=== PATIENT | male | born 1955 | race African-American/Black ===

== ENCOUNTER 2016-05-31 09:30 | Inpatient (IN) | payer BC ==
[2016-05-31] MEDS ORDERED: HEMOQUE TEST 1 EACH EACH ONE (09:47)
[2016-05-31] MEDS ORDERED: ASPIRIN 81 MG CHEWABLE TABLETS PO ONE (09:47)
[2016-05-31] MEDS ORDERED: ASPIRIN 81 MG CHEWABLE TABLETS ONE (09:51)
[2016-05-31 10:21] LABS: BASOPHIL 4.3 % (0-2.0); EOSINOPHIL 2.5 % (0-4.5); MCH 28.4 pg (25.7-33.7); MCHC 31.5 g/dl (32.0-35.9); MEAN CELL VOLUME 90.2 fl (80-96); MEAN PLT VOLUME 9.7 fl (7.5-11.1); NEUTROPHILS 63.7 % (42.8-82.8); PLATELET COUNT 162 K/MM3 (134-434); RDW 14.5 % (11.9-15.9)
--- NOTE | 2016-05-31 10:21 | PDOC ---
History of Present Illness - General Chief Complaint: Shortness of Breath Stated Complaint: SOB, CHEST TIGHTNESS Time Seen by Provider: 05/31/16 09:36 History Source: Patient, Spouse Exam Limitations: No Limitations - History of Present Illness Initial Comments: 05/31/16 10:16 CHIEF COMPLAINT: 1 week of chest discomfort and shortness of breath HISTORY OF PRESENT ILLNESS: This is a 60-year-old man with a history of hypertension, hyperlipidemia, cigarette smoking, and coronary artery disease status post 3 stents in the year 1999. Patient had a recent stress test about a week ago, a nuclear chemical stress test. He does not know the results of his test. Since that time, he has been having increasing shortness of breath, some leg edema, difficulty sleeping at night, has been sitting up in the chair, and also has frequent urination. He thinks this is related to his Lasix, 2 tablets in the morning and 1 in the evening. His chest pain is sometimes fairly constant and sometimes waxes and wanes or resolves. Currently, his chest pain is better but he did have chest discomfort in the left chest this morning. The chest discomfort is nonradiating. There is no diaphoresis or vomiting. REVIEW OF SYSTEMS: GENERAL/CONSTITUTIONAL: No fever or chills. No weakness. No weight change. HEAD, EYES, EARS, NOSE AND THROAT: No change in vision. No ear pain or discharge. No sore throat. CARDIOVASCULAR: Positive left chest discomfort, positive shortness of breath, history of coronary stents. RESPIRATORY: No cough, wheezing, or hemoptysis. GASTROINTESTINAL: No nausea, vomiting, diarrhea or constipation. Positive chronic rectal bleeding. Colonoscopy performed for workup of chronic rectal bleeding was negative other than internal hemorrhoids. GENITOURINARY: Positive frequent urination. No dysuria. Takes diuretics twice a day. MUSCULOSKELETAL: No joint or muscle swelling or pain. No neck or back pain. SKIN AND BREASTS: No rash or easy bruising. NEUROLOGIC: No headache, vertigo, loss of consciousness, or loss of sensation. PSYCHIATRIC: No depression or anxiety. ENDOCRINE: No increased thirst. No abnormal weight change. HEMATOLOGIC/LYMPHATIC: No anemia, easy bleeding, or history of blood clots. ALLERGIC/IMMUNOLOGIC: No hives or skin allergy. No latex allergy. Past History - Past Medical History Allergies/Adverse Reactions: Allergies Allergy/AdvReac Type Severity Reaction Status Date / Time No Known Allergies Allergy Verified 05/31/16 09:35 Home Medications: Ambulatory Orders Amlodipine Besylate 5 mg PO BID 05/31/16 Aspirin [Aspirin EC] 81 mg PO DAILY 05/31/16 Benazepril HCl 10 mg PO BID 05/31/16 Ezetimibe/Simvastatin [Vytorin 10-80 mg Tablet] 1 tab PO DAILY 05/31/16 Furosemide [Lasix] 40 mg PO BID 05/31/16 Metformin HCl [Glucophage] 1,000 mg PO BID 05/31/16 Methyldopa 250 mg PO TID 05/31/16 Metoprolol Succinate [Toprol Xl] 50 mg PO TID 05/31/16 [place]-3/Dha/Epa/Fish Oil [[place] 3 500 Softgel] 2 each PO DAILY 05/31/16 Potassium Chloride [K-Dur -] 20 meq PO DAILY 05/31/16 Cardiac Disorders: Yes (stents 1999) CHF: Yes Diabetes: Yes HTN: Yes Hypercholesterolemia: Yes - Surgical History Cardiac Surgery: Yes (STENTS) - Psycho/Social/Smoking Cessation Hx Anxiety: No Suicidal Ideation: No Smoking History: Current every day smoker Have you smoked in the past 12 months: Yes Number of Cigarettes Smoked Daily: 4 Information on smoking cessation initiated: Yes 'Breaking Loose' booklet given: 05/31/16 Hx Alcohol Use: Yes (occasional) Drug/Substance Use Hx: No Substance Use Type: None *Physical Exam - Vital Signs Last Vital Signs Temp Pulse Resp BP Pulse Ox 97.8 F 58 L 20 175/92 99 05/31/16 09:30 05/31/16 09:34 05/31/16 09:30 05/31/16 09:30 05/31/16 09:34 - Physical Exam Comments: 05/31/16 10:19 GENERAL: The patient is awake, alert, and fully oriented, in no acute distress. HEAD: Normal with no signs of trauma. EYES: Pupils equal, round and reactive to light, extraocular movements intact, sclera anicteric, conjunctiva clear. ENT: Ears normal, nares patent, oropharynx clear without exudates. Moist mucous membranes. NECK: Normal range of motion, supple without lymphadenopathy, JVD, or masses. No carotid bruits. LUNGS: Bilateral crackles in both lung bases, left greater than right. No expiratory wheezes. HEART: Regular rate and rhythm, normal S1 and S2 without murmur, rub or gallop. ABDOMEN: Soft, nontender, normoactive bowel sounds. No guarding, no rebound. No masses. EXTREMITIES: Positive mild pitting edema in both ankles. No clubbing or cyanosis. No cords or tenderness. NEUROLOGICAL: Cranial nerves II through XII grossly intact. Normal speech, normal gait. PSYCH: Normal mood, normal affect. SKIN: Warm, Dry, normal turgor, no rashes or lesions noted. 05/31/16 12:33 Rectal examination with no external or internal hemorrhoids. Stool is brown. No blood seen. Hemoccult testing sent to the lab. Heart Score/ECG Review - History History: Moderately suspicious - Electrocardiogram EKG: Non specific repolarization disturbance - Age Age: 45-65 - Risk Factors Risk Factors Heart Score: Yes Hx Hypercholesterolemia, Yes Hx Hypertension, Yes Hx Diabetes, Yes Smoking History, Yes Hx Obesity Based on the list above the patient has:: >/=3 risk factors or Hx atherosclerotic disease - Troponin Troponin: </= normal limit - Score Heart Score - Total: 5 - ECG Intrepretation Comment:: 05/31/16 10:21 Twelve-lead EKG was performed and then reviewed by me. The rhythm is sinus bradycardia at a rate of 54 bpm. There is a right bundle branch block and a left anterior fascicular block with left axis deviation. The QRS is widened. The DC interval is normal. The QT interval is normal. There are abnormal T waves in the inferior and lateral leads. The prior EKG of 06/04/2010, there is some pseudonormalization in the inferior leads. Impression: Abnormal EKG with bifascicular block, abnormal T waves with new changes. ED Treatment Course - LABORATORY CBC & Chemistry Diagram: 05/31/16 09:30 05/31/16 09:30 - RADIOLOGY Radiology Studies Ordered: Category Date Time Status CHEST X-RAY PORTABLE* [RAD] Stat Radiology 05/31/16 09:48 Completed - Medications Given in the ED: ED Medications Discontinued Medications Generic Name Dose Route Start Last Admin Trade Name Freq PRN Reason Stop Dose Admin Aspirin 324 mg 05/31/16 09:47 05/31/16 09:55 Asa - PO 05/31/16 09:48 324 mg ONCE ONE Administration Medical Decision Making - Medical Decision Making 05/31/16 10:23 Patient with history of multiple coronary risk factors and known coronary disease status post stents presents with increasing shortness of breath and intermittent chest pain over the past week. Concerns include CHF given the crackles on exam and the bilateral leg edema. Other concerns include acute coronary syndrome given the chest pain and shortness of breath. For workup ordered including EKG, labs, chest x-ray, cardiac enzymes, and BNP. Further plans pending results. 05/31/16 12:39 Laboratory Results - last 24 hr 05/31/16 05/31/16 05/31/16 09:30 09:30 09:30 WBC 8.0 RBC 2.56 L Hgb 7.3 L Hct 23.1 L MCV 90.2 MCHC 31.5 L RDW 14.5 Plt Count 162 MPV 9.7 Neutrophils % 63.7 Lymphocytes % 17.7 Monocytes % 11.8 H Eosinophils % 2.5 Basophils % 4.3 H INR 1.28 H Sodium 141 Potassium 5.0 Chloride 107 Carbon Dioxide 25 Anion Gap 9 BUN 33 H Creatinine 2.7 H Creat Clearance w eGFR 24.31 Random Glucose 189 H Calcium 8.1 L Magnesium 1.9 Total Bilirubin 1.2 H AST 34 ALT 27 Alkaline Phosphatase 48 Troponin I B-Natriuretic Peptide Total Protein 6.2 L Albumin 2.9 L Triglycerides Cholesterol Total LDL Cholesterol HDL Cholesterol Urine Color Urine Appearance Urine pH Ur Specific [place] Urine Protein Urine Glucose (UA) Urine Ketones Urine Blood Urine Nitrite Urine Bilirubin Urine Urobilinogen Ur Leukocyte Esterase Stool Occult Blood Blood Type Antibody Screen Crossmatch 05/31/16 05/31/16 05/31/16 09:30 09:30 09:30 WBC RBC Hgb Hct MCV MCHC RDW Plt Count MPV Neutrophils % Lymphocytes % Monocytes % Eosinophils % Basophils % INR Sodium Potassium Chloride Carbon Dioxide Anion Gap BUN Creatinine Creat Clearance w eGFR Random Glucose Calcium Magnesium Total Bilirubin AST ALT Alkaline Phosphatase Troponin I < 0.03 L B-Natriuretic Peptide 5143.45 H Total Protein Albumin Triglycerides 90 Cholesterol 107 Total LDL Cholesterol 54 HDL Cholesterol 35 Urine Color Urine Appearance Urine pH Ur Specific [place] Urine Protein Urine Glucose (UA) Urine Ketones Urine Blood Urine Nitrite Urine Bilirubin Urine Urobilinogen Ur Leukocyte Esterase Stool Occult Blood Blood Type Antibody Screen Crossmatch 05/31/16 05/31/16 05/31/16 10:29 10:30 11:00 WBC RBC Hgb Hct MCV MCHC RDW Plt Count MPV Neutrophils % Lymphocytes % Monocytes % Eosinophils % Basophils % INR Sodium Potassium Chloride Carbon Dioxide Anion Gap BUN Creatinine Creat Clearance w eGFR Random Glucose Calcium Magnesium Total Bilirubin AST ALT Alkaline Phosphatase Troponin I B-Natriuretic Peptide Total Protein Albumin Triglycerides Cholesterol Total LDL Cholesterol HDL Cholesterol Urine Color Urine Appearance Urine pH Ur Specific [place] Urine Protein Urine Glucose (UA) Urine Ketones Urine Blood Urine Nitrite Urine Bilirubin Urine Urobilinogen Ur Leukocyte Esterase Stool Occult Blood Negative Blood Type B POSITIVE B POSITIVE Antibody Screen Negative Crossmatch See Detail 05/31/16 12:20 WBC RBC Hgb Hct MCV MCHC RDW Plt Count MPV Neutrophils % Lymphocytes % Monocytes % Eosinophils % Basophils % INR Sodium Potassium Chloride Carbon Dioxide Anion Gap BUN Creatinine Creat Clearance w eGFR Random Glucose Calcium Magnesium Total Bilirubin AST ALT Alkaline Phosphatase Troponin I B-Natriuretic Peptide Total Protein Albumin Triglycerides Cholesterol Total LDL Cholesterol HDL Cholesterol Urine Color Yellow Urine Appearance Clear Urine pH 5.5 Ur Specific [place] 1.020 Urine Protein 2+ H Urine Glucose (UA) Negative Urine Ketones Negative Urine Blood 1+ H Urine Nitrite Negative Urine Bilirubin Negative Urine Urobilinogen 0.2 e.u/dl Ur Leukocyte Esterase Negative Stool Occult Blood Blood Type Antibody Screen Crossmatch CBC noted, severe normocytic anemia. Stool is without evidence of acute bleeding, brown stool without blood or melena. Patient will need admission for symptomatic anemia with both CHF and chest pain. First unit of packed cells has been ordered. Hospitalist service will admit the patient. Chemistries notable for abnormal renal function. Labs for many years ago were normal, recent baseline is unknown. Possible chronic kidney disease in the setting of hypertension and diabetes, but also possibly more acute. Patient to be treated for CHF and volume overload with monitoring of his BUN and creatinine. First troponin is negative. Chest pain likely related to anemia with demand ischemia. Doubt acute coronary thrombosis. *DC/Admit/Observation/Transfer Diagnosis at time of Disposition: Anemia Qualifiers: Anemia type: unspecified type Qualified Code(s): D64.9 - Anemia, unspecified Chest pain Qualifiers: Chest pain type: unspecified Qualified Code(s): R07.9 - Chest pain, unspecified Congestive heart failure Qualifiers: Congestive heart failure type: unspecified congestive heart failure type Congestive heart failure chronicity: acute Qualified Code(s): I50.9 - Heart failure, unspecified - Discharge Dispostion Condition at time of disposition: Stable Admit: Yes Decision to Admit order Date/Time: 05/31/16 11:49 Patient with shortness of breath, chest pain, anemia, to be admitted for transfusion and rule out ACS, treatment of CHF.
[2016-05-31 10:27] LABS: INR 1.28 (0.82-1.09); PROTHROMBIN TIME (PATIENT) 13.9 SEC (10.2-13.0)
[2016-05-31 10:32] LABS: ALBUMIN 2.9 g/dl (3.5-5.0); BILIRUBIN,TOTAL 1.2 mg/dl (0.2-1.0); CALCIUM 8.1 mg/dl (8.4-10.2); CREATININE 2.7 mg/dl (0.6-1.3); MAGNESIUM 1.9 mg/dL (1.8-2.4); TOT PROT 6.2 g/dl (6.4-8.3)
[2016-05-31 10:36] LABS: CHOLESTEROL 107 mg/dl
[2016-05-31] MEDS ORDERED: FUROSEMIDE 40 MG/4 ML INJECTABLE VIAL IVPB ONE (10:43)
[2016-05-31] MEDS ORDERED: FUROSEMIDE 40 MG/4 ML INJECTABLE VIAL ONE (10:47)
[2016-05-31 12:32] LABS: PH,URINE 5.5 (4.5-8); URINE APPEARANCE Clear; URINE BILIRUBIN Negative (NEGATIVE); URINE GLUCOSE (UA) Negative (NEGATIVE); URINE KETONE Negative (NEGATIVE); URINE LEUK ESTERASE Negative (NEGATIVE); URINE NITRITE Negative (NEGATIVE); URINE UROBILINOGEN 0.2 E.U/dl (0.2-1.0)
[2016-05-31 12:33] LABS: URINE BLOOD 1+ (NEGATIVE); URINE COLOR YELLOW; URINE PROTEIN 2+ (NEGATIVE)
[2016-05-31 12:53] VITALS: BMI 38.9
--- NOTE | 2016-05-31 13:01 | HP ---
CHIEF COMPLAINT: "My heart feels heavy" PCP: Iban Sood MD Cardiology: Giovanni Sood MD HISTORY OF PRESENT ILLNESS: This is a 60 year old male with PMHx of hypertension, hyperlipidemia, cigarette smoking, and coronary artery disease status post 3 stents in the year 1999 who presented to the ED with a dry mouth, left chest heaviness, and difficulty sleeping since he had a stress test on 05/22/16. The patient reports he sees Dr. Giovanni Sood (cardiology) and that he had a recent ECHO at the beginning of April and a persantine stress test on 05/22/16 for which he states the results were "normal". He states that since the stress test he has been feeling like his heart is heavy (unable to describe it further) and that he started taking Lasix at night and is unable to sleep now. He states he just started taking two Lasix pills in the morning and one at night and feels like he has a dry mouth. He denies nausea, vomiting, diarrhea, dizziness, syncope, abdominal pain. Off note, he states he has had rectal bleeding for 20 years and that he has had colonoscopies that have revealed internal hemorrhoids. Rectal exam by the ED physician did not reveal any blood. ER course was notable for: (1) temp 97.6, pulse 53, BP 149/68, O2 97% on 2L NC (2) Hgb 7.3, 1u PRBC ordered (3) Cr 2.7 Recent Travel: No Social History: Smokin cigarettes per day Alcohol: None Drugs: None Family History: Allergies No Known Allergies Allergy (Verified 05/31/16 09:35) HOME MEDICATIONS: Home Medications Medication Instructions Recorded Amlodipine Besylate 5 mg PO BID 05/31/16 Aspirin [Aspirin EC] 81 mg PO DAILY 05/31/16 Benazepril HCl 10 mg PO BID 05/31/16 Ezetimibe/Simvastatin [Vytorin 1 tab PO DAILY 05/31/16 10-80 mg Tablet] Furosemide [Lasix] 40 mg PO BID 05/31/16 Metformin HCl [Glucophage] 1,000 mg PO BID 05/31/16 Methyldopa 250 mg PO TID 05/31/16 Metoprolol Succinate [Toprol Xl] 50 mg PO TID 05/31/16 [place]-3/Dha/Epa/Fish Oil [[place] 3 2 each PO DAILY 05/31/16 500 Softgel] Potassium Chloride [K-Dur -] 20 meq PO DAILY 05/31/16 REVIEW OF SYSTEMS CONSTITUTIONAL: Absent: fever, chills, diaphoresis, generalized weakness, malaise, loss of appetite, weight change HEENT: Absent: rhinorrhea, nasal congestion, throat pain, throat swelling, difficulty swallowing, mouth swelling, ear pain, eye pain, visual changes CARDIOVASCULAR: Left sided heaviness in his chest since stress test on 05/22/16. Absent: chest pain, syncope, palpitations, irregular heart rate, lightheadedness , peripheral edema RESPIRATORY: Absent: cough, shortness of breath, dyspnea with exertion, orthopnea, wheezing, stridor, hemoptysis GASTROINTESTINAL: Rectal bleeding x20 years. Absent: abdominal pain, abdominal distension, nausea, vomiting, diarrhea, constipation, melena, hematochezia GENITOURINARY: Absent: dysuria, frequency, urgency, hesitancy, hematuria, flank pain, genital pain MUSCULOSKELETAL: Absent: myalgia, arthralgia, joint swelling, back pain, neck pain SKIN: Absent: rash, itching, pallor HEMATOLOGIC/IMMUNOLOGIC: Absent: easy bleeding, easy bruising, lymphadenopathy, frequent infections ENDOCRINE:Absent: unexplained weight gain, unexplained weight loss, heat intolerance, cold intolerance NEUROLOGIC: Absent: headache, focal weakness or paresthesias, dizziness, unsteady gait, seizure, mental status changes, bladder or bowel incontinence PSYCHIATRIC: Absent: anxiety, depression, suicidal or homicidal ideation, hallucinations. PHYSICAL EXAMINATION Vital Signs - 24 hr 05/31/16 12:47 Temperature 97.5 F L Pulse Rate 50 L Respiratory 20 Rate Blood Pressure 157/72 O2 Sat by Pulse 100 Oximetry (%) GENERAL: Awake, alert, and fully oriented, in no acute distress. Obese HEAD: Normal with no signs of trauma. EYES: Pupils equal, round and reactive to light, extraocular movements intact, sclera anicteric, conjunctiva clear. No lid lag. EARS, NOSE, THROAT: Ears normal, nares patent, oropharynx clear without exudates. Moist mucous membranes. NECK: Normal range of motion, supple without lymphadenopathy, JVD, or masses. LUNGS: Breath sounds equal, clear to auscultation bilaterally. No wheezes, and no crackles. No accessory muscle use. HEART: Regular rate and rhythm, normal S1 and S2 without murmur, rub or gallop. ABDOMEN: Soft, nontender, not distended, normoactive bowel sounds, no guarding, no rebound, no masses. No hepatomegaly or splenomegaly. MUSCULOSKELETAL: Normal range of motion at all joints. No bony deformities or tenderness. No CVA tenderness. UPPER EXTREMITIES: 2+ pulses, warm, well-perfused. No cyanosis. No clubbing. Cap refill <2 seconds. No peripheral edema. LOWER EXTREMITIES: 1-2+ b/l lower extremity pitting edema. 2+ pulses, warm, well -perfused. No calf tenderness. NEUROLOGICAL: Cranial nerves II-XII intact. Normal speech. Normal gait. PSYCHIATRIC: Cooperative. Good eye contact. Appropriate mood and affect. SKIN: Warm, dry, normal turgor, no rashes or lesions noted. CBCD WBC 8.0 K/mm3 (4.0-10.0) 05/31/16 09:30 RBC 2.56 M/mm3 (4.00-5.60) L 05/31/16 09:30 Hgb 7.3 GM/dl (11.7-16.9) L 05/31/16 09:30 Hct 23.1 % (35.4-49) L 05/31/16 09:30 MCV 90.2 fl (80-96) 05/31/16 09:30 MCHC 31.5 g/dl (32.0-35.9) L 05/31/16 09:30 RDW 14.5 % (11.9-15.9) 05/31/16 09:30 Plt Count 162 K/MM3 (134-434) 05/31/16 09:30 MPV 9.7 fl (7.5-11.1) 05/31/16 09:30 CMP Sodium 141 mmol/L (136-145) 05/31/16 09:30 Potassium 5.0 mmol/L (3.5-5.1) 05/31/16 09:30 Chloride 107 mmol/L (98-107) 05/31/16 09:30 Carbon Dioxide 25 mmol/L (22-28) 05/31/16 09:30 Anion Gap 9 (8-16) 05/31/16 09:30 BUN 33 mg/dl (7-18) H 05/31/16 09:30 Creatinine 2.7 mg/dl (0.6-1.3) H 05/31/16 09:30 Creat Clearance w eGFR 24.31 (>60) 05/31/16 09:30 Random Glucose 189 mg/dl (74-106) H 05/31/16 09:30 Calcium 8.1 mg/dl (8.4-10.2) L 05/31/16 09:30 Total Bilirubin 1.2 mg/dl (0.2-1.0) H 05/31/16 09:30 AST 34 U/L (10-42) 05/31/16 09:30 ALT 27 U/L (10-40) 05/31/16 09:30 Alkaline Phosphatase 48 U/L (32-92) 05/31/16 09:30 Total Protein 6.2 g/dl (6.4-8.3) L 05/31/16 09:30 Albumin 2.9 g/dl (3.5-5.0) L 05/31/16 09:30 CARDIAC ENZYMES Troponin I < 0.03 ng/ml (0.03-0.50) L 05/31/16 09:30 Assessment: This is a 60 year old male with PMHx of hypertension, hyperlipidemia , cigarette smoking, and coronary artery disease status post 3 stents in the year 1999 who presented to the ED with a dry mouth, left chest heaviness, and difficulty sleeping since he had a stress test on 05/22/16 Plan: 1) Heme: Anemia - 2/2 chronic disease vs. bleeding - Patient reports 20 years of rectal bleeding, colonoscopies in the past positive for internal hemorrhoids - Stool for occult blood negative - 1u PRBC ordered - F/u iron studies 2) Cardiology: Acute CHF exacerbation - F/u with Dr. Giovanni Sood's office for ECHO/stress test results from 04/2016, likely diastolic heart failure - Crackles on exam in ED, Lasix given, now lungs CTA bilaterally - B/l lower extremity pitting edema - Continue diuretics with close monitoring of renal function (dose based on exam ) - Strict I&O - Daily weight - F/u cardiology consult HTN - Hold Metoprolol and Methyldopa 2/2 bradycardia - Continue Norvasc CAD s/p stents (last one 1999) - Hold ASA 2/2 anemia 3) Renal: BETI on CKD? - 2+ protein on UA - F/u urine studies (FeUrea) - F/u renal ultrasound - Hold acei - F/u with pcp, Dr. Iban Sood to obtain recent labs performed 04/2016 - F/u nephrology consult 4) Endocrine: DM - BGM ACHS - ISS ACHS - Hold Metformin 2/2 BETI 5) F/E/N: - Diabetic/sodium controlled diet - Monitor electrolytes 6) Prophylaxis: - OOB ambulating - Hold all chemical anticoagulation 2/2 anemia - SCDs bilaterally - Nicotine patch: counselled on smoking cessation 7) Dispo: - Requires continued inpatient care CODE STATUS: FULL CODE Visit type - Emergency Visit Emergency Visit: Yes ED Registration Date: 05/31/16 Care time: The patient presented to the Emergency Department on the above date and was hospitalized for further evaluation of their emergent condition. - New Patient This patient is new to me today: Yes Date on this admission: 06/01/16 - Critical Care Critical Care patient: No
[2016-05-31] MEDS ORDERED: NICOTINE 7 MG/24 HOURS TOPICAL PATCH TD SCH (13:15)
[2016-05-31] MEDS ORDERED: METHYLDOPA 250 MG TABLET PO SCH (14:00)
[2016-05-31] MEDS ORDERED: METOPROLOL SUCCINATE 50 MG TAB.SR.24H (FP) PO SCH (14:00)
[2016-05-31] MEDS ORDERED: HEPARIN NA (PORCINE) 5,000 UNITS/ML 1ML VIAL SQ SCH (14:00)
[2016-05-31 14:28] LABS: URINE BACTERIA FEW /hpf (NEGATIVE); URINE WBC 0-2 (3-5)
--- NOTE | 2016-05-31 15:16 | CON.CARD ---
Consult Consult Specialty:: Cardiology Referred by:: Missy Hidalgo NP Reason for Consultation:: "CHF exacerbation" - History of Present Illness Chief Complaint: SOB, rectal bleeding History of Present Illness: 60 yo male smoker with HTN, hyperlipiemia, reported CAD with PCI in 1999 at [facility], who was admitted with dyspnea and chest heaviness which began ~ 2 weeks ago and underwent a nuclear stress test on 05/22/16 at his [employer] certified internetwork expert's office (Dr. Giovanni Sood, ). Patient is unaware of the results of that test, but reports that his "heart is enlarged." He also reports being told that his "kidneys were only working at 28%" by his [employer] certified internetwork expert and was taking furosemide 80 mg po bid but was reduced to 80 mg QAM and 40 mg QPM. He reports that he has hemorrhoids and has chronic bleeding over the past 20 years and reports having a colonoscopy ~ 1 year ago or so which was supposedly only showed internal hemorrhoids. However, patient reports that he has been having profuse rectal bleeding over the past week and was passing large blood clots. In ED patint was found to have Hgb 7.3, Cr 2.7, and elevated BNP of 5143. Patient was given furosemide 20 mg IV in the ED for suspected "CHF". Trop (-) x1 and ECG demonstrated sinus rhythm with bifascicular block and non-specific T wave abnormalities, but no change from 2011 ECG. Cardiology was consulted for evaluation of possible CHF. - History Source History Provided By: Patient, Significant Other () Limitations to Obtaining History: No Limitations - Past Medical History Cardio/Vascular: Yes: CAD (prior PCI in 1999), HTN, Hyperlipdemia Gastrointestinal: Yes: Hemorrhoids Hepatobiliary: Yes: Other (Reported "fatty liver") - Alcohol/Substance Use Hx Alcohol Use: Yes (occasional) History of Substance Use: reports: None - Smoking History Smoking history: Current every day smoker (now down to 3 cigarettes daily) Have you smoked in the past 12 months: Yes Aproximately how many cigarettes per day: 4 Home Medications - Allergies Allergies/Adverse Reactions: Allergies Allergy/AdvReac Type Severity Reaction Status Date / Time No Known Allergies Allergy Verified 05/31/16 09:35 - Home Medications Home Medications: Ambulatory Orders Amlodipine Besylate 5 mg PO BID 05/31/16 Aspirin [Aspirin EC] 81 mg PO DAILY 05/31/16 Benazepril HCl 10 mg PO BID 05/31/16 Ezetimibe/Simvastatin [Vytorin 10-80 mg Tablet] 1 tab PO DAILY 05/31/16 Furosemide [Lasix] 40 mg PO BID 05/31/16 Metformin HCl [Glucophage] 1,000 mg PO BID 05/31/16 Methyldopa 250 mg PO TID 05/31/16 Metoprolol Succinate [Toprol Xl] 50 mg PO TID 05/31/16 Ellington-3/Dha/Epa/Fish Oil [Ellington 3 500 Softgel] 2 each PO DAILY 05/31/16 Potassium Chloride [K-Dur -] 20 meq PO DAILY 05/31/16 Review of Systems - Review of Systems Constitutional: reports: Malaise Eyes: reports: No Symptoms HENT: reports: No Symptoms Neck: reports: No Symptoms Cardiovascular: reports: Shortness of Breath. denies: Palpitations Respiratory: reports: SOB on Exertion Gastrointestinal: reports: Rectal Bleeding Genitourinary: reports: No Symptoms Musculoskeletal: reports: No Symptoms Neurological: reports: No Symptoms Endocrine: reports: No Symptoms Hematology/Lymphatic: reports: No Symptoms Psychiatric: reports: No Symptoms Vital Signs: Vital Signs Temperature 97.8 F 05/31/16 13:35 Pulse Rate 53 L 05/31/16 13:35 Respiratory Rate 18 05/31/16 13:35 Blood Pressure 135/65 05/31/16 13:35 O2 Sat by Pulse Oximetry (%) 100 05/31/16 12:47 Constitutional: Yes: No Distress, Obese Eyes: Yes: Conjunctiva Clear, EOM Intact HENT: Yes: Atraumatic, Normocephalic Respiratory: Yes: CTA Bilaterally Gastrointestinal: Yes: Normal Bowel Sounds, Soft, Ascites, Distention Cardiovascular: Yes: Regular Rate and Rhythm JVD: No Carotid Bruit: No Heart Sounds: Yes: S1, S2 Murmur: No: Systolic Murmur Edema: No Peripheral Pulses WNL: Yes Neurological: Yes: Alert, Oriented, Cran Nerves II-XII Intact Psychiatric: Yes: WNL - Other Data Labs, Other Data: INR, PTT INR 1.28 (0.82-1.09) H 05/31/16 09:30 05/31/16 ECG: Sinus erick, rate 54 bpm, RBBB & LAFB (bifascicular block), non- specific T wave abnormalities. No significant change from 06/04/10 ECG. Imaging - Results Chest X-ray: Report Reviewed (05/31/16: Cardiomegaly, increased lung markings), Image Reviewed Assessment/Plan 60 yo male smoker with HTN, hyperlipiemia, reported CAD with PCI in 1999 at [facility]. Patient was admitted with dyspnea/chest heaviness x 2 weeks in the setting of profuse rectal bleeding & passing blood clots x ~ 1 week. In ED patient was found to have Hgb 7.3, Cr 2.7, and elevated BNP of 5143. Trop (-) x1. ECG demonstrated sinus rhythm with bifascicular block and non-specific T wave abnormalities, but no change from 2011 ECG. Cardiology was consulted for evaluation of possible CHF. Patient gives history of "enlarged heart" but denies any prior history of heart failure. He also reports being told that his "kidneys were only working at 28%" by his [employer] certified internetwork expert and was taking furosemide 80 mg po bid but was reduced to 80 mg QAM and 40 mg QPM by his [employer] certified internetwork expert (Dr. Giovanni Sood, ). Currently being transfused 1 unit PRBC Patient does not appear to be in grossly decompensated CHF. Elevated BNP in setting of significant renal failure is not diagnostic of CHF, and CXR and physicial exam were not suggestive of gross volume overload (at least at the time of my examination). Low suspicion for ACS at this time. Although some of his symptoms may be due to severe anemia in the setting of underlying CAD. RECS: Would refrain from further diuresis at this time as this may be the cause of his renal failure and patient does not appear volume overloaded at this time. Will order echocardiogram to assess LV function and structural heart disease. Will contact patient's [employer] certified internetwork expert tomorrow (Dr. Giovanni Sood, ) to clarify patient's cardiac/medical history and obtain recent stress test report. Transfuse with PRBCs as needed. Will also hold patient's aspirin given his reported profuse rectal bleeding and resulting severe anemia. Recommend GI and nephrology consultation.
[2016-05-31 16:44] LABS: CPK(DFH) 554 IU/L (38-174)
[2016-05-31 17:03] LABS: TROPONIN I (DFP) < 0.03 ng/ml (0.03-0.50)
--- NOTE | 2016-05-31 17:10 | CONSULT ---
Consult Consult Specialty:: Nephrology Reason for Consultation:: BETI - History of Present Illness Chief Complaint: shortness of breath and malaise History of Present Illness: Pt is a 60 year old male with pmhx of HTN, DM, CAD with stent, and hyperlipidemia who presents to the ER with increase shortness of breath and generalized malaise. He denies chest pain or palpitations. He was found to have elevated creatinine and I was called to evaluate him. He denies history of CKD. He denies NSAID use. He denies hematuria or dysuria. He does complain of frequent urination at night, however he does take a tablet of lasix at bedtime. He denied fevers or chills. - History Source History Provided By: Patient, Significant Other, Medical Record - Past Medical History Cardio/Vascular: Yes: CAD (prior PCI in 1999), HTN, Hyperlipdemia Gastrointestinal: Yes: Hemorrhoids Hepatobiliary: Yes: Other (Reported "fatty liver") Renal/: Yes: Renal Inusuff Endocrine: Yes: Diabetes Mellitus - Alcohol/Substance Use Hx Alcohol Use: Yes (occasional) History of Substance Use: reports: None - Smoking History Smoking history: Current every day smoker (now down to 3 cigarettes daily) Have you smoked in the past 12 months: Yes Aproximately how many cigarettes per day: 4 Home Medications - Allergies Allergies/Adverse Reactions: Allergies Allergy/AdvReac Type Severity Reaction Status Date / Time No Known Allergies Allergy Verified 05/31/16 09:35 - Home Medications Home Medications: Ambulatory Orders Amlodipine Besylate 5 mg PO BID 05/31/16 Aspirin [Aspirin EC] 81 mg PO DAILY 05/31/16 Benazepril HCl 10 mg PO BID 05/31/16 Ezetimibe/Simvastatin [Vytorin 10-80 mg Tablet] 1 tab PO DAILY 05/31/16 Furosemide [Lasix] 40 mg PO BID 05/31/16 Metformin HCl [Glucophage] 1,000 mg PO BID 05/31/16 Methyldopa 250 mg PO TID 05/31/16 Metoprolol Succinate [Toprol Xl] 50 mg PO TID 05/31/16 Wayan-3/Dha/Epa/Fish Oil [Wayan 3 500 Softgel] 2 each PO DAILY 05/31/16 Potassium Chloride [K-Dur -] 20 meq PO DAILY 05/31/16 Family Disease History - Family Disease History Family History: Denies Review of Systems - Review of Systems Constitutional: reports: Loss of Appetite, Malaise Eyes: reports: No Symptoms HENT: reports: No Symptoms Neck: reports: No Symptoms Cardiovascular: reports: Edema, Shortness of Breath Respiratory: reports: SOB, SOB on Exertion Gastrointestinal: reports: Rectal Bleeding Genitourinary: reports: No Symptoms. denies: Hematuria Musculoskeletal: reports: No Symptoms Integumentary: reports: No Symptoms Neurological: reports: No Symptoms Endocrine: reports: No Symptoms Hematology/Lymphatic: reports: No Symptoms Physical Exam Vital Signs: Vital Signs Temperature 97.8 F 05/31/16 13:35 Pulse Rate 53 L 05/31/16 13:35 Respiratory Rate 18 05/31/16 13:35 Blood Pressure 135/65 05/31/16 13:35 O2 Sat by Pulse Oximetry (%) 100 05/31/16 12:47 Constitutional: Yes: Calm Eyes: Yes: Conjunctiva Clear HENT: Yes: Atraumatic Neck: Yes: Supple Cardiovascular: Yes: S1, S2 Respiratory: Yes: On Nasal O2, Other (decreased at bases) Gastrointestinal: Yes: Soft Renal/: Yes: WNL Musculoskeletal: Yes: WNL Edema: Yes Edema: LLE: 1+, RLE: 1+ Neurological: Yes: Oriented Psychiatric: Yes: Oriented Labs: Laboratory Tests 06/03/10 06/04/10 06/05/10 16:00 06:00 06:00 WBC Hgb Plt Count Sodium Potassium Chloride Carbon Dioxide Anion Gap Creatinine 0.7 0.9 D 1.0 BUN Creat Clearance w eGFR Random Glucose Calcium Magnesium Troponin I B-Natriuretic Peptide Urine Color Urine Appearance Urine pH Ur Specific Nicolaus Urine Protein Urine Glucose (UA) Urine Ketones Urine Blood Urine Nitrite Urine Bilirubin Urine Urobilinogen Ur Leukocyte Esterase Stool Occult Blood 05/31/16 05/31/16 05/31/16 09:30 09:30 09:30 WBC 8.0 Hgb 7.3 L Plt Count 162 Sodium 141 Potassium 5.0 Chloride 107 Carbon Dioxide 25 Anion Gap 9 Creatinine 2.7 H BUN 33 H Creat Clearance w eGFR 24.31 Random Glucose 189 H Calcium 8.1 L Magnesium 1.9 Troponin I < 0.03 L B-Natriuretic Peptide Urine Color Urine Appearance Urine pH Ur Specific Nicolaus Urine Protein Urine Glucose (UA) Urine Ketones Urine Blood Urine Nitrite Urine Bilirubin Urine Urobilinogen Ur Leukocyte Esterase Stool Occult Blood 05/31/16 05/31/16 05/31/16 09:30 11:00 12:20 WBC Hgb Plt Count Sodium Potassium Chloride Carbon Dioxide Anion Gap Creatinine BUN Creat Clearance w eGFR Random Glucose Calcium Magnesium Troponin I B-Natriuretic Peptide 5143.45 H Urine Color Yellow Urine Appearance Clear Urine pH 5.5 Ur Specific Nicolaus 1.020 Urine Protein 2+ H Urine Glucose (UA) Negative Urine Ketones Negative Urine Blood 1+ H Urine Nitrite Negative Urine Bilirubin Negative Urine Urobilinogen 0.2 e.u/dl Ur Leukocyte Esterase Negative Stool Occult Blood Negative 05/31/16 16:00 WBC Hgb Plt Count Sodium Potassium Chloride Carbon Dioxide Anion Gap Creatinine BUN Creat Clearance w eGFR Random Glucose Calcium Magnesium Troponin I Pending B-Natriuretic Peptide Urine Color Urine Appearance Urine pH Ur Specific Nicolaus Urine Protein Urine Glucose (UA) Urine Ketones Urine Blood Urine Nitrite Urine Bilirubin Urine Urobilinogen Ur Leukocyte Esterase Stool Occult Blood Imaging - Results Chest X-ray: Report Reviewed Problem List - Problems (1) Anemia Code(s): D64.9 - ANEMIA, UNSPECIFIED Qualifiers: Anemia type: unspecified type Qualified Code(s): D64.9 - Anemia, unspecified (2) CHF (congestive heart failure) Code(s): I50.9 - HEART FAILURE, UNSPECIFIED Qualifiers: Congestive heart failure type: unspecified congestive heart failure type Congestive heart failure chronicity: acute Qualified Code(s): I50.9 - Heart failure, unspecified (3) Chest pain Code(s): R07.9 - CHEST PAIN, UNSPECIFIED Qualifiers: Chest pain type: unspecified Qualified Code(s): R07.9 - Chest pain, unspecified (4) Avulsion of skin Code(s): T14.8 - OTHER INJURY OF UNSPECIFIED BODY REGION (5) BETI (acute kidney injury) Code(s): N17.9 - ACUTE KIDNEY FAILURE, UNSPECIFIED Assessment/Plan Current Medications Generic Name Dose Route Start Last Admin Trade Name Freq PRN Reason Stop Dose Admin Amlodipine Besylate 5 mg 05/31/16 22:00 Norvasc - PO BID TOY Atorvastatin Calcium 40 mg 05/31/16 22:00 Lipitor - PO HS TOY Ezetimibe 10 mg 06/01/16 10:00 Zetia - PO DAILY TOY Nicotine 7 mg 05/31/16 13:15 05/31/16 14:10 Nicoderm Patch - TD 7 mg DAILY TOY Administration Yrmxa-1-Aadk Ethyl Esters 1 gm 06/01/16 10:00 Lovaza - PO BID TOY Impression 1. BETI vs CKD 2. anemia 3. CAD 4. HTN 5. DM 6. hyperlipidemia 7. active smoker 8. rectal bleed Plan - hold diuretics for now - get bladder scan to evaluate for retention - repeat albs in am - will order urine studies - norvasc can contribute to lower extremity edema - check echo - stop metformin - hold yong and potassium supplements for now - GI eval for rectal bleed - will follow
[2016-05-31 21:11] LABS: URINE APPEARANCE Clear; URINE BILIRUBIN Negative (NEGATIVE); URINE GLUCOSE (UA) Negative (NEGATIVE); URINE KETONE Negative (NEGATIVE); URINE LEUK ESTERASE Negative (NEGATIVE); URINE NITRITE Negative (NEGATIVE); URINE PROTEIN 3+ (NEGATIVE); URINE UROBILINOGEN 0.2 E.U/dl (0.2-1.0)
[2016-05-31 21:12] LABS: URINE BLOOD 1 (NEGATIVE); URINE COLOR YELLOW
[2016-05-31 21:18] LABS: URINE BACTERIA FEW /hpf (NEGATIVE); URINE WBC 0-2 (3-5)
[2016-05-31 21:56] LABS: CPK(DFH) 517 IU/L (38-174)
[2016-05-31] MEDS ORDERED: PATIENT'S OWN MEDICATION (NON-FORMULARY) (Benazepril Hcl [Benazepril Hcl] 10 MG) PO SCH (22:00)
[2016-05-31] MEDS ORDERED: amLODIPine BESYLATE 5 MG TABLET (FP) PO SCH (22:00)
[2016-05-31] MEDS ORDERED: ATORVASTATIN CA 40 MG TABLET (FP) PO SCH (22:00)
[2016-05-31 22:17] LABS: TROPONIN I (DFP) < 0.03 ng/ml (0.03-0.50)
[2016-05-31] MEDS: ATORVASTATIN CA 40 MG TABLET (FP) PO SCH (23:05)
[2016-05-31] MEDS: amLODIPine BESYLATE 5 MG TABLET (FP) PO SCH (23:05)
[2016-05-31] MEDS: OMEGA-3 ACID ETHYL ESTERS (FATTY-ACIDS) 1 GM CAPSULE (FP) PO SCH (23:06)
--- NOTE | 2016-05-31 23:47 | EKG ---
Test Reason : Blood Pressure : / mmHG Vent. Rate : 054 BPM Atrial Rate : 054 BPM P-R Int : 134 ms QRS Dur : 138 ms QT Int : 512 ms P-R-T Axes : 079 -64 -19 degrees QTc Int : 485 ms SINUS BRADYCARDIA RIGHT BUNDLE BRANCH BLOCK LEFT ANTERIOR FASCICULAR BLOCK BIFASCICULAR BLOCK T WAVE ABNORMALITY, CONSIDER LATERAL ISCHEMIA ABNORMAL ECG WHEN COMPARED WITH ECG OF 04-JUN-2010 12:07, NONSPECIFIC T WAVE ABNORMALITY HAS REPLACED INVERTED T WAVES IN INFERIOR LEADS Confirmed by SYLVESTER LI, ARNOLD ([id number]) on 05/31/2016 11:46:32 PM Referred By: NANDO CHAUHAN Confirmed By:ARNOLD PHAN MD
[2016-06-01] MEDS ORDERED: MAG HYDROX/AL HYDROX/SIMETH 355 ML ORAL.SUSP PO SCH
--- NOTE | 2016-06-01 07:21 | PN ---
Physical Exam: SUBJECTIVE: Patient seen and examined OBJECTIVE: Vital Signs Period Temp Pulse Resp BP Sys/Farrell Pulse Ox Last 24 Hr 97.5 F-98.5 F 50-73 18-24 135-182/63-85 95-100 GENERAL: The patient is awake, alert, and fully oriented, in no acute distress. HEAD: Normal with no signs of trauma. EYES: PERRL, extraocular movements intact, sclera anicteric, conjunctiva clear. No ptosis. ENT: Ears normal, nares patent, oropharynx clear without exudates, moist mucous membranes. NECK: Trachea midline, full range of motion, supple. LUNGS: Breath sounds equal, clear to auscultation bilaterally, no wheezes, no crackles, no accessory muscle use. HEART: Regular rate and rhythm, S1, S2 without murmur, rub or gallop. ABDOMEN: Soft, nontender, nondistended, normoactive bowel sounds, no guarding, no rebound, no hepatosplenomegaly, no masses. EXTREMITIES: 2+ pulses, warm, well-perfused, no edema. NEUROLOGICAL: Cranial nerves II through XII grossly intact. Normal speech, gait not observed. PSYCH: Normal mood, normal affect. SKIN: Warm, dry, normal turgor, no rashes or lesions noted Laboratory Results - last 24 hr 05/31/16 05/31/16 05/31/16 16:00 16:00 16:38 POC Glucometer 152 Ferritin Creatine Kinase 554 H CK-MB (CK-2) Cancelled CK-MB (CK-2) Rel Index 0.4 Troponin I < 0.03 L Vitamin B12 Urine Color Urine Appearance Urine pH Ur Specific Atkins Urine Protein Urine Glucose (UA) Urine Ketones Urine Blood Urine Nitrite Urine Bilirubin Urine Urobilinogen Ur Leukocyte Esterase Urine RBC Urine WBC Ur Epithelial Cells Amorphous Urates Urine Bacteria Ur Random Sodium Ur Random Potassium Ur Random Chloride Urine Creatinine 05/31/16 05/31/16 05/31/16 17:42 17:42 20:45 POC Glucometer Ferritin 16.412 Creatine Kinase CK-MB (CK-2) CK-MB (CK-2) Rel Index Troponin I Vitamin B12 618 Urine Color Urine Appearance Urine pH Ur Specific Atkins Urine Protein Urine Glucose (UA) Urine Ketones Urine Blood Urine Nitrite Urine Bilirubin Urine Urobilinogen Ur Leukocyte Esterase Urine RBC Urine WBC Ur Epithelial Cells Amorphous Urates Urine Bacteria Ur Random Sodium 66 Ur Random Potassium 24.8 Ur Random Chloride 66 Urine Creatinine 05/31/16 05/31/16 05/31/16 20:45 20:45 20:48 POC Glucometer 142 Ferritin Creatine Kinase CK-MB (CK-2) CK-MB (CK-2) Rel Index Troponin I Vitamin B12 Urine Color Yellow Urine Appearance Clear Urine pH 6.0 Ur Specific Atkins 1.025 Urine Protein 3+ H Urine Glucose (UA) Negative Urine Ketones Negative Urine Blood 1 H Urine Nitrite Negative Urine Bilirubin Negative Urine Urobilinogen 0.2 e.u/dl Ur Leukocyte Esterase Negative Urine RBC 5-10 Urine WBC 0-2 Ur Epithelial Cells Few Amorphous Urates Few Urine Bacteria Few Ur Random Sodium Ur Random Potassium Ur Random Chloride Urine Creatinine 117.3 05/31/16 05/31/16 06/01/16 21:30 21:30 06:23 POC Glucometer 137 Ferritin Creatine Kinase 517 H CK-MB (CK-2) Cancelled CK-MB (CK-2) Rel Index Troponin I < 0.03 L Vitamin B12 Urine Color Urine Appearance Urine pH Ur Specific Atkins Urine Protein Urine Glucose (UA) Urine Ketones Urine Blood Urine Nitrite Urine Bilirubin Urine Urobilinogen Ur Leukocyte Esterase Urine RBC Urine WBC Ur Epithelial Cells Amorphous Urates Urine Bacteria Ur Random Sodium Ur Random Potassium Ur Random Chloride Urine Creatinine Active Medications Generic Name Dose Route Start Last Admin Trade Name Alexandra PRN Reason Stop Dose Admin Al Hydroxide/Mg Hydroxide 30 ml 06/01/16 00:00 05/31/16 23:41 Mylanta Suspension - PO 30 ml Q6HPO TOY Administration Amlodipine Besylate 5 mg 05/31/16 22:00 05/31/16 23:05 Norvasc - PO 5 mg BID TOY Administration Atorvastatin Calcium 40 mg 05/31/16 22:00 05/31/16 23:05 Lipitor - PO 40 mg HS TOY Administration Ezetimibe 10 mg 06/01/16 10:00 Zetia - PO DAILY TOY Methyldopa 250 mg 06/01/16 07:30 Aldomet - PO TID TOY Nicotine 7 mg 06/01/16 10:00 Nicoderm Patch - TD DAILY TOY Yeadg-3-Vkrt Ethyl Esters 1 gm 05/31/16 22:00 05/31/16 23:06 Lovaza - PO 1 gm BID TOY Administration ASSESSMENT/PLAN:
--- NOTE | 2016-06-01 08:32 | PN ---
Progress Note, Physician History of Present Illness: No new complaints. - Current Medication List Current Medications: Active Medications Al Hydroxide/Mg Hydroxide (Mylanta Oral Suspension -) 30 ml PO Q6HPO [facility] Amlodipine Besylate (Norvasc -) 5 mg PO BID [facility] Last Admin: 05/31/16 23:05 Dose: 5 mg Atorvastatin Calcium (Lipitor -) 40 mg PO HS [facility] Last Admin: 05/31/16 23:05 Dose: 40 mg Ezetimibe (Zetia -) 10 mg PO DAILY [facility] Methyldopa (Aldomet -) 250 mg PO TID [facility] Nicotine (Nicoderm Patch -) 7 mg TD DAILY [facility] Vejcd-0-Ivez Ethyl Esters (Lovaza -) 1 gm PO BID [facility] Last Admin: 05/31/16 23:06 Dose: 1 gm - Objective Vital Signs: Vital Signs Temperature 98.3 F 06/01/16 06:00 Pulse Rate 61 06/01/16 06:00 Respiratory Rate 20 06/01/16 08:18 Blood Pressure 177/74 06/01/16 06:00 O2 Sat by Pulse Oximetry (%) 98 06/01/16 08:18 Constitutional: Yes: No Distress Eyes: Yes: Conjunctiva Clear, EOM Intact HENT: Yes: Atraumatic, Normocephalic Cardiovascular: Yes: Regular Rate and Rhythm. No: JVD, Murmur Respiratory: Yes: CTA Bilaterally Gastrointestinal: Yes: Normal Bowel Sounds, Soft. No: Tenderness Edema: No Neurological: Yes: Alert, Oriented, Cran Nerves II-XII Intact Psychiatric: Yes: WNL Labs: INR, PTT INR 1.28 (0.82-1.09) H 05/31/16 09:30 Assessment/Plan 60 yo male smoker with HTN, hyperlipiemia, reported CAD with PCI in 1999 at [facility]. Patient was admitted with dyspnea/chest heaviness x 2 weeks in the setting of profuse rectal bleeding & passing blood clots x ~ 1 week. In ED patient was found to have Hgb 7.3, Cr 2.7, and elevated BNP of 5143. Trop (-) x1. ECG demonstrated sinus rhythm with bifascicular block and non-specific T wave abnormalities, but no change from 2011 ECG. Cardiology was consulted for evaluation of possible CHF. Patient gives history of "enlarged heart" but denies any prior history of heart failure. He also reports being told that his "kidneys were only working at 28%" by his dye tank tender and was taking furosemide 80 mg po bid but was reduced to 80 mg QAM and 40 mg QPM by his dye tank tender (Dr. Giovanni Sood, ). Currently being transfused 1 unit PRBC Patient does not appear to be in grossly decompensated CHF. Elevated BNP in setting of significant renal failure is not diagnostic of CHF, and CXR and physicial exam were not suggestive of gross volume overload (at least at the time of my examination). Low suspicion for ACS at this time. Although some of his symptoms may be due to severe anemia in the setting of underlying CAD. RECS: Echo pending today to assess LV function and structural heart disease. Would defer further diuresis (at least until seen by nephrology) at this time as this may be the cause of his renal failure and patient does not appear volume overloaded at this time. Will contact patient's dye tank tender tomorrow (Dr. Giovanni Sood, ) to clarify patient's cardiac/medical history and obtain recent stress test report. Transfuse with PRBCs as needed. Holding patient's aspirin given his reported rectal bleeding and current severe anemia. Recommend GI and nephrology consultation. Labs this AM pending.
[2016-06-01] MEDS ORDERED: PT OWN MED DRAWER 7, Y5N ONE ×2 (08:51→21:39)
[2016-06-01] MEDS ORDERED: ASPIRIN COATED 81 MG TABLET.EC PO SCH (10:00)
[2016-06-01] MEDS ORDERED: OMEGA-3 ACID ETHYL ESTERS (FATTY-ACIDS) 1 GM CAPSULE (FP) PO SCH (10:00)
[2016-06-01] MEDS ORDERED: EZETIMIBE 10 MG TABLET (FP) PO SCH (10:00)
[2016-06-01 10:05] LABS: BASOPHIL 0.7 % (0-2.0); EOSINOPHIL 2.6 % (0-4.5); MCH 28.4 pg (25.7-33.7); MCHC 31.7 g/dl (32.0-35.9); MEAN CELL VOLUME 89.6 fl (80-96); MEAN PLT VOLUME 9.5 fl (7.5-11.1); NEUTROPHILS 73.6 % (42.8-82.8); PLATELET COUNT 155 K/MM3 (134-434); RDW 14.5 % (11.9-15.9); WHITE BLOOD COUNT 9.4 K/mm3 (4.0-10.0)
--- NOTE | 2016-06-01 10:13 | PN ---
Progress Note (short form) - Note Progress Note: Patient seen and consult dictated. patient is a 60 yo male with hx of rectal bleeding x years with prior EGD and colonoscopies in past (including last year) - revealed hemorrhoidal bleeding. Patient admitted with SOB and anemia and has received PRBCs and still has mild SOB. On exam has inflammed external hemorrhoids; likelyt source of bleeding/anemia. Also with CRI. Iron studies pending. Would suggest prn Anusol HC cream bid, Surgical eval re:hemorrhoid surgery and follow CBC. Defer repeat GI endoscopy at this time.
[2016-06-01 10:22] LABS: ALBUMIN 2.8 g/dl (3.5-5.0); BILIRUBIN,TOTAL 0.5 mg/dl (0.2-1.0); CALCIUM 7.8 mg/dl (8.4-10.2); CREATININE 2.4 mg/dl (0.6-1.3); PHOSPHOROUS 3.9 mg/dl (2.5-4.6); TOT PROT 5.9 g/dl (6.4-8.3)
[2016-06-01] MEDS: NICOTINE 7 MG/24 HOURS TOPICAL PATCH TD SCH (10:31)
[2016-06-01] MEDS: amLODIPine BESYLATE 5 MG TABLET (FP) PO SCH ×2 (10:31→21:59)
[2016-06-01] MEDS: HYDROCORTISONE 2.5% TOPICAL CREAM 30 GM TUBE TP SCH ×2 (10:31→21:58)
[2016-06-01] MEDS: OMEGA-3 ACID ETHYL ESTERS (FATTY-ACIDS) 1 GM CAPSULE (FP) PO SCH ×2 (10:31→21:59)
[2016-06-01] MEDS: EZETIMIBE 10 MG TABLET (FP) PO SCH (10:31)
[2016-06-01] MEDS: METHYLDOPA 250 MG TABLET PO SCH ×2 (10:40→21:58)
[2016-06-01] MEDS ORDERED: FUROSEMIDE 40 MG/4 ML INJECTABLE VIAL IVPB ONE (12:45)
--- NOTE | 2016-06-01 13:00 | PN ---
Progress Note, Physician History of Present Illness: Pt seen and examined at bedside. He is alert and awake. He still complains of rectal bleeding. He denies dysuria or hematuria. - Current Medication List Current Medications: Active Medications Al Hydroxide/Mg Hydroxide (Mylanta Oral Suspension -) 30 ml PO Q6HPO [facility] Amlodipine Besylate (Norvasc -) 5 mg PO BID [facility] Last Admin: 06/01/16 10:31 Dose: 5 mg Atorvastatin Calcium (Lipitor -) 40 mg PO HS [facility] Last Admin: 05/31/16 23:05 Dose: 40 mg Ezetimibe (Zetia -) 10 mg PO DAILY [facility] Last Admin: 06/01/16 10:31 Dose: 10 mg Hydrocortisone (Anusol 2.5% Hc Cream -) 1 applic TP BID [facility] Last Admin: 06/01/16 10:31 Dose: 1 applic Methyldopa (Aldomet -) 250 mg PO TID [facility] Last Admin: 06/01/16 10:40 Dose: 250 mg Nicotine (Nicoderm Patch -) 7 mg TD DAILY [facility] Last Admin: 06/01/16 10:31 Dose: 7 mg Cylsk-2-Umac Ethyl Esters (Lovaza -) 1 gm PO BID [facility] Last Admin: 06/01/16 10:31 Dose: 1 gm - Objective Vital Signs: Vital Signs Temperature 98.3 F 06/01/16 06:00 Pulse Rate 61 06/01/16 06:00 Respiratory Rate 20 06/01/16 08:18 Blood Pressure 177/74 06/01/16 06:00 O2 Sat by Pulse Oximetry (%) 98 06/01/16 08:18 Constitutional: Yes: Calm Eyes: Yes: Conjunctiva Clear HENT: Yes: Atraumatic Neck: Yes: Supple Cardiovascular: Yes: S1, S2 Respiratory: Yes: CTA Bilaterally Gastrointestinal: Yes: Soft, Abdomen, Obese Genitourinary: Yes: WNL Extremities: Yes: WNL Edema: Yes Edema: LLE: Trace, RLE: Trace Neurological: Yes: Oriented Psychiatric: Yes: Oriented Labs: CBC, BMP 06/01/16 09:21 06/01/16 09:21 INR, PTT INR 1.28 (0.82-1.09) H 05/31/16 09:30 Problem List - Problems (1) Anemia Code(s): D64.9 - ANEMIA, UNSPECIFIED Qualifiers: Anemia type: unspecified type Qualified Code(s): D64.9 - Anemia, unspecified (2) CHF (congestive heart failure) Code(s): I50.9 - HEART FAILURE, UNSPECIFIED Qualifiers: Congestive heart failure type: unspecified congestive heart failure type Congestive heart failure chronicity: acute Qualified Code(s): I50.9 - Heart failure, unspecified (3) Chest pain Code(s): R07.9 - CHEST PAIN, UNSPECIFIED Qualifiers: Chest pain type: unspecified Qualified Code(s): R07.9 - Chest pain, unspecified (4) Avulsion of skin Code(s): T14.8 - OTHER INJURY OF UNSPECIFIED BODY REGION (5) BETI (acute kidney injury) Code(s): N17.9 - ACUTE KIDNEY FAILURE, UNSPECIFIED Assessment/Plan Current Medications Generic Name Dose Route Start Last Admin Trade Name Freq PRN Reason Stop Dose Admin Al Hydroxide/Mg Hydroxide 30 ml 06/01/16 12:00 Mylanta Oral Suspension - PO Q6HPO TOY Amlodipine Besylate 5 mg 05/31/16 22:00 06/01/16 10:31 Norvasc - PO 5 mg BID TOY Administration Atorvastatin Calcium 40 mg 05/31/16 22:00 05/31/16 23:05 Lipitor - PO 40 mg HS TOY Administration Ezetimibe 10 mg 06/01/16 10:00 06/01/16 10:31 Zetia - PO 10 mg DAILY TOY Administration Hydrocortisone 1 applic 06/01/16 10:30 06/01/16 10:31 Anusol 2.5% Hc Cream - TP 1 applic BID TOY Administration Methyldopa 250 mg 06/01/16 10:45 06/01/16 10:40 Aldomet - PO 250 mg TID TOY Administration Nicotine 7 mg 06/01/16 10:00 06/01/16 10:31 Nicoderm Patch - TD 7 mg DAILY TOY Administration Fmrnz-4-Jutd Ethyl Esters 1 gm 05/31/16 22:00 06/01/16 10:31 Lovaza - PO 1 gm BID TOY Administration Impression 1. BETI vs CKD 2. anemia 3. CAD 4. HTN 5. DM 6. hyperlipidemia 7. active smoker 8. rectal bleed Plan - renal function is starting to improve - diuretics on hold - my need lasix if he gets more prbc - repeat labs in am - follow up ultrasound - it appears as pt my have history of CKD, in process of obtaining outpt records - will order urine studies - norvasc can contribute to lower extremity edema - check echo - stop metformin - hold yong and potassium supplements for now - GI eval appreciated - will follow
--- NOTE | 2016-06-01 14:00 | PN ---
[id number] OBJECTIVE: patient is a 60 year old male with PMHx of hypertension, hyperlipidemia, cigarette smoking, and coronary artery disease status post 3 stents (1999). patient was admitted from the emergency department for emergent condition Vital Signs Period Temp Pulse Resp BP Sys/Farrell Pulse Ox Last 24 Hr 98.1 F-98.5 F 58-73 18-24 156-182/63-85 95-98 GENERAL: The patient is awake, alert, and fully oriented, in no acute distress. HEAD: Normal with no signs of trauma. EYES: PERRL, extraocular movements intact, sclera anicteric, conjunctiva clear. No ptosis. ENT: Ears normal, nares patent, oropharynx clear without exudates, moist mucous membranes. NECK: Trachea midline, full range of motion, supple. LUNGS: Breath sounds equal, clear to auscultation bilaterally, no wheezes, no crackles, no accessory muscle use. HEART: Regular rate and rhythm, S1, S2, 3/6 systolic murmur, rub or gallop. ABDOMEN: Soft, nontender, nondistended, normoactive bowel sounds, no guarding, no rebound, no hepatosplenomegaly, no masses. EXTREMITIES: 2+ pulses, warm, well-perfused, no edema. NEUROLOGICAL: Cranial nerves II through XII grossly intact. Normal speech, gait not observed. PSYCH: Normal mood, normal affect. SKIN: Warm, dry, normal turgor, no rashes or lesions noted Laboratory Results - last 24 hr 06/01/16 06/01/16 09:21 09:21 WBC 9.4 RBC 2.80 L Hgb 7.9 L Hct 25.0 L MCV 89.6 MCHC 31.7 L RDW 14.5 Plt Count 155 MPV 9.5 Neutrophils % 73.6 Lymphocytes % 13.9 D Monocytes % 9.2 Eosinophils % 2.6 Basophils % 0.7 Sodium 141 Potassium 4.0 Chloride 107 Carbon Dioxide 25 Anion Gap 9 BUN 29 H Creatinine 2.4 H Creat Clearance w eGFR 27.85 POC Glucometer Random Glucose 128 H D Calcium 7.8 L Phosphorus 3.9 Magnesium 2.0 Ferritin Total Bilirubin 0.5 D AST 18 D ALT 22 Alkaline Phosphatase 48 Creatine Kinase CK-MB (CK-2) CK-MB (CK-2) Rel Index Troponin I Total Protein 5.9 L Albumin 2.8 L Vitamin B12 Urine Color Urine Appearance Urine pH Ur Specific [place] Urine Protein Urine Glucose (UA) Urine Ketones Urine Blood Urine Nitrite Urine Bilirubin Urine Urobilinogen Ur Leukocyte Esterase Urine RBC Urine WBC Ur Epithelial Cells Amorphous Urates Urine Bacteria Ur Random Sodium Ur Random Potassium Ur Random Chloride Urine Creatinine Active Medications Generic Name Dose Route Start Last Admin Trade Name Freq PRN Reason Stop Dose Admin Al Hydroxide/Mg Hydroxide 30 ml 06/01/16 12:00 Mylanta Oral Suspension - PO Q6HPO TOY Amlodipine Besylate 5 mg 05/31/16 22:00 06/01/16 10:31 Norvasc - PO 5 mg BID TOY Administration Atorvastatin Calcium 40 mg 05/31/16 22:00 05/31/16 23:05 Lipitor - PO 40 mg HS TOY Administration Ezetimibe 10 mg 06/01/16 10:00 06/01/16 10:31 Zetia - PO 10 mg DAILY TOY Administration Hydrocortisone 1 applic 06/01/16 10:30 06/01/16 10:31 Anusol 2.5% Hc Cream - TP 1 applic BID TOY Administration Methyldopa 250 mg 06/01/16 10:45 06/01/16 10:40 Aldomet - PO 250 mg TID TOY Administration Nicotine 7 mg 06/01/16 10:00 06/01/16 10:31 Nicoderm Patch - TD 7 mg DAILY TOY Administration Nvfel-0-Dfvl Ethyl Esters 1 gm 05/31/16 22:00 06/01/16 10:31 Lovaza - PO 1 gm BID TOY Administration Microbiology 05/31/16 12:20 Urine - Urine Clean Catch Urine Culture - Final NO GROWTH OBTAINED IMAGING ECHO, GRADE 2 DIASTOLIC DYSFUNCTION MODERATE lvef 60-65% ASSESSMENT/PLAN: 1) Heme: normocytic anemia - likely secondary to chronic disease versus lower GI bleeding - patient reports a past medical history the past 20 years of rectal bleeding, several colonoscopies completed in the past for internal hemorrhoids last colonoscopy was 2016 - External nonthrombosed hemorrhoid noted on exam, appreciate surgery input - hemoglobin 7.9, patient has a past medical history of coronary artery disease , will transfuse 1 unit of packed red blood cells received first unit on 2015 - Pending iron studies - 2) Cardiology: diastolic congestive heart failure - reports received from Dr. Sood's office, Persantine stress test 05/21/2016 , normal EKG stress tests normal LV SF, low risk myocardial perfusion scan positive for ischemic dilated cardiomyopathy with old inferior myocardial infarction with no residual ischemia - Lasix 20 mg IV 1 ordered after unit of packed red blood cells, strict monitoring of renal function - Strict I&O - Daily weight HTN - Hold Metoprolol secondary to bradycardia - Continue Norvasc and methyldopa CAD s/p stents (1999) - Continue ASA 3) Renal: BETI on CKD - 2+ protein on UA - F/u urine studies (FeUrea) - renal/pelvic ultrasound review April 2015 IR renal cysts no postvoid residual noted - Creatinine 2.4 baseline 2.2 (04/10) - nephrology consulted and followed 4) Endocrine: DM - BGM ACHS - ISS ACHS - Hold Metformin 2/2 BETI 5) F/E/N: - Diabetic/sodium controlled diet - Monitor electrolytes 6) Prophylaxis: - OOB ambulating - Hold all chemical anticoagulation 2/2 anemia - SCDs bilaterally - Nicotine patch: counselled on smoking cessation 7) Dispo: - Requires continued inpatient care CODE STATUS: FULL CODE Visit type - Emergency Visit Emergency Visit: Yes ED Registration Date: 05/31/16 Care time: The patient presented to the Emergency Department on the above date and was hospitalized for further evaluation of their emergent condition. - New Patient This patient is new to me today: Yes Date on this admission: 06/01/16 - Critical Care Critical Care patient: No - Discharge Referral Referred to [facility] Med P.C.: No
[2016-06-01] MEDS ORDERED: FUROSEMIDE 40 MG/4 ML INJECTABLE VIAL ONE (15:27)
--- NOTE | 2016-06-01 20:39 | CONS ---
DATE OF CONSULTATION: DATE OF DICTATION: 06/01/2016 Asked to evaluate this 60-year-old gentleman admitted with anemia and history of rectal bleeding. The patient is a 60-year-old gentleman with a history of hypertension, hyperlipidemia, coronary artery disease status post stenting in the past, admitted with some shortness of breath over the past 1 to 2 weeks. The patient also has a history of intermittent rectal bleeding, occasionally with discomfort, and has had prior colonoscopies notable for internal hemorrhoids. In addition, the patient has had upper endoscopies as well. At the time of admission, his hemoglobin was 7.3. The patient denied any abdominal pain and, as mentioned, had the significant shortness of breath. His hematocrit was 23.1, MCV of 90.2, and white count of 8.0. He had an INR of 1.28 and his chemistry included a BUN of 33 and a creatinine 2.7. His iron studies are pending. PHYSICAL EXAMINATION: General: The patient is a well-developed overweight gentleman appearing mildly short of breath at rest. He has no chest pain at the present time. He has received packed red blood cells. Lungs: His lungs are notable for grossly clear bilaterally. Cardiac: Regular rate and rhythm. Abdomen: Soft, moderately obese, nontender. Rectal: Inflamed hemorrhoids at the anal verge. One of the hemorrhoids appears bright red. A 60-year-old gentleman with known cardiac disease, admitted with shortness of breath and significant anemia. The patient has had intermittent lower GI bleeding for an extended period of time with prior GI workup including upper and lower GI endoscopies, noted to have hemorrhoids in the past and the patient does admit to significant bright red blood per rectum on a fairly regular basis. At the present time, would agree with transfusing the patient in view of his shortness of breath and the patient should be considered for elective hemorrhoid surgery in the near future. Would defer repeat endoscopy at the present time in view of his clinical status and prior GI endoscopies. Will follow as needed. MARIA G SCHREIBER M.D. FABBY/[id number]
[2016-06-01] MEDS: ATORVASTATIN CA 40 MG TABLET (FP) PO SCH (21:58)
[2016-06-01] MEDS: MAG HYDROX/AL HYDROX/SIMETH 30 ML UNIT-DOSE CUP PO SCH (23:18)
[2016-06-02] MEDS ORDERED: PT OWN MED DRAWER 7, Y5N ONE ×3 (06:40→21:10)
[2016-06-02] MEDS: MAG HYDROX/AL HYDROX/SIMETH 30 ML UNIT-DOSE CUP PO SCH ×3 (06:48→19:41)
[2016-06-02] MEDS: METHYLDOPA 250 MG TABLET PO SCH ×4 (06:48→21:31)
[2016-06-02 08:07] LABS: SERUM IRON 36 ug/dL (38-169); TOTAL IRON BINDING CAPACITY 310 ug/dL (250-450); UIBC 274 ug/dL (111-343)
[2016-06-02] MEDS: EZETIMIBE 10 MG TABLET (FP) PO SCH (09:22)
[2016-06-02] MEDS: amLODIPine BESYLATE 5 MG TABLET (FP) PO SCH ×2 (09:22→21:30)
[2016-06-02] MEDS: NICOTINE 7 MG/24 HOURS TOPICAL PATCH TD SCH (09:22)
[2016-06-02] MEDS: OMEGA-3 ACID ETHYL ESTERS (FATTY-ACIDS) 1 GM CAPSULE (FP) PO SCH ×2 (09:22→21:30)
[2016-06-02] MEDS: HYDROCORTISONE 2.5% TOPICAL CREAM 30 GM TUBE TP SCH ×3 (09:23→21:30)
--- NOTE | 2016-06-02 09:51 | PN ---
[id number]: patient is a 60 year old male with PMHx of hypertension, hyperlipidemia, cigarette smoking, and coronary artery disease status post 3 stents (1999). patient was admitted from the emergency department for emergent condition Vital Signs Period Temp Pulse Resp BP Sys/Farrell Pulse Ox Last 24 Hr 98.1 F-98.9 F 67-84 19-20 158-172/68-89 95-99 GENERAL: The patient is awake, alert, and fully oriented, in no acute distress. HEAD: Normal with no signs of trauma. EYES: PERRL, extraocular movements intact, sclera anicteric, conjunctiva clear. No ptosis. ENT: Ears normal, nares patent, oropharynx clear without exudates, moist mucous membranes. NECK: Trachea midline, full range of motion, supple. LUNGS: Breath sounds equal, clear to auscultation bilaterally, no wheezes, no crackles, no accessory muscle use. HEART: Regular rate and rhythm, S1, S2 without murmur, rub or gallop. ABDOMEN: Soft, nontender, nondistended, normoactive bowel sounds, no guarding, no rebound, no hepatosplenomegaly, no masses. EXTREMITIES: 2+ pulses, warm, well-perfused, +1 trace edema NEUROLOGICAL: Cranial nerves II through XII grossly intact. Normal speech, gait not observed. PSYCH: Normal mood, normal affect. SKIN: Warm, dry, normal turgor, no rashes or lesions noted Laboratory Results - last 24 hr 05/31/16 05/31/16 06/01/16 15:30 17:42 09:21 WBC 9.4 RBC 2.80 L Hgb 7.9 L Hct 25.0 L MCV 89.6 MCHC 31.7 L RDW 14.5 Plt Count 155 MPV 9.5 Neutrophils % 73.6 Lymphocytes % 13.9 D Monocytes % 9.2 Eosinophils % 2.6 Basophils % 0.7 Sodium Potassium Chloride Carbon Dioxide Anion Gap BUN Creatinine Creat Clearance w eGFR POC Glucometer Random Glucose Calcium Phosphorus Magnesium Iron 36 L TIBC 310 Iron Saturation 12 L Total Bilirubin AST ALT Alkaline Phosphatase Creatine Kinase Cancelled Troponin I Cancelled Total Protein Albumin 06/01/16 06/01/16 06/02/16 09:21 23:14 06:47 WBC RBC Hgb Hct MCV MCHC RDW Plt Count MPV Neutrophils % Lymphocytes % Monocytes % Eosinophils % Basophils % Sodium 141 Potassium 4.0 Chloride 107 Carbon Dioxide 25 Anion Gap 9 BUN 29 H Creatinine 2.4 H Creat Clearance w eGFR 27.85 POC Glucometer 105 125 Random Glucose 128 H D Calcium 7.8 L Phosphorus 3.9 Magnesium 2.0 Iron TIBC Iron Saturation Total Bilirubin 0.5 D AST 18 D ALT 22 Alkaline Phosphatase 48 Creatine Kinase Troponin I Total Protein 5.9 L Albumin 2.8 L Active Medications Generic Name Dose Route Start Last Admin Trade Name Alexandra PRN Reason Stop Dose Admin Al Hydroxide/Mg Hydroxide 30 ml 06/01/16 12:00 06/02/16 06:48 Mylanta Oral Suspension - PO 30 ml Q6HPO TOY Administration Amlodipine Besylate 5 mg 05/31/16 22:00 06/02/16 09:22 Norvasc - PO 5 mg BID TOY Administration Atorvastatin Calcium 40 mg 05/31/16 22:00 06/01/16 21:58 Lipitor - PO 40 mg HS TOY Administration Ezetimibe 10 mg 06/01/16 10:00 06/02/16 09:22 Zetia - PO 10 mg DAILY TOY Administration Hydrocortisone 1 applic 06/01/16 10:30 06/02/16 09:23 Anusol 2.5% Hc Cream - TP 1 applic BID TOY Administration Methyldopa 250 mg 06/01/16 10:45 06/02/16 06:48 Aldomet - PO 250 mg TID TOY Administration Metoprolol Tartrate 50 mg 06/02/16 11:00 06/02/16 12:09 Lopressor - PO 50 mg BID TOY Administration Nicotine 7 mg 06/01/16 10:00 06/02/16 09:22 Nicoderm Patch - TD 7 mg DAILY TOY Administration Yqjsx-3-Ebsd Ethyl Esters 1 gm 05/31/16 22:00 06/02/16 09:22 Lovaza - PO 1 gm BID TOY Administration Microbiology 05/31/16 12:20 Urine - Urine Clean Catch Urine Culture - Final NO GROWTH OBTAINED IMAGING ECHO, GRADE 2 DIASTOLIC DYSFUNCTION MODERATE lvef 60-65% Persantine stress test 05/21/2016, normal EKG stress tests normal LV SF, low risk myocardial perfusion scan positive for ischemic dilated cardiomyopathy with old inferior myocardial infarction with no residual ischemia ASSESSMENT/PLAN: 1) Heme: normocytic anemia - likely secondary to chronic disease versus lower GI bleeding - reports 2 episodes of bright red bleeding per rectum, case discussed with Dr. Eng, GI, pending colonoscopy tomorrow a.m., clear liquid diet and golyetly ordered. - case discussed with Dr Ventura, appreciate colorectal surgery input - total of 2 units of PRBC given last transfusion, 06/01/2016, pending and labs 2) Cardiology: diastolic congestive heart failure - Lasix 20 mg IV given yesterday patient appears euvolemic on exam, - Strict I&O - Daily weight HTN - blood pressure noted to be elevated restart metoprolol, home dose - Continue Norvasc and methyldopa CAD s/p stents (1999) - Continue ASA cardiology consulted and following 3) Renal: BETI on CKD - renal/pelvic ultrasound review April 2015 renal cysts noted no postvoid residual noted - Creatinine 2.4 baseline 2.2 (04/10) - nephrology consulted and followed 4) Endocrine: DM - BGM ACHS - ISS ACHS - Hold Metformin 2/2 BETI 5) F/E/N: - Diabetic/sodium controlled diet - Monitor electrolytes 6) Prophylaxis: - OOB ambulating - Hold all chemical anticoagulation 2/2 anemia - SCDs bilaterally - Nicotine patch: counselled on smoking cessation 7) Dispo: - Requires continued inpatient care CODE STATUS: FULL CODE Visit type - Emergency Visit Emergency Visit: Yes ED Registration Date: 05/31/16 Care time: The patient presented to the Emergency Department on the above date and was hospitalized for further evaluation of their emergent condition. - New Patient This patient is new to me today: No - Critical Care Critical Care patient: No - Discharge Referral Referred to [facility] Med P.C.: No
--- NOTE | 2016-06-02 11:46 | CONSULT ---
Consult - text type - Consultation Consultation Note: CARDIOLOGY NO CHEST PAIN. NO DYSPNEA AT REST. MEDICATIONS REVIEWED. APPEARS WELL HEART RATE 60/M BLOOD PRESSURE 168 /85 RR 16/MINUTE NO JVD. CLEAR LUNG SANCHEZ. NO RALES NO WHEEZE. NO DULLNESS TO PERCUSSION. DISTANT HEART SOUNDS. NO GALLOP. NO MURMUR AUDIBLE "THICK" ANKLES. NO SIGNIFICANT PITTING EDEMA. ECG MONITOR SINUS RHYTHM BUN 24 CREAT 2.4 TROPONIN NEGATIVE. WORKING DX: ATHEROSCLEROTIC - HYPERTENSIVE HEART DISEASE, STABLE. NO EVIDENCE OF ACUTE MYOCARDIAL ISCHEMIA/INFARCTION. AZOTEMIA IN PART DUE TO DIURETIC THERAPY. HYPERTENSION DESPITE PRESENT MEDS. NO CONTRA INDICATION TO COLONOSCOPY IF FELT TO BE REQUIRED. REC: DISCONTINUE TELEMETRY. PA AND LATERAL STANDING CHEST X RAY. ADDITIONAL ANTI HYPERTENSIVE MEDS DEPENDANT ON FOLLOW UP BLOOD PRESSURE LEVELS, RENAL FUNCTION.
[2016-06-02] MEDS: METOPROLOL TARTRATE 50 MG TABLET (FP) PO SCH ×2 (12:09→21:29)
[2016-06-02 13:23] LABS: BASOPHIL 0.4 % (0-2.0); EOSINOPHIL 2.8 % (0-4.5); MCH 28.4 pg (25.7-33.7); MCHC 31.9 g/dl (32.0-35.9); MEAN CELL VOLUME 89.2 fl (80-96); MEAN PLT VOLUME 9.3 fl (7.5-11.1); NEUTROPHILS 70.2 % (42.8-82.8); PLATELET COUNT 166 K/MM3 (134-434); RDW 14.4 % (11.9-15.9); WHITE BLOOD COUNT 8.1 K/mm3 (4.0-10.0)
[2016-06-02 13:33] LABS: CREATININE 2.6 mg/dl (0.6-1.3)
[2016-06-02] MEDS ORDERED: PEG/ELECTROLYTES (NULYTELY) 4,000 ML BOTTLE PO ONE (13:45)
--- NOTE | 2016-06-02 16:29 | PN ---
Progress Note, Physician History of Present Illness: Pt seen and examined at bedside. He denies dysuria or heamturia. He complains of rectal bleeding. - Current Medication List Current Medications: Active Medications Al Hydroxide/Mg Hydroxide (Mylanta Oral Suspension -) 30 ml PO Q6HPO [facility] Last Admin: 06/02/16 06:48 Dose: 30 ml Amlodipine Besylate (Norvasc -) 5 mg PO BID [facility] Last Admin: 06/02/16 09:22 Dose: 5 mg Atorvastatin Calcium (Lipitor -) 40 mg PO HS [facility] Last Admin: 06/01/16 21:58 Dose: 40 mg Ezetimibe (Zetia -) 10 mg PO DAILY [facility] Last Admin: 06/02/16 09:22 Dose: 10 mg Hydrocortisone (Anusol 2.5% Hc Cream -) 1 applic TP BID [facility] Last Admin: 06/02/16 09:23 Dose: 1 applic Methyldopa (Aldomet -) 250 mg PO TID [facility] Last Admin: 06/02/16 06:48 Dose: 250 mg Metoprolol Tartrate (Lopressor -) 50 mg PO BID [facility] Last Admin: 06/02/16 12:09 Dose: 50 mg Nicotine (Nicoderm Patch -) 7 mg TD DAILY [facility] Last Admin: 06/02/16 09:22 Dose: 7 mg Vtiki-2-Prjg Ethyl Esters (Lovaza -) 1 gm PO BID [facility] Last Admin: 06/02/16 09:22 Dose: 1 gm - Objective Vital Signs: Vital Signs Temperature 98.5 F 06/02/16 14:03 Pulse Rate 81 06/02/16 14:03 Respiratory Rate 20 06/02/16 14:03 Blood Pressure 160/85 06/02/16 14:03 O2 Sat by Pulse Oximetry (%) 95 06/02/16 09:00 Constitutional: Yes: Calm Eyes: Yes: Conjunctiva Clear HENT: Yes: Atraumatic Neck: Yes: Supple Cardiovascular: Yes: S1, S2 Respiratory: Yes: On Nasal O2 Gastrointestinal: Yes: Soft Genitourinary: Yes: WNL Musculoskeletal: Yes: WNL Edema: Yes Edema: LLE: 1+, RLE: 1+ Neurological: Yes: Oriented Psychiatric: Yes: Oriented Labs: CBC, BMP 06/02/16 10:50 06/02/16 Unknown INR, PTT INR 1.28 (0.82-1.09) H 05/31/16 09:30 Problem List - Problems (1) Anemia Code(s): D64.9 - ANEMIA, UNSPECIFIED Qualifiers: Anemia type: unspecified type Qualified Code(s): D64.9 - Anemia, unspecified (2) CHF (congestive heart failure) Code(s): I50.9 - HEART FAILURE, UNSPECIFIED Qualifiers: Congestive heart failure type: unspecified congestive heart failure type Congestive heart failure chronicity: acute Qualified Code(s): I50.9 - Heart failure, unspecified (3) Chest pain Code(s): R07.9 - CHEST PAIN, UNSPECIFIED Qualifiers: Chest pain type: unspecified Qualified Code(s): R07.9 - Chest pain, unspecified (4) Avulsion of skin Code(s): T14.8 - OTHER INJURY OF UNSPECIFIED BODY REGION (5) BETI (acute kidney injury) Code(s): N17.9 - ACUTE KIDNEY FAILURE, UNSPECIFIED Assessment/Plan Current Medications Generic Name Dose Route Start Last Admin Trade Name Elenoq PRN Reason Stop Dose Admin Al Hydroxide/Mg Hydroxide 30 ml 06/01/16 12:00 06/02/16 06:48 Mylanta Oral Suspension - PO 30 ml Q6HPO TOY Administration Amlodipine Besylate 5 mg 05/31/16 22:00 06/02/16 09:22 Norvasc - PO 5 mg BID TOY Administration Atorvastatin Calcium 40 mg 05/31/16 22:00 06/01/16 21:58 Lipitor - PO 40 mg HS TOY Administration Ezetimibe 10 mg 06/01/16 10:00 06/02/16 09:22 Zetia - PO 10 mg DAILY TOY Administration Hydrocortisone 1 applic 06/01/16 10:30 06/02/16 09:23 Anusol 2.5% Hc Cream - TP 1 applic BID TOY Administration Methyldopa 250 mg 06/01/16 10:45 06/02/16 06:48 Aldomet - PO 250 mg TID TOY Administration Metoprolol Tartrate 50 mg 06/02/16 11:00 06/02/16 12:09 Lopressor - PO 50 mg BID TOY Administration Nicotine 7 mg 06/01/16 10:00 06/02/16 09:22 Nicoderm Patch - TD 7 mg DAILY TOY Administration Aqwkd-2-Tfxh Ethyl Esters 1 gm 05/31/16 22:00 06/02/16 09:22 Lovaza - PO 1 gm BID TOY Administration Impression 1. CKD 2. anemia 3. CAD 4. HTN 5. DM 6. hyperlipidemia 7. active smoker 8. rectal bleed Plan - repeat bmp in am - pt will need ckd wrokup, will send prelim workup but he will need to follow in office - diuretics on hold, discussed with cardio - echo does show dialstolic dysfunction - metoprolol started, titrate up dose as tolerated - repeat cxr in am - would not restart metformin - check urine protein to creatinine ratio - renal ultrasound is pending - will follow
[2016-06-02] MEDS: ATORVASTATIN CA 40 MG TABLET (FP) PO SCH (21:30)
[2016-06-03] MEDS: MAG HYDROX/AL HYDROX/SIMETH 30 ML UNIT-DOSE CUP PO SCH ×3 (00:10→11:14)
[2016-06-03] MEDS ORDERED: PROPOFOL 20 ML ONE ×2 (06:21)
[2016-06-03] MEDS: METHYLDOPA 250 MG TABLET PO SCH ×2 (06:34→14:39)
[2016-06-03 08:55] LABS: BASOPHIL 0.5 % (0-2.0); EOSINOPHIL 3.2 % (0-4.5); MCH 27.9 pg (25.7-33.7); MCHC 31.2 g/dl (32.0-35.9); MEAN CELL VOLUME 89.6 fl (80-96); MEAN PLT VOLUME 8.9 fl (7.5-11.1); NEUTROPHILS 70.7 % (42.8-82.8); PLATELET COUNT 170 K/MM3 (134-434); RDW 14.1 % (11.9-15.9); WHITE BLOOD COUNT 8.4 K/mm3 (4.0-10.0)
[2016-06-03 09:05] LABS: ALBUMIN 2.9 g/dl (3.5-5.0); BILIRUBIN,TOTAL 0.3 mg/dl (0.2-1.0); CREATININE 2.4 mg/dl (0.6-1.3); MAGNESIUM 2.1 mg/dL (1.8-2.4); PHOSPHOROUS 3.3 mg/dl (2.5-4.6); TOT PROT 6.1 g/dl (6.4-8.3)
--- NOTE | 2016-06-03 09:44 | PN ---
Progress Note, Physician History of Present Illness: Pt seen and examined at bedside. He is going for colonoscopy today. - Current Medication List Current Medications: Active Medications Al Hydroxide/Mg Hydroxide (Mylanta Oral Suspension -) 30 ml PO Q6HPO [facility] Last Admin: 06/03/16 06:34 Dose: Not Given Amlodipine Besylate (Norvasc -) 5 mg PO BID [facility] Last Admin: 06/02/16 21:30 Dose: 5 mg Atorvastatin Calcium (Lipitor -) 40 mg PO HS [facility] Last Admin: 06/02/16 21:30 Dose: 40 mg Ezetimibe (Zetia -) 10 mg PO DAILY [facility] Last Admin: 06/02/16 09:22 Dose: 10 mg Hydrocortisone (Anusol 2.5% Hc Cream -) 1 applic TP BID [facility] Last Admin: 06/02/16 21:30 Dose: 1 applic Methyldopa (Aldomet -) 250 mg PO TID [facility] Last Admin: 06/03/16 06:34 Dose: 250 mg Metoprolol Tartrate (Lopressor -) 50 mg PO BID [facility] Last Admin: 06/02/16 21:29 Dose: 50 mg Nicotine (Nicoderm Patch -) 7 mg TD DAILY [facility] Last Admin: 06/02/16 09:22 Dose: 7 mg Ucrqh-[id number]-[id number] Ethyl Esters (Lovaza -) 1 gm PO BID [facility] Last Admin: 06/02/16 21:30 Dose: 1 gm - Objective Vital Signs: Vital Signs Temperature 98.7 F 06/03/16 06:00 Pulse Rate 58 L 06/03/16 06:00 Respiratory Rate 20 06/03/16 08:36 Blood Pressure 176/79 06/03/16 06:00 O2 Sat by Pulse Oximetry (%) 98 06/03/16 08:36 Constitutional: Yes: Calm Eyes: Yes: Conjunctiva Clear HENT: Yes: Atraumatic Cardiovascular: Yes: S1, S2 Respiratory: Yes: On Nasal O2, Rhonchi Gastrointestinal: Yes: Normal Bowel Sounds, Soft Genitourinary: Yes: WNL Musculoskeletal: Yes: WNL Edema: Yes Edema: LLE: 2+, RLE: 2+ Neurological: Yes: Oriented Psychiatric: Yes: Oriented Labs: CBC, BMP 06/03/16 08:00 06/03/16 08:00 INR, PTT INR 1.28 (0.82-1.09) H 05/31/16 09:30 Problem List - Problems (1) Anemia Code(s): D64.9 - ANEMIA, UNSPECIFIED Qualifiers: Anemia type: unspecified type Qualified Code(s): D64.9 - Anemia, unspecified (2) CHF (congestive heart failure) Code(s): I50.9 - HEART FAILURE, UNSPECIFIED Qualifiers: Congestive heart failure type: unspecified congestive heart failure type Congestive heart failure chronicity: acute Qualified Code(s): I50.9 - Heart failure, unspecified (3) Chest pain Code(s): R07.9 - CHEST PAIN, UNSPECIFIED Qualifiers: Chest pain type: unspecified Qualified Code(s): R07.9 - Chest pain, unspecified (4) Avulsion of skin Code(s): T14.8 - OTHER INJURY OF UNSPECIFIED BODY REGION (5) BETI (acute kidney injury) Code(s): N17.9 - ACUTE KIDNEY FAILURE, UNSPECIFIED Assessment/Plan Current Medications Generic Name Dose Route Start Last Admin Trade Name Alexandra PRN Reason Stop Dose Admin Al Hydroxide/Mg Hydroxide 30 ml 06/01/16 12:00 06/03/16 06:34 Mylanta Oral Suspension - PO Not Given Q6HPO TOY Amlodipine Besylate 5 mg 05/31/16 22:00 06/02/16 21:30 Norvasc - PO 5 mg BID TOY Administration Atorvastatin Calcium 40 mg 05/31/16 22:00 06/02/16 21:30 Lipitor - PO 40 mg HS TOY Administration Ezetimibe 10 mg 06/01/16 10:00 06/02/16 09:22 Zetia - PO 10 mg DAILY TOY Administration Hydrocortisone 1 applic 06/01/16 10:30 06/02/16 21:30 Anusol 2.5% Hc Cream - TP 1 applic BID TOY Administration Methyldopa 250 mg 06/01/16 10:45 06/03/16 06:34 Aldomet - PO 250 mg TID TOY Administration Metoprolol Tartrate 50 mg 06/02/16 11:00 06/02/16 21:29 Lopressor - PO 50 mg BID TOY Administration Nicotine 7 mg 06/01/16 10:00 06/02/16 09:22 Nicoderm Patch - TD 7 mg DAILY TOY Administration [id number]-8-[id number] Ethyl Esters 1 gm 05/31/16 22:00 06/02/16 21:30 Lovaza - PO 1 gm BID TOY Administration Laboratory Tests 06/03/16 08:00 ESTELA Screen Pending Hepatitis A Ab Total Pending Hep Bs Antigen Pending Hep Bs Antibody Pending Hep B Core Total Ab Pending Laboratory Tests 06/03/16 05:30 Protein/Creatinin Ratio Pending Impression 1. CKD 2. anemia 3. CAD 4. HTN 5. DM 6. hyperlipidemia 7. active smoker 8. rectal bleed 9.CHF dialstolic failure Plan - renal workup in progress - recommend restarting lasix - pt will need ckd wrokup, will send prelim workup but he will need to follow in office - echo does show dialstolic dysfunction - can increase dose of metoprolol - get cxr - would not restart metformin - renal ultrasound is pending - will follow
[2016-06-03 09:52] LABS: URINE CREATININE 77.5 mg/dL
--- NOTE | 2016-06-03 10:39 | PN ---
Progress Note (short form) - Note Progress Note: Colonoscopy performed to cecum with multiple small polyps removed from splenic flexure and descending colon regions. Few diverticuli noted in left colon. Hemorrhoids seen at anal verge ?source of recent bleeding. Full report in chart. Await path Can resume regular diet If further rectal bleeding, may need hemorrhoid surgery
[2016-06-03] MEDS: METOPROLOL TARTRATE 50 MG TABLET (FP) PO SCH ×2 (10:50→13:46)
[2016-06-03] MEDS: NICOTINE 7 MG/24 HOURS TOPICAL PATCH TD SCH (10:51)
[2016-06-03] MEDS: EZETIMIBE 10 MG TABLET (FP) PO SCH (11:00)
[2016-06-03] MEDS: amLODIPine BESYLATE 5 MG TABLET (FP) PO SCH (11:00)
[2016-06-03] MEDS: HYDROCORTISONE 2.5% TOPICAL CREAM 30 GM TUBE TP SCH (11:00)
[2016-06-03] MEDS: OMEGA-3 ACID ETHYL ESTERS (FATTY-ACIDS) 1 GM CAPSULE (FP) PO SCH (11:00)
[2016-06-03] MEDS ORDERED: PT OWN MED DRAWER 7, Y5N ONE ×2 (11:08→14:22)
--- NOTE | 2016-06-03 12:56 | PN ---
Progress Note, Physician History of Present Illness: No chest pain or dyspnea. - Current Medication List Current Medications: Active Medications Al Hydroxide/Mg Hydroxide (Mylanta Oral Suspension -) 30 ml PO Q6HPO [facility] Last Admin: 06/03/16 11:14 Dose: 30 ml Amlodipine Besylate (Norvasc -) 5 mg PO BID [facility] Last Admin: 06/03/16 11:00 Dose: 5 mg Atorvastatin Calcium (Lipitor -) 40 mg PO HS [facility] Last Admin: 06/02/16 21:30 Dose: 40 mg Ezetimibe (Zetia -) 10 mg PO DAILY [facility] Last Admin: 06/03/16 11:00 Dose: 10 mg Hydrocortisone (Anusol 2.5% Hc Cream -) 1 applic TP BID [facility] Last Admin: 06/03/16 11:00 Dose: 1 applic Methyldopa (Aldomet -) 250 mg PO TID [facility] Last Admin: 06/03/16 06:34 Dose: 250 mg Metoprolol Tartrate (Lopressor -) 50 mg PO BID [facility] Last Admin: 06/03/16 10:50 Dose: Not Given Nicotine (Nicoderm Patch -) 7 mg TD DAILY [facility] Last Admin: 06/03/16 10:51 Dose: 7 mg [id number]-1-Ujfi Ethyl Esters (Lovaza -) 1 gm PO BID [facility] Last Admin: 06/03/16 11:00 Dose: 1 gm - Objective Vital Signs: Vital Signs Temperature 98 F 06/03/16 11:15 Pulse Rate 56 L 06/03/16 11:15 Respiratory Rate 16 06/03/16 11:15 Blood Pressure 156/58 06/03/16 11:15 O2 Sat by Pulse Oximetry (%) 98 06/03/16 11:15 Constitutional: Yes: No Distress Eyes: Yes: Conjunctiva Clear HENT: Yes: Atraumatic, Normocephalic Cardiovascular: Yes: Regular Rate and Rhythm Respiratory: Yes: CTA Bilaterally Gastrointestinal: Yes: Normal Bowel Sounds, Soft Edema: No Neurological: Yes: Alert, Oriented, Cran Nerves II-XII Intact Labs: CBC, BMP 06/03/16 08:00 06/03/16 08:00 INR, PTT INR 1.28 (0.82-1.09) H 05/31/16 09:30 Assessment/Plan 60 yo male smoker with HTN, hyperlipiemia, reported CAD with PCI in 1999 at [facility]. Patient was admitted with dyspnea/chest heaviness x 2 weeks in the setting of profuse rectal bleeding & passing blood clots x ~ 1 week. In ED patient was found to have Hgb 7.3, Cr 2.7, and elevated BNP of 5143. Trop (-) x1. ECG demonstrated sinus rhythm with bifascicular block and non-specific T wave abnormalities, but no change from 2011 ECG. Cardiology was consulted for evaluation of possible CHF. Patient gives history of "enlarged heart" but denies any prior history of heart failure. He also reports being told that his "kidneys were only working at 28%" by his cps team lead and was taking furosemide 80 mg po bid but was reduced to 80 mg QAM and 40 mg QPM by his cps team lead (Dr. Giovanni Sood, ). Currently being transfused 1 unit PRBC Patient does not appear to be in grossly decompensated CHF. Elevated BNP in setting of significant renal failure is not diagnostic of CHF, and CXR and physicial exam were not suggestive of gross volume overload (at least at the time of my examination). Low suspicion for ACS at this time. Although some of his symptoms may be due to severe anemia in the setting of underlying CAD. 06/01/16 Echo: Normal LV size and systolic function, LVEF 60-65%. Possible grade II diastolic dysfunction. Mild to mod LVH. Mild MR/TR/VT. Colonoscopy on 06/02/16 demonstrated colonic polyps, few diverticuli, and hemorrhoids. RECS: Would resume diuretics from cardiac standpoint. However, will defer need for diuretics for to nephrology service. st until seen by nephrology) at this time as this may be the cause of his renal failure and patient does not appear volume May resume patient's aspirin. Would recommend outpatient follow-up with colorectal surgery for treatement of patient's hemorrhoids given likely cause of his anemia. Patient may be discharged from cardiac standpoint. Will see prn. Call with questions.
--- NOTE | 2016-06-03 13:24 | PN ---
Physical Exam: SUBJECTIVE: Patient seen and examined, reports feeling well colonoscopy performed exam, tolerating diet, reports noting blood in toilet after a bowel movement yesterday evening OBJECTIVE: patient is a 60 year old male with PMHx of hypertension, hyperlipidemia, cigarette smoking, and coronary artery disease status post 3 stents (1999). patient was admitted from the emergency department for emergent condition Vital Signs Period Temp Pulse Resp BP Sys/Farrell Pulse Ox Last 24 Hr 98 F-98.7 F 56-81 16-20 156-177/58-95 95-98 physical examination GENERAL: The patient is awake, alert, and fully oriented, in no acute distress. HEAD: Normal with no signs of trauma. EYES: PERRL, extraocular movements intact, sclera anicteric, conjunctiva clear. No ptosis. ENT: Ears normal, nares patent, oropharynx clear without exudates, moist mucous membranes. NECK: Trachea midline, full range of motion, supple. LUNGS: Breath sounds equal, clear to auscultation bilaterally, no wheezes, no crackles, no accessory muscle use. HEART: Regular rate and rhythm, S1, S2 without murmur, rub or gallop. ABDOMEN: Soft, nontender, nondistended, normoactive bowel sounds, no guarding, no rebound, no hepatosplenomegaly, no masses. EXTREMITIES: 2+ pulses, warm, well-perfused, +1 trace edema NEUROLOGICAL: Cranial nerves II through XII grossly intact. Normal speech, gait not observed. PSYCH: Normal mood, normal affect. SKIN: Warm, dry, normal turgor, no rashes or lesions noted Laboratory Results - last 24 hr 06/01/16 06/02/16 06/02/16 09:21 05:30 10:50 WBC 8.1 RBC 3.30 L Hgb 9.4 L D Hct 29.4 L D MCV 89.2 MCHC 31.9 L RDW 14.4 Plt Count 166 MPV 9.3 Neutrophils % 70.2 Lymphocytes % 15.9 Monocytes % 10.7 H Eosinophils % 2.8 Basophils % 0.4 Sodium Potassium Chloride Carbon Dioxide Anion Gap BUN Creatinine Creat Clearance w eGFR POC Glucometer Random Glucose Calcium Phosphorus Magnesium Transferrin 255 Total Bilirubin AST ALT Alkaline Phosphatase Total Protein Albumin U Random Total Protein Urine Creatinine 89.8 Protein/Creatinin Ratio 06/02/16 06/02/16 06/03/16 23:20 Unknown 05:30 WBC RBC Hgb Hct MCV MCHC RDW Plt Count MPV Neutrophils % Lymphocytes % Monocytes % Eosinophils % Basophils % Sodium 141 Potassium 3.7 Chloride 103 Carbon Dioxide 24 Anion Gap 14 BUN 28 H Creatinine 2.6 H Creat Clearance w eGFR POC Glucometer 136 Random Glucose 194 H D Calcium 8.0 L Phosphorus Magnesium Transferrin Total Bilirubin AST ALT Alkaline Phosphatase Total Protein Albumin U Random Total Protein 325 H Urine Creatinine 77.5 Protein/Creatinin Ratio 4.2 06/03/16 06/03/16 08:00 08:00 WBC 8.4 RBC 3.13 L Hgb 8.7 L Hct 28.0 L MCV 89.6 MCHC 31.2 L RDW 14.1 Plt Count 170 MPV 8.9 Neutrophils % 70.7 Lymphocytes % 15.0 Monocytes % 10.6 H Eosinophils % 3.2 Basophils % 0.5 Sodium 142 Potassium 4.3 Chloride 107 Carbon Dioxide 28 Anion Gap 7 L BUN 25 H Creatinine 2.4 H Creat Clearance w eGFR 27.85 POC Glucometer Random Glucose 127 H D Calcium 8.0 L Phosphorus 3.3 Magnesium 2.1 Transferrin Total Bilirubin 0.3 D AST 18 ALT 18 Alkaline Phosphatase 51 Total Protein 6.1 L Albumin 2.9 L U Random Total Protein Urine Creatinine Protein/Creatinin Ratio Active Medications Generic Name Dose Route Start Last Admin Trade Name Freq PRN Reason Stop Dose Admin Al Hydroxide/Mg Hydroxide 30 ml 06/01/16 12:00 06/03/16 11:14 Mylanta Oral Suspension - PO 30 ml Q6HPO TOY Administration Amlodipine Besylate 5 mg 05/31/16 22:00 06/03/16 11:00 Norvasc - PO 5 mg BID TOY Administration Atorvastatin Calcium 40 mg 05/31/16 22:00 06/02/16 21:30 Lipitor - PO 40 mg HS TOY Administration Ezetimibe 10 mg 06/01/16 10:00 06/03/16 11:00 Zetia - PO 10 mg DAILY TOY Administration Hydrocortisone 1 applic 06/01/16 10:30 06/03/16 11:00 Anusol 2.5% Hc Cream - TP 1 applic BID TOY Administration Methyldopa 250 mg 06/01/16 10:45 06/03/16 06:34 Aldomet - PO 250 mg TID TOY Administration Metoprolol Tartrate 50 mg 06/02/16 11:00 06/03/16 10:50 Lopressor - PO Not Given BID TOY Nicotine 7 mg 06/01/16 10:00 06/03/16 10:51 Nicoderm Patch - TD 7 mg DAILY TOY Administration Ahbpo-3-Qysz Ethyl Esters 1 gm 05/31/16 22:00 06/03/16 11:00 Lovaza - PO 1 gm BID TYO Administration Microbiology 05/31/16 12:20 Urine - Urine Clean Catch Urine Culture - Final NO GROWTH OBTAINED IMAGING ECHO, GRADE 2 DIASTOLIC DYSFUNCTION MODERATE lvef 60-65% Persantine stress test 05/21/2016, normal EKG stress tests normal LV SF, low risk myocardial perfusion scan positive for ischemic dilated cardiomyopathy with old inferior myocardial infarction with no residual ischemia ASSESSMENT/PLAN: 1) Heme: normocytic anemia - likely secondary to chronic disease versus lower GI bleeding - colonoscopy performed this a.m., no active bleeding noted polyps removed external hemorrhoids noted. - case discussed with Dr Ventura, appreciate colorectal surgery input - total of 2 units of PRBC given last transfusion, 06/01/2016,hemoglobin 8.7 stable 2) Cardiology: diastolic congestive heart failure - patient appears euvolemic on exam, - Strict I&O - Daily weight HTN - Continue Norvasc and methyldopa CAD s/p stents (1999) - Continue ASA cardiology consulted and following 3) Renal: BETI on CKD - renal/pelvic ultrasound review April 2015 renal cysts noted no postvoid residual noted - Creatinine 2.4 baseline 2.2 (04/10) - nephrology consulted and followed 4) Endocrine: DM - BGM ACHS - ISS ACHS - Hold Metformin 2/2 BETI 5) F/E/N: - Diabetic/sodium controlled diet - Monitor electrolytes 6) Prophylaxis: - OOB ambulating - Hold all chemical anticoagulation 2/2 anemia - SCDs bilaterally - Nicotine patch: counselled on smoking cessation 7) Dispo: - Requires continued inpatient care CODE STATUS: FULL CODE Visit type - Emergency Visit Emergency Visit: Yes ED Registration Date: 05/31/16 Care time: The patient presented to the Emergency Department on the above date and was hospitalized for further evaluation of their emergent condition. - New Patient This patient is new to me today: No - Critical Care Critical Care patient: No
--- NOTE | 2016-06-03 14:13 | DS ---
Physical Exam: SUBJECTIVE: Patient seen and examined, reports feeling well, ambulatory at bedside, denies any dypsnea on exertion, steady gait is noted, pt denies any chest pain, reports some rectal bleeding last night. completed his prep for pending colonscopy. OBJECTIVE: Patient is a 60 year old male with PMHx of hypertension, hyperlipidemia, cigarette smoking, and coronary artery disease status post 3 stents in 1999 who presented to the ED with a dry mouth, left chest heaviness, and difficulty sleeping since he had a stress test on 05/22/16. The patient reports he sees Dr. Giovanni Sood (cardiology) and that he had a recent ECHO at the beginning of April and a persantine stress test on 05/22/16 for which he states the results were "normal". He states that since the stress test he has been feeling like his heart is heavy (unable to describe it further) and that he started taking Lasix at night and is unable to sleep now. He states he just started taking two Lasix pills in the morning and one at night and feels like he has a dry mouth. He denies nausea, vomiting, diarrhea, dizziness, syncope, abdominal pain. Off note, he states he has had rectal bleeding for 20 years and that he has had colonoscopies that have revealed internal hemorrhoids. Rectal exam by the ED physician did not reveal any blood. ER course was notable for: (1) temp 97.6, pulse 53, BP 149/68, O2 97% on 2L NC (2) Hgb 7.3, 1u PRBC ordered (3) Cr 2.7 Vital Signs Period Temp Pulse Resp BP Sys/Farrell Pulse Ox Last 24 Hr 98 F-98.7 F 56-67 16-20 156-188/58-95 95-98 PHYSICAL EXAM GENERAL: The patient is awake, alert, and fully oriented, in no acute distress. HEAD: Normal with no signs of trauma. EYES: PERRL, extraocular movements intact, sclera anicteric, conjunctiva clear. No ptosis. ENT: Ears normal, nares patent, oropharynx clear without exudates, moist mucous membranes. NECK: Trachea midline, full range of motion, supple. LUNGS: Breath sounds equal, clear to auscultation bilaterally, no wheezes, no crackles, no accessory muscle use. HEART: Regular rate and rhythm, S1, S2 without murmur, rub or gallop. ABDOMEN: Soft, nontender, nondistended, normoactive bowel sounds, no guarding, no rebound, no hepatosplenomegaly, no masses. EXTREMITIES: 2+ pulses, warm, well-perfused, +1 trace edema NEUROLOGICAL: Cranial nerves II through XII grossly intact. Normal speech, gait not observed. PSYCH: Normal mood, normal affect. SKIN: Warm, dry, normal turgor, no rashes or lesions noted LABS Laboratory Results - last 24 hr 06/01/16 06/02/16 06/02/16 09:21 05:30 23:20 WBC RBC Hgb Hct MCV MCHC RDW Plt Count MPV Neutrophils % Lymphocytes % Monocytes % Eosinophils % Basophils % Sodium Potassium Chloride Carbon Dioxide Anion Gap BUN Creatinine Creat Clearance w eGFR POC Glucometer 136 Random Glucose Calcium Phosphorus Magnesium Transferrin 255 Total Bilirubin AST ALT Alkaline Phosphatase Total Protein Albumin U Random Total Protein Urine Creatinine 89.8 Protein/Creatinin Ratio 06/03/16 06/03/16 06/03/16 05:30 08:00 08:00 WBC 8.4 RBC 3.13 L Hgb 8.7 L Hct 28.0 L MCV 89.6 MCHC 31.2 L RDW 14.1 Plt Count 170 MPV 8.9 Neutrophils % 70.7 Lymphocytes % 15.0 Monocytes % 10.6 H Eosinophils % 3.2 Basophils % 0.5 Sodium 142 Potassium 4.3 Chloride 107 Carbon Dioxide 28 Anion Gap 7 L BUN 25 H Creatinine 2.4 H Creat Clearance w eGFR 27.85 POC Glucometer Random Glucose 127 H D Calcium 8.0 L Phosphorus 3.3 Magnesium 2.1 Transferrin Total Bilirubin 0.3 D AST 18 ALT 18 Alkaline Phosphatase 51 Total Protein 6.1 L Albumin 2.9 L U Random Total Protein 325 H Urine Creatinine 77.5 Protein/Creatinin Ratio 4.2 Microbiology 05/31/16 12:20 Urine - Urine Clean Catch Urine Culture - Final NO GROWTH OBTAINED IMAGING ECHO, GRADE 2 DIASTOLIC DYSFUNCTION MODERATE lvef 60-65% Persantine stress test 05/21/2016, normal EKG stress tests normal LV SF, low risk myocardial perfusion scan positive for ischemic dilated cardiomyopathy with old inferior myocardial infarction with no residual ischemia HOSPITAL COURSE: Patient was admitted from the emergency department for normocytic anemia. Likely secondary to chronic disease versus lower GI bleeding. Total of 2 units of PRBC given last transfusion, 06/01/2016,hemoglobin 8.7 stable He underwent a colonoscopy, no active bleeding noted, polyps removed external hemorrhoids noted. case discussed with Dr Ventura, (colorectal surgery). Schlerotherapy was performed by Dr Ventura at the bedside. He was noted to have acute on chronic diastolic congestive heart failure. He was diuressed for 48 hours and now appears euvolemic on exam. Norvasc, aspirin, and methyldopa was continued throughout hospitalization. cardiology consulted and following. acute on chronic kidney disease was noted on this hospitalization. renal/ pelvic ultrasound review April 2015 renal cysts noted no postvoid residual noted. Creatinine 2.4 baseline 2.2 (04/10). nephrology, Dr Ace was consulted and followed. Metformin was held due to BETI. Patient was placed on fingersticks achs with regular insulin coverage. CODE STATUS: FULL CODE Date of Admission:05/31/16 Date of Discharge: 06/03/16 Minutes to complete discharge: 45 Discharge Summary Reason For Visit: [id number] PAIN Current Active Problems BETI (acute kidney injury) (Acute) Anemia (Acute) CHF (congestive heart failure) (Acute) Chest pain (Acute) Condition: Stable - Instructions Diet, Activity, Other Instructions: Lasix was decreased to 40 mg daily Discontinue your metformin Resume Toprol Norvasc and methyldopa as prescribed Please follow-up with the hat and cap parts cutter hand, Dr Ace on 06/10/2016 please follow up with the colorectal surgeon Dr. Ventura in regards to your hemorrhoids within 5 days Return to the emergency department immediately with ANY new, persistent or worsening symptoms. You MUST call and follow up with your doctor tomorrow. Please make sure your doctor reviews the results of your hospital stay. Referrals: Iban Sood MD [Primary Care Provider] - Bianka Espinoza MD [Staff Physician] - Rishi Ventura MD [Staff Physician] - Disposition: HOME - Home Medications Comprehensive Discharge Medication List: Ambulatory Orders Amlodipine Besylate 5 mg PO BID 05/31/16 Aspirin [Aspirin EC] 81 mg PO DAILY 05/31/16 Ezetimibe/Simvastatin [Vytorin 10-80 mg Tablet] 1 tab PO DAILY 05/31/16 Methyldopa 250 mg PO TID 05/31/16 Metoprolol Succinate [Toprol Xl] 50 mg PO TID 05/31/16 [place]-3/Dha/Epa/Fish Oil [[place] 3 500 Softgel] 2 each PO DAILY 05/31/16 Potassium Chloride [K-Dur -] 20 meq PO DAILY 05/31/16 Furosemide [Lasix -] 40 mg PO DAILY #30 tablet 06/03/16 Hydrocortisone 2.5% Topical Cr [Anusol-Hc -] 1 applic TP BID #1 tube 06/03/16 Mag Hydrox/Al Hydrox/Simeth [Mylanta Oral Suspension -] 30 ml PO Q6HPO cup 12/10 Nicotine Patch [Nicoderm Patch -] 7 mg TD DAILY patch 06/03/16 This patient is new to me today: No Emergency Visit: Yes ED Registration Date: 05/31/16 Care time: The patient presented to the Emergency Department on the above date and was hospitalized for further evaluation of their emergent condition. Critical Care patient: No - Discharge Referral Referred to [facility] No
[2016-06-03] MEDS ORDERED: FUROSEMIDE 40 MG TABLET (FP) PO SCH (14:15)
[2016-06-03 14:33] VITALS: BP 177/79; PULSE 62; TEMP 97.8
--- NOTE | 2016-06-03 15:18 | CONSULT ---
Consult Consult Specialty:: colorectal surgery Reason for Consultation:: hemorrhoids - History of Present Illness Chief Complaint: rectal bleeding History of Present Illness: pt is a 60M with 20y hx of rectal bleeding. came into hospital not tachycardic but was B-blocked. His presenting Hct was 23. He got a colonoscopy which failed to show colonic bleeding and he just had some polyps removed. he had large hemorrhoids which was felt to be the source of his anemia. patient says he spends sometimes 30 minutes on toilet. - Past Medical History Cardio/Vascular: Yes: CAD (prior PCI in 1999), HTN, Hyperlipdemia Gastrointestinal: Yes: Hemorrhoids Hepatobiliary: Yes: Other (Reported "fatty liver") Renal/: Yes: Renal Inusuff Endocrine: Yes: Diabetes Mellitus - Alcohol/Substance Use Hx Alcohol Use: Yes (occasional) History of Substance Use: reports: None - Smoking History Smoking history: Current every day smoker (now down to 3 cigarettes daily) Have you smoked in the past 12 months: Yes Aproximately how many cigarettes per day: 4 Home Medications - Allergies Allergies/Adverse Reactions: Allergies Allergy/AdvReac Type Severity Reaction Status Date / Time No Known Allergies Allergy Verified 05/31/16 09:35 - Home Medications Home Medications: Ambulatory Orders Amlodipine Besylate 5 mg PO BID 05/31/16 Aspirin [Aspirin EC] 81 mg PO DAILY 05/31/16 Ezetimibe/Simvastatin [Vytorin 10-80 mg Tablet] 1 tab PO DAILY 05/31/16 Methyldopa 250 mg PO TID 05/31/16 Metoprolol Succinate [Toprol Xl] 50 mg PO TID 05/31/16 [place]-3/Dha/Epa/Fish Oil [[place] 3 500 Softgel] 2 each PO DAILY 05/31/16 Potassium Chloride [K-Dur -] 20 meq PO DAILY 05/31/16 Furosemide [Lasix -] 40 mg PO DAILY #30 tablet 06/03/16 Hydrocortisone 2.5% Topical Cr [Anusol-Hc -] 1 applic TP BID #1 tube 06/03/16 Mag Hydrox/Al Hydrox/Simeth [Mylanta Oral Suspension -] 30 ml PO Q6HPO cup 12/10 Nicotine Patch [Nicoderm Patch -] 7 mg TD DAILY patch 06/03/16 Review of Systems - Review of Systems Constitutional: denies: Chills, Fever Eyes: denies: Blind Spots, Blurred Vision HENT: denies: Difficult Swallowing, Ear Discharge Neck: denies: Decreased ROM, Lumps Cardiovascular: denies: Chest Pain, Edema Respiratory: denies: Cough, SOB Gastrointestinal: denies: Abdominal Pain, Bloating Genitourinary: denies: Burning, Discharge Breasts: denies: Lumps, Pain Musculoskeletal: denies: Back Pain, Crepitus Integumentary: denies: Blister, Bruising Neurological: denies: Change in LOC, Change in Speech Endocrine: denies: Excessive Sweating, Flushing Hematology/Lymphatic: denies: Easily Bruised, Excessive Bleeding Psychiatric: denies: Altered Sleep Pattern, Anxiety Physical Exam Vital Signs: Vital Signs Temperature 97.8 F 06/03/16 14:32 Pulse Rate 62 06/03/16 14:32 Respiratory Rate 18 06/03/16 14:32 Blood Pressure 177/79 06/03/16 14:32 O2 Sat by Pulse Oximetry (%) 99 06/03/16 14:32 Constitutional: Yes: No Distress Eyes: Yes: Conjunctiva Clear, EOM Intact HENT: Yes: Atraumatic, Normocephalic Neck: Yes: Supple, Trachea Midline Cardiovascular: Yes: Regular Rate and Rhythm Respiratory: Yes: Regular, CTA Bilaterally Gastrointestinal: Yes: Soft, Hemorrhoids. No: Distention ...Rectal Exam: Yes: Other (prolapsed hemorrhoids easily reducible in L lateral/ right posterior. soft. not thrombosed. good sphincter tone.) Renal/: No: CVA Tenderness - Left, CVA Tenderness - Right Breast(s): No: Mass, Nipple Inversion Musculoskeletal: No: Joint Stiffness, Joint Swelling Extremities: No: Calf Tenderness, Erythema Integumentary: No: Erythema, Rash Neurological: Yes: Alert, Oriented Psychiatric: Yes: Alert, Oriented Labs: CBC, BMP 06/03/16 08:00 06/03/16 08:00 Problem List - Problems (1) Grade III hemorrhoids Assessment/Plan: counseled pt at length about hemorrhoids recommended high fiber diet cont high water intake avoid straining and sitting on toilet for so long. keep to 2 minutes will perform sclerotherapy Code(s): K64.2 - THIRD DEGREE HEMORRHOIDS (2) CHF (congestive heart failure) Code(s): I50.9 - HEART FAILURE, UNSPECIFIED Qualifiers: Congestive heart failure type: unspecified congestive heart failure type Congestive heart failure chronicity: acute Qualified Code(s): I50.9 - Heart failure, unspecified (3) Coronary artery disease Code(s): I25.10 - ATHSCL HEART DISEASE OF [place] CORONARY ARTERY W/O ANG PCTRS (4) Anemia due to chronic blood loss Code(s): D50.0 - IRON DEFICIENCY ANEMIA SECONDARY TO BLOOD LOSS (CHRONIC)
--- NOTE | 2016-06-03 15:19 | PROC ---
Procedure Note Procedure: pt in prone position. LAURYN - large palpable hemorrhoids, soft. reduced them. Large anoscope introduced and injected 1cc sclerosant in LL/RP/RA. patient tolerated procedure well.
--- NOTE | 2016-06-05 11:39 | PATH ---
Surgical Pathology Report Patient Name: ALISTAIR BETANCUR Med. Rec. #: [id number] /Age/Gender: 1955 (Age: 60) / M Account: [id number] Location: [facility] MED-SURG Taken: 06/03/2016 Received: 06/03/2016 Reported: 06/05/2016 Physicians: Sea Eng M.D. Specimen(s) Received A: SPLENIC FLEXURE BIOPSY B: BX LEFT COLON Clinical History Lower GI bleed Polyps Final Diagnosis A. COLON, SPLENIC FLEXURE, BIOPSY: TUBULAR ADENOMA. B. COLON, LEFT, BIOPSY: TUBULAR ADENOMA. Electronically Signed Harjeet Camacho M.D. Gross Description A. Received in formalin, labeled "splenic flexure" are multiple ruiz, irregular portions of soft tissue measuring between less than 0.1 cm greatest dimension, up to 0.9 cm in greatest dimension. The largest piece is bisected. The specimens are submitted in toto in one cassette. B. Received in formalin, labeled "left colon" are 2 ruiz, irregular portions of soft tissue measuring 0.3-0.5 cm. in greatest dimension. The specimens are submitted in toto in one cassette. [facility]/06/04/2016 [facility]/06/04/2016
[2016-06-27 19:08] LABS: HEP B SURFACE AB REACTIVE
== END 2016-06-03 15:25 | disposition home or self-care (01) | DRG 394 ==
LOC: FER 09:30 → FM/S 12:21
PROVIDERS: ADMIT Internal Medicine; ATTEND Nurse Practitioner Family
PROC: 30233N1 Transfusion of Nonautologous Red Blood Cells into Peripheral Vein, Percutaneous Approach (ICD-10-PCS; principal; 2016-05-31)
PROC: 0DBL8ZX Excision of Transverse Colon, Via Natural or Artificial Opening Endoscopic, Diagnostic (ICD-10-PCS; 2016-06-03)
PROC: 3E0H8TZ Introduction of Destructive Agent into Lower GI, Via Natural or Artificial Opening Endoscopic (ICD-10-PCS; 2016-06-03)
PROC: 0DBM8ZX Excision of Descending Colon, Via Natural or Artificial Opening Endoscopic, Diagnostic (ICD-10-PCS; 2016-06-03 10:07)
DX: K64.2 Third degree hemorrhoids (principal); N17.9 Acute kidney failure, unspecified; I45.2 Bifascicular block; I13.0 Hypertensive heart and chronic kidney disease with heart failure and stage 1 through stage 4 chronic kidney disease, or unspecified chronic kidney disease; I50.30 Unspecified diastolic (congestive) heart failure; D50.0 Iron deficiency anemia secondary to blood loss (chronic); E78.5 Hyperlipidemia, unspecified; F17.210 Nicotine dependence, cigarettes, uncomplicated; I25.10 Atherosclerotic heart disease of native coronary artery without angina pectoris; K76.0 Fatty (change of) liver, not elsewhere classified; I45.19 Other right bundle-branch block; E11.9 Type 2 diabetes mellitus without complications; T14.8 Other injury of unspecified body region; D12.4 Benign neoplasm of descending colon; K57.30 Diverticulosis of large intestine without perforation or abscess without bleeding; N18.9 Chronic kidney disease, unspecified; Z95.5 Presence of coronary angioplasty implant and graft
CPT/HCPCS: 36415; 36430; 71010-TC; 76775-TC; 76856-TC; 80048; 80053; 80061; 81003; 81015; 82180; 82272; 82436; 82550; 82570; 82607; 82728; 83540; 83550; 83735; 83880; 84100; 84133; 84156; 84300; 84466; 84484; 84540; 85025; 85610; 86038; 86704; 86706; 86708; 86850; 86900; 86901; 86922; 87086; 87340; 88305-TC; 93005; 93306-TC; 99285-25; P9038; P9058

== ENCOUNTER 2016-09-22 09:12 | Inpatient (IN) | payer BC ==
[2016-09-22 09:23] VITALS: BMI 37.8
--- NOTE | 2016-09-22 09:31 | PDOC ---
History of Present Illness <Clayton Gonzalez - Last Filed: 09/22/16 12:10> - History of Present Illness Initial Comments: 09/22/16 09:52 The patient is a 60 year old male, with a significant past medical history of hypertension, hyperlipidemia, cigarette smoking, diabetes, CHF (on Lasix) and CAD s/p 3 stents (1999), who presents to the emergency department with increasing shortness of breath since his recent admission on 05/31/16 for CHF. The patient reports his SOB is exacerbated with lying flat and denies relief of symptoms with using extra pillows at night for sleep. He states his blacktop spreader suggested using pillows which has been useful in the past, however , in the past 4 weeks, reports his orthopnea has been unmanageable. He states he has an appointment with Dr. Rivers today at 1pm. He denies chest pain, headache and dizziness. He denies fever, chills, nausea, vomit, diarrhea and constipation. He denies dysuria, frequency, urgency and hematuria. Allergies: NKDA Past surgical history: umbilical hernia repair (8 years ago), cardiac stents x 3 (1999) PCP - Dr. Rivers Emergency Vehicle Operations Instructor - Dr. Ceballos <Karuna Arias - Last Filed: 09/22/16 18:26> - General Chief Complaint: Shortness of Breath Stated Complaint: SOB Time Seen by Provider: 09/22/16 09:30 Past History - Past Medical History Cardiac Disorders: Yes (3 stents? 1999) CHF: Yes Diabetes: Yes Disorders: Yes (Chronic kidney disease) HTN: Yes Hypercholesterolemia: Yes - Surgical History Cardiac Surgery: Yes (STENTS) - Psycho/Social/Smoking Cessation Hx Anxiety: No Suicidal Ideation: No Smoking History: Current some day smoker Have you smoked in the past 12 months: Yes Number of Cigarettes Smoked Daily: 4 Information on smoking cessation initiated: Yes 'Breaking Loose' booklet given: 09/22/16 Hx Alcohol Use: No Drug/Substance Use Hx: No Substance Use Type: None Hx Substance Use Treatment: No <Clayton Gonzalez - Last Filed: 09/22/16 12:10> <Karuna Arias - Last Filed: 09/22/16 18:26> - Past Medical History Allergies/Adverse Reactions: Allergies Allergy/AdvReac Type Severity Reaction Status Date / Time No Known Allergies Allergy Verified 09/22/16 09:23 Home Medications: Ambulatory Orders Aspirin [Aspirin EC] 81 mg PO DAILY 05/31/16 Ezetimibe/Simvastatin [Vytorin 10-80 mg Tablet] 1 tab PO HS 05/31/16 Methyldopa 250 mg PO TID 05/31/16 Metoprolol Succinate [Toprol Xl] 50 mg PO TID 05/31/16 [place]-3/Dha/Epa/Fish Oil [[place] 3 500 Softgel] 2 each PO BID 05/31/16 Potassium Chloride [K-Dur -] 10 meq PO BID 05/31/16 Hydrocortisone 2.5% Topical Cr [Anusol-Hc -] 1 applic TP BID #1 tube 06/03/16 Mag Hydrox/Al Hydrox/Simeth [Mylanta Oral Suspension -] 30 ml PO Q6HPO cup 12/10 Calcitriol [Calcitriol -] 1 tab PO ASDIR 09/01/16 Folic Acid 1 mg PO DAILY 09/01/16 Hydralazine HCl [Apresoline -] 1 tab PO BID 09/01/16 Nystatin Powder [Nystop Powder -] 30 gm TP BID #30 powder 09/01/16 Sitagliptin Phosphate [Januvia] 1 tab PO DAILY 09/01/16 Silver Sulfadiazine [Silvadene] 30 gm TP DAILY #30 cream..g. 09/15/16 Apixaban [Eliquis] 2.5 mg PO BID 09/22/16 Review of Systems - Review of Systems Able to Perform ROS?: Yes Comments:: 09/22/16 09:52 GENERAL/CONSTITUTIONAL: No fever or chills. No weakness. HEAD, EYES, EARS, NOSE AND THROAT: No change in vision. No ear pain or discharge. No sore throat. CARDIOVASCULAR: No chest pain or shortness of breath. RESPIRATORY: (+) dyspnea and orthopnea. No cough, wheezing, or hemoptysis. GASTROINTESTINAL: No nausea, vomiting, diarrhea or constipation. GENITOURINARY: No dysuria, frequency, or change in urination. MUSCULOSKELETAL: No joint or muscle swelling or pain. No neck or back pain. SKIN: No rash NEUROLOGIC: No headache, vertigo, loss of consciousness, or change in strength/ sensation. ENDOCRINE: No increased thirst. No abnormal weight change. HEMATOLOGIC/LYMPHATIC: No anemia, easy bleeding, or history of blood clots. ALLERGIC/IMMUNOLOGIC: No hives or skin allergy. <Karuna Arias - Last Filed: 09/22/16 18:26> *Physical Exam - Vital Signs Last Vital Signs Temp Pulse Resp BP Pulse Ox 97.4 F L 57 L 20 178/110 92 L 09/22/16 09:20 09/22/16 09:20 09/22/16 09:20 09/22/16 09:20 09/22/16 09:20 <Clayton Gonzalez - Last Filed: 09/22/16 12:10> - Vital Signs Last Vital Signs Temp Pulse Resp BP Pulse Ox 97.4 F L 57 L 20 178/110 92 L 09/22/16 09:20 09/22/16 09:20 09/22/16 09:20 09/22/16 09:20 09/22/16 09:20 - Physical Exam Comments: 09/22/16 09:53 GENERAL: Awake, alert, and fully oriented, in no acute distress HEAD: No signs of trauma EYES: PERRLA, EOMI, sclera anicteric, conjunctiva clear ENT: Auricles normal inspection, hearing grossly normal, nares patent, oropharynx clear without exudates. Moist mucosa NECK: Normal ROM, supple, no lymphadenopathy, JVD, or masses LUNGS: (+) diffuse crackles, more significant at the bases. Breath sounds equal , No wheezes, HEART: Regular rate and rhythm, normal S1 and S2, no murmurs, rubs or gallops ABDOMEN: Soft, nontender, normoactive bowel sounds. No guarding, no rebound. No masses EXTREMITIES: Normal range of motion, no edema. No clubbing or cyanosis. No cords, erythema, or tenderness NEUROLOGICAL: Cranial nerves II through XII grossly intact. Normal speech, normal gait SKIN: Warm, Dry, normal turgor, no rashes or lesions noted. <Karuna Arias - Last Filed: 09/22/16 18:26> Heart Score/ECG Review - ECG Intrepretation Comment:: 09/22/16 09:23 EKG was read by Dr. Gonzalez at 9:20 Impression: Sinus bradycardia. right bundle branch block. left anterior fascicular block. Bifascicular block, voltage criteria for LVH. Vent rate: 57 Bpm AL Interval: 142 ms QTc: 531 ms <Karuna Arias - Last Filed: 09/22/16 18:26> ED Treatment Course - LABORATORY CBC & Chemistry Diagram: 09/22/16 10:00 09/22/16 10:00 <Clayton Gonzalez - Last Filed: 09/22/16 12:10> - LABORATORY CBC & Chemistry Diagram: 09/22/16 10:00 09/22/16 10:00 <Karuna Arias - Last Filed: 09/22/16 18:26> Medical Decision Making - Medical Decision Making 09/22/16 11:05 The patient is a 60 year old male who presents with shortness of breath. The patients medical history is significant for CHF, diabetes, hypertension, hyperlipidemia I will obtain CXR, labs, EKG to rule out CHF exacerbation and pneumonia Dr. Rivers was called at 12:02 and the patient's case was discussed. Dr. Rivers accepts admission of this patient at this time. <Karuna Arias - Last Filed: 09/22/16 18:26> *DC/Admit/Observation/Transfer - Discharge Dispostion Admit: Yes - Attestations Physician Attestion: 09/22/16 09:31 I, Dr. Clayton Gonzalez, attest that this document has been prepared under my direction and personally reviewed by me in its entirety. I further attest, that it accurately reflects all work, treatment, procedures and medical decision -making performed by me. <Clayton Gonzalez - Last Filed: 09/22/16 12:10> - Attestations Scribe Attestion: 09/22/16 13:54 Documentation prepared by Karuna Arias, acting as medical laboratory scientist for Clayton Gonzalez MD <Karuna Arias - Last Filed: 09/22/16 18:26> Diagnosis at time of Disposition: CHF (congestive heart failure) Qualifiers: Congestive heart failure type: diastolic Congestive heart failure chronicity: acute on chronic Qualified Code(s): I50.33 - Acute on chronic diastolic ( congestive) heart failure - Discharge Dispostion Condition at time of disposition: Improved
[2016-09-22] MEDS ORDERED: ALBUTEROL SO4 0.083% IH SOL 2.5 MG/3 ML VIAL.NEB. NEB ONE (09:39)
[2016-09-22] MEDS ORDERED: FUROSEMIDE 40 MG/4 ML INJECTABLE VIAL IVPUSH ONE (09:39)
[2016-09-22] MEDS ORDERED: ALBUTEROL SO4 2.5/IPRATROPIUM 0.5 INH SOL 3 ML VIAL.NEB. NEB ONE ×2 (09:39→09:49)
[2016-09-22] MEDS ORDERED: FUROSEMIDE 40 MG/4 ML INJECTABLE VIAL ONE (09:49)
[2016-09-22 10:07] LABS: MCH 30.1 pg (25.7-33.7); MCHC 33.1 g/dl (32.0-35.9); MEAN CELL VOLUME 91.1 fl (80-96); MEAN PLT VOLUME 10.7 fl (7.5-11.1); NEUTROPHILS 71.4 % (42.8-82.8); PLATELET COUNT 103 K/MM3 (134-434); RDW 15.8 % (11.9-15.9); WHITE BLOOD COUNT 7.7 K/mm3 (4.0-10.0)
[2016-09-22 10:20] LABS: INR 1.51 (0.82-1.09); PROTHROMBIN TIME (PATIENT) 16.7 SEC (9.98-11.88)
[2016-09-22 10:30] LABS: ALBUMIN 3.1 g/dl (3.4-5.0); BILIRUBIN,TOTAL 0.4 mg/dL (0.2-1.0); CALCIUM 7.5 mg/dL (8.5-10.1); CREATININE 3.5 mg/dL (0.7-1.3); TOT PROT 6.9 g/dl (6.4-8.2)
[2016-09-22 10:32] LABS: TROPONIN I 0.05 ng/ml (0.00-0.05)
[2016-09-22 12:06] LABS: URINE APPEARANCE CLEAR; URINE BILIRUBIN NEGATIVE (NEGATIVE); URINE COLOR STRAW; URINE GLUCOSE (UA) NEGATIVE (NEGATIVE); URINE KETONE NEGATIVE (NEGATIVE); URINE LEUK ESTERASE NEGATIVE (NEGATIVE); URINE NITRITE NEGATIVE (NEGATIVE); URINE UROBILINOGEN NEGATIVE E.U./dl (0.2-1.0)
[2016-09-22 12:14] LABS: URINE BLOOD 1+ (NEGATIVE); URINE PROTEIN 2+ (NEGATIVE)
[2016-09-22 12:58] LABS: URINE HYALINE CAST 4 /lpf; URINE MUCUS RARE; URINE RBC 1 /hpf (0-3); URINE WBC <1 /hpf (3-5)
--- NOTE | 2016-09-22 14:06 | EKG ---
Test Reason : Blood Pressure : / mmHG Vent. Rate : 057 BPM Atrial Rate : 057 BPM P-R Int : 142 ms QRS Dur : 154 ms QT Int : 546 ms P-R-T Axes : 062 -68 142 degrees QTc Int : 531 ms SINUS BRADYCARDIA RIGHT BUNDLE BRANCH BLOCK LEFT ANTERIOR FASCICULAR BLOCK BIFASCICULAR BLOCK MINIMAL VOLTAGE CRITERIA FOR LVH, MAY BE NORMAL VARIANT T WAVE ABNORMALITY, CONSIDER LATERAL ISCHEMIA ABNORMAL ECG WHEN COMPARED WITH ECG OF 31-MAY-2016 09:41, T WAVE VARIATION Confirmed by MYNOR COBURN MD ([id number]) on 09/22/2016 2:06:19 PM Referred By: Confirmed By:MYNOR COBURN MD
[2016-09-22] MEDS ORDERED: MAG HYDROX/AL HYDROX/SIMETH 30 ML UNIT-DOSE CUP PO PRN (16:26)
--- NOTE | 2016-09-22 16:31 | HP ---
Admitting History and Physical - Primary Care Physician PCP: Aric Rivers - Admission Chief Complaint: DYSPNEA/SOB ACUTE CHF History of Present Illness: The patient is a 60 year old male, with a significant past medical history of hypertension, hyperlipidemia, cigarette smoking, diabetes, CHF (on Lasix) and CAD s/p 3 stents (1999), who presents to the emergency department with increasing shortness of breath since his recent admission on 05/31/16 for CHF. The patient reports his SOB is exacerbated with lying flat and denies relief of symptoms with using extra pillows at night for sleep. He states his cast shell grinder suggested using pillows which has been useful in the past, however , in the past 4 weeks, reports his orthopnea has been unmanageable. He states he has an appointment with Dr. Rivers today at 1pm. He denies chest pain, headache and dizziness. He denies fever, chills, nausea, vomit, diarrhea and constipation. He denies dysuria, frequency, urgency and hematuria. History Source: Patient, Significant Other, Medical Record, Transfer Record Limitations to Obtaining History: Clinical Condition, Physical Impairment - Past Medical History Cardiovascular: Yes: CAD (prior PCI in 1999), HTN, Hyperlipdemia Gastrointestinal: Yes: Hemorrhoids Hepatobiliary: Yes: Other (Reported "fatty liver") Renal/: Yes: Renal Inusuff Endocrine: Yes: Diabetes Mellitus - Smoking History Smoking history: Current some day smoker Have you smoked in the past 12 months: Yes Aproximately how many cigarettes per day: 4 - Alcohol/Substance Use Hx Alcohol Use: No History of Substance Use: reports: None Home Medications - Allergies Allergies/Adverse Reactions: Allergies Allergy/AdvReac Type Severity Reaction Status Date / Time No Known Allergies Allergy Verified 09/22/16 09:23 - Home Medications Home Medications: Ambulatory Orders Aspirin [Aspirin EC] 81 mg PO DAILY 05/31/16 Ezetimibe/Simvastatin [Vytorin 10-80 mg Tablet] 1 tab PO HS 05/31/16 Methyldopa 250 mg PO TID 05/31/16 Metoprolol Succinate [Toprol Xl] 50 mg PO TID 05/31/16 [place]-3/Dha/Epa/Fish Oil [[place] 3 500 Softgel] 2 each PO BID 05/31/16 Potassium Chloride [K-Dur -] 10 meq PO BID 05/31/16 Hydrocortisone 2.5% Topical Cr [Anusol-Hc -] 1 applic TP BID #1 tube 06/03/16 Mag Hydrox/Al Hydrox/Simeth [Mylanta Oral Suspension -] 30 ml PO Q6HPO cup 12/10 Calcitriol [Calcitriol -] 1 tab PO ASDIR 09/01/16 Folic Acid 1 mg PO DAILY 09/01/16 Hydralazine HCl [Apresoline -] 1 tab PO BID 09/01/16 Nystatin Powder [Nystop Powder -] 30 gm TP BID #30 powder 09/01/16 Sitagliptin Phosphate [Januvia] 1 tab PO DAILY 09/01/16 Silver Sulfadiazine [Silvadene] 30 gm TP DAILY #30 cream..g. 09/15/16 Apixaban [Eliquis] 2.5 mg PO BID 09/22/16 Review of Systems - Review of Systems Constitutional: reports: Weakness Eyes: reports: No Symptoms HENT: reports: No Symptoms Neck: reports: No Symptoms Cardiovascular: reports: Shortness of Breath Respiratory: reports: Cough, SOB, SOB on Exertion Gastrointestinal: reports: No Symptoms Genitourinary: reports: No Symptoms Musculoskeletal: reports: Muscle Cramps, Muscle Weakness Integumentary: reports: Eczema, Pruritis, Rash, Wound Neurological: reports: Pre-Existing Deficit Endocrine: reports: No Symptoms Hematology/Lymphatic: reports: No Symptoms Psychiatric: reports: No Symptoms Physical Examination Vital Signs: Vital Signs Temperature 97.4 F L 09/22/16 09:20 Pulse Rate 52 L 09/22/16 14:30 Respiratory Rate 24 09/22/16 14:30 Blood Pressure 167/107 09/22/16 14:30 O2 Sat by Pulse Oximetry (%) 100 09/22/16 14:30 Constitutional: Yes: Moderate Distress Eyes: Yes: WNL HENT: Yes: WNL Neck: Yes: WNL Cardiovascular: Yes: Pulse Irregular Respiratory: Yes: Cough, Poor Air Entry, SOB, Other Gastrointestinal: Yes: WNL Musculoskeletal: Yes: Muscle Weakness Extremities: Yes: Erythema Edema: Yes Edema: LLE: 2+, RLE: 2+ Peripheral Pulses WNL: Yes Integumentary: Yes: Pressure Ulcer, Venous Stasis Changes Wound/Incision: Yes: Dressing Dry and Intact Neurological: Yes: Pre-Existing Deficit, Unsteady Gait, Weakness ...Motor Strength: RLE Psychiatric: Yes: Other Imaging - Results Chest X-ray: Report Reviewed Problem List - Problems (1) CHF (congestive heart failure) Code(s): I50.9 - HEART FAILURE, UNSPECIFIED Qualifiers: Congestive heart failure type: combined Congestive heart failure chronicity: acute on chronic Qualified Code(s): I50.43 - Acute on chronic combined systolic (congestive) and diastolic (congestive) heart failure (2) BETI (acute kidney injury) Code(s): N17.9 - ACUTE KIDNEY FAILURE, UNSPECIFIED (3) Anemia Code(s): D64.9 - ANEMIA, UNSPECIFIED Qualifiers: Other causes of anemia: chronic disease, kidney (4) Avulsion of skin Code(s): T14.8 - OTHER INJURY OF UNSPECIFIED BODY REGION (5) Coronary artery disease Code(s): I25.10 - ATHSCL HEART DISEASE OF [place] CORONARY ARTERY W/O ANG PCTRS Qualifiers: Coronary Disease-Associated Artery/Lesion type: unspecified vessel or lesion type Associated angina: angina presence unspecified Assessment/Plan COMBINED ACUTE ON CHRONIC CHF IV LASIX GENTLY RENAL AND CARDIOLOGY EVAL WOUND CARE TELE WEIGHTS I AND O 02 SUPPORT
--- NOTE | 2016-09-22 16:42 | CON.CARD ---
Consult Consult Specialty:: Cardiology Referred by:: Dr. Rivers Reason for Consultation:: Dyspnea - History of Present Illness History of Present Illness: 60 year old male, with a past medical history of hypertension, hyperlipidemia, cigarette smoking, diabetes, CHF (on Lasix), CKD 3, and CAD s/p 3 stents (1999) , who presents to the emergency department with increasing shortness of breath since his recent admission on 05/31/16 for CHF. He has orthopnea and lower extremity swelling and a cough productive of white phlegm. There is no chest pain. Patient had a stress test this year with Dr. Giovanni Sood and reportedly by the patient were OK. He underwent an echocardiogram here in May 2016 showing Mildly elevated LA pressure and overall preserved LV function without valvular pathology. - History Source History Provided By: Patient, Medical Record Limitations to Obtaining History: No Limitations - Past Medical History Cardio/Vascular: Yes: CAD (prior PCI in 1999), HTN, Hyperlipdemia Gastrointestinal: Yes: Hemorrhoids Hepatobiliary: Yes: Other (Reported "fatty liver") Renal/: Yes: Renal Inusuff Endocrine: Yes: Diabetes Mellitus - Alcohol/Substance Use Hx Alcohol Use: No History of Substance Use: reports: None - Smoking History Smoking history: Current some day smoker Have you smoked in the past 12 months: Yes Aproximately how many cigarettes per day: 4 Home Medications - Allergies Allergies/Adverse Reactions: Allergies Allergy/AdvReac Type Severity Reaction Status Date / Time No Known Allergies Allergy Verified 09/22/16 09:23 - Home Medications Home Medications: Ambulatory Orders Aspirin [Aspirin EC] 81 mg PO DAILY 05/31/16 Ezetimibe/Simvastatin [Vytorin 10-80 mg Tablet] 1 tab PO HS 05/31/16 Methyldopa 250 mg PO TID 05/31/16 Metoprolol Succinate [Toprol Xl] 50 mg PO TID 05/31/16 [place]-3/Dha/Epa/Fish Oil [[place] 3 500 Softgel] 2 each PO BID 05/31/16 Potassium Chloride [K-Dur -] 10 meq PO BID 05/31/16 Hydrocortisone 2.5% Topical Cr [Anusol-Hc -] 1 applic TP BID #1 tube 06/03/16 Mag Hydrox/Al Hydrox/Simeth [[place] Oral Suspension -] 30 ml PO Q6HPO cup 12/10 Calcitriol [Calcitriol -] 1 tab PO ASDIR 09/01/16 Folic Acid 1 mg PO DAILY 09/01/16 Hydralazine HCl [Apresoline -] 1 tab PO BID 09/01/16 Nystatin Powder [Nystop Powder -] 30 gm TP BID #30 powder 09/01/16 Sitagliptin Phosphate [Januvia] 1 tab PO DAILY 09/01/16 Silver Sulfadiazine [Silvadene] 30 gm TP DAILY #30 cream..g. 09/15/16 Apixaban [Eliquis] 2.5 mg PO BID 09/22/16 Home Medications (free text): ER recrds indicate him being on Eliquis 2.5mg BID Review of Systems - Review of Systems Constitutional: reports: No Symptoms Eyes: reports: No Symptoms HENT: reports: No Symptoms Neck: reports: No Symptoms Cardiovascular: reports: Shortness of Breath Respiratory: reports: Cough, Exercise Intolerance, Orthopnea, PND Gastrointestinal: reports: No Symptoms Genitourinary: reports: No Symptoms Musculoskeletal: reports: No Symptoms Vital Signs: Vital Signs Temperature 97.4 F L 09/22/16 09:20 Pulse Rate 52 L 09/22/16 14:30 Respiratory Rate 24 09/22/16 14:30 Blood Pressure 167/107 09/22/16 14:30 O2 Sat by Pulse Oximetry (%) 100 09/22/16 14:30 Constitutional: Yes: Mild Distress, Obese Eyes: Yes: WNL HENT: Yes: WNL Neck: Yes: WNL Respiratory: Yes: On Nasal O2, Orthopnea, Rales, SOB Gastrointestinal: Yes: Distention Cardiovascular: Yes: Regular Rate and Rhythm JVD: Yes Carotid Bruit: No PMI: Non-Displaced Heart Sounds: Yes: S1, S2 Edema: Yes Edema: LLE: 1+, RLE: 1+ - Other Data Labs, Other Data: INR, PTT INR 1.51 (0.82-1.09) H 09/22/16 10:00 Troponin, BNP 09/22/16 10:00 Troponin I 0.05 B-Natriuretic Peptide 62517.28 H NSR RBBB LAD LAt ischemia unchanged from prior Echo: Report Reviewed Prior Cardiac Procedures: PTCA with Stent Ejection Fraction %: LVEF > or = 40 % Imaging - Results Chest X-ray: Report Reviewed EKG: Image Reviewed Problem List - Problems (1) CHF (congestive heart failure) Code(s): I50.9 - HEART FAILURE, UNSPECIFIED Qualifiers: Congestive heart failure type: diastolic Congestive heart failure chronicity: acute on chronic Qualified Code(s): I50.33 - Acute on chronic diastolic (congestive) heart failure (2) BETI (acute kidney injury) Code(s): N17.9 - ACUTE KIDNEY FAILURE, UNSPECIFIED (3) Coronary artery disease Code(s): I25.10 - ATHSCL HEART DISEASE OF [place] CORONARY ARTERY W/O ANG PCTRS Qualifiers: Coronary Disease-Associated Artery/Lesion type: unspecified vessel or lesion type Associated angina: without angina Assessment/Plan 60 M with CAD, PVD, Diabetes and CKD 3 is admitted with increasing dyspnea, orthopnea and PND with BETI on CKD likely due to heart failure exacerbation and Acute HfPEF. Rec: Lasix 80mg IV QD Daily weights Renal consult-BETI possibly cardiorenal in setting of volume overload. Check lower extremity doppler to exclude DVT ER and PT reports being on Eliquis--Confirm home medications. Unclear why and if being used for P-Afib. Continue Metoprolol/ASA and statin.
--- NOTE | 2016-09-22 17:47 | CONSULT ---
Consult Consult Specialty:: Nephrology Reason for Consultation:: CKD - History of Present Illness Chief Complaint: shortness of breath and palpitations History of Present Illness: Pt is a 60 year old gentleman who follows with me in the office for CKD. He has history of CHF, DM, HTN, CAF and hyperlipidemia. He presents to the ER with shortness of breath and palpitations. He denies chest pain. He says he felt them last night and when he woke up. I was called to evaluate him for CKD. He has been on various doses of lasix as outpt. He complains of increased lower extremity edema. He denies fevers or chills. He denies abdominal pain. He denies nsaid use. He has been compliant with his meds. - History Source History Provided By: Patient, Medical Record - Past Medical History Cardio/Vascular: Yes: CAD (prior PCI in 1999), HTN, Hyperlipdemia Gastrointestinal: Yes: Hemorrhoids Hepatobiliary: Yes: Other (Reported "fatty liver") Renal/: Yes: Renal Inusuff Endocrine: Yes: Diabetes Mellitus - Alcohol/Substance Use Hx Alcohol Use: No History of Substance Use: reports: None - Smoking History Smoking history: Current some day smoker Have you smoked in the past 12 months: Yes Aproximately how many cigarettes per day: 4 - Social History Usual Living Arrangement: With Spouse Home Medications - Allergies Allergies/Adverse Reactions: Allergies Allergy/AdvReac Type Severity Reaction Status Date / Time No Known Allergies Allergy Verified 09/22/16 09:23 - Home Medications Home Medications: Ambulatory Orders Aspirin [Aspirin EC] 81 mg PO DAILY 05/31/16 Ezetimibe/Simvastatin [Vytorin 10-80 mg Tablet] 1 tab PO HS 05/31/16 Methyldopa 250 mg PO TID 05/31/16 Metoprolol Succinate [Toprol Xl] 50 mg PO TID 05/31/16 [place]-3/Dha/Epa/Fish Oil [[place] 3 500 Softgel] 2 each PO BID 05/31/16 Potassium Chloride [K-Dur -] 10 meq PO BID 05/31/16 Hydrocortisone 2.5% Topical Cr [Anusol-Hc -] 1 applic TP BID #1 tube 06/03/16 Mag Hydrox/Al Hydrox/Simeth [Mylanta Oral Suspension -] 30 ml PO Q6HPO cup 12/10 Calcitriol [Calcitriol -] 1 tab PO ASDIR 09/01/16 Folic Acid 1 mg PO DAILY 09/01/16 Hydralazine HCl [Apresoline -] 1 tab PO BID 09/01/16 Nystatin Powder [Nystop Powder -] 30 gm TP BID #30 powder 09/01/16 Sitagliptin Phosphate [Januvia] 1 tab PO DAILY 09/01/16 Silver Sulfadiazine [Silvadene] 30 gm TP DAILY #30 cream..g. 09/15/16 Apixaban [Eliquis] 2.5 mg PO BID 09/22/16 Family Disease History - Family Disease History Family History: Denies Review of Systems - Review of Systems Constitutional: reports: Malaise Eyes: reports: No Symptoms HENT: reports: No Symptoms Neck: reports: No Symptoms Cardiovascular: reports: Edema, Palpitations, Shortness of Breath Respiratory: reports: SOB, SOB on Exertion Gastrointestinal: reports: No Symptoms Genitourinary: reports: No Symptoms Musculoskeletal: reports: No Symptoms Integumentary: reports: No Symptoms Neurological: reports: No Symptoms Endocrine: reports: No Symptoms Hematology/Lymphatic: reports: No Symptoms Psychiatric: reports: No Symptoms Physical Exam Vital Signs: Vital Signs Temperature 97.4 F L 09/22/16 09:20 Pulse Rate 61 09/22/16 17:40 Respiratory Rate 22 09/22/16 17:40 Blood Pressure 186/101 09/22/16 17:40 O2 Sat by Pulse Oximetry (%) 99 09/22/16 17:40 Constitutional: Yes: Calm Eyes: Yes: Conjunctiva Clear HENT: Yes: Atraumatic Neck: Yes: Supple Cardiovascular: Yes: S1, S2 Respiratory: Yes: CTA Bilaterally Gastrointestinal: Yes: Soft, Abdomen, Obese Musculoskeletal: Yes: WNL Edema: Yes Edema: LLE: 2+, RLE: 2+ Neurological: Yes: Oriented Psychiatric: Yes: Oriented Labs: Laboratory Tests 09/22/16 09/22/16 09/22/16 10:00 10:00 10:00 WBC 7.7 Hgb 11.0 L Plt Count 103 L INR 1.51 H Sodium 141 Potassium 4.4 Chloride 107 Carbon Dioxide 27 Anion Gap 7 L BUN 48 H Creatinine 3.5 H Creat Clearance w eGFR 18.02 Calcium 7.5 L Total Bilirubin 0.4 AST 29 ALT 30 Alkaline Phosphatase 63 Creatine Kinase 519 H CK-MB (CK-2) 1.616 B-Natriuretic Peptide 03873.28 H Total Protein 6.9 Albumin 3.1 L Urine Color Urine Appearance Urine pH Ur Specific [place] Urine Protein Urine Ketones Urine Blood Urine Nitrite Urine Bilirubin Urine Urobilinogen Ur Leukocyte Esterase Urine RBC Urine WBC 09/22/16 11:14 WBC Hgb Plt Count INR Sodium Potassium Chloride Carbon Dioxide Anion Gap BUN Creatinine Creat Clearance w eGFR Calcium Total Bilirubin AST ALT Alkaline Phosphatase Creatine Kinase CK-MB (CK-2) B-Natriuretic Peptide Total Protein Albumin Urine Color Straw Urine Appearance Clear Urine pH 5.0 Ur Specific [place] 1.015 Urine Protein 2+ H Urine Ketones Negative Urine Blood 1+ H Urine Nitrite Negative Urine Bilirubin Negative Urine Urobilinogen Negative Ur Leukocyte Esterase Negative Urine RBC 1 Urine WBC <1 Imaging - Results Chest X-ray: Report Reviewed Problem List - Problems (1) CHF (congestive heart failure) Code(s): I50.9 - HEART FAILURE, UNSPECIFIED Qualifiers: Congestive heart failure type: diastolic Congestive heart failure chronicity: acute on chronic Qualified Code(s): I50.33 - Acute on chronic diastolic (congestive) heart failure (2) Anemia Code(s): D64.9 - ANEMIA, UNSPECIFIED Qualifiers: Other causes of anemia: chronic disease, kidney (3) CKD (chronic kidney disease) Code(s): N18.9 - CHRONIC KIDNEY DISEASE, UNSPECIFIED (4) Diabetes 1.5, managed as type 2 Code(s): E10.9 - TYPE 1 DIABETES MELLITUS WITHOUT COMPLICATIONS Assessment/Plan Current Medications Generic Name Dose Route Start Last Admin Trade Name Alexandra PRN Reason Stop Dose Admin Acetaminophen 650 mg 09/22/16 16:26 Tylenol - PO Q6H PRN FEVER OR PAIN Al Hydroxide/Mg Hydroxide 30 ml 09/22/16 16:26 Mylanta Oral Suspension - PO Q6H PRN DYSPEPSIA Apixaban 2.5 mg 09/22/16 22:00 Eliquis - PO BID TYO Aspirin 81 mg 09/23/16 10:00 Ecotrin - PO DAILY TOY Atorvastatin Calcium 40 mg 09/22/16 22:00 Lipitor - PO HS TOY Furosemide 80 mg 09/23/16 10:00 Lasix Injection - IVPB DAILY TOY Hydralazine HCl 25 mg 09/22/16 22:00 Apresoline - PO BID TOY Hydrocortisone 1 applic 09/23/16 10:00 Anusol 2.5% Hc Cream - MD DAILY [facility] Insulin Aspart 1 vial 09/22/16 16:30 Novolog Vial Sliding Scale - SQ ACHS [facility] Protocol Methyldopa 250 mg 09/22/16 22:00 Aldomet - PO TID [facility] Metoprolol Succinate 50 mg 09/22/16 22:00 Toprol Xl - PO TID [facility] Nystatin 1 applic 09/23/16 10:00 Nystop Powder - TP DAILY [facility] Potassium Chloride 20 meq 09/23/16 10:00 K-Dur - PO DAILY [facility] Silver Sulfadiazine 1 applic 09/23/16 10:00 Silvadene - TP DAILY [facility] Sitagliptin Phosphate 25 mg 09/23/16 07:00 Januvia - PO DAILY@0700 [facility] Impression 1. CKD 2. anemia 3. CAD 4. HTN 5. DM 6. hyperlipidemia 7. active smoker 8. hemorrhoids 9.CHF dialstolic failure Plan - renal function is not far off baseline - agree with diuretics - monitor on tele - will need to monitor lytes - will order renal ultrasound as he did have dysuria - check ua Dr Espinoza
[2016-09-22] MEDS: INSULIN SLIDING SCALE (NOVOLOG) 1 VIAL SQ SCH ×2 (18:51→21:10)
[2016-09-22] MEDS: METOPROLOL SUCCINATE 50 MG TAB.SR.24H (FP) PO SCH (21:06)
[2016-09-22] MEDS: METHYLDOPA 250 MG TABLET PO SCH (21:10)
[2016-09-22] MEDS: APIXABAN 2.5 MG TABLET PO SCH (21:10)
[2016-09-22] MEDS: ATORVASTATIN CA 40 MG TABLET (FP) PO SCH (21:10)
[2016-09-22] MEDS: hydrALAZINE HCL 25 MG TABLET (FP) PO SCH (21:10)
[2016-09-23] MEDS ORDERED: FUROSEMIDE 40 MG/4 ML INJECTABLE VIAL IVPUSH ONE (00:56)
[2016-09-23] MEDS ORDERED: amLODIPine BESYLATE 10 MG TABLET (FP) PO ONE (00:58)
[2016-09-23] MEDS ORDERED: FUROSEMIDE 40 MG/4 ML INJECTABLE VIAL ONE (01:00)
[2016-09-23] MEDS ORDERED: ALBUTEROL SO4 0.083% IH SOL 2.5 MG/3 ML VIAL.NEB. NEB ONE (01:03)
[2016-09-23] MEDS ORDERED: hydrALAZINE HCL 20 MG/ML VIAL IVPUSH PRN (01:08)
[2016-09-23] MEDS: ALBUTEROL SO4 0.083% IH SOL 2.5 MG/3 ML VIAL.NEB. NEB PRN ×2 (01:09→05:00)
[2016-09-23 04:16] LABS: URINE APPEARANCE CLEAR; URINE BILIRUBIN NEGATIVE (NEGATIVE); URINE COLOR LTYELLOW; URINE GLUCOSE (UA) 1+ (NEGATIVE); URINE KETONE NEGATIVE (NEGATIVE); URINE LEUK ESTERASE NEGATIVE (NEGATIVE); URINE NITRITE NEGATIVE (NEGATIVE); URINE UROBILINOGEN NEGATIVE E.U./dl (0.2-1.0)
[2016-09-23 04:23] LABS: URINE BLOOD 1+ (NEGATIVE); URINE PROTEIN 3+ (NEGATIVE)
[2016-09-23 04:24] LABS: URINE BACTERIA RARE /hpf (NONE SEEN); URINE HYALINE CAST 1 /lpf; URINE MUCUS RARE; URINE RBC 2 /hpf (0-3); URINE WBC 1 /hpf (3-5)
[2016-09-23] MEDS: ACETAMINOPHEN 325 MG TABLET (FP) PO PRN ×2 (05:00→20:25)
[2016-09-23] MEDS ORDERED: PT OWN MED DRAWER 7, Y5N ONE ×3 (06:40→22:46)
[2016-09-23] MEDS: METOPROLOL SUCCINATE 50 MG TAB.SR.24H (FP) PO SCH ×3 (06:46→22:53)
[2016-09-23] MEDS: INSULIN SLIDING SCALE (NOVOLOG) 1 VIAL SQ SCH ×4 (06:46→22:54)
[2016-09-23] MEDS: sitaGLIPtin PHOSPHATE 25 MG TABLET (FP) PO SCH (06:47)
[2016-09-23] MEDS: METHYLDOPA 250 MG TABLET PO SCH ×3 (06:47→22:53)
--- NOTE | 2016-09-23 06:47 | HOSP ---
Subjective - Review of Symptoms Events since last encounter: increased sob Subjective: patient woke up with increased sob, no cough or wheezing. relieved by sitting up in bed. denies chest pain, back pain, abd pain. no acute events of tele. Systolic BP >200, HR 60's. Per RN metoprolol was held bc HR was in 40's earlier. Received lasix 80 in ed General: No: Chills HEENT: No: Head Aches, Visual Changes Pulmonary: Yes: Dyspnea. No: Cough, Pleuritic Chest Pain Cardiovascular: Yes: Orthopnea, Edema. No: Chest Pain, Palpitations Gastrointestinal: No: Nausea, Vomiting, Abdominal Pain Genitourinary: No: Dysuria Musculoskeletal: Yes: No Symptoms Neurological: No: Weakness, Numbness Physical Examination Vital Signs: Vital Signs Temperature 98.2 F 09/23/16 02:45 Pulse Rate 61 09/23/16 02:45 Respiratory Rate 22 09/23/16 02:45 Blood Pressure 150/96 09/23/16 02:45 O2 Sat by Pulse Oximetry (%) 97 09/22/16 21:00 Constitutional: Yes: No Distress Eyes: Yes: Conjunctiva Clear, EOM Intact, Sclera Icterus HENT: Yes: Atraumatic, Normocephalic Neck: Yes: Supple Cardiovascular: Yes: Regular Rate and Rhythm, JVD (+ hepatojugular reflex while sitting upright), S1, S2 Respiratory: Yes: Rhonchi (bibasilar), Wheezes (mild bibasilar) Gastrointestinal: Yes: Normal Bowel Sounds, Soft, Abdomen, Obese Edema: LLE: 3+, RLE: 3+ Hospitalist Encounter Assessment: The patient is a 60 year old male, with a significant past medical history of hypertension, hyperlipidemia, cigarette smoking, diabetes, CHF (on Lasix) and CAD s/p 3 stents (1999), who presents to the emergency department with increasing shortness of breath since his recent admission on 05/31/16 for CHF. Hx smoking Increased sob with orthopnea -likely due to fluid overload -Lasix 40 IV -albuterol Neb (wheezes, hx smoking) -am cxr HTN urgency >200 systolic -Norvasc 10 stat -close monitoring -notify primary Outcome: patient felt better Visit type - Emergency Visit Emergency Visit: Yes ED Registration Date: 09/22/16 Care time: The patient presented to the Emergency Department on the above date and was hospitalized for further evaluation of their emergent condition. - New Patient This patient is new to me today: Yes Date on this admission: 09/23/16 - Critical Care Critical Care patient: No
[2016-09-23 07:22] LABS: BASOPHIL 0.8 % (0-2.0); EOSINOPHIL 3.1 % (0-4.5); MCH 30.1 pg (25.7-33.7); MCHC 32.9 g/dl (32.0-35.9); MEAN CELL VOLUME 91.6 fl (80-96); NEUTROPHILS 72.7 % (42.8-82.8); PLATELET COUNT 93 K/MM3 (134-434); RDW 15.7 % (11.9-15.9); WHITE BLOOD COUNT 7.9 K/mm3 (4.0-10.0)
[2016-09-23 07:49] LABS: ALBUMIN 3.1 g/dl (3.4-5.0); CALCIUM 7.7 mg/dL (8.5-10.1)
[2016-09-23 08:03] LABS: BILIRUBIN,TOTAL 0.5 mg/dL (0.2-1.0); COCKROFT - GAULT 32.85; CREATININE 3.5 mg/dL (0.7-1.3); THYROID STIMULATING HORMONE 2.69 uIU/ml (0.358-3.74); TOT PROT 6.7 g/dl (6.4-8.2)
[2016-09-23] MEDS ORDERED: FUROSEMIDE 40 MG/4 ML INJECTABLE VIAL IVPB SCH ×2 (10:00)
[2016-09-23] MEDS: APIXABAN 2.5 MG TABLET PO SCH ×2 (10:33→22:53)
[2016-09-23] MEDS: ASPIRIN COATED 81 MG TABLET.EC PO SCH (10:33)
[2016-09-23] MEDS: hydrALAZINE HCL 25 MG TABLET (FP) PO SCH ×2 (10:33→22:53)
[2016-09-23] MEDS: POTASSIUM CHLORIDE TABS 20 MEQ TABLET.ER (FP) PO SCH (10:34)
[2016-09-23] MEDS: NYSTATIN POWDER 100,000 UNITS/GM - 15 GM TOPICAL POWDER TP SCH (10:38)
[2016-09-23] MEDS: SILVER SULFADIAZINE 1% TOP CREAM 50 GM JAR TP SCH (10:39)
--- NOTE | 2016-09-23 11:16 | PN ---
Progress Note, Physician Chief Complaint: AWAKE ALERT EVENTS AND NOTES REVIEWED SOB OVERNIGHT - Current Medication List Current Medications: Active Medications Acetaminophen (Tylenol -) 650 mg PO Q6H PRN PRN Reason: FEVER OR PAIN Last Admin: 09/23/16 05:00 Dose: 650 mg Al Hydroxide/Mg Hydroxide (Mylanta Oral Suspension -) 30 ml PO Q6H PRN PRN Reason: DYSPEPSIA Albuterol Sulfate (Ventolin 0.083% Nebulizer Soln -) 1 amp NEB Q4H PRN PRN Reason: SHORT OF BREATH/WHEEZING Last Admin: 09/23/16 05:00 Dose: 1 amp Apixaban (Eliquis -) 2.5 mg PO BID [facility] Last Admin: 09/23/16 10:33 Dose: 2.5 mg Aspirin (Ecotrin -) 81 mg PO DAILY TOY Last Admin: 09/23/16 10:33 Dose: 81 mg Atorvastatin Calcium (Lipitor -) 40 mg PO HS [facility] Last Admin: 09/22/16 21:10 Dose: 40 mg Furosemide (Lasix Injection -) 80 mg IVPB DAILY [facility] Last Admin: 09/23/16 10:32 Dose: 80 mg Hydralazine HCl (Apresoline -) 25 mg PO BID TOY Last Admin: 09/23/16 10:33 Dose: 25 mg Hydralazine HCl (Apresoline Injection -) 10 mg IVPUSH Q6H PRN PRN Reason: HYPERTENSION Hydrocortisone (Anusol 2.5% Hc Cream -) 1 applic [place] DAILY TOY Insulin Aspart (Novolog Vial Sliding Scale -) 1 vial SQ ACHS TOY PRN Reason: Protocol Last Admin: 09/23/16 06:46 Dose: Not Given Methyldopa (Aldomet -) 250 mg PO TID [facility] Last Admin: 09/23/16 06:47 Dose: 250 mg Metoprolol Succinate (Toprol Xl -) 50 mg PO TID [facility] Last Admin: 09/23/16 06:46 Dose: Not Given Nystatin (Nystop Powder -) 1 applic TP DAILY [facility] Last Admin: 09/23/16 10:38 Dose: 1 applic Potassium Chloride (K-Dur -) 20 meq PO DAILY [facility] Last Admin: 09/23/16 10:34 Dose: 20 meq Silver Sulfadiazine (Silvadene -) 1 applic TP DAILY [facility] Last Admin: 09/23/16 10:39 Dose: 1 applic Sitagliptin Phosphate (Januvia -) 25 mg PO DAILY@0700 [facility] Last Admin: 09/23/16 06:47 Dose: 25 mg - Objective Vital Signs: Vital Signs Temperature 98.1 F 09/23/16 07:00 Pulse Rate 59 L 09/23/16 07:00 Respiratory Rate 22 09/23/16 07:00 Blood Pressure 168/98 09/23/16 07:00 O2 Sat by Pulse Oximetry (%) 97 09/22/16 21:00 Constitutional: Yes: Mild Distress Eyes: Yes: WNL HENT: Yes: WNL Neck: Yes: WNL Cardiovascular: Yes: WNL Respiratory: Yes: Diminished, On Nasal O2, Poor Air Entry Gastrointestinal: Yes: WNL Genitourinary: Yes: WNL Musculoskeletal: Yes: Muscle Weakness Extremities: Yes: WNL Edema: Yes Edema: LLE: 1+, RLE: 1+ Peripheral Pulses WNL: Yes Integumentary: Yes: Pressure Ulcer Wound/Incision: Yes: Dressing Dry and Intact Neurological: Yes: WNL ...Motor Strength: LLE, RLE Psychiatric: Yes: Other Labs: CBC, BMP 09/23/16 06:20 09/23/16 06:20 INR, PTT INR 1.51 (0.82-1.09) H 09/22/16 10:00 Problem List - Problems (1) CHF (congestive heart failure) Code(s): I50.9 - HEART FAILURE, UNSPECIFIED Qualifiers: Congestive heart failure type: diastolic Congestive heart failure chronicity: acute on chronic Qualified Code(s): I50.33 - Acute on chronic diastolic (congestive) heart failure (2) BETI (acute kidney injury) Code(s): N17.9 - ACUTE KIDNEY FAILURE, UNSPECIFIED (3) Anemia Code(s): D64.9 - ANEMIA, UNSPECIFIED Qualifiers: Other causes of anemia: chronic disease, kidney (4) Avulsion of skin Code(s): T14.8 - OTHER INJURY OF UNSPECIFIED BODY REGION (5) Coronary artery disease Code(s): I25.10 - ATHSCL HEART DISEASE OF [place] CORONARY ARTERY W/O ANG PCTRS Qualifiers: Coronary Disease-Associated Artery/Lesion type: unspecified vessel or lesion type Associated angina: without angina Assessment/Plan DISCUSSED WITH NEPHROLOGY IV SOLMEDROL X 1 02 SUPPORT LASIX AND METOLAZONE INCREASED PULM CONSULT R/O PE?/ CHECK D-DIMER LEVEL
[2016-09-23] MEDS ORDERED: methylPREDNISolone NA SUCC 40 MG/1 ML VIAL IVPB ONE (11:45)
--- NOTE | 2016-09-23 12:26 | PN ---
Progress Note, Physician History of Present Illness: Pt seen and examined at bedside. He is awake and alert. He complained of shortness of breath last night. - Current Medication List Current Medications: Active Medications Acetaminophen (Tylenol -) 650 mg PO Q6H PRN PRN Reason: FEVER OR PAIN Last Admin: 09/23/16 05:00 Dose: 650 mg Al Hydroxide/Mg Hydroxide (Mylanta Oral Suspension -) 30 ml PO Q6H PRN PRN Reason: DYSPEPSIA Albuterol Sulfate (Ventolin 0.083% Nebulizer Soln -) 1 amp NEB Q4H PRN PRN Reason: SHORT OF BREATH/WHEEZING Last Admin: 09/23/16 05:00 Dose: 1 amp Apixaban (Eliquis -) 2.5 mg PO BID [facility] Last Admin: 09/23/16 10:33 Dose: 2.5 mg Aspirin (Ecotrin -) 81 mg PO DAILY [facility] Last Admin: 09/23/16 10:33 Dose: 81 mg Atorvastatin Calcium (Lipitor -) 40 mg PO HS [facility] Last Admin: 09/22/16 21:10 Dose: 40 mg Furosemide (Lasix Injection -) 80 mg IVPB DAILY [facility] Last Admin: 09/23/16 10:32 Dose: 80 mg Hydralazine HCl (Apresoline -) 25 mg PO BID [facility] Last Admin: 09/23/16 10:33 Dose: 25 mg Hydralazine HCl (Apresoline Injection -) 10 mg IVPUSH Q6H PRN PRN Reason: HYPERTENSION Hydrocortisone (Anusol 2.5% Hc Cream -) 1 applic MT DAILY [facility] Insulin Aspart (Novolog Vial Sliding Scale -) 1 vial SQ ACHS TOY PRN Reason: Protocol Last Admin: 09/23/16 06:46 Dose: Not Given Methyldopa (Aldomet -) 250 mg PO TID [facility] Last Admin: 09/23/16 06:47 Dose: 250 mg Metoprolol Succinate (Toprol Xl -) 50 mg PO TID [facility] Last Admin: 09/23/16 06:46 Dose: Not Given Nystatin (Nystop Powder -) 1 applic TP DAILY [facility] Last Admin: 09/23/16 10:38 Dose: 1 applic Potassium Chloride (K-Dur -) 20 meq PO DAILY [facility] Last Admin: 09/23/16 10:34 Dose: 20 meq Silver Sulfadiazine (Silvadene -) 1 applic TP DAILY [facility] Last Admin: 09/23/16 10:39 Dose: 1 applic Sitagliptin Phosphate (Januvia -) 25 mg PO DAILY@0700 [facility] Last Admin: 09/23/16 06:47 Dose: 25 mg - Objective Vital Signs: Vital Signs Temperature 98.4 F 09/23/16 10:00 Pulse Rate 59 L 09/23/16 10:00 Respiratory Rate 22 09/23/16 10:00 Blood Pressure 147/100 09/23/16 10:00 O2 Sat by Pulse Oximetry (%) 97 09/23/16 10:00 Constitutional: Yes: Calm Eyes: Yes: Conjunctiva Clear HENT: Yes: Atraumatic Neck: Yes: Supple Cardiovascular: Yes: S1, S2 Respiratory: Yes: On Nasal O2, Rhonchi. No: Wheezes Gastrointestinal: Yes: Soft, Abdomen, Obese Genitourinary: Yes: WNL Musculoskeletal: Yes: WNL Extremities: Yes: WNL Edema: Yes Edema: LLE: 2+, RLE: 2+ Neurological: Yes: Oriented Psychiatric: Yes: Oriented Labs: CBC, BMP 09/23/16 06:20 09/23/16 06:20 INR, PTT INR 1.51 (0.82-1.09) H 09/22/16 10:00 Problem List - Problems (1) CHF (congestive heart failure) Code(s): I50.9 - HEART FAILURE, UNSPECIFIED Qualifiers: Congestive heart failure type: diastolic Congestive heart failure chronicity: acute on chronic Qualified Code(s): I50.33 - Acute on chronic diastolic (congestive) heart failure (2) Anemia Code(s): D64.9 - ANEMIA, UNSPECIFIED Qualifiers: Other causes of anemia: chronic disease, kidney (3) CKD (chronic kidney disease) Code(s): N18.9 - CHRONIC KIDNEY DISEASE, UNSPECIFIED (4) Diabetes 1.5, managed as type 2 Code(s): E10.9 - TYPE 1 DIABETES MELLITUS WITHOUT COMPLICATIONS Assessment/Plan Current Medications Generic Name Dose Route Start Last Admin Trade Name Freq PRN Reason Stop Dose Admin Acetaminophen 650 mg 09/22/16 16:26 09/23/16 05:00 Tylenol - PO 650 mg Q6H PRN Administration FEVER OR PAIN Al Hydroxide/Mg Hydroxide 30 ml 09/22/16 16:26 Mylanta Oral Suspension - PO Q6H PRN DYSPEPSIA Albuterol Sulfate 1 amp 09/23/16 00:56 09/23/16 05:00 Ventolin 0.083% Nebulizer Soln - NEB 1 amp Q4H PRN Administration SHORT OF BREATH/WHEEZING Apixaban 2.5 mg 09/22/16 22:00 09/23/16 10:33 Eliquis - PO 2.5 mg BID TOY Administration Aspirin 81 mg 09/23/16 10:00 09/23/16 10:33 Ecotrin - PO 81 mg DAILY [facility]Y Administration Atorvastatin Calcium 40 mg 09/22/16 22:00 09/22/16 21:10 Lipitor - PO 40 mg HS TOY Administration Furosemide 80 mg 09/23/16 10:00 09/23/16 10:32 Lasix Injection - IVPB 80 mg DAILY TOY Administration Hydralazine HCl 25 mg 09/22/16 22:00 09/23/16 10:33 Apresoline - PO 25 mg BID TOY Administration Hydralazine HCl 10 mg 09/23/16 01:08 Apresoline Injection - IVPUSH Q6H PRN HYPERTENSION Hydrocortisone 1 applic 09/23/16 10:00 Anusol 2.5% Hc Cream - MT DAILY [facility] Insulin Aspart 1 vial 09/22/16 16:30 09/23/16 06:46 Novolog Vial Sliding Scale - SQ Not Given ACHS [facility] Protocol Methyldopa 250 mg 09/22/16 22:00 09/23/16 06:47 Aldomet - PO 250 mg TID TOY Administration Metoprolol Succinate 50 mg 09/22/16 22:00 09/23/16 06:46 Toprol Xl - PO Not Given TID TOY Nystatin 1 applic 09/23/16 10:00 09/23/16 10:38 Nystop Powder - TP 1 applic DAILY [facility] Administration Potassium Chloride 20 meq 09/23/16 10:00 09/23/16 10:34 K-Dur - PO 20 meq DAILY TOY Administration Silver Sulfadiazine 1 applic 09/23/16 10:00 09/23/16 10:39 Silvadene - TP 1 applic DAILY [facility]Y Administration Sitagliptin Phosphate 25 mg 09/23/16 07:00 09/23/16 06:47 Januvia - PO 25 mg DAILY@0700 TOY Administration Impression 1. CKD 2. anemia 3. CAD 4. HTN 5. DM 6. hyperlipidemia 7. active smoker 8. hemorrhoids 9. CHF dialstolic failure Plan - will increase dose of lasix - repeat labs in am - cardiology follow up - monitor BP - discussed with primary - follow up renal ultrasound - check ua Dr Espinoza
--- NOTE | 2016-09-23 14:02 | PN ---
Progress Note (short form) - Note Progress Note: PULMONARY CONSULTATION DICTATED 09/23/16 IMP ACUTE ON CHRONIC CHF CKD ASHD S/P STENT X3 DM HYPERLIPEDEMIA ? COPD ? OSAS PLAN IV LASIX O2 DAILY WTS INHALED BRONCHODILATORS PRN F/U CHEST X-RAY MONITOR LYTES SMOKING CESSATION COUNSELED WT REDUCTION SLEEP STUDIES OUTPATIENT [facility] Problem List - Problems (1) CHF (congestive heart failure) Code(s): I50.9 - HEART FAILURE, UNSPECIFIED Qualifiers: Congestive heart failure type: diastolic Congestive heart failure chronicity: acute on chronic Qualified Code(s): I50.33 - Acute on chronic diastolic (congestive) heart failure (2) CKD (chronic kidney disease) Code(s): N18.9 - CHRONIC KIDNEY DISEASE, UNSPECIFIED (3) Diabetes 1.5, managed as type 2 Code(s): E10.9 - TYPE 1 DIABETES MELLITUS WITHOUT COMPLICATIONS (4) Grade III hemorrhoids Code(s): K64.2 - THIRD DEGREE HEMORRHOIDS (5) Tobacco abuse counseling Code(s): Z71.6 - TOBACCO ABUSE COUNSELING (6) Morbid (severe) obesity due to excess calories Code(s): E66.01 - MORBID (SEVERE) OBESITY DUE TO EXCESS CALORIES
[2016-09-23] MEDS: FUROSEMIDE 100 MG/10 ML INJECTABLE VIAL IVPB SCH (14:46)
[2016-09-23] MEDS: HYDROCORTISONE 2.5% TOPICAL CREAM 30 GM TUBE PR SCH (14:47)
--- NOTE | 2016-09-23 16:29 | PN ---
Progress Note, Physician History of Present Illness: 60 year old male, with a past medical history of hypertension, hyperlipidemia, cigarette smoking, diabetes, CHF (on Lasix), CKD 3, and CAD s/p 3 stents (1999) , who presents to the emergency department with increasing shortness of breath orthopnea and lower extremity swelling and a cough productive of white phlegm. There is no chest pain. Patient had a stress test 04/[address] Giovanni Sood showing inferior wall fixed defect and no ischemia. He underwent an echocardiogram here in May 2016 showing Mildly elevated LA pressure and overall preserved LV function without valvular pathology. Takes Eliquis. I spoke with Dr. Vasquez office and there is no indication of Afib per their records. - Current Medication List Current Medications: Active Medications Acetaminophen (Tylenol -) 650 mg PO Q6H PRN PRN Reason: FEVER OR PAIN Last Admin: 09/23/16 05:00 Dose: 650 mg Al Hydroxide/Mg Hydroxide (Mylanta Oral Suspension -) 30 ml PO Q6H PRN PRN Reason: DYSPEPSIA Albuterol Sulfate (Ventolin 0.083% Nebulizer Soln -) 1 amp NEB Q4H PRN PRN Reason: SHORT OF BREATH/WHEEZING Last Admin: 09/23/16 05:00 Dose: 1 amp Apixaban (Eliquis -) 2.5 mg PO BID [facility] Last Admin: 09/23/16 10:33 Dose: 2.5 mg Aspirin (Ecotrin -) 81 mg PO DAILY [facility] Last Admin: 09/23/16 10:33 Dose: 81 mg Atorvastatin Calcium (Lipitor -) 40 mg PO HS [facility] Last Admin: 09/22/16 21:10 Dose: 40 mg Furosemide (Lasix Injection -) 60 mg IVPB BID@0600,1400 [facility] Last Admin: 09/23/16 14:46 Dose: Not Given Hydralazine HCl (Apresoline -) 25 mg PO BID [facility] Last Admin: 09/23/16 10:33 Dose: 25 mg Hydralazine HCl (Apresoline Injection -) 10 mg IVPUSH Q6H PRN PRN Reason: HYPERTENSION Hydrocortisone (Anusol 2.5% Hc Cream -) 1 applic [place] DAILY [facility] Last Admin: 09/23/16 14:47 Dose: Not Given Insulin Aspart (Novolog Vial Sliding Scale -) 1 vial SQ ACHS [facility] PRN Reason: Protocol Last Admin: 09/23/16 11:38 Dose: Not Given Methyldopa (Aldomet -) 250 mg PO TID [facility] Last Admin: 09/23/16 14:45 Dose: 250 mg Metoprolol Succinate (Toprol Xl -) 50 mg PO TID [facility] Last Admin: 09/23/16 14:45 Dose: 50 mg Nystatin (Nystop Powder -) 1 applic TP DAILY [facility] Last Admin: 09/23/16 10:38 Dose: 1 applic Potassium Chloride (K-Dur -) 20 meq PO DAILY [facility] Last Admin: 09/23/16 10:34 Dose: 20 meq Silver Sulfadiazine (Silvadene -) 1 applic TP DAILY [facility] Last Admin: 09/23/16 10:39 Dose: 1 applic Sitagliptin Phosphate (Januvia -) 25 mg PO DAILY@0700 [facility] Last Admin: 09/23/16 06:47 Dose: 25 mg - Objective Vital Signs: Vital Signs Temperature 98 F 09/23/16 14:23 Pulse Rate 67 09/23/16 14:23 Respiratory Rate 22 09/23/16 14:23 Blood Pressure 164/105 09/23/16 14:23 O2 Sat by Pulse Oximetry (%) 97 09/23/16 10:00 Constitutional: Yes: Mild Distress Eyes: Yes: WNL HENT: Yes: WNL Neck: Yes: WNL Cardiovascular: Yes: Regular Rate and Rhythm, JVD, S1, S2 Respiratory: Yes: Rales Gastrointestinal: Yes: WNL Edema: Yes Peripheral Pulses WNL: Yes Labs: CBC, BMP 09/23/16 06:20 09/23/16 06:20 INR, PTT INR 1.51 (0.82-1.09) H 09/22/16 10:00 - ....Imaging EKG: Report Reviewed, Image Reviewed Problem List - Problems (1) CHF (congestive heart failure) Code(s): I50.9 - HEART FAILURE, UNSPECIFIED Qualifiers: Congestive heart failure type: diastolic Congestive heart failure chronicity: acute on chronic Qualified Code(s): I50.33 - Acute on chronic diastolic (congestive) heart failure (2) BETI (acute kidney injury) Code(s): N17.9 - ACUTE KIDNEY FAILURE, UNSPECIFIED (3) Coronary artery disease Code(s): I25.10 - ATHSCL HEART DISEASE OF [place] CORONARY ARTERY W/O ANG PCTRS Qualifiers: Coronary Disease-Associated Artery/Lesion type: unspecified vessel or lesion type Associated angina: without angina Assessment/Plan 60 M with CAD, PVD, Diabetes and CKD 3 is admitted with increasing dyspnea, orthopnea and PND and CKD likely due to heart failure exacerbation and Acute HfPEF. Rec: Continue IV diuretics. Daily weights and I/O Nedds Better BP control-- Add Nifedipine 30mg daily. Renal follow up Check lower extremity doppler to exclude DVT Called Dr. Sood's office, no indication that there is Afib. Unless other documentation exists, would advise holding Eliquis at this time.
[2016-09-23] MEDS: ATORVASTATIN CA 40 MG TABLET (FP) PO SCH (22:53)
[2016-09-24] MEDS ORDERED: PT OWN MED DRAWER 7, Y5N ONE ×3 (06:22→21:12)
[2016-09-24] MEDS: INSULIN SLIDING SCALE (NOVOLOG) 1 VIAL SQ SCH ×3 (06:28→21:14)
[2016-09-24] MEDS: METOPROLOL SUCCINATE 50 MG TAB.SR.24H (FP) PO SCH (06:32)
[2016-09-24] MEDS: sitaGLIPtin PHOSPHATE 25 MG TABLET (FP) PO SCH (06:32)
[2016-09-24] MEDS: FUROSEMIDE 100 MG/10 ML INJECTABLE VIAL IVPB SCH ×2 (06:33→14:17)
[2016-09-24] MEDS: METHYLDOPA 250 MG TABLET PO SCH ×3 (06:33→21:15)
[2016-09-24 07:38] LABS: ALBUMIN 2.9 g/dl (3.4-5.0); BILIRUBIN,TOTAL 0.4 mg/dL (0.2-1.0); CALCIUM 7.7 mg/dL (8.5-10.1); COCKROFT - GAULT 34.23; CREATININE 3.4 mg/dL (0.7-1.3); TOT PROT 6.7 g/dl (6.4-8.2)
[2016-09-24] MEDS: POTASSIUM CHLORIDE TABS 20 MEQ TABLET.ER (FP) PO SCH (09:34)
[2016-09-24] MEDS: ASPIRIN COATED 81 MG TABLET.EC PO SCH (09:34)
[2016-09-24] MEDS: hydrALAZINE HCL 25 MG TABLET (FP) PO SCH ×2 (09:34→21:15)
[2016-09-24] MEDS: APIXABAN 2.5 MG TABLET PO SCH (09:34)
[2016-09-24] MEDS: NYSTATIN POWDER 100,000 UNITS/GM - 15 GM TOPICAL POWDER TP SCH (09:35)
[2016-09-24] MEDS: SILVER SULFADIAZINE 1% TOP CREAM 50 GM JAR TP SCH (09:39)
[2016-09-24] MEDS: HYDROCORTISONE 2.5% TOPICAL CREAM 30 GM TUBE PR SCH (09:43)
[2016-09-24] MEDS ORDERED: NIFEdipine E.R. 30 MG TABLET (FP) PO SCH (10:00)
--- NOTE | 2016-09-24 12:02 | PN ---
Progress Note, Physician Chief Complaint: AWAKE ALERT BEDSIDE DENIES CHEST PAIN - Current Medication List Current Medications: Active Medications Acetaminophen (Tylenol -) 650 mg PO Q6H PRN PRN Reason: FEVER OR PAIN Last Admin: 09/23/16 20:25 Dose: 650 mg Al Hydroxide/Mg Hydroxide (Mylanta Oral Suspension -) 30 ml PO Q6H PRN PRN Reason: DYSPEPSIA Albuterol Sulfate (Ventolin 0.083% Nebulizer Soln -) 1 amp NEB Q4H PRN PRN Reason: SHORT OF BREATH/WHEEZING Last Admin: 09/23/16 05:00 Dose: 1 amp Aspirin (Ecotrin -) 81 mg PO DAILY [facility] Last Admin: 09/24/16 09:34 Dose: 81 mg Atorvastatin Calcium (Lipitor -) 40 mg PO HS [facility] Last Admin: 09/23/16 22:53 Dose: 40 mg Furosemide (Lasix Injection -) 60 mg IVPB BID@0600,1400 TOY Last Admin: 09/24/16 06:33 Dose: 60 mg Hydralazine HCl (Apresoline -) 25 mg PO BID TOY Last Admin: 09/24/16 09:34 Dose: 25 mg Hydralazine HCl (Apresoline Injection -) 10 mg IVPUSH Q6H PRN PRN Reason: HYPERTENSION Hydrocortisone (Anusol 2.5% Hc Cream -) 1 applic [place] DAILY [facility] Last Admin: 09/24/16 09:43 Dose: Not Given Insulin Aspart (Novolog Vial Sliding Scale -) 1 vial SQ ACHS TOY PRN Reason: Protocol Last Admin: 09/24/16 11:43 Dose: Not Given Methyldopa (Aldomet -) 250 mg PO TID [facility] Last Admin: 09/24/16 06:33 Dose: 250 mg Metoprolol Succinate (Toprol Xl -) 50 mg PO TID [facility]Y Last Admin: 09/24/16 06:32 Dose: 50 mg Nifedipine (Procardia Xl -) 30 mg PO DAILY [facility] Last Admin: 09/24/16 09:34 Dose: 30 mg Nystatin (Nystop Powder -) 1 applic TP DAILY [facility] Last Admin: 09/24/16 09:35 Dose: Not Given Potassium Chloride (K-Dur -) 20 meq PO DAILY [facility]Y Last Admin: 09/24/16 09:34 Dose: 20 meq Silver Sulfadiazine (Silvadene -) 1 applic TP DAILY [facility] Last Admin: 09/24/16 09:39 Dose: 1 applic Sitagliptin Phosphate (Januvia -) 25 mg PO DAILY@0700 [facility] Last Admin: 09/24/16 06:32 Dose: 25 mg - Objective Vital Signs: Vital Signs Temperature 97.9 F 09/24/16 09:00 Pulse Rate 54 L 09/24/16 09:00 Respiratory Rate 18 09/24/16 09:00 Blood Pressure 164/90 09/24/16 09:00 O2 Sat by Pulse Oximetry (%) 97 09/24/16 09:00 Constitutional: Yes: Mild Distress Eyes: Yes: WNL HENT: Yes: WNL Neck: Yes: WNL Cardiovascular: Yes: WNL Respiratory: Yes: CTA Bilaterally, On Nasal O2 Gastrointestinal: Yes: WNL Genitourinary: Yes: WNL Musculoskeletal: Yes: Muscle Weakness Extremities: Yes: WNL Edema: Yes Peripheral Pulses WNL: Yes Integumentary: Yes: Pressure Ulcer, Rash, Skin Tear Wound/Incision: Yes: Dressing Dry and Intact Neurological: Yes: Pre-Existing Deficit, Unsteady Gait ...Motor Strength: LLE, RLE Psychiatric: Yes: Other Labs: CBC, BMP 09/23/16 06:20 09/24/16 05:35 INR, PTT INR 1.51 (0.82-1.09) H 09/22/16 10:00 Problem List - Problems (1) CHF (congestive heart failure) Code(s): I50.9 - HEART FAILURE, UNSPECIFIED Qualifiers: Congestive heart failure type: diastolic Congestive heart failure chronicity: acute on chronic Qualified Code(s): I50.33 - Acute on chronic diastolic (congestive) heart failure (2) BETI (acute kidney injury) Code(s): N17.9 - ACUTE KIDNEY FAILURE, UNSPECIFIED (3) Anemia Code(s): D64.9 - ANEMIA, UNSPECIFIED Qualifiers: Other causes of anemia: chronic disease, kidney (4) Avulsion of skin Code(s): T14.8 - OTHER INJURY OF UNSPECIFIED BODY REGION (5) Coronary artery disease Code(s): I25.10 - ATHSCL HEART DISEASE OF [place] CORONARY ARTERY W/O ANG PCTRS Qualifiers: Coronary Disease-Associated Artery/Lesion type: unspecified vessel or lesion type Associated angina: without angina Assessment/Plan DIETARY CONSULT FOR COMPLIANCE TO DIABETIC AND LOW SODIUM DIET PATIENT SEEN EATING BAG OF POTATO CHIPS DISCUSSED WITH NEPHROLOGY 02 SUPPORT LASIX AND METOLAZONE INCREASED PULM CONSULT R/O PE?/ CHECK D-DIMER LEVEL MRI LOWER EXTREMITY H/O 3 CORONARY STENTS 17 YRS AGO
--- NOTE | 2016-09-24 12:45 | PN ---
Progress Note, Physician History of Present Illness: Pt seen and examined at bedside. He feels that his breathing is a little better. He complains of lower extremity edema. - Current Medication List Current Medications: Active Medications Acetaminophen (Tylenol -) 650 mg PO Q6H PRN PRN Reason: FEVER OR PAIN Last Admin: 09/23/16 20:25 Dose: 650 mg Al Hydroxide/Mg Hydroxide (Mylanta Oral Suspension -) 30 ml PO Q6H PRN PRN Reason: DYSPEPSIA Albuterol Sulfate (Ventolin 0.083% Nebulizer Soln -) 1 amp NEB Q4H PRN PRN Reason: SHORT OF BREATH/WHEEZING Last Admin: 09/23/16 05:00 Dose: 1 amp Aspirin (Ecotrin -) 81 mg PO DAILY [facility] Last Admin: 09/24/16 09:34 Dose: 81 mg Atorvastatin Calcium (Lipitor -) 40 mg PO HS [facility] Last Admin: 09/23/16 22:53 Dose: 40 mg Furosemide (Lasix Injection -) 60 mg IVPB BID@0600,1400 [facility] Last Admin: 09/24/16 06:33 Dose: 60 mg Hydralazine HCl (Apresoline -) 25 mg PO BID [facility] Last Admin: 09/24/16 09:34 Dose: 25 mg Hydralazine HCl (Apresoline Injection -) 10 mg IVPUSH Q6H PRN PRN Reason: HYPERTENSION Hydrocortisone (Anusol 2.5% Hc Cream -) 1 applic [place] DAILY [facility] Last Admin: 09/24/16 09:43 Dose: Not Given Insulin Aspart (Novolog Vial Sliding Scale -) 1 vial SQ ACHS TOY PRN Reason: Protocol Last Admin: 09/24/16 11:43 Dose: Not Given Methyldopa (Aldomet -) 250 mg PO TID [facility] Last Admin: 09/24/16 06:33 Dose: 250 mg Metoprolol Succinate (Toprol Xl -) 50 mg PO TID [facility] Last Admin: 09/24/16 06:32 Dose: 50 mg Nifedipine (Procardia Xl -) 30 mg PO DAILY [facility] Last Admin: 09/24/16 09:34 Dose: 30 mg Nystatin (Nystop Powder -) 1 applic TP DAILY [facility] Last Admin: 09/24/16 09:35 Dose: Not Given Potassium Chloride (K-Dur -) 20 meq PO DAILY [facility] Last Admin: 09/24/16 09:34 Dose: 20 meq Silver Sulfadiazine (Silvadene -) 1 applic TP DAILY [facility] Last Admin: 09/24/16 09:39 Dose: 1 applic Sitagliptin Phosphate (Januvia -) 25 mg PO DAILY@0700 [facility] Last Admin: 09/24/16 06:32 Dose: 25 mg - Objective Vital Signs: Vital Signs Temperature 97.9 F 09/24/16 09:00 Pulse Rate 54 L 09/24/16 09:00 Respiratory Rate 18 09/24/16 09:00 Blood Pressure 164/90 09/24/16 09:00 O2 Sat by Pulse Oximetry (%) 97 09/24/16 09:00 Constitutional: Yes: Calm Eyes: Yes: Conjunctiva Clear HENT: Yes: Atraumatic Neck: Yes: Supple Cardiovascular: Yes: S1, S2 Respiratory: Yes: On Nasal O2 Gastrointestinal: Yes: Soft, Abdomen, Obese Genitourinary: Yes: WNL Edema: Yes Edema: LLE: 1+, RLE: 1+ Neurological: Yes: Oriented Psychiatric: Yes: Oriented Labs: CBC, BMP 09/23/16 06:20 09/24/16 05:35 INR, PTT INR 1.51 (0.82-1.09) H 09/22/16 10:00 Problem List - Problems (1) CHF (congestive heart failure) Code(s): I50.9 - HEART FAILURE, UNSPECIFIED Qualifiers: Congestive heart failure type: diastolic Congestive heart failure chronicity: acute on chronic Qualified Code(s): I50.33 - Acute on chronic diastolic (congestive) heart failure (2) Anemia Code(s): D64.9 - ANEMIA, UNSPECIFIED Qualifiers: Other causes of anemia: chronic disease, kidney (3) CKD (chronic kidney disease) Code(s): N18.9 - CHRONIC KIDNEY DISEASE, UNSPECIFIED (4) Diabetes 1.5, managed as type 2 Code(s): E10.9 - TYPE 1 DIABETES MELLITUS WITHOUT COMPLICATIONS Assessment/Plan Current Medications Generic Name Dose Route Start Last Admin Trade Name Freq PRN Reason Stop Dose Admin Acetaminophen 650 mg 09/22/16 16:26 09/23/16 20:25 Tylenol - PO 650 mg Q6H PRN Administration FEVER OR PAIN Al Hydroxide/Mg Hydroxide 30 ml 09/22/16 16:26 Mylanta Oral Suspension - PO Q6H PRN DYSPEPSIA Albuterol Sulfate 1 amp 09/23/16 00:56 09/23/16 05:00 Ventolin 0.083% Nebulizer Soln - NEB 1 amp Q4H PRN Administration SHORT OF BREATH/WHEEZING Aspirin 81 mg 09/23/16 10:00 09/24/16 09:34 Ecotrin - PO 81 mg DAILY TOY Administration Atorvastatin Calcium 40 mg 09/22/16 22:00 09/23/16 22:53 Lipitor - PO 40 mg HS TOY Administration Furosemide 60 mg 09/23/16 14:00 09/24/16 06:33 Lasix Injection - IVPB 60 mg BID@0600,1400 TOY Administration Hydralazine HCl 25 mg 09/22/16 22:00 09/24/16 09:34 Apresoline - PO 25 mg BID TOY Administration Hydralazine HCl 10 mg 09/23/16 01:08 Apresoline Injection - IVPUSH Q6H PRN HYPERTENSION Hydrocortisone 1 applic 09/23/16 10:00 09/24/16 09:43 Anusol 2.5% Hc Cream - RI Not Given DAILY TOY Insulin Aspart 1 vial 09/22/16 16:30 09/24/16 11:43 Novolog Vial Sliding Scale - SQ Not Given ACHS [facility] Protocol Methyldopa 250 mg 09/22/16 22:00 09/24/16 06:33 Aldomet - PO 250 mg TID TOY Administration Metoprolol Succinate 50 mg 09/22/16 22:00 09/24/16 06:32 Toprol Xl - PO 50 mg TID TOY Administration Nifedipine 30 mg 09/24/16 10:00 09/24/16 09:34 Procardia Xl - PO 30 mg DAILY TOY Administration Nystatin 1 applic 09/23/16 10:00 09/24/16 09:35 Nystop Powder - TP Not Given DAILY TOY Potassium Chloride 20 meq 09/23/16 10:00 09/24/16 09:34 K-Dur - PO 20 meq DAILY TOY Administration Silver Sulfadiazine 1 applic 09/23/16 10:00 09/24/16 09:39 Silvadene - TP 1 applic DAILY TOY Administration Sitagliptin Phosphate 25 mg 09/23/16 07:00 09/24/16 06:32 Januvia - PO 25 mg DAILY@0700 TOY Administration Impression 1. CKD 2. anemia 3. CAD 4. HTN 5. DM 6. hyperlipidemia 7. active smoker 8. hemorrhoids 9. CHF dialstolic failure Plan - cont lasix - will give a dose of metolazone - repeat labs in am - monitor volume status - cardio input appreciated - monitor bp on nifedipine - negative hydro on renal ultrasound Dr Espinoza
--- NOTE | 2016-09-24 14:25 | PN ---
Progress Note, Physician History of Present Illness: Cardiology FOllow up Telem Sinus bradycardia--Artifact 60 year old male, with a past medical history of hypertension, hyperlipidemia, cigarette smoking, diabetes, CHF (on Lasix), CKD 3, and CAD s/p 3 stents (1999) , who presents to the emergency department with increasing shortness of breath orthopnea and lower extremity swelling and a cough productive of white phlegm. There is no chest pain. Patient had a stress test 04/[address] Giovanni Sood showing inferior wall fixed defect and no ischemia. He underwent an echocardiogram here in May 2016 showing Mildly elevated LA pressure and overall preserved LV function without valvular pathology. Takes Eliquis. I spoke with Dr. Vasquez office and there is no indication of Afib per their records. - Current Medication List Current Medications: Active Medications Acetaminophen (Tylenol -) 650 mg PO Q6H PRN PRN Reason: FEVER OR PAIN Last Admin: 09/23/16 20:25 Dose: 650 mg Al Hydroxide/Mg Hydroxide (Mylanta Oral Suspension -) 30 ml PO Q6H PRN PRN Reason: DYSPEPSIA Albuterol Sulfate (Ventolin 0.083% Nebulizer Soln -) 1 amp NEB Q4H PRN PRN Reason: SHORT OF BREATH/WHEEZING Last Admin: 09/23/16 05:00 Dose: 1 amp Aspirin (Ecotrin -) 81 mg PO DAILY [facility] Last Admin: 09/24/16 09:34 Dose: 81 mg Atorvastatin Calcium (Lipitor -) 40 mg PO HS [facility] Last Admin: 09/23/16 22:53 Dose: 40 mg Furosemide (Lasix Injection -) 60 mg IVPB BID@0600,1400 [facility] Last Admin: 09/24/16 06:33 Dose: 60 mg Hydralazine HCl (Apresoline -) 25 mg PO BID [facility] Last Admin: 09/24/16 09:34 Dose: 25 mg Hydralazine HCl (Apresoline Injection -) 10 mg IVPUSH Q6H PRN PRN Reason: HYPERTENSION Hydrocortisone (Anusol 2.5% Hc Cream -) 1 applic [place] DAILY [facility] Last Admin: 09/24/16 09:43 Dose: Not Given Insulin Aspart (Novolog Vial Sliding Scale -) 1 vial SQ ACHS [facility] PRN Reason: Protocol Last Admin: 09/24/16 11:43 Dose: Not Given Methyldopa (Aldomet -) 250 mg PO TID [facility] Last Admin: 09/24/16 06:33 Dose: 250 mg Metoprolol Succinate (Toprol Xl -) 50 mg PO DAILY [facility] Nifedipine (Procardia Xl -) 30 mg PO DAILY [facility] Last Admin: 09/24/16 09:34 Dose: 30 mg Nystatin (Nystop Powder -) 1 applic TP DAILY [facility] Last Admin: 09/24/16 09:35 Dose: Not Given Potassium Chloride (K-Dur -) 20 meq PO DAILY [facility] Last Admin: 09/24/16 09:34 Dose: 20 meq Silver Sulfadiazine (Silvadene -) 1 applic TP DAILY [facility] Last Admin: 09/24/16 09:39 Dose: 1 applic Sitagliptin Phosphate (Januvia -) 25 mg PO DAILY@0700 [facility] Last Admin: 09/24/16 06:32 Dose: 25 mg - Objective Vital Signs: Vital Signs Temperature 97.9 F 09/24/16 09:00 Pulse Rate 54 L 09/24/16 09:00 Respiratory Rate 18 09/24/16 09:00 Blood Pressure 164/90 09/24/16 09:00 O2 Sat by Pulse Oximetry (%) 97 09/24/16 09:00 Constitutional: Yes: Well Nourished, Calm Eyes: Yes: WNL HENT: Yes: WNL Neck: Yes: WNL Cardiovascular: Yes: Regular Rate and Rhythm, JVD Respiratory: Yes: Rales Gastrointestinal: Yes: WNL Edema: Yes Edema: LLE: 1+, RLE: 1+ Labs: CBC, BMP 09/23/16 06:20 09/24/16 05:35 INR, PTT INR 1.51 (0.82-1.09) H 09/22/16 10:00 Problem List - Problems (1) CHF (congestive heart failure) Code(s): I50.9 - HEART FAILURE, UNSPECIFIED Qualifiers: Congestive heart failure type: diastolic Congestive heart failure chronicity: acute on chronic Qualified Code(s): I50.33 - Acute on chronic diastolic (congestive) heart failure (2) BETI (acute kidney injury) Code(s): N17.9 - ACUTE KIDNEY FAILURE, UNSPECIFIED (3) Coronary artery disease Code(s): I25.10 - ATHSCL HEART DISEASE OF [place] CORONARY ARTERY W/O ANG PCTRS Qualifiers: Coronary Disease-Associated Artery/Lesion type: unspecified vessel or lesion type Associated angina: without angina Assessment/Plan 60 M with CAD, PVD, Diabetes and CKD 3 is admitted with increasing dyspnea, orthopnea and PND and CKD likely due to heart failure exacerbation and Acute heart failure. Echocardiogram 09/23/16 shows EF 40% with severe MR. Rec: Clinically improving heart failure with severe HTN. Cr stable/slightly lower. Net negative UO -Reduce Metoprolol XL 50mg qd due to significant bradycardia -Increase Nifedipine 60mg qd. -Would follow up echocardiogram when BP has improved as an out patient. If severe MR persists can consider Mitral clip.
--- NOTE | 2016-09-24 17:01 | PN ---
Progress Note (short form) - Note Progress Note: PULMONARY States breathing slightly improving. No chest pain, cough or wheezing. Leg swelling also slightly less. Last Vital Signs Temp Pulse Resp BP Pulse Ox 98.6 F 56 L 18 167/97 97 09/24/16 15:46 09/24/16 15:46 09/24/16 15:46 09/24/16 15:46 09/24/16 09:00 Intake & Output 09/21/16 09/22/16 09/23/16 09/24/16 23:59 23:59 23:59 23:59 Intake Total 664 447 0938 Output Total 200 970 Balance -70 -110 1150 Weight 220 lb 225 lb 6 oz 228 lb 2 oz Gen: NAD in chair Heart: RRR, split S2, +systolic murmur at base Lung: decreased breath sounds at the bases Abd: soft, nontender Ext: + edema CBC, BMP 09/23/16 06:20 09/24/16 05:35 Active Medications Acetaminophen (Tylenol -) 650 mg PO Q6H PRN PRN Reason: FEVER OR PAIN Last Admin: 09/23/16 20:25 Dose: 650 mg Al Hydroxide/Mg Hydroxide (Mylanta Oral Suspension -) 30 ml PO Q6H PRN PRN Reason: DYSPEPSIA Albuterol Sulfate (Ventolin 0.083% Nebulizer Soln -) 1 amp NEB Q4H PRN PRN Reason: SHORT OF BREATH/WHEEZING Last Admin: 09/23/16 05:00 Dose: 1 amp Aspirin (Ecotrin -) 81 mg PO DAILY [facility] Last Admin: 09/24/16 09:34 Dose: 81 mg Atorvastatin Calcium (Lipitor -) 40 mg PO HS [facility] Last Admin: 09/23/16 22:53 Dose: 40 mg Furosemide (Lasix Injection -) 60 mg IVPB BID@0600,1400 [facility] Last Admin: 09/24/16 14:17 Dose: 60 mg Hydralazine HCl (Apresoline -) 25 mg PO BID [facility] Last Admin: 09/24/16 09:34 Dose: 25 mg Hydralazine HCl (Apresoline Injection -) 10 mg IVPUSH Q6H PRN PRN Reason: HYPERTENSION Hydrocortisone (Anusol 2.5% Hc Cream -) 1 applic [place] DAILY [facility] Last Admin: 09/24/16 09:43 Dose: Not Given Insulin Aspart (Novolog Vial Sliding Scale -) 1 vial SQ ACHS TOY PRN Reason: Protocol Last Admin: 09/24/16 11:43 Dose: Not Given Methyldopa (Aldomet -) 250 mg PO TID [facility] Last Admin: 09/24/16 14:17 Dose: 250 mg Metoprolol Succinate (Toprol Xl -) 50 mg PO DAILY [facility] Nifedipine (Procardia Xl -) 60 mg PO DAILY [facility] Nystatin (Nystop Powder -) 1 applic TP DAILY [facility] Last Admin: 09/24/16 09:35 Dose: Not Given Potassium Chloride (K-Dur -) 20 meq PO DAILY [facility] Last Admin: 09/24/16 09:34 Dose: 20 meq Silver Sulfadiazine (Silvadene -) 1 applic TP DAILY [facility] Last Admin: 09/24/16 09:39 Dose: 1 applic Sitagliptin Phosphate (Januvia -) 25 mg PO DAILY@0700 [facility] Last Admin: 09/24/16 06:32 Dose: 25 mg A/P Acute on Chronic Diastolic Heart Failure Hypertensive Urgency improving Severe Mitral Regurgitation CAD CKD DM - BP control - beta blockade - continue lasix - monitor urine output, creatinine - O2 to keep SpO2 >90% - mitral clip consideration as outpt
[2016-09-24] MEDS: ACETAMINOPHEN 325 MG TABLET (FP) PO PRN (18:09)
[2016-09-24] MEDS: ATORVASTATIN CA 40 MG TABLET (FP) PO SCH (21:15)
[2016-09-25] MEDS ORDERED: PT OWN MED DRAWER 7, Y5N ONE ×5 (05:15→23:20)
[2016-09-25] MEDS: METHYLDOPA 250 MG TABLET PO SCH ×3 (05:23→23:21)
[2016-09-25] MEDS: ACETAMINOPHEN 325 MG TABLET (FP) PO PRN (05:23)
[2016-09-25] MEDS: FUROSEMIDE 100 MG/10 ML INJECTABLE VIAL IVPB SCH ×2 (05:24→14:20)
[2016-09-25 06:07] LABS: MCH 29.9 pg (25.7-33.7); MCHC 32.4 g/dl (32.0-35.9); MEAN CELL VOLUME 92.1 fl (80-96); MEAN PLT VOLUME 10.7 fl (7.5-11.1); PLATELET COUNT 118 K/MM3 (134-434); WHITE BLOOD COUNT 8.6 K/mm3 (4.0-10.0)
[2016-09-25] MEDS: INSULIN SLIDING SCALE (NOVOLOG) 1 VIAL SQ SCH ×4 (06:08→23:23)
[2016-09-25 06:41] LABS: BILIRUBIN,TOTAL 0.6 mg/dL (0.2-1.0); CALCIUM 7.9 mg/dL (8.5-10.1); COCKROFT - GAULT 33.02; CREATININE 3.5 mg/dL (0.7-1.3); TOT PROT 6.7 g/dl (6.4-8.2)
[2016-09-25] MEDS: POTASSIUM CHLORIDE TABS 20 MEQ TABLET.ER (FP) PO SCH (09:51)
[2016-09-25] MEDS: HYDROCORTISONE 2.5% TOPICAL CREAM 30 GM TUBE PR SCH (09:51)
[2016-09-25] MEDS: hydrALAZINE HCL 25 MG TABLET (FP) PO SCH ×2 (09:51→23:21)
[2016-09-25] MEDS: sitaGLIPtin PHOSPHATE 25 MG TABLET (FP) PO SCH (09:51)
[2016-09-25] MEDS: METOPROLOL SUCCINATE 50 MG TAB.SR.24H (FP) PO SCH (09:51)
[2016-09-25] MEDS: NIFEdipine E.R 60 MG TABLET (UD) PO SCH (09:51)
[2016-09-25] MEDS: ASPIRIN COATED 81 MG TABLET.EC PO SCH (09:51)
[2016-09-25] MEDS: NYSTATIN POWDER 100,000 UNITS/GM - 15 GM TOPICAL POWDER TP SCH (09:52)
[2016-09-25] MEDS: SILVER SULFADIAZINE 1% TOP CREAM 50 GM JAR TP SCH (09:54)
--- NOTE | 2016-09-25 11:52 | PN ---
Progress Note, Physician Chief Complaint: AWAKE ALERT 02 NASAL CANULA DENIES CHEST PAIN WEIGHT 228LBS ESTERDAY TODAY 226LBS WITH RENAL FUNCTION WORSE - Current Medication List Current Medications: Active Medications Acetaminophen (Tylenol -) 650 mg PO Q6H PRN PRN Reason: FEVER OR PAIN Last Admin: 09/25/16 05:23 Dose: 650 mg Al Hydroxide/Mg Hydroxide (Mylanta Oral Suspension -) 30 ml PO Q6H PRN PRN Reason: DYSPEPSIA Albuterol Sulfate (Ventolin 0.083% Nebulizer Soln -) 1 amp NEB Q4H PRN PRN Reason: SHORT OF BREATH/WHEEZING Last Admin: 09/23/16 05:00 Dose: 1 amp Aspirin (Ecotrin -) 81 mg PO DAILY [facility] Last Admin: 09/25/16 09:51 Dose: 81 mg Atorvastatin Calcium (Lipitor -) 40 mg PO HS [facility] Last Admin: 09/24/16 21:15 Dose: 40 mg Furosemide (Lasix Injection -) 60 mg IVPB BID@0600,1400 [facility] Last Admin: 09/25/16 05:24 Dose: 60 mg Hydralazine HCl (Apresoline -) 25 mg PO BID [facility] Last Admin: 09/25/16 09:51 Dose: 25 mg Hydralazine HCl (Apresoline Injection -) 10 mg IVPUSH Q6H PRN PRN Reason: HYPERTENSION Hydrocortisone (Anusol 2.5% Hc Cream -) 1 applic [place] DAILY [facility] Last Admin: 09/25/16 09:51 Dose: Not Given Insulin Aspart (Novolog Vial Sliding Scale -) 1 vial SQ ACHS TOY PRN Reason: Protocol Last Admin: 09/25/16 11:44 Dose: Not Given Methyldopa (Aldomet -) 250 mg PO TID [facility] Last Admin: 09/25/16 05:23 Dose: 250 mg Metoprolol Succinate (Toprol Xl -) 50 mg PO DAILY [facility] Last Admin: 09/25/16 09:51 Dose: 50 mg Nifedipine (Procardia Xl -) 60 mg PO DAILY [facility] Last Admin: 09/25/16 09:51 Dose: 60 mg Nystatin (Nystop Powder -) 1 applic TP DAILY [facility] Last Admin: 09/25/16 09:52 Dose: Not Given Potassium Chloride (K-Dur -) 20 meq PO DAILY [facility] Last Admin: 09/25/16 09:51 Dose: 20 meq Silver Sulfadiazine (Silvadene -) 1 applic TP DAILY [facility] Last Admin: 09/25/16 09:54 Dose: 1 applic Sitagliptin Phosphate (Januvia -) 25 mg PO DAILY@0700 [facility] Last Admin: 09/25/16 09:51 Dose: 25 mg - Objective Vital Signs: Vital Signs Temperature 98.7 F 09/25/16 05:30 Pulse Rate 63 09/25/16 05:30 Respiratory Rate 20 09/25/16 05:30 Blood Pressure 162/96 09/25/16 05:30 O2 Sat by Pulse Oximetry (%) 96 09/24/16 21:00 Constitutional: Yes: Mild Distress Eyes: Yes: WNL HENT: Yes: WNL Neck: Yes: WNL Cardiovascular: Yes: WNL Respiratory: Yes: On Nasal O2, Poor Air Entry Gastrointestinal: Yes: WNL Genitourinary: Yes: WNL Musculoskeletal: Yes: WNL Extremities: Yes: WNL Peripheral Pulses WNL: Yes Integumentary: Yes: WNL Wound/Incision: Yes: Clean/Dry Neurological: Yes: WNL ...Motor Strength: WNL Psychiatric: Yes: WNL Labs: CBC, BMP 09/25/16 05:35 09/25/16 05:35 INR, PTT INR 1.51 (0.82-1.09) H 09/22/16 10:00 Problem List - Problems (1) CHF (congestive heart failure) Code(s): I50.9 - HEART FAILURE, UNSPECIFIED Qualifiers: Congestive heart failure type: diastolic Congestive heart failure chronicity: acute on chronic Qualified Code(s): I50.33 - Acute on chronic diastolic (congestive) heart failure (2) BETI (acute kidney injury) Code(s): N17.9 - ACUTE KIDNEY FAILURE, UNSPECIFIED (3) Anemia Code(s): D64.9 - ANEMIA, UNSPECIFIED Qualifiers: Other causes of anemia: chronic disease, kidney (4) Avulsion of skin Code(s): T14.8 - OTHER INJURY OF UNSPECIFIED BODY REGION (5) Coronary artery disease Code(s): I25.10 - ATHSCL HEART DISEASE OF [place] CORONARY ARTERY W/O ANG PCTRS Qualifiers: Coronary Disease-Associated Artery/Lesion type: unspecified vessel or lesion type Associated angina: without angina Assessment/Plan MAY NEED CARDIAC INTERVENTION EIHER NOW VS OUTPATIENT AT [facility] FOR CARDIAC VALVE REPAIR AND CARDIAC CATH WEIGHT RECHECK, DISCUSSED WITH NURSING STAFF; PREVIOUS 220LB WEIHGT WAS AN E.R. WEIGHT WHICH WAS NOT VERIFIED, CONTINUE TO MONITOE RENAL FUNCTION AND DAILY WEIGHTS DIETARY CONSULT FOR COMPLIANCE TO DIABETIC AND LOW SODIUM DIET PATIENT SEEN EATING BAG OF POTATO CHIPS DISCUSSED WITH NEPHROLOGY 02 SUPPORT LASIX AND METOLAZONE INCREASED PULM CONSULT R/O PE?/ D-DIMER LEVEL CHECKED MRI LOWER EXTREMITY H/O 3 CORONARY STENTS 17 YRS AGO
--- NOTE | 2016-09-25 13:34 | PN ---
Progress Note, Physician History of Present Illness: pulmonary alert,feeling better,less dyspneic. - Current Medication List Current Medications: Active Medications Acetaminophen (Tylenol -) 650 mg PO Q6H PRN PRN Reason: FEVER OR PAIN Last Admin: 09/25/16 05:23 Dose: 650 mg Al Hydroxide/Mg Hydroxide (Mylanta Oral Suspension -) 30 ml PO Q6H PRN PRN Reason: DYSPEPSIA Albuterol Sulfate (Ventolin 0.083% Nebulizer Soln -) 1 amp NEB Q4H PRN PRN Reason: SHORT OF BREATH/WHEEZING Last Admin: 09/23/16 05:00 Dose: 1 amp Aspirin (Ecotrin -) 81 mg PO DAILY [facility] Last Admin: 09/25/16 09:51 Dose: 81 mg Atorvastatin Calcium (Lipitor -) 40 mg PO HS [facility] Last Admin: 09/24/16 21:15 Dose: 40 mg Furosemide (Lasix Injection -) 60 mg IVPB BID@0600,1400 [facility] Last Admin: 09/25/16 05:24 Dose: 60 mg Hydralazine HCl (Apresoline -) 25 mg PO BID [facility] Last Admin: 09/25/16 09:51 Dose: 25 mg Hydralazine HCl (Apresoline Injection -) 10 mg IVPUSH Q6H PRN PRN Reason: HYPERTENSION Hydrocortisone (Anusol 2.5% Hc Cream -) 1 applic AR DAILY [facility] Last Admin: 09/25/16 09:51 Dose: Not Given Insulin Aspart (Novolog Vial Sliding Scale -) 1 vial SQ ACHS TOY PRN Reason: Protocol Last Admin: 09/25/16 11:44 Dose: Not Given Methyldopa (Aldomet -) 250 mg PO TID [facility] Last Admin: 09/25/16 05:23 Dose: 250 mg Metoprolol Succinate (Toprol Xl -) 50 mg PO DAILY [facility] Last Admin: 09/25/16 09:51 Dose: 50 mg Nifedipine (Procardia Xl -) 60 mg PO DAILY [facility] Last Admin: 09/25/16 09:51 Dose: 60 mg Nystatin (Nystop Powder -) 1 applic TP DAILY [facility] Last Admin: 09/25/16 09:52 Dose: Not Given Potassium Chloride (K-Dur -) 20 meq PO DAILY [facility] Last Admin: 09/25/16 09:51 Dose: 20 meq Silver Sulfadiazine (Silvadene -) 1 applic TP DAILY [facility] Last Admin: 09/25/16 09:54 Dose: 1 applic Sitagliptin Phosphate (Januvia -) 25 mg PO DAILY@0700 [facility] Last Admin: 09/25/16 09:51 Dose: 25 mg - Objective Vital Signs: Vital Signs Temperature 97.8 F 09/25/16 10:00 Pulse Rate 59 L 09/25/16 10:00 Respiratory Rate 20 09/25/16 10:00 Blood Pressure 170/102 09/25/16 10:00 O2 Sat by Pulse Oximetry (%) 96 09/25/16 09:00 Constitutional: Yes: Well Nourished, Calm Eyes: Yes: WNL HENT: Yes: WNL Neck: Yes: WNL Cardiovascular: Yes: Regular Rate and Rhythm, S1, S2 Respiratory: Yes: Diminished Gastrointestinal: Yes: Normal Bowel Sounds, Soft Extremities: Yes: WNL Edema: Yes Labs: CBC, BMP 09/25/16 05:35 09/25/16 05:35 INR, PTT INR 1.51 (0.82-1.09) H 09/22/16 10:00 Problem List - Problems (1) CHF (congestive heart failure) Code(s): I50.9 - HEART FAILURE, UNSPECIFIED Qualifiers: Congestive heart failure type: diastolic Congestive heart failure chronicity: acute on chronic Qualified Code(s): I50.33 - Acute on chronic diastolic (congestive) heart failure (2) CKD (chronic kidney disease) Code(s): N18.9 - CHRONIC KIDNEY DISEASE, UNSPECIFIED (3) Diabetes 1.5, managed as type 2 Code(s): E10.9 - TYPE 1 DIABETES MELLITUS WITHOUT COMPLICATIONS (4) Grade III hemorrhoids Code(s): K64.2 - THIRD DEGREE HEMORRHOIDS (5) Tobacco abuse counseling Code(s): Z71.6 - TOBACCO ABUSE COUNSELING (6) Morbid (severe) obesity due to excess calories Code(s): E66.01 - MORBID (SEVERE) OBESITY DUE TO EXCESS CALORIES Assessment/Plan IMP ACUTE ON CHRONIC CHF CKD ASHD S/P STENT X3 HYPERTENSIVE URGENCY DM HYPERLIPEDEMIA ? COPD ? OSAS PLAN IV LASIX O2 DAILY WTS INHALED BRONCHODILATORS PRN MONITOR LYTES SMOKING CESSATION COUNSELED TITRATE BP MEDS WT REDUCTION SLEEP STUDIES OUTPATIENT [place] Problem List - Problems (1) CHF (congestive heart failure) Code(s): I50.9 - HEART FAILURE, UNSPECIFIED Qualifiers: Congestive heart failure type: diastolic Congestive heart failure chronicity: acute on chronic Qualified Code(s): I50.33 - Acute on chronic diastolic (congestive) heart failure (2) CKD (chronic kidney disease) Code(s): N18.9 - CHRONIC KIDNEY DISEASE, UNSPECIFIED (3) Diabetes 1.5, managed as type 2 Code(s): E10.9 - TYPE 1 DIABETES MELLITUS WITHOUT COMPLICATIONS (4) Grade III hemorrhoids Code(s): K64.2 - THIRD DEGREE HEMORRHOIDS (5) Tobacco abuse counseling Code(s): Z71.6 - TOBACCO ABUSE COUNSELING (6) Morbid (severe) obesity due to excess calories Code(s): E66.01 - MORBID (SEVERE) OBESITY DUE TO EXCESS CALORIES
--- NOTE | 2016-09-25 15:38 | PN ---
Progress Note, Physician History of Present Illness: Pt seen and examined at bedside. He feels that his breathing is improved. He still complains of lower extremity edema. He has the oxygen off. - Current Medication List Current Medications: Active Medications Acetaminophen (Tylenol -) 650 mg PO Q6H PRN PRN Reason: FEVER OR PAIN Last Admin: 09/25/16 05:23 Dose: 650 mg Al Hydroxide/Mg Hydroxide (Mylanta Oral Suspension -) 30 ml PO Q6H PRN PRN Reason: DYSPEPSIA Albuterol Sulfate (Ventolin 0.083% Nebulizer Soln -) 1 amp NEB Q4H PRN PRN Reason: SHORT OF BREATH/WHEEZING Last Admin: 09/23/16 05:00 Dose: 1 amp Aspirin (Ecotrin -) 81 mg PO DAILY [facility] Last Admin: 09/25/16 09:51 Dose: 81 mg Atorvastatin Calcium (Lipitor -) 40 mg PO HS [facility] Last Admin: 09/24/16 21:15 Dose: 40 mg Furosemide (Lasix Injection -) 60 mg IVPB BID@0600,1400 [facility] Last Admin: 09/25/16 14:20 Dose: 60 mg Hydralazine HCl (Apresoline Injection -) 10 mg IVPUSH Q6H PRN PRN Reason: HYPERTENSION Hydralazine HCl (Apresoline -) 25 mg PO TID [facility] Hydrocortisone (Anusol 2.5% Hc Cream -) 1 applic FL DAILY [facility] Last Admin: 09/25/16 09:51 Dose: Not Given Insulin Aspart (Novolog Vial Sliding Scale -) 1 vial SQ ACHS TOY PRN Reason: Protocol Last Admin: 09/25/16 11:44 Dose: Not Given Isosorbide Dinitrate (Isordil -) 20 mg PO TID [facility] Methyldopa (Aldomet -) 250 mg PO TID [facility] Last Admin: 09/25/16 14:19 Dose: 250 mg Metoprolol Succinate (Toprol Xl -) 50 mg PO DAILY [facility] Last Admin: 09/25/16 09:51 Dose: 50 mg Nifedipine (Procardia Xl -) 60 mg PO DAILY [facility] Last Admin: 09/25/16 09:51 Dose: 60 mg Nystatin (Nystop Powder -) 1 applic TP DAILY [facility] Last Admin: 09/25/16 09:52 Dose: Not Given Potassium Chloride (K-Dur -) 20 meq PO DAILY [facility] Last Admin: 09/25/16 09:51 Dose: 20 meq Silver Sulfadiazine (Silvadene -) 1 applic TP DAILY [facility] Last Admin: 09/25/16 09:54 Dose: 1 applic Sitagliptin Phosphate (Januvia -) 25 mg PO DAILY@0700 [facility] Last Admin: 09/25/16 09:51 Dose: 25 mg - Objective Vital Signs: Vital Signs Temperature 97.7 F 09/25/16 14:45 Pulse Rate 60 09/25/16 14:45 Respiratory Rate 18 09/25/16 14:45 Blood Pressure 132/81 09/25/16 14:45 O2 Sat by Pulse Oximetry (%) 96 09/25/16 09:00 Constitutional: Yes: Calm Eyes: Yes: Conjunctiva Clear HENT: Yes: Atraumatic Neck: Yes: Supple Cardiovascular: Yes: S1, S2 Respiratory: Yes: CTA Bilaterally Gastrointestinal: Yes: Soft Genitourinary: Yes: WNL Musculoskeletal: Yes: WNL Edema: Yes Edema: LLE: 1+, RLE: 1+ Neurological: Yes: Oriented Psychiatric: Yes: Oriented Labs: CBC, BMP 09/25/16 05:35 09/25/16 05:35 INR, PTT INR 1.51 (0.82-1.09) H 09/22/16 10:00 Problem List - Problems (1) CHF (congestive heart failure) Code(s): I50.9 - HEART FAILURE, UNSPECIFIED Qualifiers: Congestive heart failure type: diastolic Congestive heart failure chronicity: acute on chronic Qualified Code(s): I50.33 - Acute on chronic diastolic (congestive) heart failure (2) Anemia Code(s): D64.9 - ANEMIA, UNSPECIFIED Qualifiers: Other causes of anemia: chronic disease, kidney (3) CKD (chronic kidney disease) Code(s): N18.9 - CHRONIC KIDNEY DISEASE, UNSPECIFIED (4) Diabetes 1.5, managed as type 2 Code(s): E10.9 - TYPE 1 DIABETES MELLITUS WITHOUT COMPLICATIONS Assessment/Plan Current Medications Generic Name Dose Route Start Last Admin Trade Name Freq PRN Reason Stop Dose Admin Acetaminophen 650 mg 09/22/16 16:26 09/25/16 05:23 Tylenol - PO 650 mg Q6H PRN Administration FEVER OR PAIN Al Hydroxide/Mg Hydroxide 30 ml 09/22/16 16:26 Mylanta Oral Suspension - PO Q6H PRN DYSPEPSIA Albuterol Sulfate 1 amp 09/23/16 00:56 09/23/16 05:00 Ventolin 0.083% Nebulizer Soln - NEB 1 amp Q4H PRN Administration SHORT OF BREATH/WHEEZING Aspirin 81 mg 09/23/16 10:00 09/25/16 09:51 Ecotrin - PO 81 mg DAILY TOY Administration Atorvastatin Calcium 40 mg 09/22/16 22:00 09/24/16 21:15 Lipitor - PO 40 mg HS TOY Administration Furosemide 60 mg 09/23/16 14:00 09/25/16 14:20 Lasix Injection - IVPB 60 mg BID@0600,1400 TOY Administration Hydralazine HCl 10 mg 09/23/16 01:08 Apresoline Injection - IVPUSH Q6H PRN HYPERTENSION Hydralazine HCl 25 mg 09/25/16 22:00 Apresoline - PO TID TOY Hydrocortisone 1 applic 09/23/16 10:00 09/25/16 09:51 Anusol 2.5% Hc Cream - FL Not Given DAILY [facility] Insulin Aspart 1 vial 09/22/16 16:30 09/25/16 11:44 Novolog Vial Sliding Scale - SQ Not Given ACHS [facility] Protocol Isosorbide Dinitrate 20 mg 09/25/16 22:00 Isordil - PO TID TOY Methyldopa 250 mg 09/22/16 22:00 09/25/16 14:19 Aldomet - PO 250 mg TID TOY Administration Metoprolol Succinate 50 mg 09/25/16 10:00 09/25/16 09:51 Toprol Xl - PO 50 mg DAILY TOY Administration Nifedipine 60 mg 09/25/16 10:00 09/25/16 09:51 Procardia Xl - PO 60 mg DAILY TOY Administration Nystatin 1 applic 09/23/16 10:00 09/25/16 09:52 Nystop Powder - TP Not Given DAILY TOY Potassium Chloride 20 meq 09/23/16 10:00 09/25/16 09:51 K-Dur - PO 20 meq DAILY TOY Administration Silver Sulfadiazine 1 applic 09/23/16 10:00 09/25/16 09:54 Silvadene - TP 1 applic DAILY TOY Administration Sitagliptin Phosphate 25 mg 09/23/16 07:09/25/16 09:51 Januvia - PO 25 mg DAILY@0700 TOY Administration Impression 1. CKD 2. anemia 3. CAD 4. HTN 5. DM 6. hyperlipidemia 7. active smoker 8. hemorrhoids 9. CHF dialstolic failure Plan - repeat labs in am - cont with lasix - repeat labs in am - monitor volume status - cardio input appreciated - monitor bp on nifedipine Dr Espinoza
--- NOTE | 2016-09-25 15:43 | PN ---
Progress Note, Physician Chief Complaint: Cards FU Less SOB History of Present Illness: Cardiology FOllow up Telem Sinus bradycardia. 60 year old male, with a past medical history of hypertension, hyperlipidemia, cigarette smoking, diabetes, CHF (on Lasix), CKD 3, and CAD s/p 3 stents (1999) , who presents to the emergency department with increasing shortness of breath orthopnea and lower extremity swelling and a cough productive of white phlegm. There is no chest pain. Patient had a stress test 04/[address] Giovanni Sood showing inferior wall fixed defect and no ischemia. He underwent an echocardiogram here in May 2016 showing Mildly elevated LA pressure and overall preserved LV function without valvular pathology. Takes Eliquis. I spoke with Dr. Vasquez office and there is no indication of Afib per their records. - Current Medication List Current Medications: Active Medications Acetaminophen (Tylenol -) 650 mg PO Q6H PRN PRN Reason: FEVER OR PAIN Last Admin: 09/25/16 05:23 Dose: 650 mg Al Hydroxide/Mg Hydroxide (Mylanta Oral Suspension -) 30 ml PO Q6H PRN PRN Reason: DYSPEPSIA Albuterol Sulfate (Ventolin 0.083% Nebulizer Soln -) 1 amp NEB Q4H PRN PRN Reason: SHORT OF BREATH/WHEEZING Last Admin: 09/23/16 05:00 Dose: 1 amp Aspirin (Ecotrin -) 81 mg PO DAILY [facility] Last Admin: 09/25/16 09:51 Dose: 81 mg Atorvastatin Calcium (Lipitor -) 40 mg PO HS [facility] Last Admin: 09/24/16 21:15 Dose: 40 mg Furosemide (Lasix Injection -) 60 mg IVPB BID@0600,1400 [facility] Last Admin: 09/25/16 14:20 Dose: 60 mg Hydralazine HCl (Apresoline Injection -) 10 mg IVPUSH Q6H PRN PRN Reason: HYPERTENSION Hydralazine HCl (Apresoline -) 25 mg PO TID [facility] Hydrocortisone (Anusol 2.5% Hc Cream -) 1 applic [place] DAILY [facility] Last Admin: 09/25/16 09:51 Dose: Not Given Insulin Aspart (Novolog Vial Sliding Scale -) 1 vial SQ ACHS [facility] PRN Reason: Protocol Last Admin: 09/25/16 11:44 Dose: Not Given Isosorbide Dinitrate (Isordil -) 20 mg PO TID [facility] Methyldopa (Aldomet -) 250 mg PO TID [facility] Last Admin: 09/25/16 14:19 Dose: 250 mg Metoprolol Succinate (Toprol Xl -) 50 mg PO DAILY [facility] Last Admin: 09/25/16 09:51 Dose: 50 mg Nifedipine (Procardia Xl -) 60 mg PO DAILY [facility] Last Admin: 09/25/16 09:51 Dose: 60 mg Nystatin (Nystop Powder -) 1 applic TP DAILY [facility] Last Admin: 09/25/16 09:52 Dose: Not Given Potassium Chloride (K-Dur -) 20 meq PO DAILY [facility] Last Admin: 09/25/16 09:51 Dose: 20 meq Silver Sulfadiazine (Silvadene -) 1 applic TP DAILY [facility] Last Admin: 09/25/16 09:54 Dose: 1 applic Sitagliptin Phosphate (Januvia -) 25 mg PO DAILY@0700 [facility] Last Admin: 09/25/16 09:51 Dose: 25 mg - Objective Vital Signs: Vital Signs Temperature 97.7 F 09/25/16 14:45 Pulse Rate 60 09/25/16 14:45 Respiratory Rate 18 09/25/16 14:45 Blood Pressure 132/81 09/25/16 14:45 O2 Sat by Pulse Oximetry (%) 96 09/25/16 09:00 Constitutional: Yes: No Distress Eyes: Yes: Conjunctiva Clear HENT: Yes: Atraumatic, Normocephalic Neck: Yes: Supple, Trachea Midline Cardiovascular: Yes: Regular Rate and Rhythm, Bradycardia, JVD Respiratory: Yes: Regular Edema: LLE: 1+, RLE: 1+ Labs: CBC, BMP 09/25/16 05:35 09/25/16 05:35 INR, PTT INR 1.51 (0.82-1.09) H 09/22/16 10:00 Problem List - Problems (1) CHF (congestive heart failure) Code(s): I50.9 - HEART FAILURE, UNSPECIFIED Qualifiers: Congestive heart failure type: diastolic Congestive heart failure chronicity: acute on chronic Qualified Code(s): I50.33 - Acute on chronic diastolic (congestive) heart failure (2) BETI (acute kidney injury) Code(s): N17.9 - ACUTE KIDNEY FAILURE, UNSPECIFIED (3) Coronary artery disease Code(s): I25.10 - ATHSCL HEART DISEASE OF CIRCLE CORONARY ARTERY W/O ANG PCTRS Qualifiers: Coronary Disease-Associated Artery/Lesion type: unspecified vessel or lesion type Associated angina: without angina Assessment/Plan Acute on chronic heart failure with possibly severe MR. Echocardiogram 09/23/16 EF 40% with severe MR. Severe HTN Sinus bradycardia Rec: Clinically improving heart failure. Cr stable/slightly lower. Net negative UO -Raised Hydralazine/ and added ISDN today for BP control. -Continue Nifedipine 60mg qd. -Would follow up echocardiogram after BP is controlled. If severe MR persists can consider Mitral clip. Clinically improving although slowly. If bradycardia persists, reduce BB dose.
[2016-09-25] MEDS: ISOSORBIDE DINITRATE 20 MG TABLET (FP) PO SCH (23:21)
[2016-09-25] MEDS: ATORVASTATIN CA 40 MG TABLET (FP) PO SCH (23:21)
[2016-09-26] MEDS ORDERED: PT OWN MED DRAWER 7, Y5N ONE ×3 (06:47→22:47)
[2016-09-26] MEDS: INSULIN SLIDING SCALE (NOVOLOG) 1 VIAL SQ SCH ×4 (06:51→22:50)
[2016-09-26] MEDS: sitaGLIPtin PHOSPHATE 25 MG TABLET (FP) PO SCH (06:51)
[2016-09-26] MEDS: METHYLDOPA 250 MG TABLET PO SCH ×3 (06:51→23:17)
[2016-09-26] MEDS: hydrALAZINE HCL 25 MG TABLET (FP) PO SCH (06:51)
[2016-09-26] MEDS: ISOSORBIDE DINITRATE 20 MG TABLET (FP) PO SCH ×3 (06:51→23:00)
[2016-09-26] MEDS: FUROSEMIDE 100 MG/10 ML INJECTABLE VIAL IVPB SCH ×2 (06:52→15:01)
[2016-09-26 09:49] LABS: CALCIUM 7.9 mg/dL (8.5-10.1); COCKROFT - GAULT 36.37; CREATININE 3.2 mg/dL (0.7-1.3)
[2016-09-26] MEDS: NIFEdipine E.R 60 MG TABLET (UD) PO SCH (10:38)
[2016-09-26] MEDS: METOPROLOL SUCCINATE 50 MG TAB.SR.24H (FP) PO SCH (10:38)
[2016-09-26] MEDS: ASPIRIN COATED 81 MG TABLET.EC PO SCH (10:38)
[2016-09-26] MEDS: POTASSIUM CHLORIDE TABS 20 MEQ TABLET.ER (FP) PO SCH (10:38)
[2016-09-26] MEDS: SILVER SULFADIAZINE 1% TOP CREAM 50 GM JAR TP SCH (10:38)
[2016-09-26] MEDS: HYDROCORTISONE 2.5% TOPICAL CREAM 30 GM TUBE PR SCH (10:39)
[2016-09-26] MEDS: NYSTATIN POWDER 100,000 UNITS/GM - 15 GM TOPICAL POWDER TP SCH (10:40)
--- NOTE | 2016-09-26 12:14 | PN ---
Progress Note (short form) - Note Progress Note: PULMONARY RESTING COMFORTABLY FEET ELEVATED VSS/AFEBRILE OVERALL CLINICAL IMPROVEMENT ANICTERIC DIMINISHED BIBASILAR BREATH SOUNDS S1S2 BS+ OBESE DIMINISHED EDEMA LABS/MEDS/NOTES/IMAGING REVIEW IMP ACUTE ON CHRONIC CHF CKD ASHD S/P STENT X3 HYPERTENSIVE URGENCY DM HYPERLIPEDEMIA ? COPD ? OSAS PLAN IV LASIX O2 DAILY WTS INHALED BRONCHODILATORS PRN MONITOR LYTES SMOKING CESSATION COUNSELED TITRATE BP MEDS WT REDUCTION SLEEP STUDIES OUTPATIENT Parish CHONG MD
--- NOTE | 2016-09-26 13:01 | PN ---
Progress Note, Physician History of Present Illness: Renal f/u Pt still with LE edema and has found it easier to sleep in the chair rather than in bed On BID Lasix Today's lasix slightly better today - Current Medication List Current Medications: Active Medications Acetaminophen (Tylenol -) 650 mg PO Q6H PRN PRN Reason: FEVER OR PAIN Last Admin: 09/25/16 05:23 Dose: 650 mg Al Hydroxide/Mg Hydroxide (Mylanta Oral Suspension -) 30 ml PO Q6H PRN PRN Reason: DYSPEPSIA Albuterol Sulfate (Ventolin 0.083% Nebulizer Soln -) 1 amp NEB Q4H PRN PRN Reason: SHORT OF BREATH/WHEEZING Last Admin: 09/23/16 05:00 Dose: 1 amp Aspirin (Ecotrin -) 81 mg PO DAILY [facility] Last Admin: 09/26/16 10:38 Dose: 81 mg Atorvastatin Calcium (Lipitor -) 40 mg PO HS [facility] Last Admin: 09/25/16 23:21 Dose: 40 mg Furosemide (Lasix Injection -) 60 mg IVPB BID@0600,1400 [facility] Last Admin: 09/26/16 06:52 Dose: 60 mg Hydralazine HCl (Apresoline Injection -) 10 mg IVPUSH Q6H PRN PRN Reason: HYPERTENSION Hydralazine HCl (Apresoline -) 25 mg PO TID [facility] Last Admin: 09/26/16 06:51 Dose: 25 mg Hydrocortisone (Anusol 2.5% Hc Cream -) 1 applic [place] DAILY [facility] Last Admin: 09/26/16 10:39 Dose: 1 applic Insulin Aspart (Novolog Vial Sliding Scale -) 1 vial SQ ACHS [facility] PRN Reason: Protocol Last Admin: 09/26/16 12:44 Dose: Not Given Isosorbide Dinitrate (Isordil -) 20 mg PO TID [facility] Last Admin: 09/26/16 06:51 Dose: 20 mg Methyldopa (Aldomet -) 250 mg PO TID [facility] Last Admin: 09/26/16 06:51 Dose: 250 mg Metoprolol Succinate (Toprol Xl -) 50 mg PO DAILY [facility] Last Admin: 09/26/16 10:38 Dose: 50 mg Nifedipine (Procardia Xl -) 60 mg PO DAILY [facility] Last Admin: 09/26/16 10:38 Dose: 60 mg Nystatin (Nystop Powder -) 1 applic TP DAILY [facility] Last Admin: 09/26/16 10:40 Dose: 1 applic Potassium Chloride (K-Dur -) 20 meq PO DAILY [facility] Last Admin: 09/26/16 10:38 Dose: 20 meq Silver Sulfadiazine (Silvadene -) 1 applic TP DAILY [facility] Last Admin: 09/26/16 10:38 Dose: 1 applic Sitagliptin Phosphate (Januvia -) 25 mg PO DAILY@0700 [facility] Last Admin: 09/26/16 06:51 Dose: 25 mg - Objective Vital Signs: Vital Signs Temperature 97.7 F 09/26/16 06:00 Pulse Rate 60 09/26/16 06:00 Respiratory Rate 18 09/26/16 06:00 Blood Pressure 162/92 09/26/16 06:00 O2 Sat by Pulse Oximetry (%) 98 09/25/16 21:00 Constitutional: Yes: Well Nourished, No Distress Cardiovascular: Yes: S1, S2. No: JVD Respiratory: Yes: CTA Bilaterally Gastrointestinal: Yes: Soft. No: Tenderness, Rebound Genitourinary: No: Bladder Distention Edema: LLE: 2+, RLE: 2+ Labs: CBC, BMP 09/25/16 05:35 09/26/16 06:00 INR, PTT INR 1.51 (0.82-1.09) H 09/22/16 10:00 Assessment/Plan Impression 1. CHF with Diastolic dysfunction with severe MR 2. Acute on CKD 3. CAD 4. HTN 5. DM 6. hyperlipidemia 7. Active smoker 8. Anemia Plan - Continue to diurese - Increase the Hydralazine for better BP control - Rpt labs in am Dr Dumont
[2016-09-26] MEDS ORDERED: hydrALAZINE HCL 25 MG TABLET (FP) PO SCH (13:05)
[2016-09-26] MEDS: hydrALAZINE HCL 50 MG TABLET (FP) PO SCH ×2 (15:01→23:00)
--- NOTE | 2016-09-26 15:51 | PN ---
Progress Note, Physician History of Present Illness: FEELS BETTER NO CP SOB ON EXERTION - Current Medication List Current Medications: Active Medications Acetaminophen (Tylenol -) 650 mg PO Q6H PRN PRN Reason: FEVER OR PAIN Last Admin: 09/25/16 05:23 Dose: 650 mg Al Hydroxide/Mg Hydroxide (Mylanta Oral Suspension -) 30 ml PO Q6H PRN PRN Reason: DYSPEPSIA Albuterol Sulfate (Ventolin 0.083% Nebulizer Soln -) 1 amp NEB Q4H PRN PRN Reason: SHORT OF BREATH/WHEEZING Last Admin: 09/23/16 05:00 Dose: 1 amp Aspirin (Ecotrin -) 81 mg PO DAILY [facility] Last Admin: 09/26/16 10:38 Dose: 81 mg Atorvastatin Calcium (Lipitor -) 40 mg PO HS [facility] Last Admin: 09/25/16 23:21 Dose: 40 mg Furosemide (Lasix Injection -) 60 mg IVPB BID@0600,1400 [facility] Last Admin: 09/26/16 15:01 Dose: 60 mg Hydralazine HCl (Apresoline Injection -) 10 mg IVPUSH Q6H PRN PRN Reason: HYPERTENSION Hydralazine HCl (Apresoline -) 50 mg PO TID [facility] Last Admin: 09/26/16 15:01 Dose: 50 mg Hydrocortisone (Anusol 2.5% Hc Cream -) 1 applic [place] DAILY [facility] Last Admin: 09/26/16 10:39 Dose: 1 applic Insulin Aspart (Novolog Vial Sliding Scale -) 1 vial SQ ACHS [facility] PRN Reason: Protocol Last Admin: 09/26/16 12:44 Dose: Not Given Isosorbide Dinitrate (Isordil -) 20 mg PO TID [facility] Last Admin: 09/26/16 15:02 Dose: 20 mg Methyldopa (Aldomet -) 250 mg PO TID [facility] Last Admin: 09/26/16 15:03 Dose: 250 mg Metoprolol Succinate (Toprol Xl -) 50 mg PO DAILY [facility] Last Admin: 09/26/16 10:38 Dose: 50 mg Nifedipine (Procardia Xl -) 60 mg PO DAILY [facility] Last Admin: 09/26/16 10:38 Dose: 60 mg Nystatin (Nystop Powder -) 1 applic TP DAILY [facility] Last Admin: 09/26/16 10:40 Dose: 1 applic Potassium Chloride (K-Dur -) 20 meq PO DAILY [facility] Last Admin: 09/26/16 10:38 Dose: 20 meq Silver Sulfadiazine (Silvadene -) 1 applic TP DAILY [facility] Last Admin: 09/26/16 10:38 Dose: 1 applic Sitagliptin Phosphate (Januvia -) 25 mg PO DAILY@0700 [facility] Last Admin: 09/26/16 06:51 Dose: 25 mg - Objective Vital Signs: Vital Signs Temperature 97.6 F 09/26/16 13:43 Pulse Rate 58 L 09/26/16 13:43 Respiratory Rate 18 09/26/16 13:43 Blood Pressure 146/74 09/26/16 13:43 O2 Sat by Pulse Oximetry (%) 98 09/26/16 10:00 Cardiovascular: Yes: S1, S2 Respiratory: Yes: On Nasal O2, Rales Gastrointestinal: Yes: Normal Bowel Sounds, Soft Edema: Yes Labs: CBC, BMP 09/25/16 05:35 09/26/16 06:00 INR, PTT INR 1.51 (0.82-1.09) H 09/22/16 10:00 Problem List - Problems (1) CHF (congestive heart failure) Assessment/Plan: ON LASIX 60 IV BID MONITOR LABS Code(s): I50.9 - HEART FAILURE, UNSPECIFIED Qualifiers: Congestive heart failure type: diastolic Congestive heart failure chronicity: acute on chronic Qualified Code(s): I50.33 - Acute on chronic diastolic (congestive) heart failure (2) CKD (chronic kidney disease) Assessment/Plan: Laboratory Tests 09/23/16 09/26/16 06:20 06:00 Creatinine 3.5 H 3.2 H FOLLOW RENAL ON CASE Code(s): N18.9 - CHRONIC KIDNEY DISEASE, UNSPECIFIED (3) Diabetes 1.5, managed as type 2 Assessment/Plan: ON MEDS MONITOR BGM Code(s): E10.9 - TYPE 1 DIABETES MELLITUS WITHOUT COMPLICATIONS
[2016-09-26] MEDS: ATORVASTATIN CA 40 MG TABLET (FP) PO SCH (22:59)
[2016-09-26] MEDS: ACETAMINOPHEN 325 MG TABLET (FP) PO PRN (23:18)
[2016-09-27] MEDS ORDERED: PT OWN MED DRAWER 7, Y5N ONE (05:28)
[2016-09-27] MEDS: hydrALAZINE HCL 50 MG TABLET (FP) PO SCH ×3 (05:32→22:20)
[2016-09-27] MEDS: METHYLDOPA 250 MG TABLET PO SCH ×3 (05:33→22:21)
[2016-09-27] MEDS: ISOSORBIDE DINITRATE 20 MG TABLET (FP) PO SCH ×3 (05:33→22:20)
[2016-09-27] MEDS: FUROSEMIDE 100 MG/10 ML INJECTABLE VIAL IVPB SCH ×2 (05:33→15:43)
[2016-09-27] MEDS: INSULIN SLIDING SCALE (NOVOLOG) 1 VIAL SQ SCH ×4 (05:59→22:21)
[2016-09-27] MEDS: sitaGLIPtin PHOSPHATE 25 MG TABLET (FP) PO SCH (06:27)
[2016-09-27 08:04] LABS: COCKROFT - GAULT 36.43; CREATININE 3.2 mg/dL (0.7-1.3)
[2016-09-27 08:29] LABS: BASOPHIL 1.3 % (0-2.0); EOSINOPHIL 7.5 % (0-4.5); MCH 30.3 pg (25.7-33.7); MCHC 33.2 g/dl (32.0-35.9); MEAN CELL VOLUME 91.1 fl (80-96); MEAN PLT VOLUME 10.3 fl (7.5-11.1); NEUTROPHILS 61.8 % (42.8-82.8); PLATELET COUNT 117 K/MM3 (134-434); RDW 15.4 % (11.9-15.9); WHITE BLOOD COUNT 7.5 K/mm3 (4.0-10.0)
[2016-09-27] MEDS: NIFEdipine E.R 60 MG TABLET (UD) PO SCH (09:01)
[2016-09-27] MEDS: NYSTATIN POWDER 100,000 UNITS/GM - 15 GM TOPICAL POWDER TP SCH (09:01)
[2016-09-27] MEDS: POTASSIUM CHLORIDE TABS 20 MEQ TABLET.ER (FP) PO SCH (09:01)
[2016-09-27] MEDS: SILVER SULFADIAZINE 1% TOP CREAM 50 GM JAR TP SCH (09:01)
[2016-09-27] MEDS: HYDROCORTISONE 2.5% TOPICAL CREAM 30 GM TUBE PR SCH (09:01)
[2016-09-27] MEDS: ASPIRIN COATED 81 MG TABLET.EC PO SCH (09:02)
[2016-09-27] MEDS: METOPROLOL SUCCINATE 50 MG TAB.SR.24H (FP) PO SCH (09:02)
--- NOTE | 2016-09-27 10:54 | PN ---
Progress Note, Physician History of Present Illness: Renal f/u Pt still with LE edema and there has been no change in his wt on the 60 mgs of Lasix BID Today's BP is better on the increased Hydralazine - Current Medication List Current Medications: Active Medications Acetaminophen (Tylenol -) 650 mg PO Q6H PRN PRN Reason: FEVER OR PAIN Last Admin: 09/26/16 23:18 Dose: 650 mg Al Hydroxide/Mg Hydroxide (Mylanta Oral Suspension -) 30 ml PO Q6H PRN PRN Reason: DYSPEPSIA Albuterol Sulfate (Ventolin 0.083% Nebulizer Soln -) 1 amp NEB Q4H PRN PRN Reason: SHORT OF BREATH/WHEEZING Last Admin: 09/23/16 05:00 Dose: 1 amp Aspirin (Ecotrin -) 81 mg PO DAILY [facility] Last Admin: 09/27/16 09:02 Dose: 81 mg Atorvastatin Calcium (Lipitor -) 40 mg PO HS [facility] Last Admin: 09/26/16 22:59 Dose: 40 mg Furosemide (Lasix Injection -) 60 mg IVPB BID@0600,1400 [facility] Last Admin: 09/27/16 05:33 Dose: 60 mg Hydralazine HCl (Apresoline Injection -) 10 mg IVPUSH Q6H PRN PRN Reason: HYPERTENSION Hydralazine HCl (Apresoline -) 50 mg PO TID [facility] Last Admin: 09/27/16 05:32 Dose: 50 mg Hydrocortisone (Anusol 2.5% Hc Cream -) 1 applic [place] DAILY [facility] Last Admin: 09/27/16 09:01 Dose: 1 applic Insulin Aspart (Novolog Vial Sliding Scale -) 1 vial SQ ACHS [facility] PRN Reason: Protocol Last Admin: 09/27/16 05:59 Dose: Not Given Isosorbide Dinitrate (Isordil -) 20 mg PO TID [facility] Last Admin: 09/27/16 05:33 Dose: 20 mg Methyldopa (Aldomet -) 250 mg PO TID [facility] Last Admin: 09/27/16 05:33 Dose: 250 mg Metoprolol Succinate (Toprol Xl -) 50 mg PO DAILY [facility] Last Admin: 09/27/16 09:02 Dose: 50 mg Nifedipine (Procardia Xl -) 60 mg PO DAILY [facility] Last Admin: 09/27/16 09:01 Dose: 60 mg Nystatin (Nystop Powder -) 1 applic TP DAILY [facility] Last Admin: 09/27/16 09:01 Dose: 1 applic Potassium Chloride (K-Dur -) 20 meq PO DAILY [facility] Last Admin: 09/27/16 09:01 Dose: 20 meq Silver Sulfadiazine (Silvadene -) 1 applic TP DAILY [facility] Last Admin: 09/27/16 09:01 Dose: 1 applic Sitagliptin Phosphate (Januvia -) 25 mg PO DAILY@0700 [facility] Last Admin: 09/27/16 06:27 Dose: 25 mg - Objective Vital Signs: Vital Signs Temperature 97.9 F 09/27/16 06:00 Pulse Rate 63 09/27/16 06:00 Respiratory Rate 20 09/27/16 06:00 Blood Pressure 154/77 09/27/16 06:00 O2 Sat by Pulse Oximetry (%) 99 09/26/16 21:00 Constitutional: Yes: No Distress Cardiovascular: Yes: S1, S2, Other (SSEM) Respiratory: Yes: CTA Bilaterally Gastrointestinal: Yes: Soft. No: Tenderness, Rebound Genitourinary: No: Bladder Distention Edema: LLE: 2+, RLE: 2+ Labs: CBC, BMP 09/27/16 06:20 09/27/16 06:20 INR, PTT INR 1.51 (0.82-1.09) H 09/22/16 10:00 Assessment/Plan Impression 1. CHF with Diastolic dysfunction with severe MR 2. Acute on CKD with glomerular range proteinuria in this pt that has had a negative ESTELA, and Hep C and B screen 3. CAD 4. HTN 5. DM 6. hyperlipidemia 7. Active smoker 8. Anemia Plan - Increase the Lasix to 80 mgs IV BID - Give Metolazone 5 mgs po X1 an hour before today's 2 pm lasix - Continue to monitor pt's wt daily - Will defer further w/u for the proteinuria/CKD to Dr Espinoza who has probably done further w/u as an out patient - Rpt labs in am Dr Dumont
[2016-09-27] MEDS ORDERED: METOLAZONE 5 MG TABLET PO ONE (11:01)
--- NOTE | 2016-09-27 12:31 | PN ---
Progress Note (short form) - Note Progress Note: PULMONARY RESTING COMFORTABLY/FAMILY PRESENT FEET ELEVATED VSS/AFEBRILE OVERALL CLINICAL IMPROVEMENT ANICTERIC DIMINISHED BIBASILAR BREATH SOUNDS S1S2 BS+ OBESE DIMINISHED EDEMA LABS/MEDS/NOTES/IMAGING REVIEW IMP ACUTE ON CHRONIC CHF CKD ASHD S/P STENT X3 HYPERTENSIVE URGENCY DM HYPERLIPEDEMIA ? COPD ? OSAS PLAN IV LASIX O2 DAILY WTS INHALED BRONCHODILATORS PRN MONITOR LYTES SMOKING CESSATION COUNSELED TITRATE BP MEDS WT REDUCTION SLEEP STUDIES OUTPATIENT Parish CHONG MD
--- NOTE | 2016-09-27 12:42 | PN ---
Progress Note, Physician History of Present Illness: FEELS BETTER NO CP SOB ON EXERTION - Current Medication List Current Medications: Active Medications Acetaminophen (Tylenol -) 650 mg PO Q6H PRN PRN Reason: FEVER OR PAIN Last Admin: 09/26/16 23:18 Dose: 650 mg Al Hydroxide/Mg Hydroxide (Mylanta Oral Suspension -) 30 ml PO Q6H PRN PRN Reason: DYSPEPSIA Albuterol Sulfate (Ventolin 0.083% Nebulizer Soln -) 1 amp NEB Q4H PRN PRN Reason: SHORT OF BREATH/WHEEZING Last Admin: 09/23/16 05:00 Dose: 1 amp Aspirin (Ecotrin -) 81 mg PO DAILY [facility] Last Admin: 09/27/16 09:02 Dose: 81 mg Atorvastatin Calcium (Lipitor -) 40 mg PO HS [facility] Last Admin: 09/26/16 22:59 Dose: 40 mg Furosemide (Lasix Injection -) 80 mg IVPB BID@0600,1400 [facility] Hydralazine HCl (Apresoline Injection -) 10 mg IVPUSH Q6H PRN PRN Reason: HYPERTENSION Hydralazine HCl (Apresoline -) 50 mg PO TID [facility] Last Admin: 09/27/16 05:32 Dose: 50 mg Hydrocortisone (Anusol 2.5% Hc Cream -) 1 applic [place] DAILY [facility] Last Admin: 09/27/16 09:01 Dose: 1 applic Insulin Aspart (Novolog Vial Sliding Scale -) 1 vial SQ ACHS [facility] PRN Reason: Protocol Last Admin: 09/27/16 05:59 Dose: Not Given Isosorbide Dinitrate (Isordil -) 20 mg PO TID [facility] Last Admin: 09/27/16 05:33 Dose: 20 mg Methyldopa (Aldomet -) 250 mg PO TID [facility] Last Admin: 09/27/16 05:33 Dose: 250 mg Metoprolol Succinate (Toprol Xl -) 50 mg PO DAILY [facility] Last Admin: 09/27/16 09:02 Dose: 50 mg Nifedipine (Procardia Xl -) 60 mg PO DAILY [facility] Last Admin: 09/27/16 09:01 Dose: 60 mg Nystatin (Nystop Powder -) 1 applic TP DAILY [facility] Last Admin: 09/27/16 09:01 Dose: 1 applic Potassium Chloride (K-Dur -) 20 meq PO DAILY [facility] Last Admin: 09/27/16 09:01 Dose: 20 meq Silver Sulfadiazine (Silvadene -) 1 applic TP DAILY [facility] Last Admin: 09/27/16 09:01 Dose: 1 applic Sitagliptin Phosphate (Januvia -) 25 mg PO DAILY@0700 [facility] Last Admin: 09/27/16 06:27 Dose: 25 mg - Objective Vital Signs: Vital Signs Temperature 97.9 F 09/27/16 06:00 Pulse Rate 63 09/27/16 06:00 Respiratory Rate 20 09/27/16 06:00 Blood Pressure 154/77 09/27/16 06:00 O2 Sat by Pulse Oximetry (%) 99 09/26/16 21:00 Cardiovascular: Yes: Regular Rate and Rhythm Respiratory: Yes: Diminished, On Nasal O2 Gastrointestinal: Yes: Normal Bowel Sounds, Soft Edema: Yes Labs: CBC, BMP 09/27/16 06:20 09/27/16 06:20 INR, PTT INR 1.51 (0.82-1.09) H 09/22/16 10:00 Problem List - Problems (1) CHF (congestive heart failure) Assessment/Plan: ON LASIX 60 IV BID MONITOR LABS Code(s): I50.9 - HEART FAILURE, UNSPECIFIED Qualifiers: Congestive heart failure type: diastolic Congestive heart failure chronicity: acute on chronic Qualified Code(s): I50.33 - Acute on chronic diastolic (congestive) heart failure (2) CKD (chronic kidney disease) Assessment/Plan: Laboratory Tests 09/23/16 09/26/16 06:20 06:00 Creatinine 3.5 H 3.2 H FOLLOW RENAL ON CASE Code(s): N18.9 - CHRONIC KIDNEY DISEASE, UNSPECIFIED (3) Diabetes 1.5, managed as type 2 Assessment/Plan: ON MEDS MONITOR BGM Code(s): E10.9 - TYPE 1 DIABETES MELLITUS WITHOUT COMPLICATIONS
--- NOTE | 2016-09-27 15:37 | PN ---
Progress Note, Physician Chief Complaint: Still requires O2 but less SOB History of Present Illness: Telem Sinus bradycardia. This is a 60 year old male, with a past medical history of hypertension, hyperlipidemia, cigarette smoking, diabetes, CHF (on Lasix), CKD 3, and CAD s/p 3 stents (1999), who presents to the emergency department with increasing shortness of breath orthopnea and lower extremity swelling and a cough productive of white phlegm. There is no chest pain. Patient had a stress test 04/[address] Giovanni Sood showing inferior wall fixed defect and no ischemia. He underwent an echocardiogram here in May 2016 showing Mildly elevated LA pressure and overall preserved LV function without valvular pathology. Takes Eliquis. We spoke with Dr. Vasquez office and there is no indication of Afib per their records. - Current Medication List Current Medications: Active Medications Acetaminophen (Tylenol -) 650 mg PO Q6H PRN PRN Reason: FEVER OR PAIN Last Admin: 09/26/16 23:18 Dose: 650 mg Al Hydroxide/Mg Hydroxide (Mylanta Oral Suspension -) 30 ml PO Q6H PRN PRN Reason: DYSPEPSIA Albuterol Sulfate (Ventolin 0.083% Nebulizer Soln -) 1 amp NEB Q4H PRN PRN Reason: SHORT OF BREATH/WHEEZING Last Admin: 09/23/16 05:00 Dose: 1 amp Aspirin (Ecotrin -) 81 mg PO DAILY [facility] Last Admin: 09/27/16 09:02 Dose: 81 mg Atorvastatin Calcium (Lipitor -) 40 mg PO HS [facility] Last Admin: 09/26/16 22:59 Dose: 40 mg Furosemide (Lasix Injection -) 80 mg IVPB BID@0600,1400 [facility] Hydralazine HCl (Apresoline Injection -) 10 mg IVPUSH Q6H PRN PRN Reason: HYPERTENSION Hydralazine HCl (Apresoline -) 50 mg PO TID [facility] Last Admin: 09/27/16 05:32 Dose: 50 mg Hydrocortisone (Anusol 2.5% Hc Cream -) 1 applic IN DAILY [facility] Last Admin: 09/27/16 09:01 Dose: 1 applic Insulin Aspart (Novolog Vial Sliding Scale -) 1 vial SQ ACHS TOY PRN Reason: Protocol Last Admin: 09/27/16 12:00 Dose: Not Given Isosorbide Dinitrate (Isordil -) 20 mg PO TID [facility] Last Admin: 09/27/16 05:33 Dose: 20 mg Methyldopa (Aldomet -) 250 mg PO TID [facility] Last Admin: 09/27/16 05:33 Dose: 250 mg Metoprolol Succinate (Toprol Xl -) 50 mg PO DAILY [facility] Last Admin: 09/27/16 09:02 Dose: 50 mg Nifedipine (Procardia Xl -) 60 mg PO DAILY [facility] Last Admin: 09/27/16 09:01 Dose: 60 mg Nystatin (Nystop Powder -) 1 applic TP DAILY [facility] Last Admin: 09/27/16 09:01 Dose: 1 applic Potassium Chloride (K-Dur -) 20 meq PO DAILY [facility] Last Admin: 09/27/16 09:01 Dose: 20 meq Silver Sulfadiazine (Silvadene -) 1 applic TP DAILY [facility] Last Admin: 09/27/16 09:01 Dose: 1 applic Sitagliptin Phosphate (Januvia -) 25 mg PO DAILY@0700 [facility] Last Admin: 09/27/16 06:27 Dose: 25 mg - Objective Vital Signs: Vital Signs Temperature 98.7 F 09/27/16 14:41 Pulse Rate 73 09/27/16 14:41 Respiratory Rate 20 09/27/16 14:41 Blood Pressure 148/75 09/27/16 14:41 O2 Sat by Pulse Oximetry (%) 99 09/26/16 21:00 Constitutional: Yes: Other (Constitutional: Yes: No Distress Eyes: Yes: Conjunctiva Clear HENT: Yes: Atraumatic, Normocephalic Neck: Yes: Supple, Trachea Midline Cardiovascular: Yes: Regular Rate and Rhythm, Bradycardia, JVD Respiratory: Yes: Regular) Labs: CBC, BMP 09/27/16 06:20 09/27/16 06:20 INR, PTT INR 1.51 (0.82-1.09) H 09/22/16 10:00 Assessment/Plan Assessment/Plan Acute on chronic heart failure with possibly severe MR. Echocardiogram 09/23/16 EF 40% with severe MR. Severe HTN Sinus bradycardia Rec: Clinically improving heart failure. Cr stable/slightly lower. Net negative UO -Continue Hydralazine and ISDN for BP control. -Continue Nifedipine 60mg qd. -Would follow up echocardiogram after BP is controlled. If severe MR persists can consider Mitral clip. Clinically improving although slowly. Agree with current regimen: Acetaminophen (Tylenol -) 650 mg PO Q6H PRN PRN Reason: FEVER OR PAIN Last Admin: 09/26/16 23:18 Dose: 650 mg Al Hydroxide/Mg Hydroxide (Mylanta Oral Suspension -) 30 ml PO Q6H PRN PRN Reason: DYSPEPSIA Albuterol Sulfate (Ventolin 0.083% Nebulizer Soln -) 1 amp NEB Q4H PRN PRN Reason: SHORT OF BREATH/WHEEZING Last Admin: 09/23/16 05:00 Dose: 1 amp Aspirin (Ecotrin -) 81 mg PO DAILY [facility] Last Admin: 09/27/16 09:02 Dose: 81 mg Atorvastatin Calcium (Lipitor -) 40 mg PO HS [facility] Last Admin: 09/26/16 22:59 Dose: 40 mg Furosemide (Lasix Injection -) 80 mg IVPB BID@0600,1400 [facility] Hydralazine HCl (Apresoline Injection -) 10 mg IVPUSH Q6H PRN PRN Reason: HYPERTENSION Hydralazine HCl (Apresoline -) 50 mg PO TID [facility] Last Admin: 09/27/16 05:32 Dose: 50 mg Hydrocortisone (Anusol 2.5% Hc Cream -) 1 applic IN DAILY [facility] Last Admin: 09/27/16 09:01 Dose: 1 applic Insulin Aspart (Novolog Vial Sliding Scale -) 1 vial SQ ACHS TOY PRN Reason: Protocol Last Admin: 09/27/16 12:00 Dose: Not Given Isosorbide Dinitrate (Isordil -) 20 mg PO TID [facility] Last Admin: 09/27/16 05:33 Dose: 20 mg Methyldopa (Aldomet -) 250 mg PO TID [facility] Last Admin: 09/27/16 05:33 Dose: 250 mg Metoprolol Succinate (Toprol Xl -) 50 mg PO DAILY [facility] Last Admin: 09/27/16 09:02 Dose: 50 mg Nifedipine (Procardia Xl -) 60 mg PO DAILY [facility] Last Admin: 09/27/16 09:01 Dose: 60 mg Nystatin (Nystop Powder -) 1 applic TP DAILY [facility] Last Admin: 09/27/16 09:01 Dose: 1 applic Potassium Chloride (K-Dur -) 20 meq PO DAILY [facility] Last Admin: 09/27/16 09:01 Dose: 20 meq Silver Sulfadiazine (Silvadene -) 1 applic TP DAILY [facility] Last Admin: 09/27/16 09:01 Dose: 1 applic Sitagliptin Phosphate (Januvia -) 25 mg PO DAILY@0700 [facility] Last Admin: 09/27/16 06:27 Dose: 25 mg
[2016-09-27] MEDS: ATORVASTATIN CA 40 MG TABLET (FP) PO SCH (22:20)
[2016-09-27] MEDS: ACETAMINOPHEN 325 MG TABLET (FP) PO PRN (22:21)
[2016-09-28] MEDS: FUROSEMIDE 100 MG/10 ML INJECTABLE VIAL IVPB SCH ×2 (06:02→14:14)
[2016-09-28] MEDS: sitaGLIPtin PHOSPHATE 25 MG TABLET (FP) PO SCH (06:02)
[2016-09-28] MEDS: ISOSORBIDE DINITRATE 20 MG TABLET (FP) PO SCH ×3 (06:02→22:28)
[2016-09-28] MEDS: hydrALAZINE HCL 50 MG TABLET (FP) PO SCH ×3 (06:02→22:29)
[2016-09-28] MEDS: METHYLDOPA 250 MG TABLET PO SCH ×3 (06:03→22:29)
[2016-09-28] MEDS: INSULIN SLIDING SCALE (NOVOLOG) 1 VIAL SQ SCH ×4 (06:03→21:09)
[2016-09-28 07:14] LABS: BASOPHIL 1.1 % (0-2.0); EOSINOPHIL 7.2 % (0-4.5); MCH 30.3 pg (25.7-33.7); MCHC 33.4 g/dl (32.0-35.9); MEAN CELL VOLUME 90.7 fl (80-96); MEAN PLT VOLUME 10.3 fl (7.5-11.1); NEUTROPHILS 61.6 % (42.8-82.8); PLATELET COUNT 107 K/MM3 (134-434); RDW 15.9 % (11.9-15.9); WHITE BLOOD COUNT 6.7 K/mm3 (4.0-10.0)
[2016-09-28 07:42] LABS: CALCIUM 8.1 mg/dL (8.5-10.1); COCKROFT - GAULT 35.44; CREATININE 3.2 mg/dL (0.7-1.3)
[2016-09-28] MEDS: POTASSIUM CHLORIDE TABS 20 MEQ TABLET.ER (FP) PO SCH (10:20)
[2016-09-28] MEDS: METOPROLOL SUCCINATE 50 MG TAB.SR.24H (FP) PO SCH (10:20)
[2016-09-28] MEDS: ASPIRIN COATED 81 MG TABLET.EC PO SCH (10:20)
[2016-09-28] MEDS: NIFEdipine E.R 60 MG TABLET (UD) PO SCH (10:20)
[2016-09-28] MEDS: HYDROCORTISONE 2.5% TOPICAL CREAM 30 GM TUBE PR SCH (10:21)
[2016-09-28] MEDS: SILVER SULFADIAZINE 1% TOP CREAM 50 GM JAR TP SCH (10:21)
[2016-09-28] MEDS: NYSTATIN POWDER 100,000 UNITS/GM - 15 GM TOPICAL POWDER TP SCH (10:22)
--- NOTE | 2016-09-28 12:16 | PN ---
Progress Note, Physician History of Present Illness: pulmonary alert,feeling better,less dyspneic,o2 sat 94% on o2 - Current Medication List Current Medications: Active Medications Acetaminophen (Tylenol -) 650 mg PO Q6H PRN PRN Reason: FEVER OR PAIN Last Admin: 09/27/16 22:21 Dose: 650 mg Al Hydroxide/Mg Hydroxide (Mylanta Oral Suspension -) 30 ml PO Q6H PRN PRN Reason: DYSPEPSIA Aspirin (Ecotrin -) 81 mg PO DAILY [facility] Last Admin: 09/28/16 10:20 Dose: 81 mg Atorvastatin Calcium (Lipitor -) 40 mg PO HS [facility] Last Admin: 09/27/16 22:20 Dose: 40 mg Furosemide (Lasix Injection -) 80 mg IVPB BID@0600,1400 [facility] Last Admin: 09/28/16 06:02 Dose: 80 mg Hydralazine HCl (Apresoline Injection -) 10 mg IVPUSH Q6H PRN PRN Reason: HYPERTENSION Hydralazine HCl (Apresoline -) 50 mg PO TID [facility] Last Admin: 09/28/16 06:02 Dose: 50 mg Hydrocortisone (Anusol 2.5% Hc Cream -) 1 applic [place] DAILY [facility] Last Admin: 09/28/16 10:21 Dose: 1 applic Insulin Aspart (Novolog Vial Sliding Scale -) 1 vial SQ ACHS [facility] PRN Reason: Protocol Last Admin: 09/28/16 06:03 Dose: Not Given Isosorbide Dinitrate (Isordil -) 20 mg PO TID [facility] Last Admin: 09/28/16 06:02 Dose: 20 mg Methyldopa (Aldomet -) 250 mg PO TID [facility] Last Admin: 09/28/16 06:03 Dose: 250 mg Metoprolol Succinate (Toprol Xl -) 50 mg PO DAILY [facility] Last Admin: 09/28/16 10:20 Dose: 50 mg Nifedipine (Procardia Xl -) 60 mg PO DAILY [facility] Last Admin: 09/28/16 10:20 Dose: 60 mg Nystatin (Nystop Powder -) 1 applic TP DAILY [facility] Last Admin: 09/28/16 10:22 Dose: Not Given Potassium Chloride (K-Dur -) 20 meq PO DAILY [facility] Last Admin: 09/28/16 10:20 Dose: 20 meq Silver Sulfadiazine (Silvadene -) 1 applic TP DAILY [facility] Last Admin: 09/28/16 10:21 Dose: 1 applic Sitagliptin Phosphate (Januvia -) 25 mg PO DAILY@0700 [facility] Last Admin: 09/28/16 06:02 Dose: 25 mg - Objective Vital Signs: Vital Signs Temperature 98.2 F 09/28/16 06:00 Pulse Rate 64 09/28/16 06:00 Respiratory Rate 20 09/28/16 06:00 Blood Pressure 158/93 09/28/16 06:00 O2 Sat by Pulse Oximetry (%) 98 09/27/16 22:00 Constitutional: Yes: Calm, Obese Eyes: Yes: WNL HENT: Yes: WNL Neck: Yes: WNL Cardiovascular: Yes: Regular Rate and Rhythm, S1, S2 Respiratory: Yes: Diminished Gastrointestinal: Yes: Normal Bowel Sounds, Soft, Abdomen, Obese Extremities: Yes: WNL Edema: Yes Labs: CBC, BMP 09/28/16 05:38 09/28/16 05:38 INR, PTT INR 1.51 (0.82-1.09) H 09/22/16 10:00 Problem List - Problems (1) CHF (congestive heart failure) Code(s): I50.9 - HEART FAILURE, UNSPECIFIED Qualifiers: Congestive heart failure type: diastolic Congestive heart failure chronicity: acute on chronic Qualified Code(s): I50.33 - Acute on chronic diastolic (congestive) heart failure (2) CKD (chronic kidney disease) Code(s): N18.9 - CHRONIC KIDNEY DISEASE, UNSPECIFIED (3) Diabetes 1.5, managed as type 2 Code(s): E10.9 - TYPE 1 DIABETES MELLITUS WITHOUT COMPLICATIONS (4) Grade III hemorrhoids Code(s): K64.2 - THIRD DEGREE HEMORRHOIDS (5) Tobacco abuse counseling Code(s): Z71.6 - TOBACCO ABUSE COUNSELING (6) Morbid (severe) obesity due to excess calories Code(s): E66.01 - MORBID (SEVERE) OBESITY DUE TO EXCESS CALORIES Assessment/Plan IMP ACUTE ON CHRONIC CHF CKD ASHD S/P STENT X3 HYPERTENSIVE URGENCY DM HYPERLIPEDEMIA ? COPD ? OSAS PLAN CONTUINUE IV LASIX O2 DAILY WTS INHALED BRONCHODILATORS PRN MONITOR LYTES SMOKING CESSATION COUNSELED BP MEDS WT REDUCTION SLEEP STUDIES OUTPATIENT [place] Problem List - Problems (1) CHF (congestive heart failure) Code(s): I50.9 - HEART FAILURE, UNSPECIFIED Qualifiers: Congestive heart failure type: diastolic Congestive heart failure chronicity: acute on chronic Qualified Code(s): I50.33 - Acute on chronic diastolic (congestive) heart failure (2) CKD (chronic kidney disease) Code(s): N18.9 - CHRONIC KIDNEY DISEASE, UNSPECIFIED (3) Diabetes 1.5, managed as type 2 Code(s): E10.9 - TYPE 1 DIABETES MELLITUS WITHOUT COMPLICATIONS (4) Grade III hemorrhoids Code(s): K64.2 - THIRD DEGREE HEMORRHOIDS (5) Tobacco abuse counseling Code(s): Z71.6 - TOBACCO ABUSE COUNSELING (6) Morbid (severe) obesity due to excess calories Code(s): E66.01 - MORBID (SEVERE) OBESITY DUE TO EXCESS CALORIES
[2016-09-28] MEDS ORDERED: METOLAZONE 5 MG TABLET PO ONE (16:36)
--- NOTE | 2016-09-28 16:36 | PN ---
Progress Note, Physician History of Present Illness: Pt seen and examined at bedside. He is awake and alert. He feels that his breathing is improved. - Current Medication List Current Medications: Active Medications Acetaminophen (Tylenol -) 650 mg PO Q6H PRN PRN Reason: FEVER OR PAIN Last Admin: 09/27/16 22:21 Dose: 650 mg Al Hydroxide/Mg Hydroxide (Mylanta Oral Suspension -) 30 ml PO Q6H PRN PRN Reason: DYSPEPSIA Aspirin (Ecotrin -) 81 mg PO DAILY [facility] Last Admin: 09/28/16 10:20 Dose: 81 mg Atorvastatin Calcium (Lipitor -) 40 mg PO HS [facility] Last Admin: 09/27/16 22:20 Dose: 40 mg Furosemide (Lasix Injection -) 80 mg IVPB BID@0600,1400 TOY Last Admin: 09/28/16 14:14 Dose: 80 mg Hydralazine HCl (Apresoline Injection -) 10 mg IVPUSH Q6H PRN PRN Reason: HYPERTENSION Hydralazine HCl (Apresoline -) 50 mg PO TID [facility] Last Admin: 09/28/16 14:21 Dose: 50 mg Hydrocortisone (Anusol 2.5% Hc Cream -) 1 applic [place] DAILY [facility] Last Admin: 09/28/16 10:21 Dose: 1 applic Insulin Aspart (Novolog Vial Sliding Scale -) 1 vial SQ ACHS TOY PRN Reason: Protocol Last Admin: 09/28/16 11:40 Dose: Not Given Isosorbide Dinitrate (Isordil -) 20 mg PO TID [facility] Last Admin: 09/28/16 14:21 Dose: 20 mg Methyldopa (Aldomet -) 250 mg PO TID TOY Last Admin: 09/28/16 14:21 Dose: 250 mg Metoprolol Succinate (Toprol Xl -) 50 mg PO DAILY [facility] Last Admin: 09/28/16 10:20 Dose: 50 mg Nifedipine (Procardia Xl -) 60 mg PO DAILY [facility] Last Admin: 09/28/16 10:20 Dose: 60 mg Nystatin (Nystop Powder -) 1 applic TP DAILY [facility] Last Admin: 09/28/16 10:22 Dose: Not Given Potassium Chloride (K-Dur -) 20 meq PO DAILY [facility] Last Admin: 09/28/16 10:20 Dose: 20 meq Silver Sulfadiazine (Silvadene -) 1 applic TP DAILY [facility] Last Admin: 09/28/16 10:21 Dose: 1 applic Sitagliptin Phosphate (Januvia -) 25 mg PO DAILY@0700 [facility] Last Admin: 09/28/16 06:02 Dose: 25 mg - Objective Vital Signs: Vital Signs Temperature 98.7 F 09/28/16 10:00 Pulse Rate 62 09/28/16 10:00 Respiratory Rate 20 09/28/16 10:00 Blood Pressure 154/85 09/28/16 10:00 O2 Sat by Pulse Oximetry (%) 98 09/28/16 10:00 Constitutional: Yes: Calm Eyes: Yes: Conjunctiva Clear HENT: Yes: Atraumatic Neck: Yes: Supple Cardiovascular: Yes: S1, S2 Respiratory: Yes: CTA Bilaterally, On Nasal O2 Gastrointestinal: Yes: Soft, Abdomen, Obese Musculoskeletal: Yes: WNL Edema: Yes Edema: LLE: 1+, RLE: 1+ Neurological: Yes: Oriented Psychiatric: Yes: Oriented Labs: CBC, BMP 09/28/16 05:38 09/28/16 05:38 INR, PTT INR 1.51 (0.82-1.09) H 09/22/16 10:00 Problem List - Problems (1) CHF (congestive heart failure) Code(s): I50.9 - HEART FAILURE, UNSPECIFIED Qualifiers: Congestive heart failure type: diastolic Congestive heart failure chronicity: acute on chronic Qualified Code(s): I50.33 - Acute on chronic diastolic (congestive) heart failure (2) Anemia Code(s): D64.9 - ANEMIA, UNSPECIFIED Qualifiers: Other causes of anemia: chronic disease, kidney (3) CKD (chronic kidney disease) Code(s): N18.9 - CHRONIC KIDNEY DISEASE, UNSPECIFIED (4) Diabetes 1.5, managed as type 2 Code(s): E10.9 - TYPE 1 DIABETES MELLITUS WITHOUT COMPLICATIONS Assessment/Plan Current Medications Generic Name Dose Route Start Last Admin Trade Name Freq PRN Reason Stop Dose Admin Acetaminophen 650 mg 09/22/16 16:26 09/27/16 22:21 Tylenol - PO 650 mg Q6H PRN Administration FEVER OR PAIN Al Hydroxide/Mg Hydroxide 30 ml 09/22/16 16:26 Mylanta Oral Suspension - PO Q6H PRN DYSPEPSIA Aspirin 81 mg 09/23/16 10:00 09/28/16 10:20 Ecotrin - PO 81 mg DAILY TOY Administration Atorvastatin Calcium 40 mg 09/22/16 22:00 09/27/16 22:20 Lipitor - PO 40 mg HS TOY Administration Furosemide 80 mg 09/27/16 11:02 09/28/16 14:14 Lasix Injection - IVPB 80 mg BID@0600,1400 TOY Administration Hydralazine HCl 10 mg 09/23/16 01:08 Apresoline Injection - IVPUSH Q6H PRN HYPERTENSION Hydralazine HCl 50 mg 09/26/16 14:00 09/28/16 14:21 Apresoline - PO 50 mg TID TOY Administration Hydrocortisone 1 applic 09/23/16 10:00 09/28/16 10:21 Anusol 2.5% Hc Cream - MS 1 applic DAILY TOY Administration Insulin Aspart 1 vial 09/22/16 16:30 09/28/16 11:40 Novolog Vial Sliding Scale - SQ Not Given ACHS [facility] Protocol Isosorbide Dinitrate 20 mg 09/25/16 22:00 09/28/16 14:21 Isordil - PO 20 mg TID TOY Administration Methyldopa 250 mg 09/22/16 22:00 09/28/16 14:21 Aldomet - PO 250 mg TID TOY Administration Metoprolol Succinate 50 mg 09/25/16 10:00 09/28/16 10:20 Toprol Xl - PO 50 mg DAILY TOY Administration Nifedipine 60 mg 09/25/16 10:00 09/28/16 10:20 Procardia Xl - PO 60 mg DAILY TOY Administration Nystatin 1 applic 09/23/16 10:00 09/28/16 10:22 Nystop Powder - TP Not Given DAILY TOY Potassium Chloride 20 meq 09/23/16 10:00 09/28/16 10:20 K-Dur - PO 20 meq DAILY TOY Administration Silver Sulfadiazine 1 applic 09/23/16 10:00 09/28/16 10:21 Silvadene - TP 1 applic DAILY TOY Administration Sitagliptin Phosphate 25 mg 09/23/16 07:00 09/28/16 06:02 Januvia - PO 25 mg DAILY@0700 TOY Administration Impression 1. CKD 2. anemia 3. CAD 4. HTN 5. DM 6. hyperlipidemia 7. active smoker 8. hemorrhoids 9. CHF diastolic failure 10. active smoker Plan - cont with lasix - will give a dose of metolazone - repeat labs in am - monitor pulse ox, check while ambulating - volume status is improving Dr Espinoza
[2016-09-28] MEDS ORDERED: INSULIN (NOVOLOG) ASPART 100 UNITS/ML 10ML VIAL ONE (18:16)
[2016-09-28] MEDS ORDERED: PT OWN MED DRAWER 7, Y5N ONE ×2 (18:17→22:26)
--- NOTE | 2016-09-28 18:30 | PN ---
Progress Note, Physician Chief Complaint: Dyspnea improving History of Present Illness: This is a 60 year old male, with a past medical history of hypertension, hyperlipidemia, cigarette smoking, diabetes, CHF (on Lasix), CKD 3, and CAD s/p 3 stents (1999), who presents to the emergency department with increasing shortness of breath orthopnea and lower extremity swelling and a cough productive of white phlegm. There is no chest pain. Patient had a stress test 04/[address] Giovanni Sood showing inferior wall fixed defect and no ischemia. He underwent an echocardiogram here in May 2016 showing Mildly elevated LA pressure and overall preserved LV function without valvular pathology. Takes Eliquis. We spoke with Dr. Vasquez office and there is no indication of Afib per their records. - Current Medication List Current Medications: Active Medications Acetaminophen (Tylenol -) 650 mg PO Q6H PRN PRN Reason: FEVER OR PAIN Last Admin: 09/27/16 22:21 Dose: 650 mg Al Hydroxide/Mg Hydroxide (Mylanta Oral Suspension -) 30 ml PO Q6H PRN PRN Reason: DYSPEPSIA Aspirin (Ecotrin -) 81 mg PO DAILY [facility] Last Admin: 09/28/16 10:20 Dose: 81 mg Atorvastatin Calcium (Lipitor -) 40 mg PO HS [facility] Last Admin: 09/27/16 22:20 Dose: 40 mg Furosemide (Lasix Injection -) 80 mg IVPB BID@0600,1400 [facility] Last Admin: 09/28/16 14:14 Dose: 80 mg Hydralazine HCl (Apresoline Injection -) 10 mg IVPUSH Q6H PRN PRN Reason: HYPERTENSION Hydralazine HCl (Apresoline -) 50 mg PO TID [facility] Last Admin: 09/28/16 14:21 Dose: 50 mg Hydrocortisone (Anusol 2.5% Hc Cream -) 1 applic [place] DAILY [facility] Last Admin: 09/28/16 10:21 Dose: 1 applic Insulin Aspart (Novolog Vial Sliding Scale -) 1 vial SQ ACHS [facility] PRN Reason: Protocol Last Admin: 09/28/16 17:47 Dose: Not Given Isosorbide Dinitrate (Isordil -) 20 mg PO TID [facility] Last Admin: 09/28/16 14:21 Dose: 20 mg Methyldopa (Aldomet -) 250 mg PO TID [facility] Last Admin: 09/28/16 14:21 Dose: 250 mg Metoprolol Succinate (Toprol Xl -) 50 mg PO DAILY [facility] Last Admin: 09/28/16 10:20 Dose: 50 mg Nifedipine (Procardia Xl -) 60 mg PO DAILY [facility] Last Admin: 09/28/16 10:20 Dose: 60 mg Nystatin (Nystop Powder -) 1 applic TP DAILY [facility] Last Admin: 09/28/16 10:22 Dose: Not Given Potassium Chloride (K-Dur -) 20 meq PO DAILY [facility] Last Admin: 09/28/16 10:20 Dose: 20 meq Silver Sulfadiazine (Silvadene -) 1 applic TP DAILY [facility] Last Admin: 09/28/16 10:21 Dose: 1 applic Sitagliptin Phosphate (Januvia -) 25 mg PO DAILY@0700 [facility] Last Admin: 09/28/16 06:02 Dose: 25 mg - Objective Vital Signs: Vital Signs Temperature 97.7 F 09/28/16 18:00 Pulse Rate 105 H 09/28/16 18:00 Respiratory Rate 18 09/28/16 18:00 Blood Pressure 152/106 09/28/16 18:00 O2 Sat by Pulse Oximetry (%) 98 09/28/16 10:00 Constitutional: Yes: No Distress Neck: Yes: Supple Cardiovascular: Yes: Regular Rate and Rhythm, JVD, S1, S2. No: Murmur Respiratory: Yes: CTA Bilaterally Edema: Yes Edema: LLE: 1+, RLE: 1+ Labs: CBC, BMP 09/28/16 05:38 09/28/16 05:38 INR, PTT INR 1.51 (0.82-1.09) H 09/22/16 10:00 Problem List - Problems (1) CHF (congestive heart failure) Code(s): I50.9 - HEART FAILURE, UNSPECIFIED Qualifiers: Congestive heart failure type: diastolic Congestive heart failure chronicity: acute on chronic Qualified Code(s): I50.33 - Acute on chronic diastolic (congestive) heart failure (2) CKD (chronic kidney disease) Code(s): N18.9 - CHRONIC KIDNEY DISEASE, UNSPECIFIED (3) Coronary artery disease Code(s): I25.10 - ATHSCL HEART DISEASE OF [place] CORONARY ARTERY W/O ANG PCTRS Qualifiers: Coronary Disease-Associated Artery/Lesion type: unspecified vessel or lesion type Associated angina: without angina Assessment/Plan This is a 60 year old male, with a past medical history of hypertension, hyperlipidemia, cigarette smoking, diabetes, CHF (on Lasix), CKD 3, and CAD s/p 3 stents (1999), who presents to the emergency department with increasing shortness of breath orthopnea and lower extremity swelling and a cough productive of white phlegm. There is no chest pain. Patient had a stress test 04/[address] Giovanni Sood showing inferior wall fixed defect and no ischemia. He underwent an echocardiogram here in May 2016 showing Mildly elevated LA pressure and overall preserved LV function without valvular pathology. Takes Eliquis. We spoke with Dr. Vasquez office and there is no indication of Afib per their records. 1) CHF and mitral regurgitation -improving but would continue to diurese with IV lasix -BP improving but would continue to uptitrate meds. Will increase hydralazine -Severe MR may have been exacerbated by being volume overloaded and with severe htn. Would repeat echocardiogram tomorrow if bp is better controlled. If MR remains severe, despite having better bp control and volume control than will discuss further intervention. -Sleep study as outpt. 2) CAD h/o stents and NST 04/2016 with inferior fixed defect Continue aspirin/statin/beta hailey
--- NOTE | 2016-09-28 21:53 | PN ---
Progress Note, Physician Chief Complaint: ASLEEP COMFORTABLE NOTES REVIEWED - Current Medication List Current Medications: Active Medications Acetaminophen (Tylenol -) 650 mg PO Q6H PRN PRN Reason: FEVER OR PAIN Last Admin: 09/27/16 22:21 Dose: 650 mg Al Hydroxide/Mg Hydroxide (Mylanta Oral Suspension -) 30 ml PO Q6H PRN PRN Reason: DYSPEPSIA Aspirin (Ecotrin -) 81 mg PO DAILY [facility] Last Admin: 09/28/16 10:20 Dose: 81 mg Atorvastatin Calcium (Lipitor -) 40 mg PO HS [facility] Last Admin: 09/27/16 22:20 Dose: 40 mg Furosemide (Lasix Injection -) 80 mg IVPB BID@0600,1400 [facility] Last Admin: 09/28/16 14:14 Dose: 80 mg Hydralazine HCl (Apresoline Injection -) 10 mg IVPUSH Q6H PRN PRN Reason: HYPERTENSION Hydralazine HCl (Apresoline -) 100 mg PO TID [facility] Hydrocortisone (Anusol 2.5% Hc Cream -) 1 applic [place] DAILY [facility] Last Admin: 09/28/16 10:21 Dose: 1 applic Insulin Aspart (Novolog Vial Sliding Scale -) 1 vial SQ ACHS [facility]Y PRN Reason: Protocol Last Admin: 09/28/16 21:09 Dose: Not Given Isosorbide Dinitrate (Isordil -) 20 mg PO TID [facility] Last Admin: 09/28/16 14:21 Dose: 20 mg Methyldopa (Aldomet -) 250 mg PO TID [facility] Last Admin: 09/28/16 14:21 Dose: 250 mg Metoprolol Succinate (Toprol Xl -) 50 mg PO DAILY [facility] Last Admin: 09/28/16 10:20 Dose: 50 mg Nifedipine (Procardia Xl -) 60 mg PO DAILY [facility] Last Admin: 09/28/16 10:20 Dose: 60 mg Nystatin (Nystop Powder -) 1 applic TP DAILY [facility] Last Admin: 09/28/16 10:22 Dose: Not Given Potassium Chloride (K-Dur -) 20 meq PO DAILY [facility] Last Admin: 09/28/16 10:20 Dose: 20 meq Silver Sulfadiazine (Silvadene -) 1 applic TP DAILY [facility] Last Admin: 09/28/16 10:21 Dose: 1 applic Sitagliptin Phosphate (Januvia -) 25 mg PO DAILY@0700 [facility] Last Admin: 09/28/16 06:02 Dose: 25 mg - Objective Vital Signs: Vital Signs Temperature 97.7 F 09/28/16 18:00 Pulse Rate 105 H 09/28/16 18:00 Respiratory Rate 18 09/28/16 18:00 Blood Pressure 152/106 09/28/16 18:00 O2 Sat by Pulse Oximetry (%) 98 09/28/16 10:00 Constitutional: Yes: Moderate Distress Eyes: Yes: WNL HENT: Yes: WNL Neck: Yes: WNL Cardiovascular: Yes: Murmur Respiratory: Yes: Dullness, On Nasal O2 Gastrointestinal: Yes: WNL Genitourinary: Yes: WNL Musculoskeletal: Yes: WNL Extremities: Yes: Deformity, Erythema Edema: LLE: 2+, RLE: 2+ Integumentary: Yes: Pressure Ulcer, Rash, Skin Tear Wound/Incision: Yes: Dressing Removed, Excoriated Neurological: Yes: Unsteady Gait, Weakness ...Motor Strength: LLE, RLE Psychiatric: Yes: WNL Labs: CBC, BMP 09/28/16 05:38 09/28/16 05:38 INR, PTT INR 1.51 (0.82-1.09) H 09/22/16 10:00 Problem List - Problems (1) CHF (congestive heart failure) Code(s): I50.9 - HEART FAILURE, UNSPECIFIED Qualifiers: Congestive heart failure type: diastolic Congestive heart failure chronicity: acute on chronic Qualified Code(s): I50.33 - Acute on chronic diastolic (congestive) heart failure (2) BETI (acute kidney injury) Code(s): N17.9 - ACUTE KIDNEY FAILURE, UNSPECIFIED (3) Anemia Code(s): D64.9 - ANEMIA, UNSPECIFIED Qualifiers: Other causes of anemia: chronic disease, kidney (4) Avulsion of skin Code(s): T14.8 - OTHER INJURY OF UNSPECIFIED BODY REGION (5) Coronary artery disease Code(s): I25.10 - ATHSCL HEART DISEASE OF [place] CORONARY ARTERY W/O ANG PCTRS Qualifiers: Coronary Disease-Associated Artery/Lesion type: unspecified vessel or lesion type Associated angina: without angina Assessment/Plan DISCUSSED WITH [facility] CARDI[facility] DR PALOMO TO REPEAT ECHO -2D REEVALUATE MITRAL VALVE IF NEEDED WILL TRANSFER TO [facility] FOR CARDIOLOGY WORKUP AND VALVE REPAIR IV LASIX RENAL EVAL
[2016-09-28] MEDS: ATORVASTATIN CA 40 MG TABLET (FP) PO SCH (22:28)
[2016-09-29] MEDS: INSULIN SLIDING SCALE (NOVOLOG) 1 VIAL SQ SCH ×4 (06:31→21:09)
[2016-09-29] MEDS ORDERED: PT OWN MED DRAWER 7, Y5N ONE ×5 (06:34→20:43)
[2016-09-29] MEDS: hydrALAZINE HCL 50 MG TABLET (FP) PO SCH ×3 (06:39→21:08)
[2016-09-29] MEDS: ISOSORBIDE DINITRATE 20 MG TABLET (FP) PO SCH ×3 (06:39→21:09)
[2016-09-29] MEDS: FUROSEMIDE 100 MG/10 ML INJECTABLE VIAL IVPB SCH ×2 (06:39→16:59)
[2016-09-29] MEDS: sitaGLIPtin PHOSPHATE 25 MG TABLET (FP) PO SCH (06:40)
[2016-09-29] MEDS: METHYLDOPA 250 MG TABLET PO SCH ×3 (06:40→21:08)
[2016-09-29 07:18] LABS: CALCIUM 8.3 mg/dL (8.5-10.1); COCKROFT - GAULT 31.8; CREATININE 3.5 mg/dL (0.7-1.3)
[2016-09-29] MEDS: POTASSIUM CHLORIDE TABS 20 MEQ TABLET.ER (FP) PO SCH (10:35)
[2016-09-29] MEDS: NIFEdipine E.R 60 MG TABLET (UD) PO SCH (10:35)
[2016-09-29] MEDS: ASPIRIN COATED 81 MG TABLET.EC PO SCH (10:35)
[2016-09-29] MEDS: METOPROLOL SUCCINATE 50 MG TAB.SR.24H (FP) PO SCH (10:35)
[2016-09-29] MEDS: NYSTATIN POWDER 100,000 UNITS/GM - 15 GM TOPICAL POWDER TP SCH (10:36)
[2016-09-29] MEDS: SILVER SULFADIAZINE 1% TOP CREAM 50 GM JAR TP SCH (10:43)
[2016-09-29] MEDS: HYDROCORTISONE 2.5% TOPICAL CREAM 30 GM TUBE PR SCH (10:43)
--- NOTE | 2016-09-29 11:36 | PN ---
Progress Note, Physician History of Present Illness: pulmonary alert,nad,oob-chair,-resp distress - Current Medication List Current Medications: Active Medications Acetaminophen (Tylenol -) 650 mg PO Q6H PRN PRN Reason: FEVER OR PAIN Last Admin: 09/27/16 22:21 Dose: 650 mg Al Hydroxide/Mg Hydroxide (Mylanta Oral Suspension -) 30 ml PO Q6H PRN PRN Reason: DYSPEPSIA Aspirin (Ecotrin -) 81 mg PO DAILY [facility] Last Admin: 09/29/16 10:35 Dose: 81 mg Atorvastatin Calcium (Lipitor -) 40 mg PO HS [facility] Last Admin: 09/28/16 22:28 Dose: 40 mg Furosemide (Lasix Injection -) 80 mg IVPB BID@0600,1400 [facility] Last Admin: 09/29/16 06:39 Dose: 80 mg Hydralazine HCl (Apresoline Injection -) 10 mg IVPUSH Q6H PRN PRN Reason: HYPERTENSION Hydralazine HCl (Apresoline -) 100 mg PO TID [facility] Last Admin: 09/29/16 06:39 Dose: 100 mg Hydrocortisone (Anusol 2.5% Hc Cream -) 1 applic [place] DAILY [facility] Last Admin: 09/29/16 10:43 Dose: Not Given Insulin Aspart (Novolog Vial Sliding Scale -) 1 vial SQ ACHS TOY PRN Reason: Protocol Last Admin: 09/29/16 06:31 Dose: Not Given Isosorbide Dinitrate (Isordil -) 20 mg PO TID [facility] Last Admin: 09/29/16 06:39 Dose: 20 mg Methyldopa (Aldomet -) 250 mg PO TID [facility] Last Admin: 09/29/16 06:40 Dose: 250 mg Metoprolol Succinate (Toprol Xl -) 50 mg PO DAILY [facility] Last Admin: 09/29/16 10:35 Dose: 50 mg Nifedipine (Procardia Xl -) 60 mg PO DAILY [facility] Last Admin: 09/29/16 10:35 Dose: 60 mg Nystatin (Nystop Powder -) 1 applic TP DAILY [facility] Last Admin: 09/29/16 10:36 Dose: Not Given Potassium Chloride (K-Dur -) 20 meq PO DAILY [facility] Last Admin: 09/29/16 10:35 Dose: 20 meq Silver Sulfadiazine (Silvadene -) 1 applic TP DAILY [facility] Last Admin: 09/29/16 10:43 Dose: Not Given Sitagliptin Phosphate (Januvia -) 25 mg PO DAILY@0700 [facility] Last Admin: 09/29/16 06:40 Dose: 25 mg - Objective Vital Signs: Vital Signs Temperature 99.2 F 09/29/16 06:00 Pulse Rate 79 09/29/16 06:00 Respiratory Rate 18 09/29/16 06:00 Blood Pressure 156/74 09/29/16 06:00 O2 Sat by Pulse Oximetry (%) 95 09/28/16 21:00 Constitutional: Yes: Calm, Obese Eyes: Yes: WNL HENT: Yes: WNL Neck: Yes: WNL Cardiovascular: Yes: Regular Rate and Rhythm, S1, S2 Respiratory: Yes: CTA Bilaterally Gastrointestinal: Yes: Soft, Abdomen, Obese Extremities: Yes: WNL Edema: Yes (less edema bilaterally) Labs: CBC, BMP 09/28/16 05:38 09/29/16 05:35 INR, PTT INR 1.51 (0.82-1.09) H 09/22/16 10:00 Problem List - Problems (1) CHF (congestive heart failure) Code(s): I50.9 - HEART FAILURE, UNSPECIFIED Qualifiers: Congestive heart failure type: diastolic Congestive heart failure chronicity: acute on chronic Qualified Code(s): I50.33 - Acute on chronic diastolic (congestive) heart failure (2) CKD (chronic kidney disease) Code(s): N18.9 - CHRONIC KIDNEY DISEASE, UNSPECIFIED (3) Diabetes 1.5, managed as type 2 Code(s): E10.9 - TYPE 1 DIABETES MELLITUS WITHOUT COMPLICATIONS (4) Grade III hemorrhoids Code(s): K64.2 - THIRD DEGREE HEMORRHOIDS (5) Tobacco abuse counseling Code(s): Z71.6 - TOBACCO ABUSE COUNSELING (6) Morbid (severe) obesity due to excess calories Code(s): E66.01 - MORBID (SEVERE) OBESITY DUE TO EXCESS CALORIES Assessment/Plan IMP ACUTE ON CHRONIC CHF clinically improving CKD ASHD S/P STENT X3 HYPERTENSIVE URGENCY improving DM HYPERLIPEDEMIA ? COPD ? OSAS PLAN CONTINUE IV LASIX O2 DAILY WTS INHALED BRONCHODILATORS PRN MONITOR LYTES SMOKING CESSATION COUNSELED TITRATE BP MEDS WT REDUCTION SLEEP STUDIES OUTPATIENT CAPONE Problem List - Problems (1) CHF (congestive heart failure) Code(s): I50.9 - HEART FAILURE, UNSPECIFIED Qualifiers: Congestive heart failure type: diastolic Congestive heart failure chronicity: acute on chronic Qualified Code(s): I50.33 - Acute on chronic diastolic (congestive) heart failure (2) CKD (chronic kidney disease) Code(s): N18.9 - CHRONIC KIDNEY DISEASE, UNSPECIFIED (3) Diabetes 1.5, managed as type 2 Code(s): E10.9 - TYPE 1 DIABETES MELLITUS WITHOUT COMPLICATIONS (4) Grade III hemorrhoids Code(s): K64.2 - THIRD DEGREE HEMORRHOIDS (5) Tobacco abuse counseling Code(s): Z71.6 - TOBACCO ABUSE COUNSELING (6) Morbid (severe) obesity due to excess calories Code(s): E66.01 - MORBID (SEVERE) OBESITY DUE TO EXCESS CALORIES
[2016-09-29] MEDS ORDERED: METOLAZONE 5 MG TABLET PO ONE (13:23)
--- NOTE | 2016-09-29 13:23 | PN ---
Progress Note, Physician History of Present Illness: Pt seen and examined at bedside. He feels that his breathing is improved. He feels better without the oxygen. - Current Medication List Current Medications: Active Medications Acetaminophen (Tylenol -) 650 mg PO Q6H PRN PRN Reason: FEVER OR PAIN Last Admin: 09/27/16 22:21 Dose: 650 mg Al Hydroxide/Mg Hydroxide (Mylanta Oral Suspension -) 30 ml PO Q6H PRN PRN Reason: DYSPEPSIA Aspirin (Ecotrin -) 81 mg PO DAILY [facility] Last Admin: 09/29/16 10:35 Dose: 81 mg Atorvastatin Calcium (Lipitor -) 40 mg PO HS [facility] Last Admin: 09/28/16 22:28 Dose: 40 mg Furosemide (Lasix Injection -) 80 mg IVPB BID@0600,1400 TOY Last Admin: 09/29/16 06:39 Dose: 80 mg Hydralazine HCl (Apresoline Injection -) 10 mg IVPUSH Q6H PRN PRN Reason: HYPERTENSION Hydralazine HCl (Apresoline -) 100 mg PO TID [facility] Last Admin: 09/29/16 06:39 Dose: 100 mg Hydrocortisone (Anusol 2.5% Hc Cream -) 1 applic [place] DAILY [facility] Last Admin: 09/29/16 10:43 Dose: Not Given Insulin Aspart (Novolog Vial Sliding Scale -) 1 vial SQ ACHS TOY PRN Reason: Protocol Last Admin: 09/29/16 12:40 Dose: Not Given Isosorbide Dinitrate (Isordil -) 20 mg PO TID [facility] Last Admin: 09/29/16 06:39 Dose: 20 mg Methyldopa (Aldomet -) 250 mg PO TID [facility] Last Admin: 09/29/16 06:40 Dose: 250 mg Metoprolol Succinate (Toprol Xl -) 50 mg PO DAILY [facility] Last Admin: 09/29/16 10:35 Dose: 50 mg Nifedipine (Procardia Xl -) 60 mg PO DAILY [facility] Last Admin: 09/29/16 10:35 Dose: 60 mg Nystatin (Nystop Powder -) 1 applic TP DAILY [facility] Last Admin: 09/29/16 10:36 Dose: Not Given Potassium Chloride (K-Dur -) 20 meq PO DAILY [facility] Last Admin: 09/29/16 10:35 Dose: 20 meq Silver Sulfadiazine (Silvadene -) 1 applic TP DAILY [facility] Last Admin: 09/29/16 10:43 Dose: Not Given Sitagliptin Phosphate (Januvia -) 25 mg PO DAILY@0700 [facility] Last Admin: 09/29/16 06:40 Dose: 25 mg - Objective Vital Signs: Vital Signs Temperature 99.2 F 09/29/16 06:00 Pulse Rate 79 09/29/16 06:00 Respiratory Rate 18 09/29/16 06:00 Blood Pressure 156/74 09/29/16 06:00 O2 Sat by Pulse Oximetry (%) 95 09/28/16 21:00 Constitutional: Yes: Calm Eyes: Yes: Conjunctiva Clear HENT: Yes: Atraumatic Cardiovascular: Yes: S1, S2 Respiratory: Yes: CTA Bilaterally Gastrointestinal: Yes: Normal Bowel Sounds, Soft Genitourinary: Yes: WNL Musculoskeletal: Yes: WNL Edema: Yes Edema: LLE: 1+, RLE: 1+ Wound/Incision: Yes: Dressing Dry and Intact Neurological: Yes: Oriented Psychiatric: Yes: Oriented Labs: CBC, BMP 09/28/16 05:38 09/29/16 05:35 INR, PTT INR 1.51 (0.82-1.09) H 09/22/16 10:00 Problem List - Problems (1) CHF (congestive heart failure) Code(s): I50.9 - HEART FAILURE, UNSPECIFIED Qualifiers: Congestive heart failure type: diastolic Congestive heart failure chronicity: acute on chronic Qualified Code(s): I50.33 - Acute on chronic diastolic (congestive) heart failure (2) Anemia Code(s): D64.9 - ANEMIA, UNSPECIFIED Qualifiers: Other causes of anemia: chronic disease, kidney (3) CKD (chronic kidney disease) Code(s): N18.9 - CHRONIC KIDNEY DISEASE, UNSPECIFIED (4) Diabetes 1.5, managed as type 2 Code(s): E10.9 - TYPE 1 DIABETES MELLITUS WITHOUT COMPLICATIONS Assessment/Plan Current Medications Generic Name Dose Route Start Last Admin Trade Name Freq PRN Reason Stop Dose Admin Acetaminophen 650 mg 09/22/16 16:26 09/27/16 22:21 Tylenol - PO 650 mg Q6H PRN Administration FEVER OR PAIN Al Hydroxide/Mg Hydroxide 30 ml 09/22/16 16:26 Mylanta Oral Suspension - PO Q6H PRN DYSPEPSIA Aspirin 81 mg 09/23/16 10:00 09/29/16 10:35 Ecotrin - PO 81 mg DAILY TOY Administration Atorvastatin Calcium 40 mg 09/22/16 22:00 09/28/16 22:28 Lipitor - PO 40 mg HS [facility] Administration Furosemide 80 mg 09/27/16 11:02 09/29/16 06:39 Lasix Injection - IVPB 80 mg BID@0600,1400 TOY Administration Hydralazine HCl 10 mg 09/23/16 01:08 Apresoline Injection - IVPUSH Q6H PRN HYPERTENSION Hydralazine HCl 100 mg 09/28/16 18:31 09/29/16 06:39 Apresoline - PO 100 mg TID [facility] Administration Hydrocortisone 1 applic 09/23/16 10:00 09/29/16 10:43 Anusol 2.5% Hc Cream - [place] Not Given DAILY [facility] Insulin Aspart 1 vial 09/22/16 16:30 09/29/16 12:40 Novolog Vial Sliding Scale - SQ Not Given [facility] Protocol Isosorbide Dinitrate 20 mg 09/25/16 22:00 09/29/16 06:39 Isordil - PO 20 mg TID [facility] Administration Methyldopa 250 mg 09/22/16 22:00 09/29/16 06:40 Aldomet - PO 250 mg TID [facility] Administration Metoprolol Succinate 50 mg 09/25/16 10:00 09/29/16 10:35 Toprol Xl - PO 50 mg DAILY [facility] Administration Nifedipine 60 mg 09/25/16 10:00 09/29/16 10:35 Procardia Xl - PO 60 mg DAILY [facility] Administration Nystatin 1 applic 09/23/16 10:00 09/29/16 10:36 Nystop Powder - TP Not Given DAILY [facility] Potassium Chloride 20 meq 09/23/16 10:00 09/29/16 10:35 K-Dur - PO 20 meq DAILY [facility] Administration Silver Sulfadiazine 1 applic 09/23/16 10:00 09/29/16 10:43 Silvadene - TP Not Given DAILY [facility] Sitagliptin Phosphate 25 mg 09/23/16 07:00 09/29/16 06:40 Januvia - PO 25 mg DAILY@0700 [facility] Administration Impression 1. CKD 2. anemia 3. CAD 4. HTN 5. DM 6. hyperlipidemia 7. active smoker 8. hemorrhoids 9. CHF diastolic failure 10. active smoker Plan - repeat bmp in am - cont lasix and metolazone - cardiology input appreciated, monitor blood pressure - hydralazine dose increased - cont with lasix - monitor pulse ox - volume status is improving Dr Espinoza
[2016-09-29] MEDS: ACETAMINOPHEN 325 MG TABLET (FP) PO PRN (15:23)
[2016-09-29] MEDS ORDERED: SODIUM CHLORIDE NASAL SPRAY 44 ML BOTTLE NS PRN (15:34)
--- NOTE | 2016-09-29 15:37 | PN ---
Progress Note, Physician Chief Complaint: AWAKE ALERT FAMILY BEDSIDE FEELING BETTER - Current Medication List Current Medications: Active Medications Acetaminophen (Tylenol -) 650 mg PO Q6H PRN PRN Reason: FEVER OR PAIN Last Admin: 09/29/16 15:23 Dose: 650 mg Al Hydroxide/Mg Hydroxide (Mylanta Oral Suspension -) 30 ml PO Q6H PRN PRN Reason: DYSPEPSIA Aspirin (Ecotrin -) 81 mg PO DAILY [facility] Last Admin: 09/29/16 10:35 Dose: 81 mg Atorvastatin Calcium (Lipitor -) 40 mg PO HS [facility] Last Admin: 09/28/16 22:28 Dose: 40 mg Furosemide (Lasix Injection -) 80 mg IVPB BID@0600,1400 [facility] Last Admin: 09/29/16 06:39 Dose: 80 mg Hydralazine HCl (Apresoline Injection -) 10 mg IVPUSH Q6H PRN PRN Reason: HYPERTENSION Hydralazine HCl (Apresoline -) 100 mg PO TID [facility] Last Admin: 09/29/16 14:45 Dose: 100 mg Hydrocortisone (Anusol 2.5% Hc Cream -) 1 applic [place] DAILY [facility] Last Admin: 09/29/16 10:43 Dose: Not Given Insulin Aspart (Novolog Vial Sliding Scale -) 1 vial SQ ACHS TOY PRN Reason: Protocol Last Admin: 09/29/16 12:40 Dose: Not Given Isosorbide Dinitrate (Isordil -) 20 mg PO TID [facility] Last Admin: 09/29/16 14:45 Dose: 20 mg Methyldopa (Aldomet -) 250 mg PO TID [facility] Last Admin: 09/29/16 14:45 Dose: 250 mg Metoprolol Succinate (Toprol Xl -) 50 mg PO DAILY [facility] Last Admin: 09/29/16 10:35 Dose: 50 mg Nifedipine (Procardia Xl -) 60 mg PO DAILY [facility] Last Admin: 09/29/16 10:35 Dose: 60 mg Nystatin (Nystop Powder -) 1 applic TP DAILY [facility] Last Admin: 09/29/16 10:36 Dose: Not Given Potassium Chloride (K-Dur -) 20 meq PO DAILY [facility] Last Admin: 09/29/16 10:35 Dose: 20 meq Silver Sulfadiazine (Silvadene -) 1 applic TP DAILY [facility] Last Admin: 09/29/16 10:43 Dose: Not Given Sitagliptin Phosphate (Januvia -) 25 mg PO DAILY@0700 [facility]Y Last Admin: 09/29/16 06:40 Dose: 25 mg Sodium Chloride ([place] Nasal [place] -) 2 spray NS TID PRN PRN Reason: NASAL CONGESTION - Objective Vital Signs: Vital Signs Temperature 98.5 F 09/29/16 14:46 Pulse Rate 80 09/29/16 14:46 Respiratory Rate 18 09/29/16 14:46 Blood Pressure 144/68 09/29/16 14:46 O2 Sat by Pulse Oximetry (%) 96 09/29/16 09:00 Constitutional: Yes: No Distress Eyes: Yes: WNL HENT: Yes: WNL Neck: Yes: WNL Cardiovascular: Yes: WNL Respiratory: Yes: WNL Gastrointestinal: Yes: WNL ...Rectal Exam: Yes: Other Musculoskeletal: Yes: Muscle Weakness Extremities: Yes: Deformity Edema: Yes Edema: LLE: 2+, RLE: 2+ Peripheral Pulses WNL: Yes Integumentary: Yes: Pressure Ulcer, Venous Stasis Changes Wound/Incision: Yes: Dressing Dry and Intact Neurological: Yes: Pre-Existing Deficit ...Motor Strength: RLE (STAGE 2-3 ULCER) Labs: CBC, BMP 09/28/16 05:38 09/29/16 05:35 INR, PTT INR 1.51 (0.82-1.09) H 09/22/16 10:00 Problem List - Problems (1) CHF (congestive heart failure) Code(s): I50.9 - HEART FAILURE, UNSPECIFIED Qualifiers: Congestive heart failure type: diastolic Congestive heart failure chronicity: acute on chronic Qualified Code(s): I50.33 - Acute on chronic diastolic (congestive) heart failure (2) BETI (acute kidney injury) Code(s): N17.9 - ACUTE KIDNEY FAILURE, UNSPECIFIED (3) Anemia Code(s): D64.9 - ANEMIA, UNSPECIFIED Qualifiers: Other causes of anemia: chronic disease, kidney (4) Avulsion of skin Code(s): T14.8 - OTHER INJURY OF UNSPECIFIED BODY REGION (5) Coronary artery disease Code(s): I25.10 - ATHSCL HEART DISEASE OF [place] CORONARY ARTERY W/O ANG PCTRS Qualifiers: Coronary Disease-Associated Artery/Lesion type: unspecified vessel or lesion type Associated angina: without angina Assessment/Plan VASC SX EVAL RIGHT FOOT ULCER DISCUSSED WITH PATIENT ABOUT PLAN TO SEND TO [facility] FOR CARDIAC EVAL FOR VALVE REPLACEMENT. PATIENT AGREES TO BE TRANSFERRED TO [facility] AND HIS ALSO AGREES. ECHO REPEATED TODAY LASIX IV DIET DISCUSSED/LOW FAT/NA
--- NOTE | 2016-09-29 15:47 | PN ---
Progress Note, Physician Chief Complaint: Feels much better Lying flat and comfortable Sinus on tele History of Present Illness: This is a 60 year old male, with a past medical history of hypertension, hyperlipidemia, cigarette smoking, diabetes, CHF (on Lasix), CKD 3, and CAD s/p 3 stents (1999), who presents to the emergency department with increasing shortness of breath orthopnea and lower extremity swelling and a cough productive of white phlegm. There is no chest pain. Patient had a stress test 04/[address] Giovanni Sood showing inferior wall fixed defect and no ischemia. He underwent an echocardiogram here in May 2016 showing Mildly elevated LA pressure and overall preserved LV function without valvular pathology. Takes Eliquis. We spoke with Dr. Vasquez office and there is no indication of Afib per their records. - Current Medication List Current Medications: Active Medications Acetaminophen (Tylenol -) 650 mg PO Q6H PRN PRN Reason: FEVER OR PAIN Last Admin: 09/29/16 15:23 Dose: 650 mg Al Hydroxide/Mg Hydroxide (Mylanta Oral Suspension -) 30 ml PO Q6H PRN PRN Reason: DYSPEPSIA Aspirin (Ecotrin -) 81 mg PO DAILY [facility] Last Admin: 09/29/16 10:35 Dose: 81 mg Atorvastatin Calcium (Lipitor -) 40 mg PO HS [facility] Last Admin: 09/28/16 22:28 Dose: 40 mg Furosemide (Lasix Injection -) 80 mg IVPB BID@0600,1400 [facility] Last Admin: 09/29/16 06:39 Dose: 80 mg Hydralazine HCl (Apresoline Injection -) 10 mg IVPUSH Q6H PRN PRN Reason: HYPERTENSION Hydralazine HCl (Apresoline -) 100 mg PO TID [facility] Last Admin: 09/29/16 14:45 Dose: 100 mg Hydrocortisone (Anusol 2.5% Hc Cream -) 1 applic [place] DAILY [facility] Last Admin: 09/29/16 10:43 Dose: Not Given Insulin Aspart (Novolog Vial Sliding Scale -) 1 vial SQ ACHS [facility] PRN Reason: Protocol Last Admin: 09/29/16 12:40 Dose: Not Given Isosorbide Dinitrate (Isordil -) 20 mg PO TID [facility] Last Admin: 09/29/16 14:45 Dose: 20 mg Methyldopa (Aldomet -) 250 mg PO TID [facility] Last Admin: 09/29/16 14:45 Dose: 250 mg Metoprolol Succinate (Toprol Xl -) 50 mg PO DAILY [facility] Last Admin: 09/29/16 10:35 Dose: 50 mg Nifedipine (Procardia Xl -) 60 mg PO DAILY [facility] Last Admin: 09/29/16 10:35 Dose: 60 mg Nystatin (Nystop Powder -) 1 applic TP DAILY [facility] Last Admin: 09/29/16 10:36 Dose: Not Given Potassium Chloride (K-Dur -) 20 meq PO DAILY [facility] Last Admin: 09/29/16 10:35 Dose: 20 meq Silver Sulfadiazine (Silvadene -) 1 applic TP DAILY [facility] Last Admin: 09/29/16 10:43 Dose: Not Given Sitagliptin Phosphate (Januvia -) 25 mg PO DAILY@0700 [facility] Last Admin: 09/29/16 06:40 Dose: 25 mg Sodium Chloride ([place] Nasal [place] -) 2 spray NS TID PRN PRN Reason: NASAL CONGESTION - Objective Vital Signs: Vital Signs Temperature 98.5 F 09/29/16 14:46 Pulse Rate 80 09/29/16 14:46 Respiratory Rate 18 09/29/16 14:46 Blood Pressure 144/68 09/29/16 14:46 O2 Sat by Pulse Oximetry (%) 96 09/29/16 09:00 Constitutional: Yes: No Distress Cardiovascular: Yes: Regular Rate and Rhythm, Murmur (2/6 HSM apex), S1, S2. No : JVD Respiratory: Yes: CTA Bilaterally Gastrointestinal: Yes: Normal Bowel Sounds, Soft Edema: (trace) Edema: LUE: Trace, RUE: Trace, LLE: Trace, RLE: Trace Labs: CBC, BMP 09/28/16 05:38 09/29/16 05:35 INR, PTT INR 1.51 (0.82-1.09) H 09/22/16 10:00 Problem List - Problems (1) CHF (congestive heart failure) Code(s): I50.9 - HEART FAILURE, UNSPECIFIED Qualifiers: Congestive heart failure type: diastolic Congestive heart failure chronicity: acute on chronic Qualified Code(s): I50.33 - Acute on chronic diastolic (congestive) heart failure (2) CKD (chronic kidney disease) Code(s): N18.9 - CHRONIC KIDNEY DISEASE, UNSPECIFIED (3) Coronary artery disease Code(s): I25.10 - ATHSCL HEART DISEASE OF [place] CORONARY ARTERY W/O ANG PCTRS Qualifiers: Coronary Disease-Associated Artery/Lesion type: unspecified vessel or lesion type Associated angina: without angina Assessment/Plan This is a 60 year old male, with a past medical history of hypertension, hyperlipidemia, cigarette smoking, diabetes, CHF (on Lasix), CKD 3, and CAD s/p 3 stents (1999), who presents to the emergency department with increasing shortness of breath orthopnea and lower extremity swelling and a cough productive of white phlegm. There is no chest pain. Patient had a stress test 04/[address] Giovanni Sood showing inferior wall fixed defect and no ischemia. He underwent an echocardiogram here in May 2016 showing Mildly elevated LA pressure and overall preserved LV function without valvular pathology. Takes Eliquis. We spoke with Dr. Vasquez office and there is no indication of Afib per their records. 1) CHF and mitral regurgitation -improving but would continue to diurese with IV lasix -BP improving on metoprolol, clonidine, hydralazine, and nifedipine. -Severe MR may have been exacerbated by being volume overloaded and with severe htn. Would follow up repeat echocardiogram from today given improved BP and fluid status. If MR remains severe, despite having better bp control and volume control than will discuss further intervention. -Sleep study as outpt as patient says he has been told of MAVRIN in past but does not comply with treatment which will complicate htn control. Would change to PO lasix tomorrow. If bp stays mildly up would increase metoprolol to 100mg daily. 2) CAD h/o stents and NST 04/2016 with inferior fixed defect Continue aspirin/statin/beta hailey
[2016-09-29] MEDS ORDERED: INSULIN (NOVOLOG) ASPART 100 UNITS/ML 10ML VIAL ONE (20:42)
[2016-09-29] MEDS: ATORVASTATIN CA 40 MG TABLET (FP) PO SCH (21:08)
[2016-09-30] MEDS ORDERED: PT OWN MED DRAWER 7, Y5N ONE ×4 (04:54→14:31)
[2016-09-30] MEDS: ISOSORBIDE DINITRATE 20 MG TABLET (FP) PO SCH ×2 (05:49→14:23)
[2016-09-30] MEDS: FUROSEMIDE 100 MG/10 ML INJECTABLE VIAL IVPB SCH ×2 (05:49→14:22)
[2016-09-30] MEDS: METHYLDOPA 250 MG TABLET PO SCH ×2 (05:50→14:23)
[2016-09-30] MEDS: hydrALAZINE HCL 50 MG TABLET (FP) PO SCH ×2 (05:50→14:22)
[2016-09-30] MEDS: sitaGLIPtin PHOSPHATE 25 MG TABLET (FP) PO SCH (06:02)
[2016-09-30] MEDS: INSULIN SLIDING SCALE (NOVOLOG) 1 VIAL SQ SCH ×3 (06:03→17:56)
[2016-09-30 07:21] LABS: CALCIUM 8.2 mg/dL (8.5-10.1); CREATININE 3.9 mg/dL (0.7-1.3)
[2016-09-30] MEDS: HYDROCORTISONE 2.5% TOPICAL CREAM 30 GM TUBE PR SCH (10:18)
[2016-09-30] MEDS: NIFEdipine E.R 60 MG TABLET (UD) PO SCH (10:18)
[2016-09-30] MEDS: NYSTATIN POWDER 100,000 UNITS/GM - 15 GM TOPICAL POWDER TP SCH (10:18)
[2016-09-30] MEDS: POTASSIUM CHLORIDE TABS 20 MEQ TABLET.ER (FP) PO SCH (10:18)
[2016-09-30] MEDS: ASPIRIN COATED 81 MG TABLET.EC PO SCH (10:18)
[2016-09-30] MEDS: METOPROLOL SUCCINATE 50 MG TAB.SR.24H (FP) PO SCH (10:18)
[2016-09-30] MEDS: SILVER SULFADIAZINE 1% TOP CREAM 50 GM JAR TP SCH (10:18)
--- NOTE | 2016-09-30 10:23 | DS ---
Physical Examination Vital Signs: Vital Signs Temperature 98.3 F 09/30/16 02:12 Pulse Rate 78 09/30/16 02:12 Respiratory Rate 18 09/30/16 02:12 Blood Pressure 132/65 09/30/16 02:12 O2 Sat by Pulse Oximetry (%) 97 09/29/16 21:00 Constitutional: Yes: Mild Distress Eyes: Yes: WNL HENT: Yes: WNL Neck: Yes: WNL Cardiovascular: Yes: Murmur Respiratory: Yes: Cough, On Nasal O2, Poor Air Entry, SOB, Wheezes Gastrointestinal: Yes: WNL Renal/: Yes: WNL Musculoskeletal: Yes: Muscle Weakness Extremities: Yes: WNL Edema: Yes Peripheral Pulses WNL: Yes Integumentary: Yes: Rash Wound/Incision: Yes: Open to air Neurological: Yes: WNL ...Motor Strength: LUE (LEFT HAND EDEMA AND IV INFILTRATION), RLE (RIGHT LOWER EXTREMITY ULCER) Psychiatric: Yes: WNL Labs: CBC, BMP 09/28/16 05:38 09/30/16 05:38 Discharge Summary Reason For Visit: CHF Current Active Problems CHF (congestive heart failure) (Acute) CKD (chronic kidney disease) (Acute) Diabetes 1.5, managed as type 2 (Acute) Morbid (severe) obesity due to excess calories (Acute) Tobacco abuse counseling (Acute) Procedures: Principal: ACUTE CHF DIASTOLIC AND SYSTOLIC Other Procedures: LABS/CX/ECHO Hospital Course: ADMITTED VOLUME OVERLOADED, ECHO DONE SEVERE MITRAL VALVE DISEASE, WILL NEED WORKUP AT [facility] FOR REPAIR VS CHANGE OF VALVE, IV LASIX AND CHF TREATMENT Condition: Improved - Instructions Diet, Activity, Other Instructions: ADA/LOW SALT Referrals: Aric Rivers MD [Primary Care Provider] - Disposition: TRANSFER ACUTE CARE/OTHER HOSP - Home Medications Comprehensive Discharge Medication List: Ambulatory Orders Aspirin [Aspirin EC] 81 mg PO DAILY 05/31/16 Ezetimibe/Simvastatin [Vytorin 10-80 mg Tablet] 1 tab PO HS 05/31/16 Methyldopa 250 mg PO TID 05/31/16 Metoprolol Succinate [Toprol Xl] 50 mg PO TID 05/31/16 [place]-3/Dha/Epa/Fish Oil [[place] 3 500 Softgel] 2 each PO BID 05/31/16 Potassium Chloride [K-Dur -] 10 meq PO BID 05/31/16 Hydrocortisone 2.5% Topical Cr [Anusol-Hc -] 1 applic TP BID #1 tube 06/03/16 Mag Hydrox/Al Hydrox/Simeth [Mylanta Oral Suspension -] 30 ml PO Q6HPO cup 12/10 Calcitriol [Calcitriol -] 1 tab PO ASDIR 09/01/16 Folic Acid 1 mg PO DAILY 09/01/16 Hydralazine HCl [Apresoline -] 1 tab PO BID 09/01/16 Nystatin Powder [Nystop Powder -] 30 gm TP BID #30 powder 09/01/16 Sitagliptin Phosphate [Januvia] 1 tab PO DAILY 09/01/16 Silver Sulfadiazine [Silvadene] 30 gm TP DAILY #30 cream..g. 09/15/16 Apixaban [Eliquis] 2.5 mg PO BID 09/22/16 Acetaminophen [Tylenol .Regular Strength -] 650 mg PO Q6H PRN #0 tablet Atorvastatin Ca [Lipitor] 40 mg PO HS tablet 09/30/16 Furosemide Injection [Lasix Injection -] 80 mg IVPB BID@0600,1400 vial Hydrocortisone 2.5% Topical Cr [Anusol-Hc -] 1 applic [place] DAILY tube 09/30/16 Insulin Sliding Scale [Novolog Vial Sliding Scale -] 1 vial SQ ACHS units 09/30 Isosorbide Dinitrate [Isordil -] 20 mg PO TID tablet 09/30/16 Methyldopa [Aldomet -] 250 mg PO TID tablet 09/30/16 Nystatin Powder [Nystop Powder -] 1 applic TP DAILY applic 09/30/16 Silver Sulfadiazine 1% Top Cr [Silvadene -] 1 applic TP DAILY jar 09/30/16 Sitagliptin Phosphate [Januvia -] 25 mg PO DAILY@0700 tab 09/30/16 Sodium Chloride Nasal [place] [[place] Nasal [place] -] 2 spray NS TID PRN #0 spray 09/30/16
--- NOTE | 2016-09-30 11:09 | PN ---
Progress Note, Physician History of Present Illness: Pt seen and examined at bedside. He is awake and alert. He denies fevers or chills. - Current Medication List Current Medications: Active Medications Acetaminophen (Tylenol -) 650 mg PO Q6H PRN PRN Reason: FEVER OR PAIN Last Admin: 09/29/16 15:23 Dose: 650 mg Al Hydroxide/Mg Hydroxide (Mylanta Oral Suspension -) 30 ml PO Q6H PRN PRN Reason: DYSPEPSIA Aspirin (Ecotrin -) 81 mg PO DAILY [facility] Last Admin: 09/30/16 10:18 Dose: 81 mg Atorvastatin Calcium (Lipitor -) 40 mg PO HS [facility] Last Admin: 09/29/16 21:08 Dose: 40 mg Furosemide (Lasix Injection -) 80 mg IVPB BID@0600,1400 TOY Last Admin: 09/30/16 05:49 Dose: 80 mg Hydralazine HCl (Apresoline Injection -) 10 mg IVPUSH Q6H PRN PRN Reason: HYPERTENSION Hydralazine HCl (Apresoline -) 100 mg PO TID [facility] Last Admin: 09/30/16 05:50 Dose: 100 mg Hydrocortisone (Anusol 2.5% Hc Cream -) 1 applic RI DAILY [facility] Last Admin: 09/30/16 10:18 Dose: Not Given Insulin Aspart (Novolog Vial Sliding Scale -) 1 vial SQ ACHS TOY PRN Reason: Protocol Last Admin: 09/30/16 06:03 Dose: Not Given Isosorbide Dinitrate (Isordil -) 20 mg PO TID [facility] Last Admin: 09/30/16 05:49 Dose: 20 mg Methyldopa (Aldomet -) 250 mg PO TID TOY Last Admin: 09/30/16 05:50 Dose: 250 mg Metoprolol Succinate (Toprol Xl -) 50 mg PO DAILY [facility] Last Admin: 09/30/16 10:18 Dose: 50 mg Nifedipine (Procardia Xl -) 60 mg PO DAILY [facility] Last Admin: 09/30/16 10:18 Dose: 60 mg Nystatin (Nystop Powder -) 1 applic TP DAILY [facility] Last Admin: 09/30/16 10:18 Dose: Not Given Potassium Chloride (K-Dur -) 20 meq PO DAILY [facility] Last Admin: 09/30/16 10:18 Dose: 20 meq Silver Sulfadiazine (Silvadene -) 1 applic TP DAILY [facility] Last Admin: 09/30/16 10:18 Dose: Not Given Sitagliptin Phosphate (Januvia -) 25 mg PO DAILY@0700 [facility] Last Admin: 09/30/16 06:02 Dose: 25 mg Sodium Chloride ([place] Nasal [place] -) 2 spray NS TID PRN PRN Reason: NASAL CONGESTION - Objective Vital Signs: Vital Signs Temperature 98.3 F 09/30/16 02:12 Pulse Rate 78 09/30/16 02:12 Respiratory Rate 18 09/30/16 02:12 Blood Pressure 132/65 09/30/16 02:12 O2 Sat by Pulse Oximetry (%) 97 09/29/16 21:00 Constitutional: Yes: Calm Eyes: Yes: Conjunctiva Clear HENT: Yes: Atraumatic Neck: Yes: Supple Cardiovascular: Yes: S1, S2 Respiratory: Yes: CTA Bilaterally Gastrointestinal: Yes: Soft, Abdomen, Obese Genitourinary: Yes: WNL Extremities: Yes: Other (left hand area of erythema in place where IV infultrated) Edema: Yes Edema: LLE: 1+, RLE: 1+ Neurological: Yes: Oriented Psychiatric: Yes: Oriented Labs: CBC, BMP 09/28/16 05:38 09/30/16 05:38 INR, PTT INR 1.51 (0.82-1.09) H 09/22/16 10:00 Problem List - Problems (1) CHF (congestive heart failure) Code(s): I50.9 - HEART FAILURE, UNSPECIFIED Qualifiers: Congestive heart failure type: diastolic Congestive heart failure chronicity: acute on chronic Qualified Code(s): I50.33 - Acute on chronic diastolic (congestive) heart failure (2) Anemia Code(s): D64.9 - ANEMIA, UNSPECIFIED Qualifiers: Other causes of anemia: chronic disease, kidney (3) CKD (chronic kidney disease) Code(s): N18.9 - CHRONIC KIDNEY DISEASE, UNSPECIFIED (4) Diabetes 1.5, managed as type 2 Code(s): E10.9 - TYPE 1 DIABETES MELLITUS WITHOUT COMPLICATIONS Assessment/Plan Current Medications Generic Name Dose Route Start Last Admin Trade Name Freq PRN Reason Stop Dose Admin Acetaminophen 650 mg 09/22/16 16:26 09/29/16 15:23 Tylenol - PO 650 mg Q6H PRN Administration FEVER OR PAIN Al Hydroxide/Mg Hydroxide 30 ml 09/22/16 16:26 Mylanta Oral Suspension - PO Q6H PRN DYSPEPSIA Aspirin 81 mg 09/23/16 10:00 09/30/16 10:18 Ecotrin - PO 81 mg DAILY TOY Administration Atorvastatin Calcium 40 mg 09/22/16 22:00 09/29/16 21:08 Lipitor - PO 40 mg HS TOY Administration Furosemide 80 mg 09/27/16 11:02 09/30/16 05:49 Lasix Injection - IVPB 80 mg BID@0600,1400 TOY Administration Hydralazine HCl 10 mg 09/23/16 01:08 Apresoline Injection - IVPUSH Q6H PRN HYPERTENSION Hydralazine HCl 100 mg 09/28/16 18:31 09/30/16 05:50 Apresoline - PO 100 mg TID TOY Administration Hydrocortisone 1 applic 09/23/16 10:00 09/30/16 10:18 Anusol 2.5% Hc Cream - RI Not Given DAILY [facility] Insulin Aspart 1 vial 09/22/16 16:30 09/30/16 06:03 Novolog Vial Sliding Scale - SQ Not Given ACHS [facility] Protocol Isosorbide Dinitrate 20 mg 09/25/16 22:00 09/30/16 05:49 Isordil - PO 20 mg TID OTY Administration Methyldopa 250 mg 09/22/16 22:00 09/30/16 05:50 Aldomet - PO 250 mg TID TOY Administration Metoprolol Succinate 50 mg 09/25/16 10:00 09/30/16 10:18 Toprol Xl - PO 50 mg DAILY TOY Administration Nifedipine 60 mg 09/25/16 10:00 09/30/16 10:18 Procardia Xl - PO 60 mg DAILY [facility] Administration Nystatin 1 applic 09/23/16 10:00 09/30/16 10:18 Nystop Powder - TP Not Given DAILY TOY Potassium Chloride 20 meq 09/23/16 10:00 09/30/16 10:18 K-Dur - PO 20 meq DAILY [facility] Administration Silver Sulfadiazine 1 applic 09/23/16 10:00 09/30/16 10:18 Silvadene - TP Not Given DAILY [facility] Sitagliptin Phosphate 25 mg 09/23/16 07:00 09/30/16 06:02 Januvia - PO 25 mg DAILY@0700 TOY Administration Sodium Chloride 2 spray 09/29/16 15:34 [place] Nasal [place] - NS TID PRN NASAL CONGESTION Impression 1. CKD 2. anemia 3. CAD 4. HTN 5. DM 6. hyperlipidemia 7. active smoker 8. hemorrhoids 9. CHF diastolic failure 10. active smoker Plan - cont with lasix - ID eval for left hand possible cellulitis, spoke to primary and to ID - pt likely to be transferred to an acute care facility for further cardiac workup - cardiology input appreciated - avoid nephrotoxins - volume status is improving Dr Espinoza
--- NOTE | 2016-09-30 11:10 | PN ---
Progress Note (short form) - Note Progress Note: ID Consult dictated Soft tissue abscess, dorsum L hand IV catheter- related phlebitis/ abscess/ cellulitis Renal failure Hx MRSA CHF Advise surgical evaluation for I&D Warm compresses Clindamycin 300mg po q8h
--- NOTE | 2016-09-30 12:13 | CONSULT ---
- Consultation REQUESTING PROVIDER: Dr. Arias CONSULT REQUEST: We have been asked to surgically evaluate this patient for right foot ulcer. PCP:Aric Rivers HISTORY OF PRESENT ILLNESS: The patient is a 60 yo male with a h/o diabetes and a chronic right foot ulcer. He is being treated and followed by Dr. Farah in the wound clinic. As per the patient he injured himself approximately two months ago when his foot hit a chair. He was treated by Dr. Mann and the infection has improved. The patent states that there is no drainage or pain. He presented to the ER for SOB and is awaiting transfer to [facility]. States that his heart valve needs possbile repair. No fever, chills. SOB has improved. PMHx: diabetes, CHF, cardiac stents(1999), HTN , CRI PSHx: umbilical hernia, cardiac stents Home Medications Medication Instructions Recorded Aspirin [Aspirin EC] 81 mg PO DAILY 05/31/16 Ezetimibe/Simvastatin [Vytorin 1 tab PO HS 05/31/16 10-80 mg Tablet] Methyldopa 250 mg PO TID 05/31/16 Metoprolol Succinate [Toprol Xl] 50 mg PO TID 05/31/16 [place]-3/Dha/Epa/Fish Oil [[place] 3 2 each PO BID 05/31/16 500 Softgel] Potassium Chloride [K-Dur -] 10 meq PO BID 05/31/16 Hydrocortisone 2.5% Topical Cr 1 applic TP BID #1 tube 06/03/16 [Anusol-Hc -] Mag Hydrox/Al Hydrox/Simeth 30 ml PO Q6HPO cup 06/03/16 [Mylanta Oral Suspension -] Calcitriol [Calcitriol -] 1 tab PO ASDIR 09/01/16 Folic Acid 1 mg PO DAILY 09/01/16 Hydralazine HCl [Apresoline -] 1 tab PO BID 09/01/16 Nystatin Powder [Nystop Powder -] 30 gm TP BID #30 powder 09/01/16 Sitagliptin Phosphate [Januvia] 1 tab PO DAILY 09/01/16 Silver Sulfadiazine [Silvadene] 30 gm TP DAILY #30 cream..g. 09/15/16 Apixaban [Eliquis] 2.5 mg PO BID 09/22/16 Acetaminophen [Tylenol .Regular 650 mg PO Q6H PRN #0 tablet 09/30/16 Strength -] Atorvastatin Ca [Lipitor] 40 mg PO HS tablet 09/30/16 Furosemide Injection [Lasix 80 mg IVPB BID@0600,1400 vial 09/30/16 Injection -] Hydrocortisone 2.5% Topical Cr 1 applic [place] DAILY tube 09/30/16 [Anusol-Hc -] Insulin Sliding Scale [Novolog 1 vial SQ ACHS units 09/30/16 Vial Sliding Scale -] Isosorbide Dinitrate [Isordil -] 20 mg PO TID tablet 09/30/16 Methyldopa [Aldomet -] 250 mg PO TID tablet 09/30/16 Nystatin Powder [Nystop Powder -] 1 applic TP DAILY applic 09/30/16 Silver Sulfadiazine 1% Top Cr 1 applic TP DAILY jar 09/30/16 [Silvadene -] Sitagliptin Phosphate [Januvia -] 25 mg PO DAILY@0700 tab 09/30/16 Sodium Chloride Nasal [place] [[place] 2 spray NS TID PRN #0 spray 09/30/16 [place] Nasal [place] -] Allergies Allergy/AdvReac Type Severity Reaction Status Date / Time No Known Allergies Allergy Verified 09/22/16 09:23 REVIEW OF SYSTEMS: CONSTITUTIONAL: Absent: fever, chills CARDIOVASCULAR: Absent: chest pain RESPIRATORY: Present: cough, shortness of breath(improved) PHYSICAL EXAM: GENERAL: Awake, alert, and fully oriented, in no acute distress. HEAD: Normal with no signs of trauma. EYES: PERRL, sclera anicteric, conjunctiva clear. LUNGS: course breath sounds b/l HEART: Regular rate and rhythm. Murmur UPPER EXTREMITIES: left hand swelling LOWER EXTREMITIES: 2+ DP/PT pulses, warm, well-perfused. No calf tenderness. No peripheral edema. No open wounds to right foot or drainage noted. No erythema or tenderness NEUROLOGICAL: Normal speech, gait not observed. PSYCH: Cooperative. Good eye contact. Appropriate mood and affect. Vital Signs Temperature 98.0 F 09/30/16 10:00 Pulse Rate 83 09/30/16 10:00 Respiratory Rate 18 09/30/16 10:00 Blood Pressure 127/84 09/30/16 10:00 O2 Sat by Pulse Oximetry (%) 97 09/30/16 09:00 Lab Results WBC 6.7 K/mm3 (4.0-10.0) 09/28/16 05:38 RBC 3.44 M/mm3 (4.00-5.60) L 09/28/16 05:38 Hgb 10.4 GM/dL (11.7-16.9) L 09/28/16 05:38 Hct 31.2 % (35.4-49) L 09/28/16 05:38 MCV 90.7 fl (80-96) 09/28/16 05:38 MCHC 33.4 g/dl (32.0-35.9) 09/28/16 05:38 RDW 15.9 % (11.9-15.9) 09/28/16 05:38 Plt Count 107 K/MM3 (134-434) L 09/28/16 05:38 Sodium 138 mmol/L (136-145) 09/30/16 05:38 Potassium 3.7 mmol/L (3.5-5.1) 09/30/16 05:38 Chloride 96 mmol/L (98-107) L 09/30/16 05:38 Carbon Dioxide 29 mmol/L (21-32) 09/30/16 05:38 Anion Gap 13 (8-16) 09/30/16 05:38 BUN 56 mg/dL (7-18) H 09/30/16 05:38 Creatinine 3.9 mg/dL (0.7-1.3) H 09/30/16 05:38 Random Glucose 150 mg/dL (74-106) H D 09/30/16 05:38 Calcium 8.2 mg/dL (8.5-10.1) L 09/30/16 05:38 INR 1.51 (0.82-1.09) H 09/22/16 10:00 A/P:60 yo male with diabetes, chronic right foot wound At this time, no evidence of infection to right foot/open area healed. Distal pulses intact and no evidence of ischemia D/w Dr. Arias no acute vascular intervention needed at this time recommend follow-up with Dr. Mann Visit type - Case Type Case Type: ED Admission - Emergency Emergency Visit: Yes ED Registration Date: 09/22/16 Care time: The patient presented to the Emergency Department on the above date and was hospitalized for further evaluation of their emergent condition. - New patient This patient is new to [facility] today: Yes Date on this admission: 09/30/16 - Critical Care Critical Care patient: No
--- NOTE | 2016-09-30 13:21 | PN ---
Progress Note (short form) - Note Progress Note: PULMONARY SUBJECTIVE IMPROVEMENT VSS/AFEBRILE OVERALL CLINICAL IMPROVEMENT ANICTERIC DIMINISHED BIBASILAR BREATH SOUNDS S1S2 BS+ OBESE DIMINISHED EDEMA LABS/MEDS/NOTES/IMAGING REVIEW IMP ACUTE ON CHRONIC CHF CKD ASHD S/P STENT X3 HYPERTENSIVE URGENCY DM HYPERLIPEDEMIA ? COPD ? OSAS PLAN LASIX O2 NEEDED DAILY WTS INHALED BRONCHODILATORS PRN SMOKING CESSATION/SALT AND FLUID MANAGEMENT COUNSELED WT DAILY SLEEP STUDIES OUTPATIENT NO OBJECTION TO CONTINUING RX AN OUTPATIENT Parish CHONG MD
[2016-09-30] MEDS ORDERED: CLINDAMYCIN HCL 150 MG CAPSULE (FP) PO SCH (14:00)
[2016-09-30 14:56] VITALS: BP 114/69; PULSE 20; TEMP 98.7
--- NOTE | 2016-09-30 15:00 | CONS ---
DATE OF CONSULTATION: DATE OF DICTATION: 09/30/2016 The patient is a 60-year-old male who was evaluated for soft tissue abscess of the left hand. Consult was at the request of Dr. Espinoza. The patient is a 60-year-old male with a history of cardiac problems, admitted to the hospital on September 22, 2016, with increasing shortness of breath and lower extremity edema. He was diagnosed with congestive heart failure. Patient was noted to have erythema, warmth, and swelling, dorsum of the left hand on September 28, 2016, at a previous IV site. He subsequently developed soft tissue swelling and now has pustule at that site with diffuse swelling of the dorsum of the hand. It is also slightly erythematous and warm. He denies any fever or shaking chills. Patient has a history of diabetic foot infection with positive wound cultures for MRSA and pseudomonas. PAST MEDICAL HISTORY: Positive for diabetes mellitus, coronary artery disease, congestive heart failure, hyperlipidemia, hypertension. PAST SURGICAL HISTORY: Status post coronary artery stents, umbilical hernia repair. ALLERGIES: No known allergies. MEDICATIONS: Include: 1. Tylenol. 2. Toprol. 3. Aldomet. 4. Procardia. 5. Januvia. 6. Hydralazine. 7. Lipitor. 8. NovoLog. 9. Lasix. 10. Isordil. 11. Ecotrin. 12. K-Dur. SOCIAL HISTORY: Positive for tobacco use. REVIEW OF SYSTEMS: Neurologic: No loss of consciousness, seizure activity, focal weakness. Cardiac: Negative chest pain or palpitations. Respiratory: As per HPI. Gastrointestinal: Negative vomiting or diarrhea. Genitourinary: Negative for urinary tract infection, positive for chronic kidney disease. LABORATORY DATA: White count 6.7, hematocrit 31.2, platelet count 107, BUN 56, creatinine 3.9. Urinalysis: 1 white cell. IMAGING: Chest x-ray: Mild cardiomegaly. PHYSICAL EXAMINATION: General: He is awake and alert. He is out of bed to chair. Vital Signs: Temperature 98.3, blood pressure 132/65, pulse 78, regular. Respirations 18 per minute. HEENT: Sclerae were anicteric. Cardiovascular: Heart sounds S1, S2. Lungs: Clear. Abdomen: Obese, soft, nontender. Extremities: Positive for pedal edema. Examination of the left hand, there is a 1-cm pustule present over the middle aspect of the dorsum of the left hand with surrounding induration, erythema, and warmth. There is slight swelling to the wrist area. No lymphangitic streaking. No epitrochlear adenopathy. The center of the wound near the fluctuant pustule. IMPRESSION: 1. Soft tissue abscess, dorsum of the left hand. 2. Intravenous catheter-related phlebitis/abscess/cellulitis. 3. Renal failure. 4. History of methicillin-resistant Staphylococcus aureus. 5. Congestive heart failure. Advised surgical evaluation for incision and drainage, warm compresses, empiric antibiotic coverage with clindamycin 300 mg p.o. every 8 hours. Analgesics as needed. Thank you for the kind referral. CRISTY LOMELI M.D. [id number]
--- NOTE | 2016-09-30 15:13 | PN ---
Progress Note, Physician Chief Complaint: Diuresing Lying comfortable flat in bed History of Present Illness: This is a 60 year old male, with a past medical history of hypertension, hyperlipidemia, cigarette smoking, diabetes, CHF (on Lasix), CKD 3, and CAD s/p 3 stents (1999), who presents to the emergency department with increasing shortness of breath orthopnea and lower extremity swelling and a cough productive of white phlegm. There is no chest pain. Patient had a stress test 04/[address] Giovanni Sood showing inferior wall fixed defect and no ischemia. He underwent an echocardiogram here in May 2016 showing Mildly elevated LA pressure and overall preserved LV function without valvular pathology. Takes Eliquis. We spoke with Dr. Vasquez office and there is no indication of Afib per their records. - Current Medication List Current Medications: Active Medications Acetaminophen (Tylenol -) 650 mg PO Q6H PRN PRN Reason: FEVER OR PAIN Last Admin: 09/29/16 15:23 Dose: 650 mg Al Hydroxide/Mg Hydroxide (Mylanta Oral Suspension -) 30 ml PO Q6H PRN PRN Reason: DYSPEPSIA Aspirin (Ecotrin -) 81 mg PO DAILY [facility] Last Admin: 09/30/16 10:18 Dose: 81 mg Atorvastatin Calcium (Lipitor -) 40 mg PO HS [facility] Last Admin: 09/29/16 21:08 Dose: 40 mg Clindamycin HCl (Cleocin -) 300 mg PO TID [facility] Last Admin: 09/30/16 14:23 Dose: 300 mg Furosemide (Lasix Injection -) 80 mg IVPB BID@0600,1400 [facility] Last Admin: 09/30/16 14:22 Dose: 80 mg Hydralazine HCl (Apresoline Injection -) 10 mg IVPUSH Q6H PRN PRN Reason: HYPERTENSION Hydralazine HCl (Apresoline -) 100 mg PO TID [facility] Last Admin: 09/30/16 14:22 Dose: 100 mg Hydrocortisone (Anusol 2.5% Hc Cream -) 1 applic [place] DAILY [facility] Last Admin: 09/30/16 10:18 Dose: Not Given Insulin Aspart (Novolog Vial Sliding Scale -) 1 vial SQ ACHS TOY PRN Reason: Protocol Last Admin: 09/30/16 11:43 Dose: Not Given Isosorbide Dinitrate (Isordil -) 20 mg PO TID [facility] Last Admin: 09/30/16 14:23 Dose: 20 mg Methyldopa (Aldomet -) 250 mg PO TID [facility] Last Admin: 09/30/16 14:23 Dose: 250 mg Metoprolol Succinate (Toprol Xl -) 50 mg PO DAILY [facility] Last Admin: 09/30/16 10:18 Dose: 50 mg Nifedipine (Procardia Xl -) 60 mg PO DAILY [facility] Last Admin: 09/30/16 10:18 Dose: 60 mg Nystatin (Nystop Powder -) 1 applic TP DAILY [facility] Last Admin: 09/30/16 10:18 Dose: Not Given Potassium Chloride (K-Dur -) 20 meq PO DAILY [facility] Last Admin: 09/30/16 10:18 Dose: 20 meq Silver Sulfadiazine (Silvadene -) 1 applic TP DAILY [facility] Last Admin: 09/30/16 10:18 Dose: Not Given Sitagliptin Phosphate (Januvia -) 25 mg PO DAILY@0700 [facility] Last Admin: 09/30/16 06:02 Dose: 25 mg Sodium Chloride ([place] Nasal [place] -) 2 spray NS TID PRN PRN Reason: NASAL CONGESTION - Objective Vital Signs: Vital Signs Temperature 98.7 F 09/30/16 14:00 Pulse Rate 20 L 09/30/16 14:00 Respiratory Rate 77 H 09/30/16 14:00 Blood Pressure 114/69 09/30/16 14:00 O2 Sat by Pulse Oximetry (%) 97 09/30/16 09:00 Constitutional: Yes: No Distress Neck: Yes: Supple, Trachea Midline Cardiovascular: Yes: Regular Rate and Rhythm, Murmur (2/6 HSM apex), S1, S2. No : JVD Respiratory: Yes: CTA Bilaterally Gastrointestinal: Yes: Normal Bowel Sounds, Soft Edema: No Labs: CBC, BMP 09/28/16 05:38 09/30/16 05:38 INR, PTT INR 1.51 (0.82-1.09) H 09/22/16 10:00 Problem List - Problems (1) CHF (congestive heart failure) Code(s): I50.9 - HEART FAILURE, UNSPECIFIED Qualifiers: Congestive heart failure type: diastolic Congestive heart failure chronicity: acute on chronic Qualified Code(s): I50.33 - Acute on chronic diastolic (congestive) heart failure (2) CKD (chronic kidney disease) Code(s): N18.9 - CHRONIC KIDNEY DISEASE, UNSPECIFIED (3) Coronary artery disease Code(s): I25.10 - ATHSCL HEART DISEASE OF [place] CORONARY ARTERY W/O ANG PCTRS Qualifiers: Coronary Disease-Associated Artery/Lesion type: unspecified vessel or lesion type Associated angina: without angina Assessment/Plan This is a 60 year old male, with a past medical history of hypertension, hyperlipidemia, cigarette smoking, diabetes, CHF (on Lasix), CKD 3, and CAD s/p 3 stents (1999), who presents to the emergency department with increasing shortness of breath orthopnea and lower extremity swelling and a cough productive of white phlegm. There is no chest pain. Patient had a stress test 04/[address] Giovanni Sood showing inferior wall fixed defect and no ischemia. He underwent an echocardiogram here in May 2016 showing Mildly elevated LA pressure and overall preserved LV function without valvular pathology. Takes Eliquis. We spoke with Dr. Vasquez office and there is no indication of Afib per their records. 1) CHF and mitral regurgitation -BP improved and normal now on metoprolol, clonidine, hydralazine, and nifedipine. -Severe MR persists despite diuresis and bp control LVEF decreased from previous imaging in April Will plan for transfer to [facility] for evaluation for mitral valve replacement. Will likely need ischemic evaluation as well once at [facility]. -Can change to PO furosemide 80mg bid Monitor bun/cr, lytes, and replete or adjust meds as needed 2) CAD h/o stents and NST 04/2016 with inferior fixed defect Continue aspirin/statin/beta hailey Needs ischemic work up given drop in LVEF and severe MR possible need for valve intervention
--- NOTE | 2016-10-03 07:16 | HOSP ---
Physical Examination Vital Signs: Vital Signs Temperature 98.7 F 09/30/16 14:00 Pulse Rate 20 L 09/30/16 14:00 Respiratory Rate 77 H 09/30/16 14:00 Blood Pressure 114/69 09/30/16 14:00 O2 Sat by Pulse Oximetry (%) 97 09/30/16 09:00 Labs: CBC, BMP 09/28/16 05:38 09/30/16 05:38
--- NOTE | 2016-10-03 07:17 | HOSP ---
Subjective - Review of Symptoms Events since last encounter: 60 year old male, with a past medical history of hypertension, hyperlipidemia, cigarette smoking, diabetes, CHF (on Lasix), CKD 3, and CAD s/p 3 stents (1999) , who presents to the emergency department with increasing shortness of breath orthopnea and lower extremity swelling and a cough productive of white phlegm. Called to evaluate for left hand pain and swelling General: No: Chills, Fatigue Musculoskeletal: Yes: Extremity Pain (left hand pain and swellling), Other Physical Examination Vital Signs: Vital Signs Temperature 98.7 F 09/30/16 14:00 Pulse Rate 20 L 09/30/16 14:00 Respiratory Rate 77 H 09/30/16 14:00 Blood Pressure 114/69 09/30/16 14:00 O2 Sat by Pulse Oximetry (%) 97 09/30/16 09:00 Constitutional: Yes: Calm Cardiovascular: Yes: Regular Rate and Rhythm, S1, S2 Respiratory: Yes: Regular, CTA Bilaterally Extremities: Yes: Other (slight hand sweeling at site of old IV , mild pain, no surrounding erythema) Labs: CBC, BMP 09/28/16 05:38 09/30/16 05:38 Hospitalist Encounter Assessment: 60 year old male, with a past medical history of hypertension, hyperlipidemia, cigarette smoking, diabetes, CHF (on Lasix), CKD 3, and CAD s/p 3 stents (1999) , who presents to the emergency department with increasing shortness of breath orthopnea and lower extremity swelling and a cough. #mild left hand swelling most likely secondary to infiltrated IV site: -this has been going on for a couple days, patient says it is getting better -no fever, chills -advise warm compress -if symptoms worsen or persist advise imaging Visit type - Emergency Visit Emergency Visit: Yes ED Registration Date: 09/22/16 Care time: The patient presented to the Emergency Department on the above date and was hospitalized for further evaluation of their emergent condition. - New Patient This patient is new to me today: Yes Date on this admission: 10/03/16 - Critical Care Critical Care patient: No
== END 2016-09-30 18:25 | disposition short-term general hospital (02) | DRG 291 ==
LOC: JER 09:12 → JERBED 12:11 → J4S 17:45
PROVIDERS: ADMIT Family Medicine; ATTEND Family Medicine
DX: I13.0 Hypertensive heart and chronic kidney disease with heart failure and stage 1 through stage 4 chronic kidney disease, or unspecified chronic kidney disease (principal); I50.33 Acute on chronic diastolic (congestive) heart failure; N17.9 Acute kidney failure, unspecified; T82.898A Other specified complication of vascular prosthetic devices, implants and grafts, initial encounter; L02.512 Cutaneous abscess of left hand; I34.0 Nonrheumatic mitral (valve) insufficiency; I16.0 Hypertensive urgency; I25.10 Atherosclerotic heart disease of native coronary artery without angina pectoris; Z72.0 Tobacco use; D64.9 Anemia, unspecified; E11.22 Type 2 diabetes mellitus with diabetic chronic kidney disease; N18.3 Chronic kidney disease, stage 3 (moderate); E66.01 Morbid (severe) obesity due to excess calories; K64.2 Third degree hemorrhoids; I73.9 Peripheral vascular disease, unspecified; L97.519 Non-pressure chronic ulcer of other part of right foot with unspecified severity; Y83.8 Other surgical procedures as the cause of abnormal reaction of the patient, or of later complication, without mention of misadventure at the time of the procedure; E78.5 Hyperlipidemia, unspecified; Z68.36 Body mass index [BMI] 36.0-36.9, adult
CPT/HCPCS: 36415; 71010-TC; 76775-TC; 76856-TC; 80048; 80053; 80061; 81003; 81015; 82550; 82553; 82570; 83721; 83880; 84156; 84443; 84484; 85025; 85027; 85379; 85610; 87040; 87186; 93005; 93010; 93306-TC; 93880-TC; 93970-TC; 94640; 99285-25

== ENCOUNTER 2017-03-01 15:21 | Inpatient (IN) | payer BC, OTHER ==
--- NOTE | 2017-03-01 15:30 | PDOC ---
Rapid Medical Evaluation Time Seen by Provider: 03/01/17 15:25 Medical Evaluation: Allergies Allergy/AdvReac Type Severity Reaction Status Date / Time No Known Allergies Allergy Verified 09/22/16 09:23 03/01/17 15:25 I have performed a brief in person evaluation of this patient. The patient presents with chief complaint of : " rectal bleeding " sent by PMD Dr.Amir Rivers . history of hemorhoids, BRBPR for 2 days. no abd pain. Pertinent PE findings: stable no distress, I have ordered the following: The patient will proceed to the ER for further evaluation.
--- NOTE | 2017-03-01 17:12 | PDOC ---
History of Present Illness - General Chief Complaint: Rectal Bleed Stated Complaint: PCP SENT FOR ADMIN Time Seen by Provider: 03/01/17 15:25 Past History - Past Medical History Allergies/Adverse Reactions: Allergies Allergy/AdvReac Type Severity Reaction Status Date / Time No Known Allergies Allergy Verified 03/01/17 15:27 Home Medications: Ambulatory Orders Aspirin [Aspirin EC] 81 mg PO DAILY 05/31/16 Ezetimibe/Simvastatin [Vytorin 10-80 mg Tablet] 1 tab PO HS 05/31/16 Metoprolol Succinate [Toprol Xl] 50 mg PO TID 05/31/16 [place]-3/Dha/Epa/Fish Oil [[place] 3 500 Softgel] 2 each PO BID 05/31/16 Potassium Chloride [K-Dur -] 10 meq PO BID 05/31/16 Mag Hydrox/Al Hydrox/Simeth [Mylanta Oral Suspension -] 30 ml PO Q6HPO cup 12/10 Calcitriol [Calcitriol -] 1 tab PO ASDIR 09/01/16 Folic Acid 1 mg PO DAILY 09/01/16 Hydralazine HCl [Apresoline -] 1 tab PO BID 09/01/16 Acetaminophen [Tylenol .Regular Strength -] 650 mg PO Q6H PRN #0 tablet Atorvastatin Ca [Lipitor] 40 mg PO HS tablet 09/30/16 Insulin Sliding Scale [Novolog Vial Sliding Scale -] 1 vial SQ ACHS units 09/30 Isosorbide Dinitrate [Isordil -] 20 mg PO TID tablet 09/30/16 Methyldopa [Aldomet -] 250 mg PO TID tablet 09/30/16 Nystatin Powder [Nystop Powder -] 1 applic TP DAILY applic 09/30/16 Sitagliptin Phosphate [Januvia -] 25 mg PO DAILY@0700 tab 09/30/16 Sodium Chloride Nasal [place] [[place]tha [place] Nasal [place] -] 2 spray NS TID PRN #0 spray 09/30/16 Furosemide [Lasix] 1 tab PO DAILY 11/20/16 Nifedipine ER [Procardia XL -] 1 tab PO DAILY 11/20/16 Anemia: No Asthma: No Cancer: No Cardiac Disorders: Yes (3 stents? 1999) CVA: No COPD: No CHF: Yes Dementia: No Diabetes: Yes GI Disorders: No Disorders: Yes (Chronic kidney disease) HTN: Yes Hypercholesterolemia: Yes Liver Disease: No Seizures: No Thyroid Disease: No - Surgical History Cardiac Surgery: Yes (STENTS) - Immunization History Immunization Up to Date: Yes - Suicide/Smoking/Psychosocial Hx Smoking History: Current some day smoker Have you smoked in the past 12 months: Yes Number of Cigarettes Smoked Daily: 8 Information on smoking cessation initiated: No 'Breaking Loose' booklet given: 09/22/16 Hx Alcohol Use: No Drug/Substance Use Hx: No Substance Use Type: None Hx Substance Use Treatment: No *Physical Exam - Vital Signs Last Vital Signs Temp Pulse Resp BP Pulse Ox 97.8 F 65 17 150/85 99 03/01/17 15:28 03/01/17 15:28 03/01/17 15:28 03/01/17 15:28 03/01/17 15:28 ED Treatment Course - RADIOLOGY Radiology Studies Ordered: Category Date Time Status CHEST PA & LAT [RAD] Stat Radiology 03/01/17 16:34 Ordered *DC/Admit/Observation/Transfer Diagnosis at time of Disposition: Rectal hemorrhage - Discharge Dispostion Condition at time of disposition: Stable Admit: Yes
[2017-03-01 17:37] LABS: BASOPHIL 0.7 % (0-2.0); EOSINOPHIL 3.3 % (0-4.5); MCH 31.3 pg (25.7-33.7); MEAN CELL VOLUME 92.1 fl (80-96); MEAN PLT VOLUME 9.3 fl (7.5-11.1); NEUTROPHILS 65.8 % (42.8-82.8); PLATELET COUNT 173 K/MM3 (134-434); RDW 15.6 % (11.9-15.9); WHITE BLOOD COUNT 7.3 K/mm3 (4.0-10.0)
[2017-03-01 17:49] LABS: INR 1.09 (0.82-1.09); PROTHROMBIN TIME (PATIENT) 12.3 SEC (9.98-11.88)
[2017-03-01 17:52] LABS: ACTIVATED PTT 28.7 SECONDS (26.9-34.4)
[2017-03-01 18:43] LABS: ALBUMIN 3.6 g/dl (3.4-5.0); ANION GAP 10 (8-16); CALCIUM 7.9 mg/dL (8.5-10.1); CO2 27 mmol/L (21-32); CREATININE 4.5 mg/dL (0.7-1.3); GLUCOSE,RANDOM 117 mg/dL (74-106); SGOT/AST 14 U/L (15-37); SGPT/ALT 23 U/L (12-78)
[2017-03-01 18:45] LABS: ALK PHOS 48 U/L (45-117); BILIRUBIN,TOTAL 0.4 mg/dL (0.2-1.0); TOT PROT 7.4 g/dl (6.4-8.2)
--- NOTE | 2017-03-01 19:13 | CON.GI ---
Consult Consult Specialty:: gastroeneterology Reason for Consultation:: rectal bleeding - History of Present Illness History of Present Illness: 61 y/o male with PMH of CRI, DM, CHF was doing well until 3 weeks prior to admisssion when he developed recurrent rectal bleeding, no change in bowel habits, no weight loss, and no abdominal pain. - Past Medical History Cardio/Vascular: Yes: CAD (prior PCI in 1999), HTN, Hyperlipdemia Gastrointestinal: Yes: Hemorrhoids Hepatobiliary: Yes: Other (Reported "fatty liver") Renal/: Yes: Renal Inusuff Endocrine: Yes: Diabetes Mellitus - Alcohol/Substance Use Hx Alcohol Use: No History of Substance Use: reports: None - Smoking History Smoking history: Current some day smoker Have you smoked in the past 12 months: Yes Aproximately how many cigarettes per day: 8 - Social History Usual Living Arrangement: With Spouse Home Medications - Allergies Allergies/Adverse Reactions: Allergies Allergy/AdvReac Type Severity Reaction Status Date / Time No Known Allergies Allergy Verified 03/01/17 15:27 - Home Medications Home Medications: Ambulatory Orders Aspirin [Aspirin EC] 81 mg PO DAILY 05/31/16 Ezetimibe/Simvastatin [Vytorin 10-80 mg Tablet] 1 tab PO HS 05/31/16 Metoprolol Succinate [Toprol Xl] 50 mg PO TID 05/31/16 [place]-3/Dha/Epa/Fish Oil [[place] 3 500 Softgel] 2 each PO BID 05/31/16 Potassium Chloride [K-Dur -] 10 meq PO BID 05/31/16 Mag Hydrox/Al Hydrox/Simeth [Mylanta Oral Suspension -] 30 ml PO Q6HPO cup 12/10 Calcitriol [Calcitriol -] 1 tab PO ASDIR 09/01/16 Folic Acid 1 mg PO DAILY 09/01/16 Hydralazine HCl [Apresoline -] 1 tab PO BID 09/01/16 Acetaminophen [Tylenol .Regular Strength -] 650 mg PO Q6H PRN #0 tablet Atorvastatin Ca [Lipitor] 40 mg PO HS tablet 09/30/16 Insulin Sliding Scale [Novolog Vial Sliding Scale -] 1 vial SQ ACHS units 09/30 Isosorbide Dinitrate [Isordil -] 20 mg PO TID tablet 09/30/16 Methyldopa [Aldomet -] 250 mg PO TID tablet 09/30/16 Nystatin Powder [Nystop Powder -] 1 applic TP DAILY applic 09/30/16 Sitagliptin Phosphate [Januvia -] 25 mg PO DAILY@0700 tab 09/30/16 Sodium Chloride Nasal [place] [[place] Nasal [place] -] 2 spray NS TID PRN #0 spray 09/30/16 Furosemide [Lasix] 1 tab PO DAILY 11/20/16 Nifedipine ER [Procardia XL -] 1 tab PO DAILY 11/20/16 Family Disease History - Family Disease History Family History: Denies (colon and gastric cancer) Physical Exam-GI Vital Signs: Vital Signs Temperature 97.8 F 03/01/17 15:28 Pulse Rate 65 03/01/17 15:28 Respiratory Rate 17 03/01/17 15:28 Blood Pressure 150/85 03/01/17 15:28 O2 Sat by Pulse Oximetry (%) 99 03/01/17 15:28 Constitutional: Yes: Well Nourished Eyes: Yes: Conjunctiva Clear HENT: Yes: Atraumatic, Tonsillar Exudate Cardiovascular: Yes: Regular Rate and Rhythm Respiratory: Yes: CTA Bilaterally ...Palpate: Yes: Soft. No: Firm/Rigid, Guarding, Hepatomegaly, Mass, Pulsatile Mass, Splenomegaly, Tenderness Labs: INR, PTT INR 1.09 (0.82-1.09) 03/01/17 17:10 Problem List - Problems (1) Rectal bleeding Assessment/Plan: r/o colonic neoplasm R> for colonoscopy Code(s): K62.5 - HEMORRHAGE OF ANUS AND RECTUM (2) Anemia Assessment/Plan: multifactorial including secondary to CRI and rectal bleeding Code(s): D64.9 - ANEMIA, UNSPECIFIED Qualifiers: Other causes of anemia: chronic disease, kidney
[2017-03-01] MEDS ORDERED: POLYETHYLENE GLYCOL 3350 255 GM BTL PO ONE (19:20)
[2017-03-01] MEDS ORDERED: MINERAL OIL ENEMA 133 ML ENEMA PR ONE (19:21)
[2017-03-01 19:40] VITALS: BMI 38.1
[2017-03-01] MEDS ORDERED: ACETAMINOPHEN 325 MG TABLET (FP) PO ONE (21:45)
[2017-03-01] MEDS ORDERED: ACETAMINOPHEN 325 MG TABLET (FP) PO PRN (21:47)
[2017-03-01] MEDS ORDERED: INSULIN (NOVOLOG) ASPART 100 UNITS/ML 10ML VIAL ONE (22:24)
[2017-03-01] MEDS: ATORVASTATIN CA 40 MG TABLET (FP) PO SCH (22:28)
[2017-03-01] MEDS: ISOSORBIDE MONONITRATE 30 MG TAB.SR.24H (FP) PO SCH (22:28)
[2017-03-01] MEDS: METHYL SALICYLATE/MENTHOL OINT 30 GM TUBE TP SCH (22:28)
[2017-03-01] MEDS: POTASSIUM CHLORIDE TABS 20 MEQ TABLET.ER (FP) PO SCH (22:28)
[2017-03-01] MEDS: METOPROLOL SUCCINATE 50 MG TAB.SR.24H (FP) PO SCH (22:28)
[2017-03-01] MEDS: NIFEdipine E.R 60 MG TABLET (UD) PO SCH (22:28)
[2017-03-01] MEDS: hydrALAZINE HCL 25 MG TABLET (FP) PO SCH (22:28)
[2017-03-01] MEDS: INSULIN SLIDING SCALE (NOVOLOG) 1 VIAL SQ SCH (22:44)
[2017-03-01 23:03] LABS: URINE APPEARANCE CLEAR; URINE BILIRUBIN NEGATIVE (NEGATIVE); URINE BLOOD NEGATIVE (NEGATIVE); URINE COLOR LT. YELLOW; URINE GLUCOSE (UA) NEGATIVE (NEGATIVE); URINE KETONE NEGATIVE (NEGATIVE); URINE NITRITE NEGATIVE (NEGATIVE); URINE UROBILINOGEN 0.2 mg/dL (0.2-1.0)
[2017-03-01 23:05] LABS: URINE PROTEIN 2+ (NEGATIVE)
[2017-03-01 23:14] LABS: URINE MUCUS RARE; URINE RBC 0-2 /hpf (0-3); URINE WBC <1 /hpf (3-5)
--- NOTE | 2017-03-02 05:37 | HP ---
Admitting History and Physical - Primary Care Physician PCP: Aric Rivers - Admission Chief Complaint: RECTAL BLEEDING History of Present Illness: 61 YEAR OLD MALE HISTORY OF CHF/CARDIAC VALVE DISEASE/HTN/DMII/ANEMIA/CKD/ OBESITY/NON-COMPLIANT TO DIET AND LIFESTYLE, S/P CARDIAC WORKUP AT [facility] 6 MONTHS AGO FOR AORTIC/MITRAL VALVE DISEASE (NO SURGERY DONE AT THAT TIME). PRESENTS WITH RECTAL BLEED FOR 3 WEEKS SENT FROM MY OFFICE FOR ADMISSION AND WORKUP BECAUSE HE IS TO HIGH RISK FOR OUTPATIENT COLONOSCOPY AND WORKUP. History Source: Patient - Past Medical History Cardiovascular: Yes: Aortic Insufficiency, CAD (prior PCI in 1999), HTN, Hyperlipdemia, Mitral Insufficiency Gastrointestinal: Yes: Hemorrhoids Hepatobiliary: Yes: Other (Reported "fatty liver") Renal/: Yes: Renal Inusuff Endocrine: Yes: Diabetes Mellitus - Smoking History Smoking history: Current some day smoker Have you smoked in the past 12 months: Yes Aproximately how many cigarettes per day: 8 - Alcohol/Substance Use Hx Alcohol Use: No History of Substance Use: reports: None Home Medications - Allergies Allergies/Adverse Reactions: Allergies Allergy/AdvReac Type Severity Reaction Status Date / Time No Known Allergies Allergy Verified 03/01/17 15:27 - Home Medications Home Medications: Ambulatory Orders Aspirin [Aspirin EC] 81 mg PO DAILY 05/31/16 Ezetimibe/Simvastatin [Vytorin 10-80 mg Tablet] 1 tab PO HS 05/31/16 Metoprolol Succinate [Toprol Xl] 50 mg PO TID 05/31/16 Calcitriol [Calcitriol -] 1 tab PO ASDIR 09/01/16 Hydralazine HCl [Apresoline -] 100 mg PO TID 09/01/16 Isosorbide Dinitrate [Isordil -] 20 mg PO TID tablet 09/30/16 Methyldopa [Aldomet -] 250 mg PO TID tablet 09/30/16 Furosemide [Lasix] 80 mg PO BID 11/20/16 Nifedipine ER [Procardia XL -] 1 tab PO BID 11/20/16 Review of Systems - Review of Systems Constitutional: reports: Weakness Eyes: reports: No Symptoms HENT: reports: No Symptoms Neck: reports: No Symptoms Cardiovascular: reports: Shortness of Breath Respiratory: reports: SOB Gastrointestinal: reports: Rectal Bleeding Genitourinary: reports: No Symptoms Musculoskeletal: reports: No Symptoms Integumentary: reports: No Symptoms Neurological: reports: No Symptoms Endocrine: reports: No Symptoms Hematology/Lymphatic: reports: No Symptoms Psychiatric: reports: No Symptoms Physical Examination Vital Signs: Vital Signs Temperature 98.3 F 03/01/17 22:00 Pulse Rate 64 03/01/17 22:00 Respiratory Rate 20 03/01/17 22:00 Blood Pressure 109/86 03/01/17 22:00 O2 Sat by Pulse Oximetry (%) 97 03/01/17 21:00 Constitutional: Yes: Mild Distress Eyes: Yes: WNL HENT: Yes: WNL Neck: Yes: WNL Cardiovascular: Yes: WNL Respiratory: Yes: SOB Gastrointestinal: Yes: Other Renal/: Yes: WNL Musculoskeletal: Yes: Muscle Weakness Extremities: Yes: WNL Edema: Yes Peripheral Pulses WNL: Yes Integumentary: Yes: WNL Wound/Incision: Yes: Clean/Dry Neurological: Yes: Pre-Existing Deficit ...Motor Strength: LLE, RLE Psychiatric: Yes: WNL Problem List - Problems (1) Rectal bleeding Code(s): K62.5 - HEMORRHAGE OF ANUS AND RECTUM (2) Anemia Code(s): D64.9 - ANEMIA, UNSPECIFIED Qualifiers: Other causes of anemia: chronic disease, kidney (3) Anemia due to chronic blood loss Code(s): D50.0 - IRON DEFICIENCY ANEMIA SECONDARY TO BLOOD LOSS (CHRONIC) (4) CHF (congestive heart failure) Code(s): I50.9 - HEART FAILURE, UNSPECIFIED Qualifiers: Congestive heart failure type: diastolic Congestive heart failure chronicity: acute on chronic Qualified Code(s): I50.33 - Acute on chronic diastolic (congestive) heart failure; I50.33 - Acute on chronic diastolic (congestive) heart failure; I50.33 - Acute on chronic diastolic ( congestive) heart failure; I50.33 - Acute on chronic diastolic (congestive) heart failure (5) CKD (chronic kidney disease) Code(s): N18.9 - CHRONIC KIDNEY DISEASE, UNSPECIFIED (6) Coronary artery disease Code(s): I25.10 - ATHSCL HEART DISEASE OF [place] CORONARY ARTERY W/O ANG PCTRS Qualifiers: Coronary Disease-Associated Artery/Lesion type: unspecified vessel or lesion type Associated angina: without angina (7) Diabetes 1.5, managed as type 2 Code(s): E10.9 - TYPE 1 DIABETES MELLITUS WITHOUT COMPLICATIONS (8) Morbid (severe) obesity due to excess calories Code(s): E66.01 - MORBID (SEVERE) OBESITY DUE TO EXCESS CALORIES (9) Tobacco abuse counseling Code(s): Z71.6 - TOBACCO ABUSE COUNSELING Assessment/Plan CLEAR DIET FOR NOW GI EVAL COLON-PREP FOR COLONOSCOPY CARDIOLOGY EVAL NEPHROLOGY EVAL MONITOR BGM
[2017-03-02] MEDS: sitaGLIPtin PHOSPHATE 25 MG TABLET (FP) PO SCH (06:05)
[2017-03-02] MEDS: INSULIN SLIDING SCALE (NOVOLOG) 1 VIAL SQ SCH ×4 (06:15→23:13)
[2017-03-02 08:23] LABS: MCH 30.8 pg (25.7-33.7); MCHC 33.7 g/dl (32.0-35.9); MEAN CELL VOLUME 91.2 fl (80-96); MEAN PLT VOLUME 8.7 fl (7.5-11.1); PLATELET COUNT 145 K/MM3 (134-434); RDW 15.4 % (11.9-15.9); WHITE BLOOD COUNT 7.1 K/mm3 (4.0-10.0)
[2017-03-02 08:52] LABS: ALBUMIN 3.4 g/dl (3.4-5.0); ANION GAP 12 (8-16); CALCIUM 7.8 mg/dL (8.5-10.1); CO2 22 mmol/L (21-32); GLUCOSE,RANDOM 119 mg/dL (74-106)
[2017-03-02 08:56] LABS: ALK PHOS 44 U/L (45-117); BILIRUBIN,TOTAL 0.3 mg/dL (0.2-1.0); CREATININE 3.8 mg/dL (0.7-1.3); SGOT/AST 21 U/L (15-37); SGPT/ALT 23 U/L (12-78); TOT PROT 6.9 g/dl (6.4-8.2)
[2017-03-02] MEDS: NIFEdipine E.R 60 MG TABLET (UD) PO SCH (09:02)
[2017-03-02] MEDS: METOPROLOL SUCCINATE 50 MG TAB.SR.24H (FP) PO SCH ×2 (09:02→23:24)
[2017-03-02] MEDS: hydrALAZINE HCL 25 MG TABLET (FP) PO SCH ×2 (09:02→23:25)
[2017-03-02] MEDS: POTASSIUM CHLORIDE TABS 20 MEQ TABLET.ER (FP) PO SCH (09:02)
[2017-03-02] MEDS: ISOSORBIDE MONONITRATE 30 MG TAB.SR.24H (FP) PO SCH (09:02)
[2017-03-02] MEDS ORDERED: CALCITRIOL 0.25 MCG CAPSULE (FP) PO SCH (10:00)
[2017-03-02] MEDS: METHYL SALICYLATE/MENTHOL OINT 30 GM TUBE TP SCH (10:24)
--- NOTE | 2017-03-02 14:10 | PN ---
Progress Note, Physician Chief Complaint: PATIENT SEEN AND EXAMINED YESTERDAY H/P COMPLETES YESTERDAY WITH TODAY'S DATE. SENT BACK FROM COLONOSCOPY B/C NECK PAIN - Current Medication List Current Medications: Active Medications Acetaminophen (Tylenol -) 650 mg PO Q6H PRN PRN Reason: FEVER OR PAIN Atorvastatin Calcium (Lipitor -) 40 mg PO HS [facility] Last Admin: 03/01/17 22:28 Dose: 40 mg Calcitriol (Rocaltrol -) 0.25 mcg PO DAILY [facility] Last Admin: 03/02/17 09:02 Dose: 0.25 mcg Hydralazine HCl (Apresoline -) 100 mg PO BID [facility] Last Admin: 03/02/17 09:02 Dose: 100 mg Insulin Aspart (Novolog Vial Sliding Scale -) 1 vial SQ ACHS [facility] PRN Reason: Protocol Last Admin: 03/02/17 11:53 Dose: Not Given Isosorbide Mononitrate (Imdur -) 30 mg PO DAILY [facility] Last Admin: 03/02/17 09:02 Dose: 30 mg Methyl Salicylate (Sahil-Watkins -) 1 applic TP DAILY [facility] Last Admin: 03/02/17 10:24 Dose: 1 applic Metoprolol Succinate (Toprol Xl -) 50 mg PO BID [facility] Last Admin: 03/02/17 09:02 Dose: 50 mg Nifedipine (Procardia Xl -) 60 mg PO DAILY [facility] Last Admin: 03/02/17 09:02 Dose: 60 mg Potassium Chloride (K-Dur -) 20 meq PO DAILY [facility] Last Admin: 03/02/17 09:02 Dose: 20 meq Sitagliptin Phosphate (Januvia -) 25 mg PO DAILY@0700 [facility] Last Admin: 03/02/17 06:05 Dose: 25 mg - Objective Vital Signs: Vital Signs Temperature 97.9 F 03/02/17 09:00 Pulse Rate 57 L 03/02/17 09:00 Respiratory Rate 16 03/02/17 09:00 Blood Pressure 172/94 03/02/17 09:00 O2 Sat by Pulse Oximetry (%) 97 03/02/17 09:00 Constitutional: Yes: Mild Distress Eyes: Yes: WNL HENT: Yes: WNL Neck: Yes: WNL Cardiovascular: Yes: WNL Respiratory: Yes: WNL Gastrointestinal: Yes: WNL Genitourinary: Yes: WNL Musculoskeletal: Yes: Back Pain, Muscle Pain Extremities: Yes: WNL Edema: Yes Peripheral Pulses WNL: Yes Integumentary: Yes: WNL Wound/Incision: Yes: Clean/Dry Neurological: Yes: Other ...Motor Strength: LLE, RLE Psychiatric: Yes: Other Labs: CBC, BMP 03/02/17 06:30 03/02/17 06:30 INR, PTT INR 1.09 (0.82-1.09) 03/01/17 17:10 Problem List - Problems (1) Rectal bleeding Code(s): K62.5 - HEMORRHAGE OF ANUS AND RECTUM (2) Anemia Code(s): D64.9 - ANEMIA, UNSPECIFIED Qualifiers: Other causes of anemia: chronic disease, kidney (3) Anemia due to chronic blood loss Code(s): D50.0 - IRON DEFICIENCY ANEMIA SECONDARY TO BLOOD LOSS (CHRONIC) (4) CHF (congestive heart failure) Code(s): I50.9 - HEART FAILURE, UNSPECIFIED Qualifiers: Congestive heart failure type: diastolic Congestive heart failure chronicity: acute on chronic Qualified Code(s): I50.33 - Acute on chronic diastolic (congestive) heart failure; I50.33 - Acute on chronic diastolic (congestive) heart failure; I50.33 - Acute on chronic diastolic ( congestive) heart failure; I50.33 - Acute on chronic diastolic (congestive) heart failure (5) CKD (chronic kidney disease) Code(s): N18.9 - CHRONIC KIDNEY DISEASE, UNSPECIFIED (6) Coronary artery disease Code(s): I25.10 - ATHSCL HEART DISEASE OF [place] CORONARY ARTERY W/O ANG PCTRS Qualifiers: Coronary Disease-Associated Artery/Lesion type: unspecified vessel or lesion type Associated angina: without angina (7) Diabetes 1.5, managed as type 2 Code(s): E10.9 - TYPE 1 DIABETES MELLITUS WITHOUT COMPLICATIONS (8) Morbid (severe) obesity due to excess calories Code(s): E66.01 - MORBID (SEVERE) OBESITY DUE TO EXCESS CALORIES (9) Tobacco abuse counseling Code(s): Z71.6 - TOBACCO ABUSE COUNSELING (10) Muscle spasms of neck Code(s): M62.838 - OTHER MUSCLE SPASM Assessment/Plan CT CERVICAL SPINE SEEN BY NEUROLOGY WILL HOLD OFF TIL TOMORROW FOR COLONOSCOPY LIDOCAINE PATCH HOT PACKS FLEXERIL TID BP CONTROL
[2017-03-02] MEDS ORDERED: LIDOCAINE 5% TOPICAL PATCH TP SCH (14:15)
[2017-03-02] MEDS ORDERED: CYCLOBENZAPRINE HCL 5 MG TABLET PO SCH (14:15)
--- NOTE | 2017-03-02 14:28 | CONSULT ---
Consult - text type - Consultation Consultation Note: Neurology Initialization Date: 03/02/17 05:32 - Primary Care Physician PCP: Aric Rivers Chief Complaint: Neck Pain History of Present Illness: 61-year-old male has multiple medical issues ncluding congestive heart failure, hypertension, type 2 diabetes, chronic kidney disease, obesity, presented with rectal bleeding and was admitted has been having neck pain since he was being moved on a table and felt a tweak in his neck and has been having neck stiffness since the occurrence. he does not have any weakness in his and does not have any sensory losses. We discussed having a noncontrast CT of his neck and likely has cervicalgia may have some cervical radiculopathy the patient was in agreement. We also discussed starting him on a muscle relaxant to help alleviate his symptoms. I also ddiscussed with him using cold compresses or heat. Advised no fast neck movements or strain. - Past Medical History Cardiovascular: Yes: Aortic Insufficiency, CAD (prior PCI in 1999), HTN, Hyperlipdemia, Mitral Insufficiency Gastrointestinal: Yes: Hemorrhoids Hepatobiliary: Yes: Other (Reported "fatty liver") Renal/: Yes: Renal Inusuff Endocrine: Yes: Diabetes Mellitus - Smoking History Smoking history: Current some day smoker Have you smoked in the past 12 months: Yes Aproximately how many cigarettes per day: 8 - Alcohol/Substance Use Hx Alcohol Use: No History of Substance Use: reports: None Home Medications - Allergies Allergies/Adverse Reactions: Allergies Allergy/AdvReac Type Severity Reaction Status Date / Time No Known Allergies Allergy Verified 03/01/17 15:27 - Home Medications Home Medications: Ambulatory Orders Aspirin [Aspirin EC] 81 mg PO DAILY 05/31/16 Ezetimibe/Simvastatin [Vytorin 10-80 mg Tablet] 1 tab PO HS 05/31/16 Metoprolol Succinate [Toprol Xl] 50 mg PO TID 05/31/16 Calcitriol [Calcitriol -] 1 tab PO ASDIR 09/01/16 Hydralazine HCl [Apresoline -] 100 mg PO TID 09/01/16 Isosorbide Dinitrate [Isordil -] 20 mg PO TID tablet 09/30/16 Methyldopa [Aldomet -] 250 mg PO TID tablet 09/30/16 Furosemide [Lasix] 80 mg PO BID 11/20/16 Nifedipine ER [Procardia XL -] 1 tab PO BID 11/20/16 Review of Systems - Review of Systems Constitutional: reports: Weakness Eyes: reports: No Symptoms HENT: reports: No Symptoms Neck: reports: Pain, stiffness No Symptoms Cardiovascular: reports: Shortness of Breath Respiratory: reports: SOB Gastrointestinal: reports: Rectal Bleeding Genitourinary: reports: No Symptoms Musculoskeletal: reports: No Symptoms Integumentary: reports: No Symptoms Neurological: reports: No Symptoms Endocrine: reports: No Symptoms Hematology/Lymphatic: reports: No Symptoms Psychiatric: reports: No Symptoms Physical Examination Vital Signs Temperature 97.9 F 03/02/17 09:00 Pulse Rate 57 L 03/02/17 09:00 Respiratory Rate 16 03/02/17 09:00 Blood Pressure 172/94 03/02/17 09:00 O2 Sat by Pulse Oximetry (%) 97 03/02/17 09:00 Gen: Awake, alert, responds to questions appropriately Card: RRR, nml S1,S2 Resp: Normal symmetric effort, lungs clear to auscultation Abdomen: Soft, nontender, bowel sounds active Musculoskeletal: Adequate range of motion without significant deformity Neuro Head atraumatic and normocephalic, stiffness of neck, limited range in motion CN: PERRL, EOMI intact, no apparent facial droop, no abnormalities in facial sensation, palate elevates, uvula and tongue midline Motor: Strength intact to confrontation in upper and lower extremities. Tone normal throughout Sensory: Intact to Temperature, light touch, and pinprick in all extremities Reflexes: 2+ biceps, brachioradialis, patellar, achillies Coordination: Intact on [id number] testing Plan 61-year-old male has multiple medical issues ncluding congestive heart failure, hypertension, type 2 diabetes, chronic kidney disease, obesity, presented with rectal bleeding and was admitted has been having neck pain since he was being moved on a table and felt a tweak in his neck and has been having neck stiffness since the occurrence. he does not have any weakness in his and does not have any sensory losses. Ordered Noncontrast CT of his neck and likely has cervicalgia may have some cervical radiculopathy the patient was in agreement. Starting him on a muscle relaxant to help alleviate his symptoms. cold compresses or heat Advised no fast neck movements or strain Lidocaine patch Monitor GI bleed, ongoing work up Blood pressure control Continue anti-HTN, maintain < 140/90 Will follow up
--- NOTE | 2017-03-02 14:51 | PN ---
Progress Note (short form) - Note Progress Note: colonoscopy was rescheduled as patient has new onset of severe cervical stiffness as per suggestion of anesthesia Problem List - Problems (1) Rectal bleeding Code(s): K62.5 - HEMORRHAGE OF ANUS AND RECTUM (2) Anemia Code(s): D64.9 - ANEMIA, UNSPECIFIED Qualifiers: Other causes of anemia: chronic disease, kidney
[2017-03-02] MEDS: CYCLOBENZAPRINE HCL 10 MG TABLET (FP) PO SCH ×2 (16:12→23:25)
--- NOTE | 2017-03-02 16:14 | CONSULT ---
Consult Consult Specialty:: Nephrology Reason for Consultation:: CKD - History of Present Illness Chief Complaint: rectal bleeding History of Present Illness: Pt is a 61 year old male who follows with me for CKD who was sent in to the ER for rectal bleeding. He has a history of CHF, DM, CKD and GI bleed. He denies shortness of breath. He denies abdominal pain. He denies dysuria or hematuria. He was found to have elevated creatinine. He follows with me in the office and his creatinine has been in the 3 range. He is complain with meds. He was in [place] for a while as he is in the process of moving there. - History Source History Provided By: Patient - Past Medical History Cardio/Vascular: Yes: Aortic Insufficiency, CAD (prior PCI in 1999), HTN, Hyperlipdemia, Mitral Insufficiency Gastrointestinal: Yes: Hemorrhoids Hepatobiliary: Yes: Other (Reported "fatty liver") Renal/: Yes: Renal Inusuff Endocrine: Yes: Diabetes Mellitus - Alcohol/Substance Use Hx Alcohol Use: No History of Substance Use: reports: None - Smoking History Smoking history: Current some day smoker Have you smoked in the past 12 months: Yes Aproximately how many cigarettes per day: 8 - Social History Usual Living Arrangement: With Spouse Home Medications - Allergies Allergies/Adverse Reactions: Allergies Allergy/AdvReac Type Severity Reaction Status Date / Time No Known Allergies Allergy Verified 03/01/17 15:27 - Home Medications Home Medications: Ambulatory Orders Aspirin [Aspirin EC] 81 mg PO DAILY 05/31/16 Ezetimibe/Simvastatin [Vytorin 10-80 mg Tablet] 1 tab PO HS 05/31/16 Metoprolol Succinate [Toprol Xl] 50 mg PO TID 05/31/16 Calcitriol [Calcitriol -] 1 tab PO ASDIR 09/01/16 Hydralazine HCl [Apresoline -] 100 mg PO TID 09/01/16 Isosorbide Dinitrate [Isordil -] 20 mg PO TID tablet 09/30/16 Methyldopa [Aldomet -] 250 mg PO TID tablet 09/30/16 Furosemide [Lasix] 80 mg PO BID 11/20/16 Nifedipine ER [Procardia XL -] 1 tab PO BID 11/20/16 Family Disease History - Family Disease History Family History: Denies Review of Systems - Review of Systems Constitutional: reports: No Symptoms Eyes: reports: No Symptoms HENT: reports: No Symptoms Neck: reports: No Symptoms Cardiovascular: reports: Edema, Shortness of Breath Respiratory: reports: SOB on Exertion Gastrointestinal: reports: Rectal Bleeding Genitourinary: reports: No Symptoms Musculoskeletal: reports: No Symptoms Integumentary: reports: No Symptoms Neurological: reports: No Symptoms Endocrine: reports: No Symptoms Hematology/Lymphatic: reports: No Symptoms Psychiatric: reports: No Symptoms Physical Exam Vital Signs: Vital Signs Temperature 98.1 F 03/02/17 15:32 Pulse Rate 64 03/02/17 15:32 Respiratory Rate 18 03/02/17 15:32 Blood Pressure 144/83 03/02/17 15:32 O2 Sat by Pulse Oximetry (%) 97 03/02/17 09:00 Constitutional: Yes: Calm Eyes: Yes: Conjunctiva Clear HENT: Yes: Atraumatic Neck: Yes: Supple Cardiovascular: Yes: S1, S2 Respiratory: Yes: CTA Bilaterally Gastrointestinal: Yes: Normal Bowel Sounds, Soft Renal/: Yes: WNL Musculoskeletal: Yes: WNL Edema: Yes Edema: LLE: Trace, RLE: Trace Neurological: Yes: Oriented Psychiatric: Yes: Oriented Labs: CBC, BMP 03/02/17 06:30 03/02/17 06:30 Laboratory Tests 03/01/17 03/01/17 03/01/17 17:10 17:10 17:10 Hgb 10.3 L PT with INR 12.30 H INR 1.09 PTT (Actin FS) 28.7 Sodium Potassium Chloride Carbon Dioxide Anion Gap BUN 44 H D Creatinine 4.5 H Urine Color Urine Appearance Urine pH Ur Specific [place] Urine Protein Urine Glucose (UA) Urine Ketones Urine Blood Urine Nitrite Urine Bilirubin 03/01/17 03/02/17 03/02/17 21:20 06:30 06:30 Hgb 10.1 L PT with INR INR PTT (Actin FS) Sodium 141 Potassium 4.1 Chloride 107 Carbon Dioxide 22 Anion Gap 12 BUN 45 H Creatinine 3.8 H Urine Color Lt. yellow Urine Appearance Clear Urine pH 6.0 Ur Specific [place] 1.020 Urine Protein 2+ H Urine Glucose (UA) Negative Urine Ketones Negative Urine Blood Negative Urine Nitrite Negative Urine Bilirubin Negative Imaging - Results Chest X-ray: Report Reviewed Problem List - Problems (1) Muscle spasms of neck Code(s): M62.838 - OTHER MUSCLE SPASM (2) Rectal bleeding Code(s): K62.5 - HEMORRHAGE OF ANUS AND RECTUM (3) CHF (congestive heart failure) Code(s): I50.9 - HEART FAILURE, UNSPECIFIED Qualifiers: Congestive heart failure type: diastolic Congestive heart failure chronicity: acute on chronic Qualified Code(s): I50.33 - Acute on chronic diastolic (congestive) heart failure; I50.33 - Acute on chronic diastolic (congestive) heart failure; I50.33 - Acute on chronic diastolic ( congestive) heart failure; I50.33 - Acute on chronic diastolic (congestive) heart failure (4) CKD (chronic kidney disease) Code(s): N18.9 - CHRONIC KIDNEY DISEASE, UNSPECIFIED (5) Coronary artery disease Code(s): I25.10 - ATHSCL HEART DISEASE OF [place] CORONARY ARTERY W/O ANG PCTRS Qualifiers: Coronary Disease-Associated Artery/Lesion type: unspecified vessel or lesion type Associated angina: without angina (6) Diabetes 1.5, managed as type 2 Code(s): E10.9 - TYPE 1 DIABETES MELLITUS WITHOUT COMPLICATIONS Assessment/Plan Current Medications Generic Name Dose Route Start Last Admin Trade Name Freq PRN Reason Stop Dose Admin Acetaminophen 650 mg 03/01/17 21:47 Tylenol - PO Q6H PRN FEVER OR PAIN Atorvastatin Calcium 40 mg 03/01/17 22:00 03/01/17 22:28 Lipitor - PO 40 mg HS TOY Administration Calcitriol 0.25 mcg 03/02/17 10:00 03/02/17 09:02 Rocaltrol - PO 0.25 mcg DAILY TOY Administration Cyclobenzaprine HCl 5 mg 03/02/17 14:35 03/02/17 16:12 Flexeril - PO 5 mg TID TOY Administration Hydralazine HCl 100 mg 03/01/17 22:00 03/02/17 09:02 Apresoline - PO 100 mg BID TOY Administration Insulin Aspart 1 vial 03/01/17 22:00 03/02/17 11:53 Novolog Vial Sliding Scale - SQ Not Given ACHS TOY Protocol Isosorbide Mononitrate 30 mg 03/01/17 22:00 03/02/17 09:02 Imdur - PO 30 mg DAILY TOY Administration Lidocaine 1 patch 03/02/17 14:15 03/02/17 16:10 Lidoderm Patch - TP 1 patch DAILY TOY Administration Methyl Salicylate 1 applic 03/01/17 22:00 03/02/17 10:24 Sahil-Watkins - TP 1 applic DAILY TOY Administration Metoprolol Succinate 50 mg 03/01/17 22:00 03/02/17 09:02 Toprol Xl - PO 50 mg BID TOY Administration Miscellaneous 1 each 03/02/17 22:00 Lidoderm Patch Removal MC DAILY@2200 TOY Nifedipine 60 mg 03/01/17 22:00 03/02/17 09:02 Procardia Xl - PO 60 mg DAILY TOY Administration Potassium Chloride 20 meq 03/01/17 22:00 03/02/17 09:02 K-Dur - PO 20 meq DAILY TOY Administration Sitagliptin Phosphate 25 mg 03/02/17 07:00 03/02/17 06:05 Januvia - PO 25 mg DAILY@0700 TOY Administration Impression 1. CKD 2. anemia 3. CAD 4. HTN 5. DM 6. hyperlipidemia 7. active smoker 8. hemorrhoids 9. CHF diastolic failure 10. active smoker Plan- - renal function is improved today - hold potassium dose - repeat labs in am - GI eval - will follow - diuretics on hold Dr Espinoza
--- NOTE | 2017-03-02 18:29 | CON.CARD ---
Consult Consult Specialty:: Cardiology Referred by:: Dr. Rivers Reason for Consultation:: CHF and CAD - History of Present Illness Chief Complaint: Rectal bleeding with history of CAD and CHF. History of Present Illness: 61-year-old man, active smoker, with a PMHx of diabetes, hypertension, hyperlipidemia, systolic heart failure, coronary artery disease, s/p stenting, advanced CKD, previously admitted (09/22/2016) with acute systolic heart failure and treated for MRSA bacteremia admitted 03/01/2017 with rectal bleeding. The patient has been stable from cardiac stand point since last admission. He reports no chest pain, SOB at rest, palpitation, dizziness, syncope or near syncope. His exercise tolerance is mildly limited because of exertional SOB. He still can walk near one mile without exertional chest pain. Echo 10/01/2016 at [facility] showed inferolateral wall akinesis. Basal lateral wall akinesis. Basal inferior wall akinesis. Moderately decreased left ventricular ejection fraction. Estimated ejection fraction: 45%. Normal RV. Mild LA dilatation. Mild to moderate MR. - History Source History Provided By: Patient Limitations to Obtaining History: No Limitations - Past Medical History Cardio/Vascular: Yes: Aortic Insufficiency, CAD (prior PCI in 1999), HTN, Hyperlipdemia, Mitral Insufficiency Gastrointestinal: Yes: Hemorrhoids Hepatobiliary: Yes: Other (Reported "fatty liver") Renal/: Yes: Renal Inusuff Endocrine: Yes: Diabetes Mellitus - Alcohol/Substance Use Hx Alcohol Use: No History of Substance Use: reports: None - Smoking History Smoking history: Current some day smoker Have you smoked in the past 12 months: Yes Aproximately how many cigarettes per day: 8 - Social History Usual Living Arrangement: With Spouse Home Medications - Allergies Allergies/Adverse Reactions: Allergies Allergy/AdvReac Type Severity Reaction Status Date / Time No Known Allergies Allergy Verified 03/01/17 15:27 - Home Medications Home Medications: Ambulatory Orders Aspirin [Aspirin EC] 81 mg PO DAILY 05/31/16 Ezetimibe/Simvastatin [Vytorin 10-80 mg Tablet] 1 tab PO HS 05/31/16 Metoprolol Succinate [Toprol Xl] 50 mg PO TID 05/31/16 Calcitriol [Calcitriol -] 1 tab PO ASDIR 09/01/16 Hydralazine HCl [Apresoline -] 100 mg PO TID 09/01/16 Isosorbide Dinitrate [Isordil -] 20 mg PO TID tablet 09/30/16 Methyldopa [Aldomet -] 250 mg PO TID tablet 09/30/16 Furosemide [Lasix] 80 mg PO BID 11/20/16 Nifedipine ER [Procardia XL -] 1 tab PO BID 11/20/16 Review of Systems - Review of Systems Constitutional: reports: No Symptoms Eyes: reports: No Symptoms HENT: reports: No Symptoms Neck: reports: No Symptoms Cardiovascular: reports: Shortness of Breath Respiratory: reports: Exercise Intolerance, SOB on Exertion Gastrointestinal: reports: Rectal Bleeding Genitourinary: reports: No Symptoms Musculoskeletal: reports: No Symptoms - Risk Factors Known Risk Factors: Yes: Age, Diabetes Mellitus, Hypercholesterolemia, Hypertension, Smoking Vital Signs: Vital Signs Temperature 98.1 F 03/02/17 15:32 Pulse Rate 64 03/02/17 15:32 Respiratory Rate 18 03/02/17 15:32 Blood Pressure 144/83 03/02/17 15:32 O2 Sat by Pulse Oximetry (%) 97 03/02/17 09:00 Constitutional: Yes: Well Nourished, No Distress, Calm Eyes: Yes: Conjunctiva Clear, EOM Intact HENT: Yes: Atraumatic, Normocephalic Neck: Yes: Supple, Trachea Midline Respiratory: Yes: Regular, CTA Bilaterally Gastrointestinal: Yes: Normal Bowel Sounds, Soft, Abdomen, Obese Cardiovascular: Yes: Regular Rate and Rhythm JVD: No Carotid Bruit: No PMI: Non-Displaced Heart Sounds: Yes: S1, S2 Edema: Yes Edema: LLE: 1+, RLE: 1+ Peripheral Pulses WNL: Yes - Other Data Labs, Other Data: CBC, BMP 03/02/17 06:30 03/02/17 06:30 INR, PTT INR 1.09 (0.82-1.09) 03/01/17 17:10 Assessment/Plan 61-year-old man, active smoker, with a PMHx of diabetes, hypertension, hyperlipidemia, systolic heart failure, coronary artery disease, s/p stenting, advanced CKD, previously admitted (09/22/2016) with acute systolic heart failure and treated for MRSA bacteremia admitted 03/01/2017 with rectal bleeding. Mr. Bazzi has no symptoms of angina or CHF, except mild leg edema. Echo 10/01/2016 at [facility] showed inferolateral wall akinesis. Basal lateral wall akinesis. Basal inferior wall akinesis. Moderately decreased left ventricular ejection fraction. Estimated ejection fraction: 45%. Normal RV. Mild LA dilatation. Mild to moderate MR. 1) Systolic CHF secondary to ischemic cardiomyopathy with mild LV systolic dysfuntion with mild leg edema. Continue Lasix 80 mg BID. Continue metoprolol, hydralazine and Imdur. 2) CAD s/p stenting. Echo showed mild LV systolic dysfunction with regional wall motion abnormalities. He has no recurrent angina. Continue Atorvastatin and metoprolol. Resume aspirin 81 mg daily if rectal bleeding stable. We will see the patient again as needed. Please call us for reconsult as needed.
[2017-03-02 19:04] LABS: URINE LEUK ESTERASE Negative (NEGATIVE)
[2017-03-02] MEDS ORDERED: LIDOCAINE PATCH REMOVAL MC SCH (22:00)
[2017-03-02] MEDS: ATORVASTATIN CA 40 MG TABLET (FP) PO SCH (23:25)
[2017-03-03] MEDS ORDERED: PROPOFOL 20 ML ONE ×3 (07:21)
[2017-03-03] MEDS ORDERED: LIDOCAINE HCL/PF 2% SDV 5ML VIAL ONE (07:21)
[2017-03-03] MEDS: sitaGLIPtin PHOSPHATE 25 MG TABLET (FP) PO SCH (07:48)
[2017-03-03] MEDS: CYCLOBENZAPRINE HCL 10 MG TABLET (FP) PO SCH (07:48)
[2017-03-03] MEDS ORDERED: HYDROCORTISONE ACETATE 25 MG/SUPP.RECT PR SCH (08:00)
[2017-03-03] MEDS: INSULIN SLIDING SCALE (NOVOLOG) 1 VIAL SQ SCH (08:11)
[2017-03-03 09:36] LABS: ANION GAP 7 (8-16); CALCIUM 7.9 mg/dL (8.5-10.1); CO2 25 mmol/L (21-32); CREATININE 3.5 mg/dL (0.7-1.3); GLUCOSE,RANDOM 119 mg/dL (74-106)
[2017-03-03] MEDS ORDERED: ACETAMINOPHEN 325 MG TABLET (FP) PO PRN (09:38)
[2017-03-03] MEDS ORDERED: CALCITRIOL 0.25 MCG CAPSULE (FP) PO SCH ×2 (09:38→10:00)
[2017-03-03] MEDS ORDERED: ISOSORBIDE DINITRATE 20 MG TABLET (FP) PO SCH (09:38)
--- NOTE | 2017-03-03 09:40 | PN ---
Progress Note (short form) - Note Progress Note: Neurology History of Present Illness: 61-year-old male has multiple medical issues ncluding congestive heart failure, hypertension, type 2 diabetes, chronic kidney disease, obesity, presented with rectal bleeding and was admitted but was having neck pain since he was being moved on a table and felt a tweak in his neck and has been having neck stiffness since the occurrence. he does not have any weakness in his and does not have any sensory losses. He completed CT of the C spine and did not show any fractures or subluxation, there was sponydlosis and stensos noted. He was started on a muscle relaxant which has helped alleviate his symptoms. Can also use cold compresses or heat. Advised no fast neck movements or strain. Active Medications Acetaminophen (Tylenol -) 650 mg PO Q6H PRN PRN Reason: FEVER OR PAIN Last Admin: 03/02/17 23:24 Dose: 650 mg Atorvastatin Calcium (Lipitor -) 40 mg PO HS [facility] Last Admin: 03/02/17 23:25 Dose: 40 mg Calcitriol (Rocaltrol -) 0.25 mcg PO DAILY [facility] Last Admin: 03/02/17 09:02 Dose: 0.25 mcg Cyclobenzaprine HCl (Flexeril -) 5 mg PO TID [facility] Last Admin: 03/03/17 07:48 Dose: Not Given Hydralazine HCl (Apresoline -) 100 mg PO BID [facility] Last Admin: 03/02/17 23:25 Dose: 100 mg Hydrocortisone Acetate (Anusol Hc Suppository -) 25 mg NM HS [facility] Insulin Aspart (Novolog Vial Sliding Scale -) 1 vial SQ ACHS [facility] PRN Reason: Protocol Last Admin: 03/03/17 08:11 Dose: Not Given Isosorbide Mononitrate (Imdur -) 30 mg PO DAILY [facility] Last Admin: 03/02/17 09:02 Dose: 30 mg Lidocaine (Lidoderm Patch -) 1 patch TP DAILY [facility] Last Admin: 03/02/17 16:10 Dose: 1 patch Methyl Salicylate (Sahil-Watkins -) 1 applic TP DAILY [facility] Last Admin: 03/02/17 10:24 Dose: 1 applic Metoprolol Succinate (Toprol Xl -) 50 mg PO BID [facility] Last Admin: 03/02/17 23:24 Dose: 50 mg Miscellaneous (Lidoderm Patch Removal) 1 each MC DAILY@2200 [facility] Last Admin: 03/02/17 23:26 Dose: 1 each Nifedipine (Procardia Xl -) 60 mg PO DAILY [facility] Last Admin: 03/02/17 09:02 Dose: 60 mg Sitagliptin Phosphate (Januvia -) 25 mg PO DAILY@0700 [facility] Last Admin: 03/03/17 07:48 Dose: Not Given Physical Examination Vital Signs Period Temp Pulse Resp BP Sys/Farrell Pulse Ox Last 24 Hr 97.9 F-99.0 F 58-66 18-20 144-178/63-87 96-100 Gen: Awake, alert, responds to questions appropriately Card: RRR, nml S1,S2 Resp: Normal symmetric effort, lungs clear to auscultation Abdomen: Soft, nontender, bowel sounds active Musculoskeletal: Adequate range of motion without significant deformity Neuro Head atraumatic and normocephalic, stiffness of neck, limited range in motion CN: PERRL, EOMI intact, no apparent facial droop, no abnormalities in facial sensation, palate elevates, uvula and tongue midline Motor: Strength intact to confrontation in upper and lower extremities. Tone normal throughout Sensory: Intact to Temperature, light touch, and pinprick in all extremities Reflexes: 2+ biceps, brachioradialis, patellar, achillies Coordination: Intact on [id number] testing CT C spine reviewed Plan 61-year-old male has multiple medical issues ncluding congestive heart failure, hypertension, type 2 diabetes, chronic kidney disease, obesity, presented with rectal bleeding and was admitted has been having neck pain since he was being moved on a table and felt a tweak in his neck and has been having neck stiffness since the occurrence. he does not have any weakness in his and does not have any sensory losses. CT of C spine reviewed in detail Ordered for flexiril 5mg three times a day and reports feeling better cold compresses or heat can be continued Advised no fast neck movements or strain Lidocaine patch Monitor GI bleed, ongoing work up Blood pressure control Continue anti-HTN, maintain < 140/90
[2017-03-03] MEDS ORDERED: NIFEdipine E.R 60 MG TABLET (UD) PO SCH (10:00)
[2017-03-03] MEDS ORDERED: hydrALAZINE HCL 25 MG TABLET (FP) PO SCH (10:00)
[2017-03-03] MEDS ORDERED: LIDOCAINE 5% TOPICAL PATCH TP SCH (10:00)
[2017-03-03] MEDS ORDERED: METHYL SALICYLATE/MENTHOL OINT 30 GM TUBE TP SCH (10:00)
[2017-03-03] MEDS ORDERED: METOPROLOL SUCCINATE 50 MG TAB.SR.24H (FP) PO SCH ×2 (10:00→14:00)
[2017-03-03] MEDS ORDERED: ISOSORBIDE MONONITRATE 30 MG TAB.SR.24H (FP) PO SCH (10:00)
[2017-03-03] MEDS ORDERED: NIFEdipine E.R. 30 MG TABLET (FP) PO SCH ×2 (10:00)
[2017-03-03] MEDS ORDERED: ASPIRIN COATED 81 MG TABLET.EC PO SCH (10:00)
[2017-03-03] MEDS ORDERED: INSULIN SLIDING SCALE (NOVOLOG) 1 VIAL SQ SCH (11:00)
--- NOTE | 2017-03-03 11:07 | DS ---
Physical Examination Vital Signs: Vital Signs Temperature 99 F 03/03/17 08:21 Pulse Rate 60 03/03/17 08:21 Respiratory Rate 20 03/03/17 08:21 Blood Pressure 162/82 03/03/17 08:21 O2 Sat by Pulse Oximetry (%) 100 03/03/17 08:21 Constitutional: Yes: Well Nourished Eyes: Yes: WNL HENT: Yes: Nasal Congestion Neck: Yes: WNL Cardiovascular: Yes: WNL Respiratory: Yes: WNL Gastrointestinal: Yes: WNL Renal/: Yes: WNL Musculoskeletal: Yes: WNL Extremities: Yes: WNL Edema: Yes Peripheral Pulses WNL: Yes Integumentary: Yes: WNL Wound/Incision: Yes: Clean/Dry Neurological: Yes: WNL ...Motor Strength: WNL Psychiatric: Yes: WNL Labs: CBC, BMP 03/02/17 06:30 03/03/17 08:35 Discharge Summary Reason For Visit: RECTAL HEMORRHAGE Current Active Problems Muscle spasms of neck (Acute) Rectal bleeding (Acute) Procedures: Principal: COLONOSCOPY Other Procedures: CT SCAN CSPINE Hospital Course: ADMITTED FOR RECTAL BLEED, COLONOSCOPY DONE FOUND TO HAVE POLYPS, RESTART MEDS SEE DR ARCINIEGA FOR GI FOLLOW UP 1 WEEK Condition: Stable - Instructions Diet, Activity, Other Instructions: EVELIA SODIUM ADA Referrals: Aric Rivers MD [Primary Care Provider] - Disposition: HOME - Home Medications Comprehensive Discharge Medication List: Ambulatory Orders Aspirin [Aspirin EC] 81 mg PO DAILY 05/31/16 Ezetimibe/Simvastatin [Vytorin 10-80 mg Tablet] 1 tab PO HS 05/31/16 Metoprolol Succinate [Toprol Xl] 50 mg PO TID 05/31/16 Calcitriol [Calcitriol -] 1 tab PO ASDIR 09/01/16 Hydralazine HCl [Apresoline -] 100 mg PO TID 09/01/16 Isosorbide Dinitrate [Isordil -] 20 mg PO TID tablet 09/30/16 Methyldopa [Aldomet -] 250 mg PO TID tablet 09/30/16 Furosemide [Lasix] 80 mg PO BID 11/20/16 Nifedipine ER [Procardia XL -] 1 tab PO BID 11/20/16
--- NOTE | 2017-03-03 12:35 | PN ---
Progress Note, Physician History of Present Illness: Pt seen and examined at bedside. He went for endoscopy. He denies shortness of breath. - Current Medication List Current Medications: Active Medications Acetaminophen (Tylenol -) 650 mg PO Q6H PRN PRN Reason: FEVER OR PAIN Aspirin (Ecotrin -) 81 mg PO DAILY [facility] Last Admin: 03/03/17 12:16 Dose: 81 mg Atorvastatin Calcium (Lipitor -) 40 mg PO HS [facility] Calcitriol (Rocaltrol -) 0.25 mcg PO DAILY [facility] Last Admin: 03/03/17 09:40 Dose: 0.25 mcg Cyclobenzaprine HCl (Flexeril -) 5 mg PO TID [facility] Furosemide (Lasix -) 80 mg PO BIDLASIX [facility] Hydralazine HCl (Apresoline -) 100 mg PO BID [facility] Last Admin: 03/03/17 09:39 Dose: Not Given Hydralazine HCl (Apresoline -) 100 mg PO TID [facility] Hydrocortisone Acetate (Anusol Hc Suppository -) 25 mg [place] HS [facility] Insulin Aspart (Novolog Vial Sliding Scale -) 1 vial SQ ACHS [facility] PRN Reason: Protocol Last Admin: 03/03/17 12:17 Dose: Not Given Isosorbide Dinitrate (Isordil -) 20 mg PO TID [facility] Isosorbide Mononitrate (Imdur -) 30 mg PO DAILY [facility] Last Admin: 03/03/17 09:42 Dose: Not Given Lidocaine (Lidoderm Patch -) 1 patch TP DAILY [facility] Methyl Salicylate (Sahil-Watkins -) 1 applic TP DAILY [facility] Methyldopa (Aldomet -) 250 mg PO TID [facility] Metoprolol Succinate (Toprol Xl -) 50 mg PO BID [facility] Metoprolol Succinate (Toprol Xl -) 50 mg PO TID [facility] Miscellaneous (Lidoderm Patch Removal) 1 each MC DAILY@2200 [facility] Nifedipine (Procardia Xl -) 60 mg PO DAILY [facility] Last Admin: 03/03/17 09:42 Dose: Not Given Nifedipine (Procardia Xl -) 30 mg PO BID [facility] Non-Formulary Medication (Ezetimibe/Simvastatin [Vytorin 10-80 Mg Tablet]) 1 tab PO HS [facility] Sitagliptin Phosphate (Januvia -) 25 mg PO DAILY@0700 [facility] - Objective Vital Signs: Vital Signs Temperature 99 F 03/03/17 08:21 Pulse Rate 60 03/03/17 08:21 Respiratory Rate 20 03/03/17 08:21 Blood Pressure 162/82 03/03/17 08:21 O2 Sat by Pulse Oximetry (%) 100 03/03/17 08:21 Constitutional: Yes: Calm Eyes: Yes: Conjunctiva Clear HENT: Yes: Atraumatic Neck: Yes: Supple Cardiovascular: Yes: S1, S2 Respiratory: Yes: CTA Bilaterally Gastrointestinal: Yes: Soft Genitourinary: Yes: WNL Musculoskeletal: Yes: WNL Edema: LLE: Trace, RLE: Trace Neurological: Yes: Oriented Psychiatric: Yes: Oriented Labs: CBC, BMP 03/02/17 06:30 03/03/17 08:35 INR, PTT INR 1.09 (0.82-1.09) 03/01/17 17:10 Problem List - Problems (1) CHF (congestive heart failure) Code(s): I50.9 - HEART FAILURE, UNSPECIFIED Qualifiers: Congestive heart failure type: diastolic Congestive heart failure chronicity: acute on chronic Qualified Code(s): I50.33 - Acute on chronic diastolic (congestive) heart failure (2) Coronary artery disease Code(s): I25.10 - ATHSCL HEART DISEASE OF [place] CORONARY ARTERY W/O ANG PCTRS Qualifiers: Coronary Disease-Associated Artery/Lesion type: unspecified vessel or lesion type Associated angina: without angina (3) Diabetes 1.5, managed as type 2 Code(s): E10.9 - TYPE 1 DIABETES MELLITUS WITHOUT COMPLICATIONS (4) CKD (chronic kidney disease) Code(s): N18.9 - CHRONIC KIDNEY DISEASE, UNSPECIFIED (5) Rectal bleeding Code(s): K62.5 - HEMORRHAGE OF ANUS AND RECTUM (6) Muscle spasms of neck Code(s): M62.838 - OTHER MUSCLE SPASM Assessment/Plan Current Medications Generic Name Dose Route Start Last Admin Trade Name Freq PRN Reason Stop Dose Admin Acetaminophen 650 mg 03/03/17 09:38 Tylenol - PO Q6H PRN FEVER OR PAIN Aspirin 81 mg 03/03/17 10:00 03/03/17 12:16 Ecotrin - PO 81 mg DAILY [facility] Administration Atorvastatin Calcium 40 mg 03/03/17 22:00 Lipitor - PO HS [facility] Calcitriol 0.25 mcg 03/03/17 10:00 03/03/17 09:40 Rocaltrol - PO 0.25 mcg DAILY [facility] Administration Cyclobenzaprine HCl 5 mg 03/03/17 14:00 Flexeril - PO TID [facility] Furosemide 80 mg 03/03/17 14:00 Lasix - PO BIDLASIX [facility] Hydralazine HCl 100 mg 03/03/17 10:00 03/03/17 09:39 Apresoline - PO Not Given BID [facility] Hydralazine HCl 100 mg 03/03/17 14:00 Apresoline - PO TID [facility] Hydrocortisone Acetate 25 mg 03/03/17 08:00 Anusol Hc Suppository - [place] HS [facility] Insulin Aspart 1 vial 03/03/17 11:00 03/03/17 12:17 Novolog Vial Sliding Scale - SQ Not Given ACHS [facility] Protocol Isosorbide Dinitrate 20 mg 03/03/17 09:38 Isordil - PO TID [facility] Isosorbide Mononitrate 30 mg 03/03/17 10:00 03/03/17 09:42 Imdur - PO Not Given DAILY [facility] Lidocaine 1 patch 03/03/17 10:00 Lidoderm Patch - TP DAILY [facility] Methyl Salicylate 1 applic 03/03/17 10:00 Sahil-Watkins - TP DAILY [facility] Methyldopa 250 mg 03/03/17 14:00 Aldomet - PO TID [facility] Metoprolol Succinate 50 mg 03/03/17 10:00 Toprol Xl - PO BID [facility] Metoprolol Succinate 50 mg 03/03/17 14:00 Toprol Xl - PO TID [facility] Miscellaneous 1 each 03/03/17 22:00 Lidoderm Patch Removal MC DAILY@2200 [facility] Nifedipine 60 mg 03/03/17 10:00 03/03/17 09:42 Procardia Xl - PO Not Given DAILY [facility] Nifedipine 30 mg 03/03/17 10:00 Procardia Xl - PO BID [facility] Non-Formulary Medication 1 tab 03/03/17 22:00 Ezetimibe/Simvastatin [Vytorin 10-80 Mg Tablet] PO HS [facility] Sitagliptin Phosphate 25 mg 03/04/17 07:00 Januvia - PO DAILY@0700 [facility] Impression 1. CKD 2. anemia 3. CAD 4. HTN 5. DM 6. hyperlipidemia 7. active smoker 8. hemorrhoids 9. CHF diastolic failure 10. active smoker Plan - renal function stabilizing - stop fluids - resume home doses of diuretics - will see in office next week - renal diet - follow up with GI Dr Espinoza
[2017-03-03 13:09] VITALS: BP 158/87; PULSE 74; TEMP 98.4
[2017-03-03] MEDS ORDERED: CYCLOBENZAPRINE HCL 10 MG TABLET (FP) PO SCH (14:00)
[2017-03-03] MEDS ORDERED: hydrALAZINE HCL 10 MG TABLET PO SCH (14:00)
[2017-03-03] MEDS ORDERED: METHYLDOPA 250 MG TABLET PO SCH (14:00)
[2017-03-03] MEDS ORDERED: FUROSEMIDE 40 MG TABLET (FP) PO SCH (14:00)
[2017-03-03] MEDS ORDERED: LIDOCAINE PATCH REMOVAL MC SCH ×2 (22:00)
[2017-03-03] MEDS ORDERED: ATORVASTATIN CA 40 MG TABLET (FP) PO SCH (22:00)
[2017-03-04] MEDS ORDERED: sitaGLIPtin PHOSPHATE 25 MG TABLET (FP) PO SCH (07:00)
--- NOTE | 2017-03-04 11:45 | PATH ---
Surgical Pathology Report Patient Name: ALISTAIR BETANCUR [facility]. Rec. #: [id number] /Age/Gender: 1955 (Age: 61) / M Account: [id number] Location: [facility] MED/SURG Taken: 03/03/2017 Received: 03/03/2017 Reported: 03/04/2017 Physicians: Nils Krueger M.D. Specimen(s) Received A: BX HEPATIC FLEXURE B: POLYP MID SIGMOID Clinical History Rectal bleeding Mid sigmoid polyp, diminutive hepatic flexure polyp, large internal hemorrhoids Final Diagnosis A. COLON, HEPATIC FLEXURE, POLYPECTOMY: TUBULAR ADENOMA. B. COLON, MIDSIGMOID, POLYPECTOMY: TUBULAR ADENOMA. Comment: Recommend correlation with clinical findings and follow up as clinically indicated. Electronically Signed Harjeet Camacho M.D. Gross Description A. Received in formalin, labeled "biopsy hepatic flexure polyp" is a ruiz, irregular portion of soft tissue measuring 0.3 cm. in greatest dimension. The specimen is submitted in toto in one cassette. B. Received in formalin, labeled "polyp mid sigmoid" is a ruiz, polypoid portion of soft tissue measuring 0.5 cm. in greatest dimension. The specimen is submitted in toto in one cassette. 03/03/201703/03/2017
--- NOTE | 2017-03-05 11:53 | EKG ---
Test Reason : Blood Pressure : / mmHG Vent. Rate : 062 BPM Atrial Rate : 062 BPM P-R Int : 148 ms QRS Dur : 152 ms QT Int : 494 ms P-R-T Axes : 050 -72 092 degrees QTc Int : 501 ms NORMAL SINUS RHYTHM RIGHT BUNDLE BRANCH BLOCK LEFT ANTERIOR FASCICULAR BLOCK BIFASCICULAR BLOCK MODERATE VOLTAGE CRITERIA FOR LVH, MAY BE NORMAL VARIANT T WAVE ABNORMALITY, CONSIDER LATERAL ISCHEMIA ABNORMAL ECG Confirmed by CRISTY GIVENS MD ([id number]) on 03/05/2017 11:53:25 AM Referred By: Confirmed By:CRISTY GIVENS MD
== END 2017-03-03 13:44 | disposition home or self-care (01) | DRG 378 ==
LOC: JER 15:21 → JERBED 17:13 → J8W 18:35
PROVIDERS: ADMIT Family Medicine; ATTEND Family Medicine
PROC: 0DBL8ZX Excision of Transverse Colon, Via Natural or Artificial Opening Endoscopic, Diagnostic (ICD-10-PCS; 2017-03-03)
PROC: 0DBN8ZX Excision of Sigmoid Colon, Via Natural or Artificial Opening Endoscopic, Diagnostic (ICD-10-PCS; principal; 2017-03-03 07:15)
DX: K62.5 Hemorrhage of anus and rectum (principal); I13.0 Hypertensive heart and chronic kidney disease with heart failure and stage 1 through stage 4 chronic kidney disease, or unspecified chronic kidney disease; I50.20 Unspecified systolic (congestive) heart failure; E78.5 Hyperlipidemia, unspecified; I25.10 Atherosclerotic heart disease of native coronary artery without angina pectoris; K64.8 Other hemorrhoids; K76.0 Fatty (change of) liver, not elsewhere classified; F17.210 Nicotine dependence, cigarettes, uncomplicated; I08.0 Rheumatic disorders of both mitral and aortic valves; D50.0 Iron deficiency anemia secondary to blood loss (chronic); K63.5 Polyp of colon; I25.5 Ischemic cardiomyopathy; E66.8 Other obesity; Z68.37 Body mass index [BMI] 37.0-37.9, adult; M62.838 Other muscle spasm; E11.22 Type 2 diabetes mellitus with diabetic chronic kidney disease; N18.9 Chronic kidney disease, unspecified; Z71.6 Tobacco abuse counseling; Z95.5 Presence of coronary angioplasty implant and graft
CPT/HCPCS: 36415; 71020-TC; 72125-TC; 80048; 80053; 81003; 81015; 82272; 85025; 85027; 85610; 85730; 86850; 86900; 86901; 88305-TC; 93005; 93010; 99283-25